=== PATIENT | male | born 1945 | race Hispanic/Latino ===

== ENCOUNTER 2018-02-12 08:01 | Day surgery (SDC) | payer OTHER ==
[2018-02-09 12:36] LABS: Absolute Monocytes 0.7 K/uL (0.1-1.3); Absolute Neutrophil 4.8 K/uL (1.8-8.0); Eosinophils % 3.7 % (0-4.4); Hematocrit 48.6 % (39.6-49.0); MCH 27.8 pg (27.0-35.0); MCV 85.8 fL (80-100); MPV 9.3 fL (7.6-11.3); Monocytes % 9.2 % (3.3-12.3); RBC Red Blood Cell Count 5.67 M/uL (4.33-5.43)
--- NOTE | 2018-02-09 12:45 | RAD REPORT ---
EXAM DESCRIPTION: RAD - Chest Single View - 02/09/2018 12:34 pm CLINICAL HISTORY: Coronary artery disease. Chest pain. COMPARISON: Chest Pa And Lat (2 Views) dated 06/06/2017; CHEST SINGLE VIEW dated 03/15/2014; CHEST PA AND LAT 2 VIEW dated 04/12/2003 FINDINGS: Portable technique limits examination quality. The lungs are grossly clear. The heart is normal in size. No displaced fractures. IMPRESSION: No acute intrathoracic process suspected.
[2018-02-09 12:49] LABS: Protime INR 1.01
[2018-02-09 12:58] LABS: Potassium 3.7 mmol/L (3.5-5.1)
[~2018-02-12 08:01] MED LIST: HEPA 1000U/500MLS 1,000 UNIT/500 ML BAG IV ONE; LIDOCAINE 1% 20 ML MDV ONE; NA CHLORIDE 0.9% 500 ML ONE
[2018-02-12] MEDS ORDERED: MIDAZOLAM HCL 2 MG/2 ML INJ ONE (08:20)
[2018-02-12] MEDS ORDERED: ATROPINE SULF 1 MG/10 ML SYR IV ONE (08:21)
[2018-02-12] MEDS ORDERED: NA CHLORIDE 0.9% 50 ML ONE (08:21)
[2018-02-12] MEDS ORDERED: FENTANYL CITR 100 MCG/2 ML ONE (08:21)
[2018-02-12] MEDS ORDERED: MORPHINE 4 MG/ML SYR ONE (09:11)
[2018-02-12] MEDS ORDERED: PRASUGREL (EFFIENT) 10 MG TAB ONE (09:12)
[2018-02-12] MEDS ORDERED: ASPIRIN 325 MG TAB ONE (09:15)
[2018-02-12] MEDS ORDERED: NA CHLORIDE 0.9% 1,000 ML IV SCH (10:00)
[2018-02-12] MEDS ORDERED: ZOLPIDEM TARTRATE 10 MG TABLET PO PRN (10:37)
[2018-02-12] MEDS ORDERED: MORPHINE 4 MG/ML SYR IV PRN (10:37)
[2018-02-12] MEDS ORDERED: ACETAMINOPHEN 325 MG TABLET PO PRN (11:00)
[2018-02-12] MEDS ORDERED: NITROGLYCERIN 0.4 MG/TAB SL PRN (11:00)
[2018-02-12 11:23] VITALS: BMI 36.8
[2018-02-12] MEDS ORDERED: PNEUMOCOCCAL VACCINE 0.5 ML IMVAC ONE (13:00)
[2018-02-12 14:21] VITALS: O2SAT 95
--- NOTE | 2018-02-12 15:47 | OP ---
Surgeon: Dillon Rosado MD Shingles Roofer Helper: Edita Schaffer. Procedure: Left heart catheterization, selective coronary arteriogram, and primary stent of the LAD. Indication: Unstable angina and positive stress test and coronary artery disease. Indications And Procedure: Mr. Metcalf is a 72-year-old, has a history of hypertension, dyslipidemi a, diabetes, coronary artery disease that was [id number] in 2002, unstable anginal symptoms, po sitive Cardiolite, set up for a heart catheterization as an outpatient, brought into the fence laborer, gi shelley 2 mg of Versed and 50 mg of fentanyl for sedation. A right common femoral artery access was obta ined with a 6-Thai sheath. There was some tortuosity in the iliac artery. Otherwise, there were n o difficulties getting the catheters through. Diagnostic catheterization showed 100% occlusion of th e RCA, left dominant. He has some diffuse disease in the distal circumflex. He had a 90% mid LAD. The plan was to intervene and use an XBLAD 3.5 with side-hole guide, a [place] wire 0.014, exchange le ngth. A 2.25 x 12 Synergy stent was deployed with 0% residual. There were no complications. Blood loss was 5 cc. Final Diagnoses: Coronary artery disease status post primary stent of the LAD. The patient received Angiomax, aspirin, and Effient 60 mg. Operators: Dillon Rosado M.D. Anesthesia: Conscious sedation was 45 minutes. Plan: The patient will be staying in the hospital overnight. He will go home tomorrow. He will inc rease his Pravachol to 80 mg daily. He will start Effient in addition to his medication and he will see me in 2 weeks. OSVALDO/JAMEEL Voice ID: [id number] Report ID: [id number]
[2018-02-12 18:17] LABS: Urine Appearance CLEAR; Urine Bilirubin NEGATIVE (NEG); Urine Blood 1+ (NEG); Urine Color YELLOW; Urine Glucose TRACE (NEG); Urine Protein NEGATIVE (NEG); Urine Specific Gravity >=1.030 (1.005-1.030); Urine Urobilinogen 0.2 mg/dL (0.2-1.0)
[2018-02-12 18:20] LABS: Urine Microscopic Reflex ORDER UMIC
[2018-02-12 18:32] LABS: Urine Bacteria <20 /HPF (NONE SEEN); Urine Culture Reflex Order NOT NEEDED; Urine RBC <5 /HPF (NONE SEEN)
[2018-02-12] MEDS ORDERED: ATORVASTATIN 80 MG TAB PO SCH (21:00)
[2018-02-12] MEDS ORDERED: D50W 25 GM/50 ML SYRINGE IV PRN (22:52)
[2018-02-12] MEDS ORDERED: GLUCAGON 1 MG/VIAL IM PRN (22:52)
[2018-02-13 05:47] LABS: Absolute Monocytes 0.7 K/uL (0.1-1.3); Basophils % 0.8 % (0-1.3); Eosinophils % 2.1 % (0-4.4); Hematocrit 42.5 % (39.6-49.0); MCH 28.5 pg (27.0-35.0); MCV 84.8 fL (80-100); MPV 9.4 fL (7.6-11.3); Monocytes % 7.4 % (3.3-12.3); RBC Red Blood Cell Count 5.02 M/uL (4.33-5.43)
[2018-02-13 06:01] LABS: Potassium 3.5 mmol/L (3.5-5.1)
[2018-02-13 08:35] VITALS: BP 117/80; TEMP 97.3
[2018-02-13] MEDS ORDERED: PRASUGREL (EFFIENT) 10 MG TAB PO SCH (09:00)
[2018-02-13] MEDS ORDERED: INSULIN DETEMIR 100 UNIT/1 ML INSULIN SQ SCH (09:00)
[2018-02-13] MEDS ORDERED: ASPIRIN 81 MG CHEWABLE TABLET PO SCH (09:00)
--- NOTE | 2018-02-13 09:22 | EKG ---
Test Date: 2018-02-13 Test Time: 08:06:53 [place]: MEGA MEASUREMENT RESULTS: Intervals: Rate: 59 IN: 176 QRSD: 124 QT: 466 QTc: 461 [place]: P: 41 IN: 176 QRS: -67 T: 71 INTERPRETIVE STATEMENTS: Sinus bradycardia Left anterior fascicular block Abnormal ECG Compared to ECG 10/02/2015 09:43:01 T-wave abnormality no longer present Electronically Signed On 02-13-18 09:22:34 CDT by Kyle Santiago
== END 2018-02-13 08:57 | disposition home or self-care (01) ==
LOC: CCL 08:01 → 4TH 09:15 → 2ND 18:45 → CCL 02-13 08:57
PROC: 4A023N7 Measurement of Cardiac Sampling and Pressure, Left Heart, Percutaneous Approach (ICD-10-PCS; principal; 2018-02-12)
PROC: B211YZZ Fluoroscopy of Multiple Coronary Arteries using Other Contrast (ICD-10-PCS; 2018-02-12)
PROC: 027034Z Dilation of Coronary Artery, One Artery with Drug-eluting Intraluminal Device, Percutaneous Approach (ICD-10-PCS; 2018-02-12)
PROC: 4A023N7 Measurement of Cardiac Sampling and Pressure, Left Heart, Percutaneous Approach (ICD-10-PCS; 2018-02-12)
PROC: B211YZZ Fluoroscopy of Multiple Coronary Arteries using Other Contrast (ICD-10-PCS; 2018-02-12)
DX: I25.110 Atherosclerotic heart disease of native coronary artery with unstable angina pectoris (principal); E78.5 Hyperlipidemia, unspecified; Z87.891 Personal history of nicotine dependence; I12.9 Hypertensive chronic kidney disease with stage 1 through stage 4 chronic kidney disease, or unspecified chronic kidney disease; E11.22 Type 2 diabetes mellitus with diabetic chronic kidney disease; N18.1 Chronic kidney disease, stage 1; E78.6 Lipoprotein deficiency; R01.1 Cardiac murmur, unspecified; Z79.4 Long term (current) use of insulin
CPT/HCPCS: 36415 ×2; 71045; 80048 ×2; 82962 ×2; 83690; 85025 ×2; 85347 ×3; 85610; 85730; 93005; 93454; C1725; C1760; C1877; C1893; C9600; J0583; J2250; J3010; 81003; 81015

== ENCOUNTER 2019-04-05 23:03 | Emergency (ER) | payer OTHER ==
[2019-04-06] MEDS ORDERED: TRAMADOL HCL 50 MG TAB ONE (00:50)
[2019-04-06] MEDS ORDERED: IBUPROFEN 400 MG TAB ONE (00:50)
[2019-04-06] MEDS ORDERED: ACETAMINOPHEN 500 MG TAB ONE (00:51)
--- NOTE | 2019-04-06 00:53 | ER ---
Nurse's Notes [facility] Name: Valentino Metcalf Age: 73 yrs Sex: Male : 1945 Arrival Date: 04/05/2019 Time: 23:09 Bed 27 Private MD: Diagnosis: Cough;Other chest pain-left lower ribs from coughing Presentation: 04/05 23:33 Presenting complaint: Patient states: I have persistent cough for days now. after rv supper, I am hurting my side (LUQ). pain is when I cough or move. Transition of care: patient was not received from another setting of care. Onset of symptoms was April 05, 2019 at 18:00. Risk Assessment: Do you want to hurt yourself or someone else? Patient reports no desire to harm self or others. Initial Sepsis Screen: Does the patient meet any 2 criteria? No. Patient's initial sepsis screen is negative. Does the patient have a suspected source of infection? No. Patient's initial sepsis screen is negative. Care prior to arrival: None. 23:33 Method Of Arrival: Ambulatory rv 23:33 Acuity: LYNDSEY 3 rv Historical: - Allergies: 23:41 No Known Allergies; rv - Home Meds: 04/06 00:07 Protonix 40 mg Oral TbEC 1 tab once daily [Active]; glipizide 10 mg Oral tab 1 tab 2 rv times per day [Active]; levothyroxine 100 mcg tab 1 tab once daily [Active]; losartan 100 mg oral tab 1 tab once daily [Active]; metoprolol tartrate 50 mg Oral tab 1 tab 2 times per day [Active]; pravastatin 40 mg oral tab 2 tabs once daily [Active]; aspirin 81 mg Oral chew 1 tab once daily [Active]; clopidogrel 75 mg oral tab 1 tab once daily [Active]; Lantus 100 unit/mL Sub-Q soln 100 unit/mL twice a day [Active]; nitroglycerin 0.4 mg SL subl 1 tab as needed [Active]; - PMHx: 04/05 23:41 Hypertension; Diabetes - NIDDM; Arthritis; rv - PSHx: 23:41 Knee surgery; back surgery; rv - Immunization history:: Adult Immunizations up to date. - Social history:: Smoking status: Patient/guardian denies using tobacco, never smoked. - Ebola Screening: : No symptoms or risks identified at this time. Screenin:43 Abuse screen: Denies threats or abuse. Denies injuries from another. Nutritional rv screening: No deficits noted. Tuberculosis screening: No symptoms or risk factors identified. Fall Risk None identified. Assessment: 23:41 General: Appears in no apparent distress. uncomfortable, Behavior is calm, cooperative. rv Pain: Complains of pain in left upper quadrant. Pain: Pain currently is 10 out of 10 on a pain scale. Quality of pain is described as sharp, Pain began suddenly, Is intermittent, Aggravated by cough and movement. Neuro: Level of Consciousness is awake, alert, obeys commands, Oriented to person, place, time, situation. Cardiovascular: Patient's skin is warm and dry. Respiratory: Airway is patent. GI: Bowel sounds present X 4 quads. Abd is soft and non tender X 4 quads. : No signs and/or symptoms were reported regarding the genitourinary system. EENT: No signs and/or symptoms were reported regarding the EENT system. Derm: Skin is intact. Musculoskeletal: No signs and/or symptoms reported regarding the musculoskeletal system. Vital Signs: 23:35 BP 142 / 83; Pulse 66; Resp 17; Temp 97.9; Pulse Ox 98% on R/A; Weight 110.68 kg; rv Height 5 ft. 8 in. (172.72 cm); Pain 10/10; 04/06 01:22 BP 136 / 84; Pulse 64; Resp 15; Temp 98; Pulse Ox 99% on R/A; rv 04/05 23:35 Body Mass Index 37.10 (110.68 kg, 172.72 cm) rv ED Course: 04/05 23:09 Patient arrived in ED. ag3 23:25 Jass Clemente PA is PHCP. cp 23:25 Jass Muro MD is Attending Physician. cp 23:33 Cj Kim RN is Primary Nurse. rv 23:35 Triage completed. rv 23:43 Patient has correct armband on for positive identification. Bed in low position. Call rv light in reach. Side rails up X 1. Adult w/ patient. Pulse ox on. NIBP on. 23:43 Patient placed in the treatment room, on a stretcher, on pulse oximetry, Patient rv notified of wait time. 04/06 01:18 XRAY Chest Pa And Lat (2 Views) In Process Unspecified. EDMS 01:22 No provider procedures requiring assistance completed. Patient did not have IV access rv during this emergency room visit. Administered Medications: 00:59 Drug: traMADol 50 mg {Note: rass 0.} Route: PO; rv 01:21 Follow up: Response: Medication administered at discharge. rv 00:59 Drug: Tylenol 1000 mg Route: PO; rv 01:21 Follow up: Response: Medication administered at discharge. rv 00:59 Drug: Ibuprofen 800 mg Route: PO; rv 01:21 Follow up: Response: Medication administered at discharge. rv Outcome: 00:42 Discharge ordered by MD. cp 01:24 Discharged to home ambulatory. rv 01:24 Condition: good 01:24 Discharge instructions given to patient, Instructed on discharge instructions, follow up and referral plans. medication usage, Demonstrated understanding of instructions, follow-up care, medications, Prescriptions given X 3. 01:25 Patient left the ED. rv Signatures: Dispatcher [employer] EDMS Jass Clemente PA PA cp Vicente, Ronaldo, RN RN Carmina Laguna3
--- NOTE | 2019-04-06 00:55 | EDPHYS ---
Physician Documentation [facility] Name: Valentino Metcalf Age: 73 yrs Sex: Male : 1945 Arrival Date: 04/05/2019 Time: 23:09 Bed 27 Private MD: ED Physician Jass Muro HPI: 04/05 23:39 This 73 yrs old Male presents to ER via Ambulatory with complaints of left cp lower rib pain. 23:40 The patient or guardian reports chest pain that is located primarily in the left lower cp rib area. 23:41 Onset: tonight after dinner. Modifying factors: the symptoms are aggravated by cough, cp movement. 23:41 Associated signs and symptoms: Pertinent negatives: diaphoresis, lower extremity pain, cp lower extremity swelling, shortness of breath, vomiting, fever. Historical: - Allergies: 23:41 No Known Allergies; rv - Home Meds: 04/06 00:07 Protonix 40 mg Oral TbEC 1 tab once daily [Active]; glipizide 10 mg Oral tab 1 tab 2 rv times per day [Active]; levothyroxine 100 mcg tab 1 tab once daily [Active]; losartan 100 mg oral tab 1 tab once daily [Active]; metoprolol tartrate 50 mg Oral tab 1 tab 2 times per day [Active]; pravastatin 40 mg oral tab 2 tabs once daily [Active]; aspirin 81 mg Oral chew 1 tab once daily [Active]; clopidogrel 75 mg oral tab 1 tab once daily [Active]; Lantus 100 unit/mL Sub-Q soln 100 unit/mL twice a day [Active]; nitroglycerin 0.4 mg SL subl 1 tab as needed [Active]; - PMHx: 04/05 23:41 Hypertension; Diabetes - NIDDM; Arthritis; rv - PSHx: 23:41 Knee surgery; back surgery; rv - Immunization history:: Adult Immunizations up to date. - Social history:: Smoking status: Patient/guardian denies using tobacco, never smoked. - Ebola Screening: : No symptoms or risks identified at this time. ROS: 23:50 Constitutional: Negative for body aches, chills, fever, poor PO intake. cp 23:50 Eyes: Negative for injury, pain, redness, and discharge. cp 23:50 ENT: Positive for sore throat, Negative for drainage from ear(s), ear pain, difficulty swallowing, difficulty handling secretions. 23:50 Cardiovascular: Positive for left lower rib pain, Negative for edema, palpitations. 23:50 Respiratory: Positive for cough, "sounds productive", Negative for hemoptysis, shortness of breath, wheezing. 23:50 Abdomen/GI: Negative for vomiting, diarrhea, constipation, black/tarry stool, rectal bleeding. 23:50 Back: Negative for pain at rest, pain with movement. 23:50 : Negative for urinary symptoms, flank pain. 23:50 Skin: Negative for rash. 23:50 Neuro: Negative for altered mental status, headache, syncope, weakness. 23:50 All other systems are negative. Exam: 23:55 Constitutional: The patient appears in no acute distress, alert, awake, cp non-diaphoretic, non-toxic, well developed, well nourished. 23:55 Head/Face: Normocephalic, atraumatic. cp 23:55 Eyes: Periorbital structures: appear normal, Conjunctiva: normal, no exudate, no injection, Sclera: no appreciated abnormality, Lids and lashes: appear normal, bilaterally. 23:55 ENT: External ear(s): are unremarkable, Ear canal(s): are normal, clear, TM's: bulging, is not appreciated, bilaterally, dullness, bilaterally, erythema, is not appreciated, bilaterally, Nose: is normal, Mouth: Lips: moist, Oral mucosa: pink and intact, moist, Posterior pharynx: Airway: no evidence of obstruction, patent, erythema, that is mild, exudate, is not appreciated. 23:55 Neck: ROM/movement: is normal, is supple, without pain, no range of motions limitations, no nuchal rigidity. 23:55 Chest/axilla: Inspection: normal, Palpation: crepitus, is not appreciated, tenderness, that is mild, of the left lower lateral ribs. 23:55 Cardiovascular: Rate: normal, Rhythm: regular, Edema: is not appreciated, JVD: is not appreciated. 23:55 Respiratory: the patient does not display signs of respiratory distress, Respirations: normal, no use of accessory muscles, no retractions, no splinting, no tachypnea, labored breathing, is not present, Breath sounds: are clear throughout, no decreased breath sounds, no stridor, no wheezing. 23:55 Abdomen/GI: Inspection: abdomen appears normal, Palpation: abdomen is soft and non-tender, in all quadrants. 23:55 Back: pain, is absent, ROM is normal. 23:55 Skin: no rash present. 23:55 Neuro: Orientation: to person, place \\T\\ time. Mentation: is normal, Motor: moves all fours, strength is normal. Vital Signs: 23:35 BP 142 / 83; Pulse 66; Resp 17; Temp 97.9; Pulse Ox 98% on R/A; Weight 110.68 kg; rv Height 5 ft. 8 in. (172.72 cm); Pain 10; 04/06 01:22 BP 136 / 84; Pulse 64; Resp 15; Temp 98; Pulse Ox 99% on R/A; rv 04/05 23:35 Body Mass Index 37.10 (110.68 kg, 172.72 cm) rv MDM: 04/05 23:26 Patient medically screened. cp 23:30 Differential diagnosis: acute myocardial infarction, chest wall pain, costochondritis, cp pleurisy, pneumonia, pulmonary embolus, rib fracture. 04/06 00:41 Data reviewed: vital signs, nurses notes, radiologic studies, plain films. cp 00:41 Test interpretation: by ED physician or midlevel provider: chest xray negative for cp infiltrates. Response to treatment: the patient's symptoms have markedly improved after treatment, and as a result, I will discharge patient. 04/05 23:52 Order name: Strep cp 04/05 23:42 Order name: XRAY Chest Pa And Lat (2 Views) cp Administered Medications: 00:59 Drug: traMADol 50 mg {Note: rass 0.} Route: PO; rv 01:21 Follow up: Response: Medication administered at discharge. rv 00:59 Drug: Tylenol 1000 mg Route: PO; rv 01:21 Follow up: Response: Medication administered at discharge. rv 00:59 Drug: Ibuprofen 800 mg Route: PO; rv 01:21 Follow up: Response: Medication administered at discharge. rv Disposition: 07:13 Co-signature as Attending Physician, Jass Muro MD I agree with the assessment and henry plan of care. Disposition: 04/06/19 00:42 Discharged to Home. Impression: Cough, Other chest pain - left lower ribs from coughing. - Condition is Stable. - Discharge Instructions: Cough, Adult. - Prescriptions for Tessalon Perles 100 mg Oral Capsule - take 2 capsule by ORAL route every 8 hours As needed; 30 capsule. Ibuprofen 800 mg Oral Tablet - take 1 tablet by ORAL route every 8 hours As needed take with food; 30 tablet. - Medication Reconciliation Form, Thank You Letter, Antibiotic Education, Prescription Opioid Use form. - Follow up: Private Physician; When: 1 - 2 days; Reason: Worsening of condition. - Problem is new. - Symptoms have improved. Signatures: Dispatcher [employer] EDJass Miranda MD MD cha Page, Corey, PA PA Cj Ramirez, RN RN rv Corrections: (The following items were deleted from the chart) 04/05 23:41 23:40 Onset: cp shayla 04/06 01:25 00:42 04/06/2019 00:42 Discharged to Home. Impression: Cough; Other chest pain - left rv lower ribs from coughing. Condition is Stable. Forms are Medication Reconciliation Form, Thank You Letter, Antibiotic Education, Prescription Opioid Use. Follow up: Private Physician; When: 1 - 2 days; Reason: Worsening of condition. Problem is new. Symptoms have improved. cp
[2019-04-06 01:33] VITALS: BP 136/84; TEMP 98; O2SAT 99
--- NOTE | 2019-04-06 08:06 | RAD REPORT ---
EXAM DESCRIPTION: RAD - Chest Pa And Lat (2 Views) - 04/06/2019 12:24 am CLINICAL HISTORY: left lower rib pain;Cough Chest pain. COMPARISON: Chest Pa And Lat (2 Views) dated 11/11/2018; Chest Single View dated 02/09/2018; Chest Pa And Lat (2 Views) dated 06/06/2017; CHEST SINGLE VIEW dated 03/15/2014 FINDINGS: The lungs are clear. The heart is normal in size. No displaced fractures. IMPRESSION: No acute or concerning finding suspected.
== END 2019-04-06 01:25 | disposition home or self-care (01) ==
LOC: ER 23:03
DX: R05 Cough (principal); I10 Essential (primary) hypertension; E11.9 Type 2 diabetes mellitus without complications; Z79.4 Long term (current) use of insulin; Z79.82 Long term (current) use of aspirin
CPT/HCPCS: 71046; 87070; 87081; 99284

== ENCOUNTER 2020-05-28 11:31 | Observation (INO) | payer OTHER ==
[2020-05-28 12:21] LABS: Absolute Lymphocytes (CBC) 1.2 K/uL (0.7-4.9); Basophils % 1.2 % (0-1.3); Lymphocytes % 16.5 % (15.3-44.8); MPV 9.3 fL (7.6-11.3); RBC Red Blood Cell Count 5.21 M/uL (4.33-5.43)
[2020-05-28 12:25] LABS: Protime INR 1.02
[2020-05-28 12:40] LABS: ALT/SGPT 34 U/L (12-78); AST/SGOT 17 U/L (15-37); Albumin 3.3 g/dL (3.4-5.0); Alkaline Phosphatase 67 U/L (45-117); BUN Blood Urea Nitrogen 25 mg/dL (7-18); Bicarbonate 31 mmol/L (21-32); Bilirubin Direct 0.3 mg/dL (0-0.2); Bilirubin Total 1.1 mg/dL (0.2-1.0); Glucose Level 258 mg/dL (74-106); Magnesium 2.3 mg/dL (1.8-2.4); NT PRO-BNP 99 pg/mL (<125); Potassium 4.2 mmol/L (3.5-5.1); Protein, Total 7.4 g/dL (6.4-8.2); Sodium Level 140 mmol/L (136-145); Troponin (Emerg Dept Use Only) < 0.02 ng/mL (0.0-0.045)
--- NOTE | 2020-05-28 12:57 | RAD REPORT ---
EXAM DESCRIPTION: RAD - Chest Single View - 05/28/2020 12:10 pm CLINICAL HISTORY: CHEST PAIN, shortness of breath COMPARISON: March 2019 TECHNIQUE: AP portable chest image was obtained 05/28/2020 12:10 pm . FINDINGS: Lung volume is low. Interstitial markings are accentuated by the low lung volumes. No foca l lung parenchymal process seen. Heart and vasculature are normal. No measurable pleural effusion and no pneumothorax. No acute bony abnormality seen. No acute aortic findings suspected. IMPRESSION: No acute cardiopulmonary process. No worrisome change from comparison.
--- NOTE | 2020-05-28 13:15 | EDPHYS ---
Physician Documentation [facility] Name: Valentino Metcalf Age: 74 yrs Sex: Male : 1945 Arrival Date: 05/28/2020 Time: 11:33 Bed 7 Private MD: ED Physician Alistair Guy HPI: 05/28 11:40 This 74 yrs old Male presents to ER via Unassigned with complaints of Chest ps1 Pain. 11:40 Hx of CAD s/p stenting, (Baradhi), HTN, HLD, IDDM2, Presenting with substernal ps1 non-radiating chest pain that started at 0400. States that he took a nitro. Pain rated at a 5 now. Was associated with diaphoresis. Since improved. . Historical: - Allergies: 11:45 No Known Allergies; ll1 - PMHx: 11:45 Arthritis; Diabetes - NIDDM; Hypertension; Hypothyroidism; High Cholesterol; ll1 - PSHx: 11:45 Knee surgery; back surgery; heart stent; cataract repair; ll1 - Immunization history:: Flu vaccine is not up to date. - Social history:: Smoking status: Patient denies any tobacco usage or history of. ROS: 11:40 Constitutional: Negative for fever, chills, and weight loss, Eyes: Negative for injury, ps1 pain, redness, and discharge, Respiratory: Negative for shortness of breath, cough, wheezing, and pleuritic chest pain, Abdomen/GI: Negative for abdominal pain, nausea, vomiting, diarrhea, and constipation, MS/Extremity: Negative for injury and deformity, Skin: Negative for injury, rash, and discoloration. 11:40 Cardiovascular: Positive for chest pain, of the chest. Exam: 11:43 Constitutional: This is a well developed, well nourished patient who is awake, alert, ps1 and in no acute distress. Head/Face: Normocephalic, atraumatic. Eyes: Pupils equal round and reactive to light, extra-ocular motions intact. Lids and lashes normal. Conjunctiva and sclera are non-icteric and not injected. Cardiovascular: Regular rate and rhythm. No gallops, murmurs, or rubs. Normal PMI, no JVD. No pulse deficits. Respiratory: Lungs have equal breath sounds bilaterally, clear to auscultation and percussion. No rales, rhonchi or wheezes noted. No increased work of breathing, no retractions or nasal flaring. Abdomen/GI: Soft, non-tender, with normal bowel sounds. No distension or tympany. No guarding or rebound. No evidence of tenderness throughout. Skin: Warm, dry with normal turgor. Normal color with no rashes, no lesions, and no evidence of cellulitis. MS/ Extremity: Pulses equal, no cyanosis. Neurovascular intact. Full, normal range of motion. Neuro: Awake and alert, GCS 15, oriented to person, place, time, and situation. Cranial nerves II-XII grossly intact. Sensory grossly intact. 11:43 Skin: post surgical scar on left knee.. Vital Signs: 11:43 BP 155 / 71; Pulse 61; Resp 18; Temp 97.9; Pulse Ox 100% ; Pain 5/10; ll1 12:55 BP 154 / 83; Pulse 58; Resp 17; Pulse Ox 96% on R/A; hb 14:00 BP 119 / 65; Pulse 56; Resp 16; Pulse Ox 96% ; sv MDM: 11:45 Patient medically screened. ps1 05/28 11:52 Order name: Basic Metabolic Panel; Complete Time: 12:41 ps1 05/28 11:52 Order name: CBC with Diff; Complete Time: 12:34 ps1 05/28 11:52 Order name: LFT's; Complete Time: 12:41 ps1 05/28 11:52 Order name: Magnesium; Complete Time: 12:41 ps1 05/28 11:52 Order name: NT PRO-BNP; Complete Time: 12:41 ps1 05/28 11:52 Order name: PT-INR; Complete Time: 12:34 ps1 05/28 11:52 Order name: Troponin (emerg Dept Use Only); Complete Time: 12:41 ps1 05/28 13:27 Order name: Basic Metabolic Panel EDMS 05/28 13:27 Order name: Basic Metabolic Panel EDMS 05/28 13:27 Order name: CBC with Automated Diff EDMS 05/28 13:27 Order name: CBC with Automated Diff EDMS 05/28 13:27 Order name: Lipid Profile EDMS 05/28 13:27 Order name: Lipid Profile EDMS 05/28 13:27 Order name: PTT, Activated Partial Thromb EDMS 05/28 11:52 Order name: XRAY Chest (1 view); [facility]: [facility] 11:52 Order name: EKG; Complete Time: 11:53 [facility] 05/28 11:52 Order name: Cardiac monitoring; Complete Time: 12:10 [facility] 05/28 11:52 Order name: EKG - Nurse/Tech; Complete Time: 11:59 ps1 05/28 11:52 Order name: IV Saline Lock; Complete Time: 12:10 [facility] 05/28 11:52 Order name: Labs collected and sent; Complete Time: 12:10 [facility] 05/28 11:52 Order name: O2 Per Protocol; Complete Time: 11:59 [facility] 05/[facility] 13:27 Order name: CONS Physician Consult EDMN 05/28 13:27 Order name: Heart Healthy EDMN 05/28 13:27 Order name: Echo with Doppler EDMN 05/28 13:27 Order name: EKG Electrocardiogram EDMN 05/28 13:27 Order name: EKG Electrocardiogram [facility] 05/28 13:27 Order name: PTT, Activated Partial Thromb EDMN 05/28 13:27 Order name: Troponin I EDMN 05/28 13:27 Order name: Troponin I EDMN 05/28 13:27 Order name: Troponin I EDMN 05/28 11:52 Order name: O2 Sat Monitoring; Complete Time: 11:59 ps1 Administered Medications: No medications were administered Disposition: 05/28/20 13:15 Hospitalization ordered by Vinayak Villarreal for Observation. Preliminary diagnosis is Unstable angina. - Bed requested for Telemetry/MedSurg (observation). - Status is Observation. sv - Condition is Stable. - Problem is new. - Symptoms have improved. Signatures: Dispatcher [employer] EDMS Sammie Taylor, RN RN sv Aislinn Bowman RN RN tl1 Anne Valenzuela 3 Alistair Guy MD MD ps1 Nicanor Ardon RN RN ll1 Corrections: (The following items were deleted from the chart) 14:03 13:15 Hospitalization Ordered by Vinayak Villarreal MD for Observation. Preliminary [facility] diagnosis is Unstable angina. Bed requested for Telemetry/MedSurg (observation). Status is Observation. Condition is Stable. Problem is new. Symptoms have improved. ps1 14:04 14:03 05/28/2020 13:15 Hospitalization Ordered by Vinayak Villarreal MD for Observation. tl1 Preliminary diagnosis is Unstable angina. Bed requested for Telemetry/MedSurg (observation). Status is Observation. Condition is Stable. Problem is new. Symptoms have improved. dh3 14:39 14:04 05/28/2020 13:15 Hospitalization Ordered by Vinayak Villarreal MD for Observation. sv Preliminary diagnosis is Unstable angina. Bed requested for Telemetry/MedSurg (observation). Status is Observation. Condition is Stable. Problem is new. Symptoms have improved. tl1
--- NOTE | 2020-05-28 13:15 | ER ---
Nurse's Notes [facility] Name: Valnetino Metcalf Age: 74 yrs Sex: Male : 1945 Arrival Date: 05/28/2020 Time: 11:33 Bed 7 Private MD: Diagnosis: Unstable angina Presentation: 05/28 11:43 Chief complaint: Patient states: Reports feeling anxiety since 4 am. 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 Coronavirus screen: Client denies travel out of the [place] in the last 14 days. At this time, the client does not indicate any symptoms associated with coronavirus-19. Ebola Screen: Patient denies travel to an Ebola-affected area in the 21 days before illness onset. Initial Sepsis Screen: Does the patient meet any 2 criteria? No. Patient's initial sepsis screen is negative. Does the patient have a suspected source of infection? Yes: Other: chest pain. Risk Assessment: Do you want to hurt yourself or someone else? Patient reports no desire to harm self or others. Onset of symptoms was May 28, 2020. 11:43 Method Of Arrival: Ambulatory ll1 11:43 Acuity: LYNDSEY 3 ll1 Historical: - Allergies: 11:45 No Known Allergies; ll1 - PMHx: 11:45 Arthritis; Diabetes - NIDDM; Hypertension; Hypothyroidism; High Cholesterol; ll1 - PSHx: 11:45 Knee surgery; back surgery; heart stent; cataract repair; ll1 - Immunization history:: Flu vaccine is not up to date. - Social history:: Smoking status: Patient denies any tobacco usage or history of. Screenin:59 Abuse screen: Denies threats or abuse. Denies injuries from another. Nutritional hb screening: No deficits noted. Tuberculosis screening: No symptoms or risk factors identified. Fall Risk None identified. Assessment: 12:00 General: Appears in no apparent distress. Behavior is calm, cooperative. Pain: hb Complains of pain in chest Pain does not radiate. Pain currently is 5 out of 10 on a pain scale. Pain began 2-3 days ago. Neuro: Level of Consciousness is awake, alert, obeys commands, Oriented to person, place, time, situation. Cardiovascular: Capillary refill < 3 seconds Patient's skin is warm and dry. Respiratory: Respiratory effort is even, unlabored, Respiratory pattern is regular, symmetrical. GI: No signs and/or symptoms were reported involving the gastrointestinal system. : No signs and/or symptoms were reported regarding the genitourinary system. EENT: No signs and/or symptoms were reported regarding the EENT system. Derm: Skin is pink, warm \T\ dry. Musculoskeletal: No signs and/or symptoms reported regarding the musculoskeletal system. 12:55 Reassessment: Patient appears in no apparent distress at this time. Patient and/or hb family updated on plan of care and expected duration. Pain level reassessed. Patient is alert, oriented x 3, equal unlabored respirations, skin warm/dry/pink. 14:13 Reassessment: Attempted to call report, Araseli RN to call back. sv Vital Signs: 11:43 BP 155 / 71; Pulse 61; Resp 18; Temp 97.9; Pulse Ox 100% ; Pain 5/10; ll1 12:55 BP 154 / 83; Pulse 58; Resp 17; Pulse Ox 96% on R/A; hb 14:00 BP 119 / 65; Pulse 56; Resp 16; Pulse Ox 96% ; sv ED Course: 11:33 Patient arrived in ED. mr 11:34 Rin Vázquez, RN is Primary Nurse. ph 11:34 Alistair Guy MD is Attending Physician. ps1 11:44 Triage completed. ll1 11:45 Arm band placed on Patient placed in an exam room, on a stretcher. ll1 11:59 Patient has correct armband on for positive identification. Placed in gown. Bed in low hb position. Call light in reach. Side rails up X 1. rn case manager on. Pulse ox on. NIBP on. 11:59 Patient maintains SpO2 saturation greater than 95% on room air. hb 12:05 Initial lab(s) drawn, by me, sent to lab. EKG done, by ED staff, reviewed by Alistair Guy MD. Inserted saline lock: 20 gauge in right antecubital area, using aseptic technique. Blood collected. 12:08 No provider procedures requiring assistance completed. ph 12:11 XRAY Chest (1 view) In Process Unspecified. EDMS 13:14 Vinayak Villarreal MD is Hospitalizing Provider. ps1 14:13 Patient admitted, IV remains in place. intact. sv Administered Medications: No medications were administered Outcome: 13:15 Decision to Hospitalize by Provider. ps1 14:34 Admitted to Tele accompanied by tech, family with patient, via wheelchair, room 220, hb Report called to SHAKIRA Marx 14:34 Condition: stable 14:34 Instructed on the need for admit, Demonstrated understanding of instructions. 14:39 Patient left the ED. sv Signatures: Dispatcher [employer] EDSammie Leyva RN RN Wen, Elis mr Rin Vázquez RN RN Rena John RN RN Alistair Guy MD MD [facility] Nicanor Ardon RN RN ll1
[2020-05-28] MEDS ORDERED: MORPHINE 4 MG/ML SYR IV PRN (13:23)
[2020-05-28] MEDS ORDERED: ALPRAZOLAM 0.25 MG TABLET PO PRN (13:23)
[2020-05-28 16:08] VITALS: BMI 39.2
--- NOTE | 2020-05-28 16:10 | P.HP ---
Certification for Inpatient Patient admitted to: Observation With expected LOS: <2 Midnights Patient will require the following post-hospital care: None Practitioner: I am a practitioner with admitting privileges, knowledge of patient current condition, hospital course, and medical plan of care. Services: Services provided to patient in accordance with Admission requirements found in Title 42 Section 412.3 of the Code of Federal Regulations Patient History Date of Service: 05/28/20 Reason for admission: Chest pain rule out acute coronary syndrome History of Present Illness: Patient is a 74-year-old gentleman who came to the hospital with chest discomfort. He has had the chest pain on and off for the last year. He said he had it worked up earlier this year with a stress test and an echo and it was unremarkable. However the chest pain continues. It became severe so he was brought into the emergency room for further evaluation. In the ER his troponins and EKG were negative. He still having some chest discomfort and it was alleviated when they gave him nitroglycerin. At this time, he will be admitted to the hospital. There is concern that he may have unstable angina. Will Consult Cardiology in the morning as well. Admit patient to the hospital for further evaluation under observation status. Patient does have a history of Coronary artery Disease any he has had a prior stent placed. He does remember taking anti-platelet therapy prior to this. Will review his home medication list and check the lipid profile in the morning as well. Allergies No Known Allergies Allergy (Verified 10/02/15 09:32) Home Medications: Glipizide [Glipizide ER] 10 mg PO BID 03/15/14 Levothyroxine [Synthroid*] 0.1 mg PO DAILY 03/15/14 Losartan Potassium [Cozaar] 100 mg PO DAILY 03/15/14 Metoprolol Tartrate [Lopressor*] 25 mg PO BID 03/15/14 Pravastatin [Pravachol*] 40 mg PO BEDTIME 03/15/14 Aspirin [Aspirin EC] 81 mg PO DAILY 10/02/15 Cyclosporine [Restasis] 1 each OP BID 02/12/18 Dexamethasone/Pf [Dexycu 9% Vial] 1 drop EACH EYE BID 02/12/18 Insulin Glargine,Hum.rec.anlog [Lantus] 100 units SQ BID 02/12/18 - Past Medical/Surgical History Diabetic: Yes -: High Blood Pressure -: Diabetes-IDDM -: Hypothyroid -: CAD -: Back sx -: left leg sx -: CAtaract both eyes - Family History Father Family History: Reviewed- Non-Contributory - Social History Alcohol use: Yes CD- Drugs: No Caffeine use: Yes Review of Systems 10-point ROS is otherwise unremarkable Physical Examination - Vital Signs Temperature: 97.9 F Blood Pressure: 119/65 Pulse: 56 Respirations: 16 Pulse Ox (%): 98 - Physical Exam General: Alert, In no apparent distress, Oriented x3 HEENT: Atraumatic, PERRLA, Mucous membr. moist/pink, EOMI, Sclerae nonicteric Neck: Supple, 2+ carotid pulse no bruit, No LAD, Without JVD or thyroid abnormality Respiratory: Clear to auscultation bilaterally, Normal air movement Cardiovascular: Regular rate/rhythm, Normal S1 S2, Systolic murmur Gastrointestinal: Normal bowel sounds, Soft and benign, Non-distended, No tenderness Musculoskeletal: No clubbing, No swelling, No tenderness Integumentary: No rashes Neurological: Normal gait, Normal speech, Normal strength at 5/5 x4 extr, Normal tone, Sensation intact, Cranial nerves 3-12 intact, Normal affect Lymphatics: No axilla or inguinal lymphadenopathy - Studies Laboratory Data (last 24 hrs) 05/28/20 12:05: PT 12.0, INR 1.02 05/28/20 12:05: WBC 7.0, Hgb 14.8, Hct 45.0, Plt Count 205 05/28/20 12:05: Sodium 140, Potassium 4.2, BUN 25 H, Creatinine 1.91 H, Glucose 258 H, Magnesium 2.3, Total Bilirubin 1.1 H, AST 17, ALT 34, Alkaline Phosphatase 67 Assessment & Plan - Problems (Diagnosis) (1) Chest pain, rule out acute myocardial infarction Current Visit: Yes Status: Acute (2) CAD (coronary artery disease) Onset Date: 02/13/18 Current Visit: No Status: Acute (3) Diabetes mellitus, type II Current Visit: No Status: Acute (4) Hyperlipidemia Current Visit: No Status: Acute (5) Hypertension Current Visit: No Status: Acute - Plan 1. Serial troponins and EKG 2. Cardiology consultation 3. Echocardiogram in AM 4. Anti-platelet therapy, anti coagulation, beta-pippa, statin, and O2 as needed 5. IV morphine for pain 6. Nitro paste 7. Strict blood sugar control 8. Monitor hemodynamics closely 9. GI and DVT prophylax - Advance Directives Does patient have a Living Will: No Does patient have a Durable POA for Healthcare: No
[2020-05-28] MEDS ORDERED: D50W 25 GM/50 ML SYRINGE/VIAL IV PRN ×2 (16:26→19:41)
[2020-05-28] MEDS ORDERED: GLUCAGON 1 MG/VIAL IM PRN ×2 (16:26→19:41)
[2020-05-28] MEDS ORDERED: NITROGLYCERIN 0.4 MG/TAB SL PRN (16:26)
[2020-05-28] MEDS: GLIPIZIDE S.A. 5 MG TAB PO SCH ×2 (16:47→20:39)
[2020-05-28] MEDS ORDERED: MORPHINE 2 MG/ML SYR ONE (16:47)
[2020-05-28] MEDS: NITROGLYCERIN 1 GM PKT TD SCH ×2 (16:48→20:40)
[2020-05-28] MEDS ORDERED: NITROGLYCERIN 1 GM PKT TD ONE (16:56)
[2020-05-28] MEDS ORDERED: glipiZIDE 5 MG TAB ONE (16:58)
[2020-05-28] MEDS: METOPROLOL TAR 50 MG TAB PO SCH (20:40)
[2020-05-28] MEDS: INSULIN GLARGINE 100 UNITS/ML SQ SCH (20:41)
[2020-05-28] MEDS ORDERED: METOPROLOL TAR 25 MG TAB PO SCH (21:00)
[2020-05-28] MEDS ORDERED: ENOXAPARIN 100 MG/ML SYR SQ SCH (21:00)
[2020-05-28] MEDS ORDERED: INSULIN GLARGINE 100 UNITS/ML SQ SCH (21:00)
[2020-05-28] MEDS ORDERED: ATORVASTATIN 40 MG TAB PO SCH (21:00)
[2020-05-29 04:27] LABS: Absolute Lymphocytes (CBC) 1.7 K/uL (0.7-4.9); Basophils % 0.9 % (0-1.3); Hematocrit 41.3 % (39.6-49.0); MPV 9.3 fL (7.6-11.3); RBC Red Blood Cell Count 4.82 M/uL (4.33-5.43)
[2020-05-29 04:42] LABS: BUN Blood Urea Nitrogen 28 mg/dL (7-18); Bicarbonate 31 mmol/L (21-32); Glucose Level 214 mg/dL (74-106); HDL Cholesterol 31 mg/dL (40-60); LDL Cholesterol, Calculated 30 (<130); Potassium 3.7 mmol/L (3.5-5.1); Sodium Level 139 mmol/L (136-145); Troponin I < 0.02 ng/mL (0.0-0.045)
[2020-05-29 04:58] VITALS: O2SAT 96
--- NOTE | 2020-05-29 07:43 | EKG ---
Test Date: 2020-05-28 Test Time: 11:57:01 Reading Instructor: VALDEZ MEASUREMENT RESULTS: Intervals: Rate: 60 TX: 184 QRSD: 128 QT: 448 QTc: 448 [place]: P: 35 TX: 184 QRS: -70 T: 64 INTERPRETIVE STATEMENTS: Normal sinus rhythm Left axis deviation Nonspecific intraventricular block Nonspecific T wave abnormality Abnormal ECG Compared to ECG 02/13/2018 08:06:53 Left-axis deviation now present T-wave abnormality now present Sinus bradycardia no longer present Left anterior fascicular block no longer present Electronically Signed On 05-29-20 07:42:49 CDT by Dillon Rosado
[2020-05-29] MEDS ORDERED: INFLUENZA VACCINE (for 3y+) 0.5 ML DOSE IMVAC ONE (08:00)
--- NOTE | 2020-05-29 08:33 | P.DS ---
Admission Date: 05/28/20 Discharge Date: 05/29/20 Primary Care Provider: Dr. Quiros Disposition: ROUTINE DISCHARGE Discharge Condition: GOOD Reason for Admission: Chest pain rule out acute coronary syndrome Consultations: Cardiology-Dr. Israel Procedures: Impression: Chest pain suspect unstable angina with history of CAD and prior stent to the LAD Hypertension Diabetes mellitus type 2 insulin-dependent with hyperglycemia Chronic renal disease stage III Hyperlipidemia Hypothyroidism Obesity, BMI 39.2 Brief History of Present Illness: 74-year-old male with history of CAD with prior stent to the LAD, diabetes mellitus type 2, hypertension, hyperlipidemia, and hypothyroidism. Patient presented with chest pain. Patient reports having stress tests and echocardiogram within the past year which was unremarkable. Concern for unstable angina. Patient admitted for further evaluation and treatment. Hospital Course: 74-year-old male with history of CAD and prior stent to LAD. Patient with other multiple medical problems including diabetes, hypertension, hyperlipidemia and hypothyroidism. Patient admitted for further evaluation and treatment. Unstable angina was suspected. Cardiology consulted to further evaluate. Cardiac enzymes unremarkable. No need for further inpatient evaluation . He will follow up with Cardiology within one week for outpatient stress test. He will continue with his current meds-ASA and Plavix. Patient with diabetes mellitus type 2 insulin dependent. A1c obtained. Patient with hyperglycemia. Patient needs better control. At discharge patient will continue with his current medications-Lantus and glipizide. Recommend to maintain blood sugar less than 140 fasting and less than 200 after meals. Further adjustment can be done by his PCP. Patient with hypertension. At discharge patient may continue with metoprolol 50 mg 1 pill twice daily and losartan 100 mg daily. Recommend to maintain blood pressure less 150/80. Further adjustment can be done by his PCP. Patient with hyperlipidemia. LDL 30. At discharge patient will continue with pravastatin 80 mg daily. Patient with hypothyroidism. At discharge patient will continue with levothyroxine 100 mcg daily. Patient with chronic renal disease stage III. Renal function appear stable. Recommend no further use of nonsteroidal anti-inflammatories. Future medications will need to be renally dose. Recommend to establish care with nephrology as an outpatient to further address and monitor. Recommend to recheck lab-BMP in 2-4 weeks to monitors progress. Vital Signs/Physical Exam: Temp Pulse Resp BP Pulse Ox 97.9 F 56 16 119/65 98 05/29/20 08:05 05/29/20 08:05 05/29/20 08:05 05/29/20 08:05 05/29/20 08:05 General: Alert, In no apparent distress, Oriented x3, Cooperative HEENT: Atraumatic Neck: Supple Respiratory: Clear to auscultation bilaterally, Normal air movement Cardiovascular: Normal pulses, Regular rate/rhythm Gastrointestinal: Normal bowel sounds, Soft and benign, Non-distended, No tenderness, No masses, No rebound, No guarding Musculoskeletal: No erythema, No tenderness, No warmth Integumentary: No tenderness/swelling, No erythema, No warmth, No cyanosis Neurological: Normal speech, Normal strength at 5/5 x4 extr, Normal tone, Normal affect Laboratory Data at Discharge: WBC 7.8 K/uL (4.3-10.9) 05/29/20 03:50 Hgb 13.6 g/dL (13.6-17.9) 05/29/20 03:50 Hct 41.3 % (39.6-49.0) 05/29/20 03:50 Plt Count 179 K/uL (152-406) 05/29/20 03:50 PT 12.0 SECONDS (9.5-12.5) 05/28/20 12:05 INR 1.02 05/28/20 12:05 APTT 33.6 SECONDS (24.3-36.9) 05/29/20 03:50 Sodium 139 mmol/L (136-145) 05/29/20 03:50 Potassium 3.7 mmol/L (3.5-5.1) 05/29/20 03:50 BUN 28 mg/dL (7-18) H 05/29/20 03:50 Creatinine 1.65 mg/dL (0.55-1.3) H 05/29/20 03:50 Glucose 214 mg/dL (74-106) H 05/29/20 03:50 Magnesium 2.3 mg/dL (1.8-2.4) 05/28/20 12:05 Total Bilirubin 1.1 mg/dL (0.2-1.0) H 05/28/20 12:05 AST 17 U/L (15-37) 05/28/20 12:05 ALT 34 U/L (12-78) 05/28/20 12:05 Alkaline Phosphatase 67 U/L (45-117) 05/28/20 12:05 Troponin I < 0.02 ng/mL (0.0-0.045) 05/29/20 03:50 Triglycerides 154 mg/dL (<150) H 05/29/20 03:50 Cholesterol 92 mg/dL (<200) 05/29/20 03:50 HDL Cholesterol 31 mg/dL (40-60) L 05/29/20 03:50 Cholesterol/HDL Ratio 2.97 05/29/20 03:50 Home Medications: Glipizide [Glipizide ER] 10 mg PO BID 03/15/14 Levothyroxine [Synthroid*] 0.1 mg PO DAILY 03/15/14 Losartan Potassium [Cozaar] 100 mg PO DAILY 03/15/14 Metoprolol Tartrate [Lopressor*] 50 mg PO BID 03/15/14 Pravastatin [Pravachol*] 80 mg PO BEDTIME 03/15/14 Aspirin [Aspirin EC 81 MG] 81 mg PO DAILY 10/02/15 Insulin Glargine,Hum.rec.anlog [Lantus] 50 units SQ BID 02/12/18 Clopidogrel Bisulfate [Plavix*] 1 tab PO DAILY 05/28/20 Nitroglycerin 1 tab SL PRN PRN 05/28/20 Patient Discharge Instructions: 74-year-old male with history of CAD and prior stent to LAD. Patient with other multiple medical problems including diabetes, hypertension, hyperlipidemia and hypothyroidism. Patient admitted for further evaluation and treatment. Unstable angina was suspected. Cardiology consulted to further evaluate. Cardiac enzymes unremarkable. No need for further inpatient evaluation. He will follow up with Cardiology within one week for outpatient stress test. He will continue with his current meds-ASA and Plavix. Patient with diabetes mellitus type 2 insulin dependent. A1c obtained. Patient with hyperglycemia. Patient needs better control. At discharge patient will continue with his current medications-Lantus and glipizide. Recommend to maintain blood sugar less than 140 fasting and less than 200 after meals. Further adjustment can be done by his PCP. Patient with hypertension. At discharge patient may continue with metoprolol 50 mg 1 pill twice daily and losartan 100 mg daily. Recommend to maintain blood pressure less 150/80. Further adjustment can be done by his PCP. Patient with hyperlipidemia. LDL 30. At discharge patient will continue with pravastatin 80 mg daily. Patient with hypothyroidism. At discharge patient will continue with levothyroxine 100 mcg daily. Patient with chronic renal disease stage III. Renal function appear stable. Recommend no further use of nonsteroidal anti-inflammatories. Future medications will need to be renally dose. Recommend to establish care with nephrology as an outpatient to further address and monitor. Recommend to recheck lab-BMP in 2-4 weeks to monitors progress. Diet: ADA Activity: Ad clare Time spent managing pt's care (in minutes): 55
[2020-05-29] MEDS ORDERED: CLOPIDOGREL 75 MG TABLET PO SCH (09:00)
[2020-05-29] MEDS ORDERED: LOSARTAN POTASSIUM 50 MG TABLET PO SCH (09:00)
[2020-05-29] MEDS ORDERED: LEVOTHYROXINE SOD 0.1 MG TAB PO SCH (09:00)
[2020-05-29] MEDS ORDERED: ASPIRIN EC 81 MG TAB PO SCH ×2 (09:00)
[2020-05-29] MEDS: METOPROLOL TAR 50 MG TAB PO SCH (09:00)
[2020-05-29] MEDS: ENOXAPARIN 40 MG/0.4 ML SQ SCH ×2 (09:00→09:42)
[2020-05-29] MEDS: GLIPIZIDE S.A. 5 MG TAB PO SCH (09:28)
[2020-05-29] MEDS: INSULIN GLARGINE 100 UNITS/ML SQ SCH (09:28)
[2020-05-29] MEDS: NITROGLYCERIN 1 GM PKT TD SCH (09:32)
[2020-05-29 11:49] VITALS: BP 123/70; TEMP 97.3
--- NOTE | 2020-05-29 15:00 | CON ---
Date of Consultation: 05/29/2020 Reason For Consultation: Chest pain. History Of Present Illness: This is a 74-year-old male, presented to the emergency room with chest p ain. He has known to have history of coronary artery disease, being followed by Dr. Rosado in the [facility]. Has diabetes, hypertension, hypothyroidism. He claimed his chest pain is left-sided, happeni ng while at rest, improved with nitroglycerin. No exertional chest pain. Last time, he has episode was yesterday. At the time of my interview, was pain free and has no further complaints. Past Medical History: As outlined above in the HPI. Medications: Refer to reconciliation sheet for detailed list. Allergies: NO KNOWN DRUG ALLERGIES. Social History: Does not smoke or drink. Does not use any drugs. Family History: No premature coronary artery disease or cancer. Review of Systems: All systems reviewed and they were negative except what mentioned in the HPI. Physical Examination: Vital Signs: Temperature is 97.9, pulse is 56, breathing at 16, blood pressure 119/65, saturating 98 % on room air. General: Pleasant, elderly male, in no apparent distress. Head and Neck: Pupils are equal, react to light. Intact eye movements. No JVD. No cervical lympha denopathy. Neck is supple. Thyroid is not enlarged. Lungs: Clear to auscultation bilaterally. No rhonchi, rales, or crackles. No accessory muscle use. Heart: Regular rate and rhythm. No extra sounds. Abdomen: Soft, nontender. Bowel sounds positive. No organomegaly. No masses or hernia. No rigidi ty or rebound. Extremities: No edema, clubbing, or cyanosis. Intact pulses. Skin: No rash noted. Neurologic: Alert, awake, oriented x3. No acute focal deficits appreciated. Investigations: Creatinine was 1.9 on admission, now is 1.65. Troponin is negative x3. LDL is 30. Hemoglobin is 13.6. Assessment And Recommendations: 1.Chest pain with known history of coronary artery disease. Cardiac enzymes are negative. Pain is atypical. The patient had history of LAD stent placement. At this point, he has been stable and chemo st pain free and given the elevation of his creatinine on admission, we will recommend to do a stress test, but it is okay to be done as an outpatient as long as the patient is chest pain free. Discuss ed the case with the primary hospitalist and plan for close followup as an outpatient. The patient w as instructed to return to the emergency room immediately if any further chest pain. 2.Recommend aggressive medical management of coronary artery disease. /JAMEEL Voice ID: [id number] Report ID: [id number]
--- NOTE | 2020-05-30 08:54 | ECHO ---
HEIGHT: 5 ft 8 in WEIGHT: 258 lb 0 oz DATE OF STUDY: 05/29/[address]: Vinayak Villarreal MD 2-DIMENSIONAL: YES M.MODE: YES DOPPLER: YES COLOR FLOW: YES TDS: PORTABLE: DEFINITY: BUBBLE STUDY: DIAGNOSIS: CHEST PAIN, RULE OUT ACUTE CORNARY SYNDROME CARDIAC HISTORY: CATHERIZATION: NO SURGERY: NO PROSTHETIC VALVE: NO PACEMAKER: NO MEASUREMENTS (cm) DIASTOLIC (NORMALS) SYSTOLIC (NORMALS) IVSd 1.2 (0.6-1.2) LA Diam 3.3 (1.9-4.0) LVEF 63% LVIDd 5.1 (3.5-5.7) LVIDs (2.0-3.5) %FS 35% LVPWd 1.2 (0.6-1.2) Ao Diam 3.3 (2.0-3.7) 2 DIMENSIONAL ASSESSMENT: RIGHT ATRIUM: NORMAL LEFT ATRIUM: NORMAL RIGHT VENTRICLE: NORMAL LEFT VENTRICLE: NORMAL TRICUSPID VALVE: NORMAL MITRAL VALVE: NORMAL PULMONIC VALVE: NORMAL AORTIC VALVE: NORMAL PERICARDIAL EFFUSION: NONE AORTIC ROOT: NORMAL LEFT VENTRICULAR WALL MOTION: NORMAL DOPPLER/COLOR FLOW: NORMAL COMMENTS: NORMAL LEFT VENTRICULAR EJECTION FRACTION 55-60%. NORMAL WALL MOTION. TECHNOLOGIST: YANIRA CHESTER
== END 2020-05-29 11:41 | disposition home or self-care (01) ==
LOC: ER 11:31 → ERHOLD 13:23 → 2ND 14:35
PROVIDERS: ADMIT Hospitalist; ATTEND Family Medicine
DX: R07.9 Chest pain, unspecified (principal); I25.10 Atherosclerotic heart disease of native coronary artery without angina pectoris; E03.9 Hypothyroidism, unspecified; Z95.5 Presence of coronary angioplasty implant and graft; E11.65 Type 2 diabetes mellitus with hyperglycemia; Z20.828 Contact with and (suspected) exposure to other viral communicable diseases; E11.22 Type 2 diabetes mellitus with diabetic chronic kidney disease; I12.9 Hypertensive chronic kidney disease with stage 1 through stage 4 chronic kidney disease, or unspecified chronic kidney disease; N18.30 Chronic kidney disease, stage 3 unspecified; E78.5 Hyperlipidemia, unspecified; E66.9 Obesity, unspecified; Z68.39 Body mass index [BMI] 39.0-39.9, adult; Z79.4 Long term (current) use of insulin; M19.90 Unspecified osteoarthritis, unspecified site; E78.00 Pure hypercholesterolemia, unspecified; R94.31 Abnormal electrocardiogram [ECG] [EKG]
CPT/HCPCS: 93005 ×2; 93306; 85025 ×2; 80048 ×2; 36415 ×2; 83735; 85610; 80061; 82947 ×3; 80076; 85730; 84484 ×3; 83880; 71045; 90471; 99285; U0002; Q2035; J1650; G0378 ×3; J1815; J2270

== ENCOUNTER 2022-06-22 16:23 | Observation (INO) | payer OTHER ==
--- OUTSIDE RECORDS SUMMARY | 2022-06-22 16:26 | XMS REPORT | Continuity of Care Document ---
:1945 Author Organization [facility] t Address [address] [place] [address] Dr. Rivero [address] [place] [id number] Care Team Providers Name Role Phone Julian Carlos Attending Clinician Unavailable TRUDY MARIANO Attending Clinician Unavailable Payers Payer Name Policy Type Policy Number Effective Date Expiration Date [facility] [id number] 2020 [facility] 00:00:00 PPO Problems This patient has no known problems. Allergies, Adverse Reactions, Alerts Allergy Allergy Status Severity Reaction(s) Onset Inactive Treating Comm ents Source Name Type Date Date Clinician NO KNOWN Drug [facility]ations This patient has no known medications. Procedures This patient has no known procedures. Encounters Start End Encounter Admission Attending Care Care Encounter Source Date/Time Date/Time Type Type Clinicians Facility Department ID 2022-03-12 Outpatient [facility] [id number] Common 16:20:01 Julian [facility] 2022-02-08 Out[facility] [id number] - Common 08:39:01 aJulian [id number] [facility] 2021-09-12 Outpatient [facility] [facility] [id number] Common 13:00:14 aJulian [id number] [facility] 2021-09-12 [facility] [id number] Common 12:54:24 [id number] [facility] 2020-11-22 2020-11-22 Outpatient Edin MARIANO [facility] [id number] [facility] 13:30:00 13:30:00 TRUDY donnelly [facility] 2020-10-25 2020-10-25 Outpatient Edin MARIANO [facility] [id number] [facility] 13:40:00 13:40:00 TRUDY donnelly [facility] Results This patient has no known results.
[2022-06-22 17:33] LABS: Absolute Lymphocytes (CBC) 1.5 K/uL (0.7-4.9); Hematocrit 44.5 % (39.6-49.0); Lymphocytes % 17.5 % (15.3-44.8); MCV 85.8 fL (80-100); MPV 8.1 fL (7.6-11.3); RBC Red Blood Cell Count 5.18 M/uL (4.33-5.43)
[2022-06-22 17:38] LABS: Protime INR 1.05
[2022-06-22 17:46] LABS: SARS-CoV-2 Antigen Rapid Res Positive (Negative)
[2022-06-22 18:03] LABS: Bilirubin Direct 0.2 mg/dL (0-0.2); Bilirubin Total 0.5 mg/dL (0.2-1.0); Magnesium 2.3 mg/dL (1.8-2.4); Protein, Total 6.6 g/dL (6.4-8.2)
--- NOTE | 2022-06-22 18:46 | RAD REPORT ---
EXAM DESCRIPTION: RAD - Chest Single View - 06/22/2022 6:26 pm CLINICAL HISTORY: DYSPNEA COMPARISON: Chest Single View dated 05/28/2020; Chest Pa And Lat (2 Views) dated 04/06/2019; Chest Pa And Lat (2 Views) dated 11/11/2018; Chest Single View dated 02/09/2018 FINDINGS: Lines: None. Lungs: Mild opacities at the right lung base, increased from prior. Left lung is clear. Pleural: No significant pleural effusions or pneumothorax. Cardiac: The heart size is within normal limits. Mediastinum: Within normal limits. Bones: No acute fractures. Other: None IMPRESSION: Probable mild atelectasis at the right lung base. No convincing evidence of an acute pro cess otherwise.
[2022-06-22] MEDS ORDERED: FUROSEMIDE 40 MG TABLET ONE (19:23)
--- NOTE | 2022-06-22 20:28 | P.HP ---
Certification for Inpatient Patient admitted to: Observation With expected LOS: <2 Midnights Patient will require the following post-hospital care: None Practitioner: I am a practitioner with admitting privileges, knowledge of patient current condition, hospital course, and medical plan of care. Services: Services provided to patient in accordance with Admission requirements found in Title 42 Section 412.3 of the Code of Federal Regulations Patient History Date of Service: 06/23/22 Primary Care Provider: Ishaan Reason for admission: Dyspnea, COVID, Dehydration History of Present Illness: Patient is a 76 year old male with hypertension, insulin-dependent type 2 diabetes, hypothyroidism, obesity and CAD who presented to the ED with complaints of shortness of breath. Patient reports that he has been feeling short of breath for about 1 week now that has not been relieved with home nebulizer. He has been saturating appropriately on room air. His labs are significant for BUN 29, Cr 1.94, glucose 215, COVID positive. Chest xray showed " Probable mild atelectasis at the right lung base. No convincing evidence of an acute process otherwise." 2+ pitting edema noted on bilateral lower extremities. He was given 40 mg PO lasix in ED. Patient has been borderline bradycardic, but he does report that his metoprolol dosage was recently increased. He reports mild improvement in symptoms. ED provider wishes to admit patient for observation. Allergies No Known Allergies Allergy (Verified 10/02/15 09:32) Home medications list reviewed: Yes Home Medications: Glipizide [Glipizide ER] 10 mg PO BID 03/15/14 Levothyroxine [Synthroid*] 0.1 mg PO DAILY 03/15/14 Losartan Potassium [Cozaar] 100 mg PO DAILY 03/15/14 Metoprolol Tartrate [Lopressor*] 50 mg PO BID 03/15/14 Pravastatin [Pravachol*] 80 mg PO BEDTIME 03/15/14 Aspirin [Aspirin EC 81 MG] 81 mg PO DAILY 10/02/15 Insulin Glargine,Hum.rec.anlog [Lantus] 50 units SQ BID 02/12/18 Clopidogrel Bisulfate [Plavix*] 1 tab PO DAILY 05/28/20 Nitroglycerin 1 tab SL PRN PRN 05/28/20 - Past Medical/Surgical History Diabetic: Yes -: High Blood Pressure -: Diabetes-IDDM -: Hypothyroid -: CAD -: Back sx -: left leg sx -: Bilateral cataract -: Cardiac Stent Psychosocial/ Personal History: Patient is . - Family History Family History: Reviewed- Non-Contributory - Social History Smoking Status: Never smoker Alcohol use: Yes CD- Drugs: No Caffeine use: Yes Place of Residence: Home Review of Systems Respiratory: Shortness of Breath Physical Examination - Physical Exam General: Alert, In no apparent distress, Obese HEENT: Atraumatic, PERRLA, EOMI, Sclerae nonicteric Neck: Supple, 2+ carotid pulse no bruit, No LAD, Without JVD or thyroid abnormality Respiratory: Clear to auscultation bilaterally, Normal air movement Cardiovascular: Regular rate/rhythm, Normal S1 S2, Edema (2+ pitting edema BLE) Gastrointestinal: Normal bowel sounds, No tenderness Musculoskeletal: No tenderness Integumentary: No rashes Neurological: Normal speech, Normal strength at 5/5 x4 extr, Normal tone, Normal affect - Studies Laboratory Data (last 24 hrs) 06/22/22 17:24: PT 11.6, INR 1.05, APTT 35.9 06/22/22 17:24: WBC 8.60, Hgb 14.6, Hct 44.5, Plt Count 196 06/22/22 17:24: Sodium 138, Potassium 4.0, BUN 29 H, Creatinine 1.94 H, Glucose 215 H, Magnesium 2.3, Total Bilirubin 0.5, AST 18, ALT 29, Alkaline Phosphatase 58 Assessment and Plan - Problems (Diagnosis) (1) COVID-19 Current Visit: Yes Status: Acute (2) Dehydration Current Visit: Yes Status: Acute (3) Dyspnea Current Visit: Yes Status: Acute Qualifiers: Dyspnea type: shortness of breath Qualified Code(s): R06.02 - Shortness of breath; R06.00 - Dyspnea, unspecified; R06.01 - Orthopnea (4) LUKASZ (acute kidney injury) Current Visit: Yes Status: Acute (5) CAD (coronary artery disease) Current Visit: Yes Status: Chronic Qualifiers: Coronary Disease-Associated Artery/Lesion type: solomon artery [place] vs. transplanted heart: solomon heart Associated angina: without angina Qualified Code(s): I25.10 - Atherosclerotic heart disease of solomon coronary artery without angina pectoris (6) Diabetes mellitus, type II Current Visit: Yes Status: Chronic Qualifiers: Diabetes mellitus longwall machine operator helper insulin use: with half-way use Diabetes mellitus complication status: with hyperglycemia Qualified Code(s): E11.65 - Type 2 diabetes mellitus with hyperglycemia; Z79.4 - alf (current) use of insulin (7) Hyperlipidemia Current Visit: Yes Status: Chronic Qualifiers: Hyperlipidemia type: unspecified Qualified Code(s): E78.5 - Hyperlipidemia, unspecified (8) Hypertension Current Visit: Yes Status: Chronic Qualifiers: Hypertension type: primary hypertension Qualified Code(s): I10 - Essential (primary) hypertension - Plan Patient is admitted for observation. COVID+ droplet precautions in place. Daily vitamin C and zinc. Breathing treatments PRN. Monitor pulse ox. Incentive spirometry. Echo ordered given patient's shortness of breath and pitting edema ACHS accu checks with mild sliding scale and diabetic diet Lipid panel, TSH, and A1C ordered Bradycardia likely secondary to recent increase in metoprolol dosage. Hold for now. Monitor on telemetry. Monitor and replete electrolytes per protocol Reconcile and continue home medications Lovenox for VTE prophylaxis Full code Discharge Plan: Home Plan to discharge in: 24 Hours - Advance Directives Does patient have a Living Will: No Does patient have a Durable POA for Healthcare: No - Code Status/Comfort Care Code Status Assessed: Yes (Full) Critical Care: No Time Spent Managing Pts Care (In Minutes): 50
--- NOTE | 2022-06-22 20:45 | EDPHYS ---
Physician Documentation [facility] Name: Valentino Metcalf Age: 76 yrs Sex: Male : 1945 Arrival Date: 06/22/2022 Time: 16:26 Bed 2 Private MD: ED Physician Aundrea Garner HPI: 06/22 17:37 This 76 yrs old Male presents to ER via Wheelchair with complaints of snw Breathing Difficulty. 17:37 The patient has shortness of breath at rest, with light activity. Onset: The snw symptoms/episode began/occurred acutely. Duration: The symptoms are continuous. The patient's shortness of breath is aggravated by light activity, supine position. Associated signs and symptoms: The patient has no apparent associated signs or symptoms. Severity of symptoms: At their worst the symptoms were moderate. The patient has not experienced similar symptoms in the past. The patient has not recently seen a physician, Dr. Quiros. Historical: - Allergies: 16:55 No Known Allergies; kb3 - PMHx: 16:55 Arthritis; High Cholesterol; Hypertension; Hypothyroidism; Coronary atherosclerosis; kb3 IDDM; Hypercholesterolemia; 16:58 Kidney Issues; kb3 - PSHx: 16:55 Cardiac stent; kb3 - Immunization history:: Adult Immunizations up to date, Client reports receiving the 2nd dose of the Covid vaccine, Last tetanus immunization: up to date. - Social history:: Smoking status: Patient denies any tobacco usage or history of. ROS: 17:36 Constitutional: Negative for fever, chills, and weight loss, Eyes: Negative for injury, snw pain, redness, and discharge, ENT: Negative for injury, pain, and discharge, Neck: Negative for injury, pain, and swelling, Cardiovascular: Negative for chest pain, palpitations, and edema, Abdomen/GI: Negative for abdominal pain, nausea, vomiting, diarrhea, and constipation, Back: Negative for injury and pain, : Negative for injury, bleeding, discharge, and swelling, MS/Extremity: Negative for injury and deformity, Skin: Negative for injury, rash, and discoloration, Neuro: Negative for headache, weakness, numbness, tingling, and seizure. 17:36 Respiratory: Positive for dyspnea on exertion, orthopnea, shortness of breath, on exertion. Exam: 17:36 Constitutional: This is a well developed, well nourished patient who is awake, alert, snw and in no acute distress. Head/Face: Normocephalic, atraumatic. Eyes: Pupils equal round and reactive to light, extra-ocular motions intact. Lids and lashes normal. Conjunctiva and sclera are non-icteric and not injected. Cornea within normal limits. Periorbital areas with no swelling, redness, or edema. ENT: Nares patent. No nasal discharge, no septal abnormalities noted. Tympanic membranes are normal and external auditory canals are clear. Oropharynx with no redness, swelling, or masses, exudates, or evidence of obstruction, uvula midline. Mucous membranes moist. Neck: Trachea midline, no thyromegaly or masses palpated, and no cervical lymphadenopathy. Supple, full range of motion without nuchal rigidity, or vertebral point tenderness. No Meningismus. Chest/axilla: Normal chest wall appearance and motion. Nontender with no deformity. No lesions are appreciated. 17:36 Abdomen/GI: Soft, non-tender, with normal bowel sounds. No distension or tympany. No guarding or rebound. No evidence of tenderness throughout. Back: No spinal tenderness. No costovertebral tenderness. Full range of motion. Skin: Warm, dry with normal turgor. Normal color with no rashes, no lesions, and no evidence of cellulitis. MS/ Extremity: Pulses equal, no cyanosis. Neurovascular intact. Full, normal range of motion. Neuro: Awake and alert, GCS 15, oriented to person, place, time, and situation. Cranial nerves II-XII grossly intact. Motor strength 5/5 in all extremities. Sensory grossly intact. Cerebellar exam normal. Normal gait. 17:36 Cardiovascular: Rate: normal, Rhythm: regular, Pulses: no pulse deficits are appreciated, Edema: 2+ edema to level of left midcalf, left ankle, left foot, right midcalf, right ankle and right foot. 17:36 Respiratory: the patient does not display signs of respiratory distress, Respirations: normal, Breath sounds: are clear throughout. Vital Signs: 16:52 BP 192 / 80; Pulse 53; Resp 20; Temp 98.1; Pulse Ox 98% ; Weight 115.67 kg; Height 5 kb3 ft. 8 in. (172.72 cm); Pain 4/10; 18:10 BP 163 / 83; Pulse 49; Resp 22; Pulse Ox 98% on R/A; ph 19:15 BP 176 / 85; Pulse 47; Resp 16 S; Pulse Ox 100% on R/A; Pain 2/10; aa9 22:29 BP 184 / 89; Pulse 51; Resp 21 S; Pulse Ox 99% on R/A; as6 16:52 Body Mass Index 38.77 (115.67 kg, 172.72 cm) kb3 MDM: 17:15 Patient medically screened. snw 20:41 Data reviewed: vital signs, nurses notes. Data interpreted: Pulse oximetry: on room air snw is 100 %. Interpretation: normal. Counseling: I had a detailed discussion with the patient and/or guardian regarding: the historical points, exam findings, and any diagnostic results supporting the discharge/admit diagnosis, the presence of at least one elevated blood pressure reading (>120/80) during this emergency department visit, lab results, radiology results, the need for further work-up and treatment in the hospital. Physician consultation: Lynnette Nava PA-C was called at 19:00, was contacted at 19:00, regarding admission, to the telemetry unit. would like admission per Dr. Topher Tyler. 06/22 17:11 Order name: Basic Metabolic Panel; Complete Time: 18:04 snw 06/22 17:11 Order name: CBC with Diff; Complete Time: 17:35 snw 06/22 17:11 Order name: LFT's; Complete Time: 18:04 snw 06/22 17:11 Order name: Magnesium; Complete Time: 18:04 snw 06/22 17:11 Order name: NT PRO-BNP; Complete Time: 18:04 snw 06/22 17:11 Order name: PT-INR; Complete Time: 17:40 snw 06/22 17:11 Order name: Troponin HS; Complete Time: 18:04 snw 06/22 17:11 Order name: XRAY Chest (1 view); Complete Time: 19:29 snw 06/22 17:11 Order name: EKG; Complete Time: 17:12 snw 06/22 17:11 Order name: Cardiac monitoring; Complete Time: 17:30 snw 06/22 17:11 Order name: EKG - Nurse/Tech; Complete Time: 20:00 snw 06/22 17:11 Order name: Ptt, Activated; Complete Time: 17:40 snw 06/22 17:11 Order name: SARS RAPID; Complete Time: 17:47 snw 06/22 17:11 Order name: IV Saline Lock; Complete Time: 17:30 snw 06/22 17:11 Order name: Labs collected and sent; Complete Time: 17:30 snw 06/22 17:11 Order name: O2 Per Protocol; Complete Time: 18:54 snw 06/22 17:11 Order name: O2 Sat Monitoring; Complete Time: 18:54 snw EC:00 Rate is 47 beats/min. Rhythm is regular, Sinus bradycardia with Right bundle branch snw block. DC interval is prolonged. Clinical impression: Sinus bradycardia. Administered Medications: 19:34 Drug: LaSIX (furosemide) 40 mg Route: PO; ph 19:34 Follow up: Response: No adverse reaction ph Disposition Summary: 06/22/22 20:44 Hospitalization Ordered Hospitalization Status: Observation snw Provider: Vinayak Villarreal snw Location: Telemetry/MedSurg (observation) snw Condition: Stable snw Problem: new snw Symptoms: are unchanged snw Bed/Room Type: Standard snw Room Assignment: 223(06/22/22 22:43) mw Diagnosis - SARS-associated coronavirus as the cause of diseases classified elsewhere snw - Bradycardia, unspecified snw - Edema, unspecified snw - Volume depletion, unspecified snw Forms: - Medication Reconciliation Form snw - SBAR form snw Signatures: Dispatcher [employer] EDAlbina Snell RN RN Zahira Marie, ELLIE-C BULL GANG WORKER-Kevinw Rin Vázquez RN RN Maryanne Knox RN RN kb3 Corrections: (The following items were deleted from the chart) 16:57 16:55 PMHx: Diabetes - NIDDM; kb3 kb3 22:43 20:44 snw mw
--- NOTE | 2022-06-22 20:45 | ER ---
Nurse's Notes [facility] Name: Valentino Metcalf Age: 76 yrs Sex: Male : 1945 Arrival Date: 06/22/2022 Time: 16:26 Bed 2 Private MD: Diagnosis: SARS-associated coronavirus as the cause of diseases classified elsewhere;Bradycardia, unspecified;Edema, unspecified;Volume depletion, unspecified Presentation: 06/22 16:52 Chief complaint: Patient states: Pt reports feeling exertional SOB x1 week that did not kb3 improve with the use of an albuterol neb. Coronavirus screen: Vaccine status: Patient reports receiving the 2nd dose of the covid vaccine. Client denies travel out of the [place] in the last 14 days. Ebola Screen: Patient negative for fever greater than or equal to 101.5 degrees Fahrenheit, and additional compatible Ebola Virus Disease symptoms Patient denies exposure to infectious person. Patient denies travel to an Ebola-affected area in the 21 days before illness onset. Initial Sepsis Screen: Does the patient meet any 2 criteria? No. Patient's initial sepsis screen is negative. Does the patient have a suspected source of infection? No. Patient's initial sepsis screen is negative. Risk Assessment: Do you want to hurt yourself or someone else? Patient reports no desire to harm self or others. Onset of symptoms was June 17, 2022. 16:52 Method Of Arrival: Wheelchair kb3 16:52 Acuity: LYNDSEY 3 kb3 Triage Assessment: 16:55 General: Appears in no apparent distress. Behavior is calm, cooperative. Pain: kb3 Complains of pain in chest Pain does not radiate. Pain currently is 3 out of 10 on a pain scale. Quality of pain is described as pressure. Respiratory: Reports shortness of breath Onset: The symptoms/episode began/occurred gradually, the patient has mild shortness of breath. Historical: - Allergies: 16:55 No Known Allergies; kb3 - PMHx: 16:55 Arthritis; High Cholesterol; Hypertension; Hypothyroidism; Coronary atherosclerosis; kb3 IDDM; Hypercholesterolemia; 16:58 Kidney Issues; kb3 - PSHx: 16:55 Cardiac stent; kb3 - Immunization history:: Adult Immunizations up to date, Client reports receiving the 2nd dose of the Covid vaccine, Last tetanus immunization: up to date. - Social history:: Smoking status: Patient denies any tobacco usage or history of. Screenin:10 Abuse screen: Denies threats or abuse. Denies injuries from another. Nutritional ph screening: No deficits noted. Tuberculosis screening: No symptoms or risk factors identified. Fall Risk None identified. Assessment: 19:21 General: Appears in no apparent distress. comfortable, obese, Behavior is calm, aa9 cooperative, appropriate for age. Pain: Complains of pain in right breast and pelvis Pain currently is 2 out of 10 on a pain scale. Neuro: Level of Consciousness is awake, alert, obeys commands, Oriented to person, place, time, situation. Cardiovascular: Rhythm is sinus bradycardia. Respiratory: Airway is patent Respiratory effort is even, unlabored. GI: No signs and/or symptoms were reported involving the gastrointestinal system. : No signs and/or symptoms were reported regarding the genitourinary system. EENT: No signs and/or symptoms were reported regarding the EENT system. Derm: No signs and/or symptoms reported regarding the dermatologic system. Musculoskeletal: No signs and/or symptoms reported regarding the musculoskeletal system. 20:43 Reassessment: Patient appears in no apparent distress at this time. Reassessment: pt in aa9 bed on left side, eyes closed, breathing regularly. General: Appears comfortable, obese, Behavior is calm, appropriate for age, quiet. Respiratory: Airway is patent Respiratory effort is even, unlabored. 22:59 Reassessment: attempted to call report. aa9 Vital Signs: 16:52 BP 192 / 80; Pulse 53; Resp 20; Temp 98.1; Pulse Ox 98% ; Weight 115.67 kg; Height 5 kb3 ft. 8 in. (172.72 cm); Pain 4/10; 18:10 BP 163 / 83; Pulse 49; Resp 22; Pulse Ox 98% on R/A; ph 19:15 BP 176 / 85; Pulse 47; Resp 16 S; Pulse Ox 100% on R/A; Pain 2/10; aa9 22:29 BP 184 / 89; Pulse 51; Resp 21 S; Pulse Ox 99% on R/A; as6 16:52 Body Mass Index 38.77 (115.67 kg, 172.72 cm) kb3 ED Course: 16:26 Patient arrived in ED. as 16:55 Triage completed. kb3 16:55 Arm band placed on right wrist. kb3 17:10 [facility]-C [facility] snw 17:10 Aundrea Garner MD is Attending Physician. snw 17:29 Inserted saline lock: 20 gauge in right antecubital area, using aseptic technique. zm Blood collected. 17:30 SARS RAPID Sent. zm 17:30 Ptt, Activated Sent. zm 17:30 Basic Metabolic Panel Sent. zm 17:30 CBC with Diff Sent. zm 17:30 LFT's Sent. zm 17:30 Magnesium Sent. zm 17:30 NT PRO-BNP Sent. zm 17:30 PT-INR Sent. zm 17:30 Troponin HS Sent. zm 18:10 Rin Vázquez, RN is Primary Nurse. ph 18:10 Patient has correct armband on for positive identification. Bed in low position. Call ph light in reach. Client placed on continuous cardiac and pulse oximetry monitoring. NIBP monitoring applied. 18:28 XRAY Chest (1 view) In Process Unspecified. EDMS 20:42 Vinayak Villarreal MD is Hospitalizing Provider. snw 23:00 No provider procedures requiring assistance completed. Patient admitted, IV remains in aa9 place. Administered Medications: 19:34 Drug: LaSIX (furosemide) 40 mg Route: PO; ph 19:34 Follow up: Response: No adverse reaction ph Medication: 18:10 VIS not applicable for this client. ph Output: 21:40 Urine: 600ml (Voided); Total: 600ml. aa9 Outcome: 20:44 Decision to Hospitalize by Provider. snw 23:00 Condition: stable aa9 23:00 Instructed on the need for admit. 23:21 Admitted to Med/surg room 223, with chart, Report called to receiving nurse aa9 23:35 Patient left the ED. aa9 Signatures: Dispatcher [employer] EDCO Zahira Jones FNP-C CURRICULUM COORDINATOR-Csnw Olivia Metcalf as Rin Vázquez, SHAKIRA RN Naveen Montana RN RN as6 Lalitha Metcalf Aylin, RN RN aa9 Maryanne Knox, RN RN kb3 Corrections: (The following items were deleted from the chart) 16:57 16:55 PMHx: Diabetes - NIDDM; kb3 kb3 23:22 23:21 Admitted to Med/surg family with patient, room 223, with chart, Report called to chapo9 receiving nurse aram
[2022-06-22] MEDS ORDERED: ACETAMINOPHEN 500 MG TAB PO PRN (23:19)
[2022-06-22] MEDS ORDERED: ALBUTEROL 2.5 MG/3 ML NEB SOL NEB PRN (23:19)
[2022-06-22] MEDS: INSULIN -REGULAR HUMAN 50 UNIT/0.5 ML ML SQ SCH (23:19)
[2022-06-22] MEDS ORDERED: ONDANSETRON 4 MG/2 ML VIAL IV PRN (23:19)
[2022-06-22] MEDS ORDERED: NA CHLORIDE 0.9% 1,000 ML IV SCH (23:19)
[2022-06-23 00:38] LABS: Specific Gravity 1.008 (1.005-1.030); Urine Bacteria <20 /HPF (<20); Urine Bilirubin NEGATIVE (Negative); Urine Blood Trace (Negative); Urine Clarity Clear (Clear); Urine Color Colorless (Yellow); Urine Glucose TRACE (Negative); Urine Mucus Slight /HPF (None Seen); Urine Protein 1+ (Negative); Urine RBC <5 /HPF (None Seen); Urine Urobilinogen Normal (Normal); Urine pH 5.5 (5.0-7.0)
[2022-06-23] MEDS ORDERED: HYDRALAZINE HCL 20 MG/ML VIAL IV PRN (01:16)
[2022-06-23 04:04] VITALS: BMI 38.7
[2022-06-23 06:01] LABS: Absolute Lymphocytes (CBC) 1.7 K/uL (0.7-4.9); Hematocrit 41.2 % (39.6-49.0); Lymphocytes % 19.7 % (15.3-44.8); MCV 85.4 fL (80-100); MPV 8.4 fL (7.6-11.3); RBC Red Blood Cell Count 4.82 M/uL (4.33-5.43)
[2022-06-23 06:29] LABS: Magnesium 2.2 mg/dL (1.8-2.4); Phosphorus 2.9 mg/dL (2.5-4.9); Potassium 3.4 mmol/L (3.5-5.1)
[2022-06-23 06:31] LABS: Thyroid Stimulating Hormone 4.77 uIU/mL (0.360-3.740)
[2022-06-23] MEDS: INSULIN -REGULAR HUMAN 50 UNIT/0.5 ML ML SQ SCH ×2 (07:30→11:30)
[2022-06-23] MEDS ORDERED: ASCORBIC ACID 500 MG TABLET PO SCH (09:00)
[2022-06-23] MEDS ORDERED: METOPROLOL TAR 50 MG TAB PO SCH (09:00)
[2022-06-23] MEDS ORDERED: ENOXAPARIN 40 MG/0.4 ML SQ SCH (09:00)
[2022-06-23] MEDS ORDERED: ZINC SULFATE 220 MG CAP PO SCH (09:00)
[2022-06-23] MEDS ORDERED: POTASSIUM 25 MEQ EFFERV TAB PO ONE (09:00)
[2022-06-23 10:35] VITALS: O2SAT 98
--- NOTE | 2022-06-23 13:27 | P.DS ---
Discharge Date: 06/23/22 Primary Care Provider: Ishaan Disposition: ROUTINE DISCHARGE Discharge Condition: GOOD Reason for Admission: Dyspnea, COVID, Dehydration Brief History of Present Illness: Patient is a 76 year old male with hypertension, insulin-dependent type 2 diabetes, hypothyroidism, obesity and CAD who presented to the ED with complaints of shortness of breath. Patient reports that he has been feeling short of breath for about 1 week now that has not been relieved with home nebulizer. He has been saturating appropriately on room air. His labs are significant for BUN 29, Cr 1.94, glucose 215, COVID positive. Chest xray showed " Probable mild atelectasis at the right lung base. No convincing evidence of an acute process otherwise." 2+ pitting edema noted on bilateral lower extremities. He was given 40 mg PO lasix in ED. Patient has been borderline bradycardic, but he does report that his metoprolol dosage was recently increased. He reports mild improvement in symptoms. ED provider wishes to admit patient for ob servation. Hospital Course: patient doing well. Clinical symptoms are improved. At this time, patient is stable for discharge. Patient will follow-up with Cardiology and Pulmonary as an outpatient. Vital Signs/Physical Exam: Temp Pulse Resp BP Pulse Ox 97.5 F 78 18 160/92 H 96 06/23/22 08:00 06/23/22 08:43 06/23/22 08:00 06/23/22 08:43 06/23/22 08:00 General: Alert, In no apparent distress, Oriented x3 Laboratory Data at Discharge: WBC 8.70 K/uL (4.3-10.9) 06/23/22 05:38 Hgb 13.6 g/dL (13.6-17.9) 06/23/22 05:38 Hct 41.2 % (39.6-49.0) 06/23/22 05:38 Plt Count 178 K/uL (152-406) 06/23/22 05:38 PT 11.6 SECONDS (9.5-12.5) 06/22/22 17:24 INR 1.05 06/22/22 17:24 APTT 35.9 SECONDS (24.3-36.9) 06/22/22 17:24 Sodium 139 mmol/L (136-145) 06/23/22 05:38 Potassium 3.4 mmol/L (3.5-5.1) L D 06/23/22 05:38 BUN 28 mg/dL (7-18) H 06/23/22 05:38 Creatinine 1.90 mg/dL (0.55-1.3) H 06/23/22 05:38 Glucose 144 mg/dL (74-106) H 06/23/22 05:38 Phosphorus 2.9 mg/dL (2.5-4.9) 06/23/22 05:38 Magnesium 2.2 mg/dL (1.8-2.4) 06/23/22 05:38 Total Bilirubin 0.5 mg/dL (0.2-1.0) 06/22/22 17:24 AST 18 U/L (15-37) 06/22/22 17:24 ALT 29 U/L (12-78) 06/22/22 17:24 Alkaline Phosphatase 58 U/L (45-117) 06/22/22 17:24 Triglycerides 105 mg/dL (<150) 06/23/22 05:38 Cholesterol 97 mg/dL (<200) 06/23/22 05:38 HDL Cholesterol 44 mg/dL (40-60) 06/23/22 05:38 Cholesterol/HDL Ratio 2.20 06/23/22 05:38 Home Medications: Glipizide [Glipizide ER] 10 mg PO BID 03/15/14 Levothyroxine [Synthroid*] 0.1 mg PO [id number] 03/15/14 Metoprolol Tartrate [Lopressor*] 100 mg PO DAILY 03/15/14 Pravastatin [Pravachol*] 80 mg PO BEDTIME 03/15/14 Aspirin [Aspirin EC 81 MG] 81 mg PO DAILY 10/02/15 Insulin Glargine,Hum.rec.anlog [Lantus] 60 units SQ BID 02/12/18 Clopidogrel Bisulfate [Plavix*] 1 tab PO DAILY 05/28/20 Albuterol Inhaler [Ventolin Inhaler*] 2 puff IH Q6H PRN #1 inh 06/23/22 Cefdinir [Cefdinir*] 300 mg PO BID #14 cap 06/23/22 Valsartan/Hydrochlorothiazide [Valsartan-Hctz 320-12.5 mg Tab] 1 tab PO DAILY 06/23/22 predniSONE [Deltasone] 20 mg PO DAILY #5 tab 06/23/22 New Medications: Cefdinir [Cefdinir*] 300 mg PO BID #14 cap predniSONE [Deltasone] 20 mg PO DAILY #5 tab Albuterol Inhaler [Ventolin Inhaler*] 2 puff IH Q6H PRN #1 inh PRN Reason: Shortness Of Breath Physician Discharge Instructions: OK TO DC IV AND DC HOME FOLLOW-UP WITH PRIMARY CARE PROVIDER IN 1-2 WEEKS FOLLOW-UP WITH Pulmonary & CARDIOLOGY IN 1-2 WEEKS RETURN TO THE ER IF symptoms worsen CALL DR. STEVENSON AT [phone] IF ANY QUESTIONS REGARDING HOSPITAL STAY. PLEASE CALL THE FLOOR AT [phone] IF ANY MEDICATION OR NURSING QUESTIONS. Diet: Renal Activity: Fall precautions Followup: NONE,NONE [Primary Care Provider] - Time spent managing pt's care (in minutes): 35
[2022-06-23 14:03] VITALS: BP 156/74; TEMP 97.4
--- NOTE | 2022-06-24 08:32 | EKG ---
Test Date: 2022-06-22 Test Time: 19:58:41 Senior Back End Java Developer: GABBY MEASUREMENT RESULTS: Intervals: Rate: 47 IN: 178 QRSD: 122 QT: 474 QTc: 419 [place]: P: 54 IN: 178 QRS: -68 T: 117 INTERPRETIVE STATEMENTS: Marked sinus bradycardia Right bundle branch block Left anterior fascicular block Bifascicular block Abnormal ECG Compared to ECG 05/29/2020 08:04:29 Right bundle-branch block now present Bifascicular block now present T-wave abnormality no longer present Electronically Signed On 06-24-22 08:29:23 BAKER BENCH by Dillon Rosado
== END 2022-06-23 14:05 | disposition home or self-care (01) ==
LOC: ER 16:23 → ERHOLD 20:23 → 2ND 22:58
PROVIDERS: ADMIT Hospitalist; ATTEND Hospitalist
DX: U07.1 COVID-19 (principal); R06.02 Shortness of breath; E86.0 Dehydration; N17.9 Acute kidney failure, unspecified; R00.1 Bradycardia, unspecified; I10 Essential (primary) hypertension; E11.9 Type 2 diabetes mellitus without complications; E66.9 Obesity, unspecified; I25.10 Atherosclerotic heart disease of native coronary artery without angina pectoris; E78.5 Hyperlipidemia, unspecified; R60.9 Edema, unspecified; E86.9 Volume depletion, unspecified; E03.9 Hypothyroidism, unspecified; E78.00 Pure hypercholesterolemia, unspecified
CPT/HCPCS: 93005; 85025 ×2; 81001; 80048 ×2; 36415; 83735 ×2; 84100; 85610; 80061; 82947 ×3; 80076; 85730; 84443; 83036; 84484; 84439; 83880; 71045; 94760 ×2; 99285; 87811; J1650; J7030; G0378 ×2

== ENCOUNTER 2023-05-03 08:31 | Inpatient (IN) | payer OTHER ==
--- OUTSIDE RECORDS SUMMARY | 2023-05-03 08:39 | XMS REPORT | Continuity of Care Document ---
:1945 Author Organization [facility] t Address [address] [place] [address] Care Team Providers Name Role Phone Julian Carlos Attending Clinician Unavailable TRUDY MARIANO Attending Clinician Unavailable Payers Payer Name Policy Type Policy Number Effective Date Expiration Date [facility] [id number] 2020 [employer] [place] 00:00:00 PPO Problems This patient has no known problems. Allergies, Adverse Reactions, Alerts Allergy Allergy Status Severity Reaction(s) Onset Inactive Treating Comm ents Source Name Type Date Date Clinician NO KNOWN Drug Active [facility] ALLERGIE Class ity of [facility] Medications This patient has no known medications. Procedures This patient has no known procedures. Encounters Start End Encounter Admission Attending Care Care Encounter Source Date/Time Date/Time Type Type Clinicians Facility Department ID 2022-09-10 Outpatient [place]ul [facility] [id number] Common 10:39:01 aJulian [id number] [facility] 2022-03-12 Outpatient Kattegummul [facility] [id number] - Common 16:20:01 aJulian [facility] 2022-02-08 Outpatient Kattegummul [facility]C [facility] [id number] Common 08:39:01 aJulian [id number] [facility] 2021-09-12 Outpatient Kat[place]ummul [facility] [id number] - Common 13:00:14 aJulian [id number] [facility] 2021-09-12 Outpatient STLMLC [facility] [id number] Common 12:54:24 [id number] [facility] 2020-11-22 2020-11-22 Outpatient Edin MARIANO [facility] [id number] [facility] 13:30:00 13:30:00 [facility] 2020-10-25 2020-10-25 [facility] [id number] [facility] 13:40:00 13:40:00 [facility] Results This patient has no known results.
[2023-05-03 09:20] LABS: Absolute Lymphocytes (CBC) 0.7 K/uL (0.7-4.9); Hematocrit 42.9 % (39.6-49.0); Lymphocytes % 5.8 % (15.3-44.8); MCV 85.7 fL (80-100); MPV 8.6 fL (7.6-11.3); Platelets 199 thou/uL (152-406)
[2023-05-03 09:22] LABS: Specific Gravity 1.024 (1.005-1.030); Urine Bacteria None Seen /HPF (<20); Urine Bilirubin NEGATIVE (Negative); Urine Blood 2+ (Negative); Urine Clarity Extremely Turbid (Clear); Urine Color Yellow (Yellow); Urine Glucose 2+ (Negative); Urine Granular Casts 0-5 /LPF (None Seen); Urine Mucus Slight /HPF (None Seen); Urine Protein 3+ (Negative); Urine RBC <5 /HPF (None Seen); Urine Urobilinogen Normal (Normal); Urine pH 5.5 (5.0-7.0)
[2023-05-03 09:37] LABS: Albumin 2.9 g/dL (3.4-5.0); Bilirubin Total 0.7 mg/dL (0.2-1.0); Protein, Total 6.7 g/dL (6.4-8.2)
--- NOTE | 2023-05-03 09:53 | RAD REPORT ---
EXAM DESCRIPTION: US - Lower Extremity Artery Uni Ltd - 05/03/2023 9:36 am CLINICAL HISTORY: Leg pain COMPARISON: None FINDINGS: The left common femoral and left superficial femoral demonstrate triphasic waveforms demonstrate trip hasic waveforms The popliteal and left posterior tibial arteries demonstrate biphasic waveforms The left dorsalis pedis arterial waveform is monophasic and diminished amplitude No occlusion seen Grayscale, color and spectral analysis performed on all vessels IMPRESSION: Moderate distal lower extremity arterial disease
--- NOTE | 2023-05-03 10:14 | RAD REPORT ---
EXAM DESCRIPTION: CT - Pelvis Wo Cont - 05/03/2023 9:58 am CLINICAL HISTORY: Pelvic pain COMPARISON: None. TECHNIQUE: Computed axial tomography of the pelvis was obtained. Coronal and sagittal reconstruction performed All CT scans are performed using dose optimization technique as appropriate and may include automated exposure control or mA/KV adjustment according to patient size. FINDINGS: No fracture or dislocation is seen. Mild osteoarthritis involves the hips Muscles are normal size and density. A subcutaneous contusion is not noted No significant hip joint effusion . Calcification is present within the hip joints. IMPRESSION: No fracture seen
--- NOTE | 2023-05-03 10:59 | ER ---
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 Patient ld1 denies fall. Reports "I started taking this new medication called Mounjaro, ever since I have been having night terrors/hallucinations.". Coronavirus screen: At this time, the client does not indicate any symptoms associated with coronavirus-19. Ebola Screen: No symptoms or risks identified at this time. Initial Sepsis Screen: Does the patient meet any 2 criteria? No. Patient's initial sepsis screen is negative. Does the patient have a suspected source of infection? No. Patient's initial sepsis screen is negative. Risk Assessment: Do you want to hurt yourself or someone else? Patient reports no desire to harm self or others. Onset of symptoms was May 03, 2023 at 08:43. 08:41 Method Of Arrival: EMS: [facility] ld1 08:41 Acuity: LYNDSEY 3 ld1 Triage Assessment: 08:43 General: Appears in no apparent distress. comfortable, Behavior is calm, cooperative, ld1 appropriate for age. Pain: Complains of pain in left hip and left leg Pain does not radiate. Pain currently is 10 out of 10 on a pain scale. Quality of pain is described as throbbing, Pain began 1 day ago. Is continuous. EENT: No signs and/or symptoms were reported regarding the EENT system. Neuro: Level of Consciousness is awake, alert, obeys commands, Oriented to person, place, time, situation. Cardiovascular: Capillary refill < 3 seconds Patient's skin is warm and dry. Respiratory: Airway is patent Respiratory effort is even, unlabored. GI: Abdomen is round non-distended. : No signs and/or symptoms were reported regarding the genitourinary system. Derm: No signs and/or symptoms reported regarding the dermatologic system. Musculoskeletal: No signs and/or symptoms reported regarding the musculoskeletal system. Historical: - Allergies: 08:43 No Known Allergies; ld1 - PMHx: 08:43 Arthritis; coronary atherosclerosis; High Cholesterol; Hypercholesterolemia; ld1 Hypertension; Hypothyroidism; IDDM; kidney issues; - Immunization history:: Adult Immunizations up to date. - Social history:: Smoking status: Patient denies any tobacco usage or history of. Screenin:44 [facility] ED Fall Risk Assessment (Adult) History of falling in the last 3 months, ld1 including since admission No falls in past 3 months (0 pts). Abuse screen: Denies threats or abuse. Denies injuries from another. Nutritional screening: No deficits noted. Tuberculosis screening: No symptoms or risk factors identified. Assessment: 08:44 Reassessment: See triage assessment. ER provider at bedside assessing patient. ld1 14:09 Reassessment: Nurse to nurse report received by SHAKIRA Rucker on 2nd floor. eh3 Vital Signs: 08:41 BP 159 / 80; Pulse 72; Resp 18; Temp 98.4(O); Pulse Ox 97% on R/A; Weight 54.88 kg; ld1 Height 5 ft. 10 in. ; Pain 10/10; 10:10 BP 127 / 87; Pulse 64; Resp 18; Pulse Ox 93% on R/A; ld1 11:02 BP 119 / 52; Pulse 64; Resp 18; Pulse Ox 95% on R/A; ld1 08:41 Body Mass Index 17.36 (54.88 kg, 177.8 cm) ld1 08:41 Pain Scale: Adult ld1 ED Course: 08:41 Patient arrived in ED. ld1 08:42 Jass Muro MD is Attending Physician. henry 08:42 [facility]ah[facility] Jones [facility]-C [facility]. snw 08:43 Triage completed. ld1 08:43 Arm band placed on right wrist. ld1 08:44 Patient has correct armband on for positive identification. Placed in gown. Bed in low ld1 position. Call light in reach. Side rails up X2. shelter monitor on. Pulse ox on. NIBP on. Door closed. Noise minimized. Warm blanket given. 08:44 No provider procedures requiring assistance completed. ld1 08:56 Jessica Campos RN is Primary Nurse. ld1 09:06 CBC with Diff Sent. ld1 09:06 CMP Sent. ld1 09:06 Urine W/Microscopic (UAM) Sent. ld1 09:38 US LE Artery Uni Ltd In Process Unspecified. EDMS 09:59 CT Pelvis wo Cont In Process Unspecified. EDMS 10:58 Joshua Angulo MD is Hospitalizing Provider. snw 14:13 Patient admitted, IV remains in place. eh3 Administered Medications: No medications were administered Medication: 08:44 VIS not applicable for this client. ld1 Outcome: 10:59 Decision to Hospitalize by Provider. snw 14:13 Admitted to Med/surg accompanied by nurse, family with patient, via stretcher, room eh3 218, Report called to [place] 14:13 Condition: stable 14:13 Instructed on the need for admit. 14:14 Patient left the ED. eh3 Signatures: Dispatcher [employer] Jass Garsia MD MD cha Waters, Shelly, MOTOR OVERHAULER-C MOTOR OVERHAULER-Csnw Jessica Campos, RN RN ld1 Ashanti Vázquez RN RN eh3 Corrections: (The following items were deleted from the chart) 08:43 08:43 PSHx: cardiac stent; ld1 ld1
--- NOTE | 2023-05-03 10:59 | EDPHYS ---
Physician Documentation [facility] Name: Valentino Metcalf Age: 77 yrs Sex: Male : 1945 Arrival Date: 05/03/2023 Time: 08:31 Bed 17 Private MD: ED Physician Jass Muro HPI: 05/03 08:54 This 77 yrs old Male presents to ER via EMS with complaints of Leg Pain, Hip snw Pain. 08:54 The patient presents with pain, that is acute. The complaints affect the left hip and snw lateral aspect of left thigh. Context: The problem was sustained at home, resulted from muscle spasms, falls, thrashing since starting Mounjaro and experiencing low blood sugars. Severity of symptoms: At their worst the symptoms were moderate. Historical: - Allergies: 08:43 No Known Allergies; ld1 - PMHx: 08:43 Arthritis; coronary atherosclerosis; High Cholesterol; Hypercholesterolemia; ld1 Hypertension; Hypothyroidism; IDDM; kidney issues; - Immunization history:: Adult Immunizations up to date. - Social history:: Smoking status: Patient denies any tobacco usage or history of. ROS: 08:53 Eyes: Negative for injury, pain, redness, and discharge, ENT: Negative for injury, snw pain, and discharge, Neck: Negative for injury, pain, and swelling, Cardiovascular: Negative for chest pain, palpitations, and edema, Respiratory: Negative for shortness of breath, cough, wheezing, and pleuritic chest pain, Abdomen/GI: Negative for abdominal pain, nausea, vomiting, diarrhea, and constipation, Back: Negative for injury and pain, : Negative for injury, bleeding, discharge, and swelling, Skin: Negative for injury, rash, and discoloration. 08:53 Constitutional: Positive for poor PO intake, low blood sugar. 08:53 MS/extremity: Positive for injury or acute deformity, decreased range of motion, pain, tenderness, of the left leg. 08:53 Neuro: Positive for low blood sugar hallucinations since starting Mounjaro. Exam: 08:51 Head/Face: Normocephalic, atraumatic. Eyes: Pupils equal round and reactive to light, snw extra-ocular motions intact. Lids and lashes normal. Conjunctiva and sclera are non-icteric and not injected. Cornea within normal limits. Periorbital areas with no swelling, redness, or edema. ENT: Nares patent. No nasal discharge, no septal abnormalities noted. Tympanic membranes are normal and external auditory canals are clear. Oropharynx with no redness, swelling, or masses, exudates, or evidence of obstruction, uvula midline. Mucous membranes moist. Neck: Trachea midline, no thyromegaly or masses palpated, and no cervical lymphadenopathy. Supple, full range of motion without nuchal rigidity, or vertebral point tenderness. No Meningismus. Chest/axilla: Normal chest wall appearance and motion. Nontender with no deformity. No lesions are appreciated. Cardiovascular: Regular rate and rhythm with a normal S1 and S2. No gallops, murmurs, or rubs. Normal PMI, no JVD. No pulse deficits. Respiratory: Lungs have equal breath sounds bilaterally, clear to auscultation and percussion. No rales, rhonchi or wheezes noted. No increased work of breathing, no retractions or nasal flaring. Abdomen/GI: Soft, non-tender, with normal bowel sounds. No distension or tympany. No guarding or rebound. No evidence of tenderness throughout. Back: No spinal tenderness. No costovertebral tenderness. Full range of motion. Skin: Warm, dry with normal turgor. Normal color with no rashes, no lesions, and no evidence of cellulitis. 08:51 Constitutional: The patient appears alert, awake, obese, uncomfortable. 08:51 Musculoskeletal/extremity: Extremities: grossly normal except: noted in the left leg: contusion, pain, tenderness. 08:51 Musculoskeletal/extremity: left lower ext with previous trauma, left foot cool to touch (norm per pt and family). 08:51 Neuro: Orientation: is normal, Mentation: is normal, Memory: is normal, Motor: pain to left hip/leg, Sensation: is normal, Gait: not tested. seizure activity, is not displayed by the patient, Abnormal movements: resting tremor, is located in the left arm. Vital Signs: 08:41 BP 159 / 80; Pulse 72; Resp 18; Temp 98.4(O); Pulse Ox 97% on R/A; Weight 54.88 kg; ld1 Height 5 ft. 10 in. ; Pain 10/10; 10:10 BP 127 / 87; Pulse 64; Resp 18; Pulse Ox 93% on R/A; ld1 11:02 BP 119 / 52; Pulse 64; Resp 18; Pulse Ox 95% on R/A; ld1 08:41 Body Mass Index 17.36 (54.88 kg, 177.8 cm) ld1 08:41 Pain Scale: Adult ld1 MDM: 08:42 Patient medically screened. henry 10:59 Differential diagnosis: dislocation, open fracture, closed fracture, contusion. Data snw reviewed: vital signs, nurses notes, lab test result(s), radiologic studies. Management of patient was discussed with the following: Hospitalist: discussed admission with Hosp team.. Historians other than the Patient: Spouse/Significant Other: . Counseling: I had a detailed discussion with the patient and/or guardian regarding the historical points, exam findings, and any diagnostic results supporting the discharge/admit diagnosis, lab results, radiology results, the need for further work-up and treatment in the hospital. Response to treatment: the patient's symptoms have mildly improved after treatment. 05/03 08:49 Order name: CBC with Diff; Complete Time: 09:25 snw 05/03 08:49 Order name: CMP; Complete Time: 09:39 snw 05/03 08:49 Order name: Urine W/Microscopic (UAM); Complete Time: 09:25 snw 05/03 11:28 Order name: Basic Metabolic Panel EDMS 05/03 11:28 Order name: Basic Metabolic Panel EDMS 05/03 11:28 Order name: CBC with Automated Diff EDMS 05/03 11:28 Order name: CBC with Automated Diff EDMS 05/03 11:28 Order name: Magnesium EDMS 05/03 11:28 Order name: Magnesium EDMS 05/03 11:28 Order name: Phosphorus EDMS 05/03 11:28 Order name: Phosphorus EDMS 05/03 08:49 Order name: CT Pelvis wo Cont; Complete Time: 10:14 snw 05/03 08:49 Order name: US LE Artery Uni Ltd; Complete Time: 10:03 snw 05/03 12:05 Order name: CT Head Brain wo Cont snw 05/03 11:28 Order name: CONS Physician Consult EDMS 05/03 08:49 Order name: IV Saline Lock; Complete Time: 09:06 snw 05/03 08:49 Order name: Labs collected and sent; Complete Time: 09:06 snw Administered Medications: No medications were administered Disposition Summary: 05/03/23 10:59 Hospitalization Ordered Hospitalization Status: Inpatient Admission snw Provider: Joshua Angulo Location: Telemetry/MedSurg (Inpatient) snw Condition: Stable snw Problem: an acute exacerbation snw Symptoms: have worsened snw Bed/Room Type: Standard snw Room Assignment: 218(05/03/23 13:07) ds4 Diagnosis - LUKASZ snw - 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
--- NOTE | 2023-05-03 11:28 | P.HP ---
Certification for Inpatient With expected LOS: >2 Midnights Patient will require the following post-hospital care: None Practitioner: I am a practitioner with admitting privileges, knowledge of patient current condition, hospital course, and medical plan of care. Services: Services provided to patient in accordance with Admission requirements found in Title 42 Section 412.3 of the Code of Federal Regulations <Cori Vital - Last Filed: 05/03/23 15:55> Patient History Date of Service: 05/03/23 Reason for admission: Symptomatic hypoglycemia History of Present Illness: 77-year-old male with past medical history hypertension, hypothyroidism, coronary artery disease with stents, diabetes type 2 recently started Mounjaro, anxiety, chronic pain to back and leg, renal disease. Patient presented to the ED due to leg pain caused from muscle spasms and thrashing around. Patient's family reports he is thrashing around when his blood sugar drops. Patient's states his blood sugar this morning was 40 before bringing him to the ED. Last dose of 60 units of scheduled regular insulin was last night. Later his glucsoe was 54 at which time he ate pizza and skipped his next scheduled dose of insulin. Patient started taking Mounjaro three weeks ago and has experinced low blood sugar the last three days. While in the ED blood pressure 159/80, heart rate 72, afebrile, oxygen saturation 97% on room air, serum glucose 91, BUN/creatinine 47/2.63, GFR 27. Patient will be admitted for symptomatic hypoglycemia episodes. - Past Medical/Surgical History Diabetic: Yes -: High Blood Pressure -: Diabetes-IDDM -: Hypothyroid -: CAD -: Cardiac stent -: Back sx -: left leg sx -: Bilateral cataract -: Cardiac Stent Psychosocial/ Personal History: Patient is . - Social History Alcohol use: Yes CD- Drugs: No Caffeine use: Yes <Cori Vital - Last Filed: 05/03/23 15:55> Date of Service: 05/04/23 <Leif York - Last Filed: 05/04/23 07:58> Allergies No Known Allergies Allergy (Verified 10/02/15 09:32) Home Medications: Glipizide [Glipizide ER] 10 mg PO BID 03/15/14 Levothyroxine [Synthroid*] 0.1 mg PO [id number] 03/15/14 Metoprolol Tartrate [Lopressor*] 100 mg PO DAILY 03/15/14 Pravastatin [Pravachol*] 80 mg PO BEDTIME 03/15/14 Aspirin [Aspirin EC 81 MG] 81 mg PO DAILY 10/02/15 Insulin Glargine,Hum.rec.anlog [Lantus] 60 units SQ BID 02/12/18 Clopidogrel Bisulfate [Plavix*] 1 tab PO DAILY 05/28/20 Albuterol Inhaler [Ventolin Inhaler*] 2 puff IH Q6H PRN #1 inh 06/23/22 Cefdinir [Cefdinir*] 300 mg PO BID #14 cap 06/23/22 Valsartan/Hydrochlorothiazide [Valsartan-Hctz 320-12.5 mg Tab] 1 tab PO DAILY 06/23/22 predniSONE [Deltasone] 20 mg PO DAILY #5 tab 06/23/22 Review of Systems General: Other (chronic back and left hip pain) Eyes: Unremarkable Respiratory: Unremarkable Cardiovascular: Unremarkable Gastrointestinal: Unremarkable Genitourinary: Unremarkable Musculoskeletal: Unremarkable Neurological: Confusion (with low blood sugar) <Cori Vital - Last Filed: 05/03/23 15:55> Physical Examination - Physical Exam General: Alert, Oriented x3, Mild distress HEENT: Atraumatic, Normocephalic, PERRLA Neck: Supple, 2+ carotid pulse no bruit, JVD not distended Respiratory: Clear to auscultation bilaterally, Normal air movement Cardiovascular: No edema, Normal pulses, Regular rate/rhythm, Normal S1 S2 Capillary refill: <2 Seconds Gastrointestinal: Normal bowel sounds, Distended (obese) Musculoskeletal: No clubbing, No swelling Integumentary: Skin breakdown (BLE) Neurological: Normal speech, Normal strength at 5/5 x4 extr - Studies Laboratory Data (last 24 hrs) 05/03/23 05/03/23 09:02 09:02 WBC 12.10 H Hgb 13.9 Hct 42.9 Plt Count 199 Sodium 139 Potassium 4.0 BUN 47 H Creatinine 2.63 H Glucose 91 Total Bilirubin 0.7 AST 34 ALT 30 Alkaline Phosphatase 57 <Cori Vital - Last Filed: 05/03/23 15:55> - Studies Laboratory Data (last 24 hrs) 05/03/23 05/03/23 09:02 09:02 WBC 12.10 H Hgb 13.9 Hct 42.9 Plt Count 199 Sodium 139 Potassium 4.0 BUN 47 H Creatinine 2.63 H Glucose 91 Total Bilirubin 0.7 AST 34 ALT 30 Alkaline Phosphatase 57 <Leif York - Last Filed: 05/04/23 07:58> Assessment and Plan - Plan Assessment and Plan Acute Symptomatic Hypoglycemia in a patient with IDDM -ACCU with SSI -hold home antidiabetic medications -MRI head to evaluate neurological symptoms- patient considering -D5NS -Hypoglycemic protocol ordered Chronic kidney disease stage 4 -GFR 25, BUN/Creatinine 47/2.63 -IVF -consult nephrology -Strict I/O h/o hypothyroidism -restart home synthroid h/o HTN -restart home medications Full code no concentrated carb diet LOS 1-2 days Discharge Plan: Home Plan to discharge in: 48 Hours - Advance Directives Does patient have a Living Will: No Does patient have a Durable POA for Healthcare: No Time Spent Managing Pts Care (In Minutes): 55 <Cori Vital - Last Filed: 05/03/23 15:55>
[2023-05-03] MEDS: INSULIN -REGULAR HUMAN 50 UNIT/0.5 ML ML SQ SCH ×2 (11:30→15:45)
[2023-05-03] MEDS ORDERED: HYDROCODONE/APAP 7.5/325 MG TAB PO PRN (12:37)
[2023-05-03] MEDS ORDERED: NA CHLORIDE 0.9% 1,000 ML IV SCH (13:00)
[2023-05-03] MEDS ORDERED: HYDROCODONE/APAP 7.5/325 MG TAB ONE (13:14)
--- NOTE | 2023-05-03 13:20 | P.CNS ---
Date of Consult: 05/03/23 Reason for Consult: renal failure Requesting Physician: Joshua Angulo Chief Complaint: Hypoglycemic episodes History of Present Illness: 77M w/ PMHx of Htn, CAD status post PCI, hypothyroidism, DM type II on mounjaro, anxiety disorder, chronic back and leg pain, and CKD IIIB baseline GFR 36-43 ml/min, who presents with leg pain and muscle spasm and hypoglycemia. He reports having poor by mouth intake for the past several days. Serum Cr 2.6 on admission. He received IV fluids. Allergies No Known Allergies Allergy (Verified 10/02/15 09:32) Home Medications: Glipizide [Glipizide ER] 10 mg PO BID 03/15/14 Levothyroxine [Synthroid*] 0.1 mg PO [id number] 03/15/14 Metoprolol Tartrate [Lopressor*] 100 mg PO DAILY 03/15/14 Pravastatin [Pravachol*] 80 mg PO BEDTIME 03/15/14 Aspirin [Aspirin EC 81 MG] 81 mg PO DAILY 10/02/15 Insulin Glargine,Hum.rec.anlog [Lantus] 60 units SQ BID 02/12/18 Clopidogrel Bisulfate [Plavix*] 1 tab PO DAILY 05/28/20 Albuterol Inhaler [Ventolin Inhaler*] 2 puff IH Q6H PRN #1 inh 06/23/22 Cefdinir [Cefdinir*] 300 mg PO BID #14 cap 06/23/22 Valsartan/Hydrochlorothiazide [Valsartan-Hctz 320-12.5 mg Tab] 1 tab PO DAILY 06/23/22 predniSONE [Deltasone] 20 mg PO DAILY #5 tab 06/23/22 - Past Medical/Surgical History Diabetic: Yes -: High Blood Pressure -: Diabetes-IDDM -: Hypothyroid -: CAD -: Cardiac stent -: Back sx -: left leg sx -: Bilateral cataract -: Cardiac Stent Psychosocial/ Personal History: Patient is . - Social History Smoking Status: Never smoker Alcohol use: Yes CD- Drugs: No Caffeine use: Yes Physical Examination Laboratory Data (last 24 hrs) 05/03/23 05/03/23 09:02 09:02 WBC 12.10 H Hgb 13.9 Hct 42.9 Plt Count 199 Sodium 139 Potassium 4.0 BUN 47 H Creatinine 2.63 H Glucose 91 Total Bilirubin 0.7 AST 34 ALT 30 Alkaline Phosphatase 57 Conclusions/Impression: # LUKASZ likely 2/2 prerenal state/ATN + relative hypotension SCr 2.6 on adm Urinalysis showed high specific gravity, 3+ proteinuria but no hematuria no pyuria Urine chem non-prerenal He has mild proteinuria 1.4 g on random UPCR CPK not significantly elevated, no rhabdo BNP somewhat elevated Continue IV fluids Encourage by mouth fluid intake Monitor renal panel # CKD3b presumed to be 2/2 Htn/DM Baseline SCr 1.6-1.9 (GFR 36-43 mL/min) as of June 2022 Monitor renal panel # DM2 c/b hypoglycemia Mngt per primary team # Htn Cont current med regimen # CAD s/p PCI continue cardiac prudent medications # Hypothyroidism Synthroid
[2023-05-03 14:36] LABS: Magnesium 2.4 mg/dL (1.6-2.4); Phosphorus 3.5 mg/dL (2.5-4.9)
[2023-05-03] MEDS ORDERED: D10W 250 ML BAG IV PRN (15:22)
[2023-05-03] MEDS ORDERED: D10W 250 ML BAG IV ONE ×2 (15:23→16:00)
[2023-05-03] MEDS: MORPHINE 2 MG/ML SYR IV PRN ×2 (15:34→20:27)
[2023-05-03] MEDS ORDERED: D50W 25 GM/50 ML SYRINGE IV PRN (16:00)
[2023-05-03] MEDS ORDERED: PNEUMOCOCCAL VACCINE 0.5 ML IMVAC ONE (16:00)
[2023-05-03] MEDS ORDERED: GLUCAGON 1 MG/VIAL IM PRN (16:00)
[2023-05-03 19:01] LABS: UR PROTEIN 209.5 mg/dL (<11.9); Urine Protein/Creatinine Ratio 1.4 ratio (<0.15)
[2023-05-04] MEDS: D5 0.9 NS 1,000 ML IV SCH ×2 (01:38→04:51)
[2023-05-04] MEDS: MORPHINE 2 MG/ML SYR IV PRN ×3 (01:39→21:34)
[2023-05-04 04:11] LABS: Absolute Lymphocytes (CBC) 1.3 K/uL (0.7-4.9); Hematocrit 39.4 % (39.6-49.0); Lymphocytes % 13.3 % (15.3-44.8); MCV 86.1 fL (80-100); MPV 8.6 fL (7.6-11.3); Platelets 196 thou/uL (152-406); RBC Red Blood Cell Count 4.58 M/uL (4.33-5.43)
[2023-05-04 04:39] LABS: Magnesium 2.7 mg/dL (1.6-2.4); Phosphorus 3.5 mg/dL (2.5-4.9); Potassium 4.1 mEq/L (3.5-5.1)
[2023-05-04] MEDS ORDERED: PNEUMOCOCCAL VACCINE 0.5 ML IMVAC ONE (10:00)
--- NOTE | 2023-05-04 13:20 | P.PN ---
Subjective Date of Service: 05/04/23 Chief Complaint: Hypoglycemic episodes Subjective: No new changes Physical Examination - Vital Signs Temperature: 98.1 F Blood Pressure: 129/60 Pulse: 79 Respirations: 17 Pulse Ox (%): 95 - Physical Exam General: Other (appears as his stated age) HEENT: Atraumatic, Normocephalic Neck: Supple Respiratory: Other (symmetric chest expansion) Cardiovascular: No rubs, No murmurs Gastrointestinal: Soft and benign, No rebound Musculoskeletal: No clubbing Integumentary: No warmth Neurological: Normal tone Urinary: Other (no bladder distention) External genitalia: Deferred Rectal: Deferred Assessment And Plan - Plan # LUKASZ likely 2/2 prerenal state/ATN + relative hypotension SCr 2.6 on adm, increased to 2.9 Urinalysis showed high specific gravity, 3+ proteinuria but no hematuria no pyuria Urine chem non-prerenal He has mild proteinuria 1.4 g on random UPCR CPK not significantly elevated, no rhabdo BNP somewhat elevated Continue NS gtt 75 cc/hr Encourage by mouth fluid intake Monitor renal panel # CKD3b presumed to be 2/2 Htn/DM Baseline SCr 1.6-1.9 (GFR 36-43 mL/min) as of June 2022 Monitor renal panel # Hypermagnesemia Monitor # DM2 c/b hypoglycemia Mngt per primary team # Htn Cont current med regimen # CAD s/p PCI continue cardiac prudent medications # Hypothyroidism Synthroid # R hip pain Imaging showed no acute pathology Refer to Physical Therapy
[2023-05-04] MEDS: NA CHLORIDE 0.9% 1,000 ML IV SCH (14:28)
--- NOTE | 2023-05-04 17:42 | P.PN ---
Subjective Date of Service: 05/04/23 Chief Complaint: Hypoglycemic episodes His blood glucose has stabilized and his mental status has improved significantly. He appears at his mental baseline per his . He denies fevers, chills, or chest pain. He reports chronic back pain. Review of Systems 10-point ROS is otherwise unremarkable Musculoskeletal: Back Pain Physical Examination - Vital Signs Temperature: 98.7 F Blood Pressure: 143/69 Pulse: 76 Respirations: 17 Pulse Ox (%): 92 - Physical Exam General: Alert, In no apparent distress, Oriented x3 HEENT: Atraumatic, Mucous membr. moist/pink, Sclerae nonicteric Neck: JVD not distended Respiratory: Clear to auscultation bilaterally, Normal air movement Cardiovascular: No edema, Regular rate/rhythm, Normal S1 S2, No gallops, No rubs, No murmurs Gastrointestinal: Normal bowel sounds, Soft and benign, Non-distended, No tenderness, No rebound, No guarding Musculoskeletal: No clubbing Integumentary: No rashes Neurological: Normal speech, Normal affect Assessment And Plan - Plan # Confusion/Hallucinations suspect due to Neuroglycopenia secondary to Medication-Induced Hypoglycemia - improved # Type II Diabetes Mellitus - Initially presented with hallucinations/confusion with a blood glucose as low as 43 - Mental status is much improved today - Hold home dapagliflozin, glipizide, insulin glargine, and tirzepatide - Monitor glucose levels and needed D50W + juice as needed # KDIGO Stage I Acute Kidney Injury on Chronic Kidney Disease Stage III - Nephrology consulted - recommendations appreciated - Creatinine = 2.63 -> 2.85 (creatinine was 1.90 on 06/23/2022) - Urinalysis = 2+ glucose, 3+ protein - IV fluids per Nephrology - Monitor creatinine and urine output - If worsening, obtain renal ultrasound - Renally dose medications - Avoid nephrotoxic agents # Coronary Artery Disease s/p PCI # Moderate Peripheral Artery Disease # Hypertension - Left lower extremity ultrasound = "moderate distal lower extremity arterial disease." - Continue home aspirin, clopidgorel, metoprolol - Hold home valsartan-hydrochlorothiazide given LUAKSZ # Hypothyroidism - Continue home levothyroxine # Chronic Back Pain - CT pelvis = "no fracture seen" - As needed pain medication Joshua Angulo M.D.
--- NOTE | 2023-05-04 19:22 | P.PN ---
Date of Service: 05/05/23 Subjective: Physical Exam: Vitals: Reviewed Gen: Alert, Oriented, NAD CV: regular rate & rhythm, no edema Pulm: Respirations are clear bilaterally Abd: soft, nontender, nondistended MSK: no joint tenderness Integumentary: No rashes Neuro: normal speech, normal affect Problem List: 1. Confusion/Hallucinations suspect due to Neuroglycopenia secondary to Medication-Induced Hypoglycemia, improved 2. Type II Diabetes Mellitus 3. LUKASZ on CKD3 4. CAD s/p PCI 5. Moderate Peripheral Artery Disease 6. Hypertension 7. Hypothyroidism 8. Chronic Back Pain PLAN: Initially presented with hallucinations/confusion with a blood glucose as low as 43 Mental status improved, ~baseline Hold home dapagliflozin, glipizide, insulin glargine, and tirzepatide Monitor glucose levels and needed D50W + juice as needed Nephrology consulted Continue IV fluids Monitor renal function Renally dose medications Avoid nephrotoxic agents Continue home aspirin, clopidgorel, metoprolol Hold home valsartan-hydrochlorothiazide given LUKASZ Continue home levothyroxine Pain control
[2023-05-04] MEDS: METOPROLOL TAR 50 MG TAB PO SCH (21:34)
[2023-05-04] MEDS: ATORVASTATIN 10 MG TAB PO SCH (21:34)
[2023-05-05] MEDS: NA CHLORIDE 0.9% 1,000 ML IV SCH ×2 (02:11→12:03)
[2023-05-05] MEDS: LEVOTHYROXINE SOD 0.112 MG TAB PO SCH (06:03)
[2023-05-05] MEDS: MORPHINE 2 MG/ML SYR IV PRN ×2 (06:08→20:12)
[2023-05-05] MEDS: ASPIRIN EC 81 MG TAB PO SCH (09:07)
[2023-05-05] MEDS: METOPROLOL TAR 50 MG TAB PO SCH ×2 (09:07→20:11)
[2023-05-05] MEDS: CLOPIDOGREL 75 MG TABLET PO SCH (09:07)
[2023-05-05] MEDS ORDERED: INSULIN GLARGINE 100 UNIT/ML SQ SCH ×2 (17:30)
[2023-05-05] MEDS: ATORVASTATIN 10 MG TAB PO SCH (20:11)
[2023-05-05 20:19] VITALS: BMI 37.3
[2023-05-05 23:29] VITALS: O2SAT 93
[2023-05-06] MEDS: NA CHLORIDE 0.9% 1,000 ML IV SCH ×3 (00:34→08:39)
--- NOTE | 2023-05-06 02:34 | PN ---
Date of Progress Note: 05/05/2023 Chief Complaint: Acute kidney injury. The patient is admitted to the hospital for hypoglycemia. Review of Systems: Patient today denies complaints. Denies chest pain, palpitation. Denies dysuria, hematuria. Physical Examination: Lungs: Clear to auscultation bilaterally. Heart: S1, S2. Abdomen: Soft. Extremities: Slight edema in both ankles. Impression And Plan: 1.Acute kidney injury secondary to acute tubular necrosis due to hypotensive episodes. Serum creati nine on admission was 2.6 and increased to 2.9. Urinalysis showed 3+ proteinuria, but no hematuria a nd no pyuria. Urine culture is pending. Patient has mild proteinuria and CK level is not significan tly elevated and does not correspond with rhabdomyolysis. Continue normal saline for hydration to tr eat acute kidney injury. Monitor urine output. Patient denies lower urinary tract symptoms. Contin ue to monitor bladder ultrasound. 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 Baseline creatinine level was ranging from 1.6 to 1.9. Continue to monitor renal function and electrolytes. 3.Hypermagnesemia. Monitor. Avoid magnesium tablets. 4.Diabetes mellitus. Hypoglycemia per primary team. Avoid metformin due to chronic kidney disease and acute kidney injury. 5.Hypertension. Continue current medication. ALISSA/MODL Voice ID: [id number] Report ID: [id number]
[2023-05-06] MEDS: LEVOTHYROXINE SOD 0.112 MG TAB PO SCH (06:22)
[2023-05-06 06:28] LABS: Absolute Lymphocytes (CBC) 1.3 K/uL (0.7-4.9); Hematocrit 39.6 % (39.6-49.0); Lymphocytes % 14.5 % (15.3-44.8); MCV 86.2 fL (80-100); MPV 8.3 fL (7.6-11.3); Platelets 214 thou/uL (152-406); RBC Red Blood Cell Count 4.59 M/uL (4.33-5.43)
[2023-05-06 06:42] LABS: Albumin 2.7 g/dL (3.4-5.0); Bilirubin Total 0.8 mg/dL (0.2-1.0); Potassium 4.2 mEq/L (3.5-5.1); Protein, Total 6.2 g/dL (6.4-8.2)
[2023-05-06] MEDS: METOPROLOL TAR 50 MG TAB PO SCH (08:39)
[2023-05-06] MEDS: ASPIRIN EC 81 MG TAB PO SCH (08:39)
[2023-05-06] MEDS: CLOPIDOGREL 75 MG TABLET PO SCH (08:39)
[2023-05-06 17:19] VITALS: BP 155/79; TEMP 97.9
== END 2023-05-06 17:15 | disposition home health service (06) | DRG 638 ==
LOC: ER 08:31 → ERHOLD 11:24 → 2ND 13:07
PROVIDERS: ADMIT Internal Medicine; ATTEND Hospitalist
DX: E11.649 Type 2 diabetes mellitus with hypoglycemia without coma (principal); M62.82 Rhabdomyolysis; R44.3 Hallucinations, unspecified; N17.0 Acute kidney failure with tubular necrosis; E03.9 Hypothyroidism, unspecified; M19.90 Unspecified osteoarthritis, unspecified site; E78.00 Pure hypercholesterolemia, unspecified; I12.9 Hypertensive chronic kidney disease with stage 1 through stage 4 chronic kidney disease, or unspecified chronic kidney disease; N18.32 Chronic kidney disease, stage 3b; E11.22 Type 2 diabetes mellitus with diabetic chronic kidney disease; E11.51 Type 2 diabetes mellitus with diabetic peripheral angiopathy without gangrene; G89.29 Other chronic pain; M54.9 Dorsalgia, unspecified; M25.552 Pain in left hip; E83.41 Hypermagnesemia; I25.10 Atherosclerotic heart disease of native coronary artery without angina pectoris; T50.905A Adverse effect of unspecified drugs, medicaments and biological substances, initial encounter; R41.0 Disorientation, unspecified; Z95.5 Presence of coronary angioplasty implant and graft; Z79.4 Long term (current) use of insulin; Z79.84 Long term (current) use of oral hypoglycemic drugs; Z79.82 Long term (current) use of aspirin; Z79.52 Long term (current) use of systemic steroids; Z79.890 Hormone replacement therapy; Z79.899 Other long term (current) drug therapy
CPT/HCPCS: 36415; 72192; 80048; 80053; 81001; 82306; 82550; 82570; 82947; 83036; 83735; 83880; 83935; 83970; 84100; 84132; 84156; 84300; 85025; 93926; 97110; 97161; 97530; 99285; J2270; J7030; J7042

== ENCOUNTER 2023-10-21 09:50 | Observation (INO) | payer OTHER ==
--- OUTSIDE RECORDS SUMMARY | 2023-10-21 09:53 | XMS REPORT | Continuity of Care Document ---
Author Name Unknown Address [address] [place] [address] [facility] thconnect Address [address] [place] [address] Care Team Providers Care Leather Belt Loop Cutter Name Role Phone PCP, PATIENT DOES NOT HAVE A Primary Care Physic artemio Unavailable Julian Carlos Attending Clinician UnavailCHRISTOPHER Ziegler Attending Clinician Unavailable TRUDY MARIANO Attending Clinician Unavailable Payers Payer Name Policy Type Policy Number Effective Date Expirati on Date Source [facility] PPO [id number] 2020 00:00:00 Allergies, Adverse Reactions, Alerts Allergy Name Allergy Type Status Severity Reaction(s) Onset Date Inactive Date Treating Clinician Comments Source NO KNOWN ALLERGIE S Drug Class Active [facility] Encounters Start Date/Time End Date/Time Encounter Type Admission Type Attending Clinicians Care Facility Care Department Encounter ID Source 2022-09-10 10:39:01 Outpatient [facility] [id number] [facility] 2022-03-12 16:20:01 Outpatient KattegummJulian sylvester [facility] [id number] [facility] 2022-02-08 08:39:01 Outpatient Julian Reynolds [facility] [id number] [facility] 2021-09-12 13:00:14 Outpatient KatterichmmJulian sylvester [facility] [id number] [facility] 2021-09-12 12:54:24 Outpatient [facility] [id number] [facility] 2023-07-18 11:00:00 2023-07-18 11:00:00 Outpatient CHRISTOPHER SCOTT [facility] [id number] [facility] 2020-11-22 13:30:00 2020-11-22 13:30:00 Outpatient TRUDY REYES [facility] [id number] [facility] 2020-10-25 13:40:00 2020-10-25 13:40:00 Outpatient TRUDY REYES [facility] [id number] [facility]
--- NOTE | 2023-10-21 10:30 | RAD REPORT ---
EXAM DESCRIPTION: CT - Ct Stroke Brain Wo Cont - 10/21/2023 10:15 am CLINICAL HISTORY: STROKE ALERT COMPARISON: No comparisons TECHNIQUE: All CT scans are performed using dose optimization technique as appropriate and may inclu de automated exposure control or mA/KV adjustment according to patient size. FINDINGS: No intracranial hemorrhage, hydrocephalus or extra-axial fluid collection.Small calcified meningioma along the right parietal calvarium measuring 6 millimeters of no significance. Asymmetric prominence of the extra-axial spaces at the right cerebral hemisphere may be developmental. There are some areas of sulcal prominence which is probably due to underlying focal cerebral atrophy. No acute large vascular territory infarct. Small areas of hypoattenuation in the lateral temporal and inferio r right parietal lobe could be age-indeterminate infarcts . The paranasal sinuses and mastoids are clear. The calvarium is intact. IMPRESSION: No acute intracranial hemorrhage. Small areas of white matter hypoattenuation in the rig ht lateral temporal lobe and inferior right parietal lobe could represent small cortical infarcts. MR I could better assess. There are some other abnormalities including focal atrophy at the right cerebr al hemisphere which are favored developmental. Discussed with Dr. Wild by Dr. Belcher at 1025 on 10/21/23
[2023-10-21 10:35] LABS: Absolute Basophils 0.1 K/uL (0-0.5); Absolute Lymphocytes (CBC) 1.2 K/uL (0.7-4.9); Basophils % 1.1 % (0-1.3); Hematocrit 41.3 % (39.6-49.0); Lymphocytes % 11.5 % (15.3-44.8); MCV 85.3 fL (80-100); Platelets 230 thou/uL (152-406); RBC Red Blood Cell Count 4.85 M/uL (4.33-5.43)
[2023-10-21 10:39] LABS: Protime INR 1.05
[2023-10-21 10:52] LABS: Anion Gap 6.8 mEq/L (5.0-15.0); Potassium 4.8 mEq/L (3.5-5.1); Troponin High Sensitivity 9.5 pg/mL (<58.9)
--- NOTE | 2023-10-21 11:05 | P.HP ---
Certification for Inpatient Patient admitted to: Observation With expected LOS: >2 Midnights Patient will require the following post-hospital care: None Practitioner: I am a practitioner with admitting privileges, knowledge of patient current condition, hospital course, and medical plan of care. Services: Services provided to patient in accordance with Admission requirements found in Title 42 Section 412.3 of the Code of Federal Regulations Patient History Date of Service: 10/22/23 Reason for admission: CVA r/o History of Present Illness: Valentino Metcalf is a 78-year-old male with past medical history hypertension, hypothyroidism, CAD with stents, diabetes type 2- IDDM using Mounjaro, anxiety, chronic back pain and leg, renal disease, who presents to the ED with complaints of slurred speech, left upper extremity weakness, left decreased sensation. Probable CVA, not a TNK candidate due to last known normal was last night and woke up in this condition this morning. CT head shows abnormalities including focal atrophy at the right cerebral hemisphere and questionable cortical infarcts. Creatinine 3.5 up from 2.6, He is a patient of Dr. York. Of note, family reports, two months ago, he experienced a similar episode that resolved quickly. While in the ED NIHSS 4, on evaluation NIHSS 0 Initial vitals BP 154 / 72; Pulse 73; Resp 16; Temp 98; Pulse Ox 99% Laboratory evaluation sodium 135, BUN/creatinine 56/3.45, GFR 17, serum glucose 345. Valentino will be admitted for further evaluation and treatment of probable CVA. Allergies No Known Allergies Allergy (Verified 10/02/15 09:32) Home Medications: Levothyroxine [Synthroid*] 0.112 mg PO [id number] 03/15/14 Pravastatin [Pravachol*] 80 mg PO BEDTIME 03/15/14 Aspirin [Aspirin EC 81 MG] 81 mg PO DAILY 10/02/15 Clopidogrel Bisulfate [Plavix*] 1 tab PO DAILY 05/28/20 Albuterol Inhaler [Ventolin Inhaler*] 2 puff IH Q6H PRN #1 inh 06/23/22 Valsartan/Hydrochlorothiazide [Valsartan-Hctz 320-12.5 mg Tab] 1 tab PO DAILY 06/23/22 Docusate [Colace Cap*] 100 mg PO DAILY 05/04/23 Metoprolol Tartrate [Lopressor*] 25 mg PO BID #60 tab 05/05/23 Empagliflozin [Jardiance] 1 tab PO DAILY 10/21/23 Finerenone [Kerendia] 1 tab PO DAILY 10/21/23 Insulin Glargine,Hum.rec.anlog [Lantus Solostar] 60 unit SQ BID 10/21/23 - Past Medical/Surgical History Diabetic: Yes -: High Blood Pressure -: Diabetes-IDDM -: Hypothyroid -: CAD -: Cardiac stent -: Back sx -: left leg sx -: Bilateral cataract -: Cardiac Stent Psychosocial/ Personal History: Patient is . - Family History Family History: Reviewed- Non-Contributory - Social History Alcohol use: Yes CD- Drugs: No Caffeine use: Yes Review of Systems Respiratory: Cough Neurological: Other (headache) Physical Examination - Physical Exam General: Alert, In no apparent distress, Oriented x3 HEENT: Atraumatic, Normocephalic, PERRLA Neck: Supple, 2+ carotid pulse no bruit, JVD not distended Respiratory: Clear to auscultation bilaterally, Normal air movement Cardiovascular: Normal pulses, Regular rate/rhythm, Normal S1 S2 Capillary refill: <2 Seconds Gastrointestinal: Normal bowel sounds, Soft and benign, No tenderness Musculoskeletal: No clubbing, No swelling, No contractures Integumentary: No breakdown, No significant lesion Neurological: Normal speech, Normal strength at 5/5 x4 extr - Studies Laboratory Data (last 24 hrs) 10/21/23 10/21/23 10/21/23 10:23 10:23 10:23 WBC 10.70 Hgb 13.5 L Hct 41.3 Plt Count 230 PT 11.5 INR 1.05 APTT 30.8 Sodium 135 L Potassium 4.8 BUN 56 H Creatinine 3.45 H Glucose 345 H Assessment and Plan - Plan Assessment and plan Acute CVA vs TIA -Allow permissive HTN OVN -Aspirin, statin, Folic acid daily -Lipid panel pending -A1C, TSH/free T4 -PT/[employer] consulted -CT brain- "No acute intracranial hemorrhage. Small areas of white matter hypoattenuation in the right lateral temporal lobe and inferior right parietal lobe could represent small cortical infarcts. MRI could better assess. There are some other abnormalities including focal atrophy at the right cerebral hemisphere which are favored developmental." -MRI brain -"No acute intracranial abnormality. Specifically, no evidence of acute infarct. Age advanced cerebral atrophy, right greater than left, probably related to a remote insult." Diabetes Mellitus-IDDM with hyperglycemia -Accu-Chek with sliding scale insulin -Serum glucose 345 Chronic kidney disease 3B -BUN/creatinine 56/3.45, GFR 17 -gentle IVF -Avoid metformin at discharge -Consulted Dr. Avila HX HTN HX hypothyroidism Hx CAD with stent (2017) -Restart home medication -TSH/free T4 pending -Permissive hypertension allowed overnight DVT ppx heparin and SCD Full code LOS 2 days Discharge Plan: Home Plan to discharge in: 48 Hours - Advance Directives Does patient have a Living Will: No Does patient have a Durable POA for Healthcare: No Time Spent Managing Pts Care (In Minutes): 50
[2023-10-21] MEDS ORDERED: DIAZEPAM 2 MG TABLET ONE (11:10)
[2023-10-21] MEDS ORDERED: ASPIRIN 81 MG CHEWABLE TABLET ONE (11:10)
[2023-10-21] MEDS ORDERED: KETOROLAC 30 MG/ML INJ ONE (11:10)
[2023-10-21] MEDS ORDERED: FOLIC ACID 5 MG/ML VIAL ONE (11:11)
[2023-10-21] MEDS ORDERED: NA CHLORIDE 0.9% 100 ML ONE (11:11)
--- NOTE | 2023-10-21 11:12 | RAD REPORT ---
EXAM DESCRIPTION: RAD - Chest Single View - 10/21/2023 10:38 am CLINICAL HISTORY: weakness COMPARISON: Chest Single View dated 06/22/2022; Chest Single View dated 05/28/2020; Chest Pa And Lat (2 Views) dated 04/06/2019; Chest Pa And Lat (2 Views) dated 11/11/2018 FINDINGS: Lines: None. Lungs: No evidence of edema or pneumonia. Pleural: No significant pleural effusions or pneumothorax. Cardiac: The heart size is within normal limits. Mediastinum: Within normal limits. Bones: No acute fractures. Other: None IMPRESSION: No acute cardiopulmonary disease.
--- NOTE | 2023-10-21 11:25 | EDPHYS ---
Physician Documentation [facility] Name: Valentino Metcalf Age: 78 yrs Sex: Male : 1945 Arrival Date: 10/21/2023 Time: 09:50 Bed 4 Private MD: ED Physician Joaquin Wild HPI: 10/20 10:12 This 78 yrs old Male presents to ER via EMS with complaints of Slurred Speech. rn 10:06 Patient woke up this morning feeling weakness, slurred speech and did not feel right. rn Patient states when he woke up he was aware of symptoms and required his to assist him out of bed. Had difficulty walking to his chair in his bedroom at that time. states with time symptoms got worse and that some point became minimally responsive. No seizure or syncopal episode reported. No trauma noted. states now symptoms are improving but not back to baseline. Patient and both state that the last time was completely normal was last night prior to bed.. 10:12 The patient presents to the emergency department with a speech or higher order brain rn function problem, paresthesias of the left lower extremity. Onset: The symptoms/episode began/occurred at an unknown time. Became aware upon awakening. Associated signs and symptoms: Pertinent positives: weakness, Slurred speech, Pertinent negatives: fever, seizure, syncope, blurred vision, visual field changes, loss of vision. Severity of symptoms: At their worst the symptoms were moderate in the emergency department the symptoms have improved. Current symptoms: Currently, the patient is not experiencing any symptoms. The patient has not experienced similar symptoms in the past. The patient has not recently seen a physician. Historical: - Allergies: 09:56 No Known Allergies; bp - Home Meds: :56 pravastatin oral [Active]; Metoprolol Tartrate Oral [Active]; Jardiance oral [Active]; bp Kerendia oral [Active]; levothyroxine oral [Active]; valsartan oral [Active]; clopidogrel oral [Active]; Lantus Sub-Q [Active]; - PMHx: 09:56 Arthritis; coronary atherosclerosis; High Cholesterol; Hypercholesterolemia; bp Hypertension; Hypothyroidism; IDDM; kidney issues; - Immunization history:: Adult Immunizations up to date. - Social history:: Smoking status: unknown. - Family history:: not pertinent. - Hospitalizations: : No recent hospitalization is reported. ROS: 10:12 Constitutional: Negative for fever, chills, and weight loss, Eyes: Negative for injury, rn pain, redness, and discharge, Cardiovascular: Negative for chest pain, palpitations, and edema, Respiratory: Negative for shortness of breath, cough, wheezing, and pleuritic chest pain, Abdomen/GI: Negative for abdominal pain, nausea, vomiting, diarrhea, and constipation, MS/Extremity: Negative for injury and deformity, Skin: Negative for injury, rash, and discoloration, Neuro: Positive for left upper extremity weakness, positive for slurred speech, positive for decreased sensation to the left lower extremity Exam: 10:12 Constitutional: This is a well developed, well nourished patient who is awake, alert, rn and in no acute distress. Head/Face: Normocephalic, atraumatic. Cardiovascular: Regular rate and rhythm. No pulse deficits. Respiratory: Speaking full sentences, unlabored. No increased work of breathing, no retractions or nasal flaring. Neuro: Awake and alert, GCS 15, oriented to person, place, time, and situation. Right mild lower facial droop present. Positive for slurred speech and mild dysarthria. Left upper extremity with positive drift and has effort against gravity. Left lower extremity decree sensation to soft touch and painful stimuli. Vital Signs: 09:54 BP 154 / 72; Pulse 73; Resp 16; Temp 98; Pulse Ox 99% ; bp 09:59 BP 119 / 76; Pulse 70; Resp 16; Pulse Ox 97% ; ko1 10:30 BP 118 / 105; Pulse 73; Resp 16; Temp 98; Pulse Ox 98% ; bp 11:24 BP 154 / 86; Pulse 71; Resp 16; Pulse Ox 98% ; bp NIH Stroke Scale Scores: 10:01 NIHSS Score: 4 bp 10:06 NIHSS Score: 4 rn 10:43 NIHSS Score: 4 es3 11:25 NIHSS Score: 2 bp MDM: 09:58 Patient medically screened. rn 10:06 ED course: Patient with NIH stroke scale of 4. Last known normal was last night. rn Patient not TNKase candidate due to presentation outside of window. Spoke at length with the patient trying to obtain last known normal as well as 's input and consensus was last known normal was last night prior to bed.. 10:36 ED course: Dr. Aquino, radiologist, states no acute findings on CT head but a lot of rn volume loss on the right side and chronic changes.. 10:37 ED course: Ct also shows questionable cortical infarcts, strengthening belief that rn onset was sometime overnight. . 10:56 ED course: Patient states claustrophobic, requests medication to help with MRI. Valium rn 2 mg p.o., small dose, ordered to obtain MRI.. 11:23 Data reviewed: vital signs, nurses notes, lab test result(s), EKG, radiologic studies, rn CT scan, and as a result, I will admit patient. Consideration of Admission/Observation Patient was admitted/placed on observation. Escalation of care including admission/observation considered. Care significantly affected by the following chronic conditions: Diabetes, Hypertension. Counseling: I had a detailed discussion with the patient and/or guardian regarding the historical points, exam findings, and any diagnostic results supporting the discharge/admit diagnosis, lab results, radiology results, the need for further work-up and treatment in the hospital. Response to treatment: the patient's symptoms have mildly improved after treatment, and as a result, I will admit patient. 10/20 10:06 Order name: Basic Metabolic Panel; Complete Time: 10:52 10/20 10:06 Order name: CBC with Diff; Complete Time: 10:52 10/20 10:06 Order name: High Sensitivity Troponin; Complete Time: 10:52 rn 10/20 10:06 Order name: Protime (+inr); Complete Time: 10:52 10/20 10:06 Order name: Ptt, Activated; Complete Time: 10:52 10/20 10:30 Order name: CREATININE WHOLE BLOOD; Complete Time: 10:36 [facility] 10/20 10:51 Order name: Glucose, Ancillary Testing; Complete Time: 10:52 [facility] 10/20 11:47 Order name: Vitamin B12 Level [facility] 10/20 11:47 Order name: Basic Metabolic Panel [facility] 10/20 11:47 Order name: Basic Metabolic Panel [facility] 10/20 11:47 Order name: Basic Metabolic Panel [facility] 10/20 11:47 Order name: Basic Metabolic Panel [facility] 10/20 11:47 Order name: Basic Metabolic Panel [facility] 10/20 11:47 Order name: Basic Metabolic Panel [facility] 03/05 11:47 Order name: Basic Metabolic Panel [facility] 03/05 11:47 Order name: Basic Metabolic Panel [facility] 03/05 11:47 Order name: Lipid Profile [facility] 03/05 11:47 Order name: Lipid Profile [facility] 03/05 11:47 Order name: Liver (Hepatic) Function [facility] 03/ 11:47 Order name: Vitamin D, 25 (OH), TOTAL [facility] 03/ 11:47 Order name: CBC with Automated Diff [facility] 03/05 11:47 Order name: CBC with Automated Diff [facility] 03/05 11:47 Order name: CBC with Automated Diff [facility] 03/05 11:47 Order name: CBC with Automated Diff [facility] 03/05 11:47 Order name: CBC with Automated Diff [facility] 03/05 11:47 Order name: CBC with Automated Diff [facility] 03/05 11:47 Order name: RPR EDMS 03/05 11:47 Order name: CBC with Automated Diff [facility] 03/05 11:47 Order name: CBC with Automated Diff [facility] 03/05 11:48 Order name: Anti-Thrombin III Activity [facility] 03/05 11:48 Order name: C-ANCA Anti-Proteinase 3 [facility] 03/05 11:48 Order name: Cardiolipin Antibodies G,M [facility] 03/05 11:48 Order name: Factor V Leiden Mutation [facility] 03/05 11:48 Order name: Liver (Hepatic) Function [facility] 03/05 11:48 Order name: Magnesium [facility] 03/05 11:48 Order name: Magnesium EDMS 03/05 11:48 Order name: Magnesium EDMS 03/05 11:48 Order name: Magnesium EDMS 03/05 11:48 Order name: Magnesium EDMS 03/05 11:48 Order name: Magnesium EDMS 03/05 11:48 Order name: Magnesium EDMS 03/05 11:48 Order name: Magnesium EDMS 03/05 11:48 Order name: Phosphorus EDMS 03/05 11:48 Order name: Phosphorus EDMS 03/05 11:48 Order name: Phosphorus EDMS 03/05 11:48 Order name: Phosphorus EDMS 03/05 11:48 Order name: Phosphorus EDMS 03/05 11:48 Order name: Phosphorus EDMS 03/05 11:48 Order name: Phosphorus EDMS 03/05 11:48 Order name: Phosphorus EDMS 03/05 11:48 Order name: T4,Total EDMS 10/20 11:48 Order name: T4,Total EDMS 10/20 11:48 Order name: Thyroid Stimulating Hormone EDMS 10/20 11:48 Order name: Thyroid Stimulating Hormone EDMS 10/20 11:48 Order name: Troponin High Sensitivity [facility] 10/20 11:48 Order name: Troponin High Sensitivity [facility] 10/20 11:48 Order name: Troponin High Sensitivity [facility] 10/20 11:50 Order name: Homocysteine EDMS 10/20 11:50 Order name: Miscellaneous Test Lab [facility] 10/20 11:50 Order name: P-ANCA Anti-Myeloperoxidase Ab ED[facility] 10/20 11:50 Order name: Protein C Antigen ED[facility] 10/20 11:50 Order name: Protein Electo w/M Go Serum [facility] 10/20 11:50 Order name: Protein S (Total [facility] 10/20 11:50 Order name: PROTHROMBIN GENE ANALYSIS (F2) [facility] 10/20 10:06 Order name: CT Stroke Brain w/o Contrast; Complete Time: 10:36 rn 10/20 10:06 Order name: Stroke CXR 1 View rn 10/20 10:39 Order name: MRI - Brain Wo Cont rn 10/20 11:47 Order name: Echo with Doppler [facility] 10/20 12:28 Order name: MRI [facility] 10/20 10:06 Order name: EKG; Complete Time: 10:07 rn 10/20 11:47 Order name: IRF Screen [facility] 10/20 11:47 Order name: Physical Therapy Consult [facility] 10/20 11:50 Order name: Speech Therapy Consult [facility] 10/20 10:06 Order name: Accucheck; Complete Time: 10:29 rn 10/20 10:06 Order name: Cardiac monitoring; Complete Time: 10:21 rn 10/20 10:06 Order name: EKG - Nurse/Tech; Complete Time: 10:29 rn 10/20 10:06 Order name: IV Saline Lock; Complete Time: 10:21 rn 10/20 10:06 Order name: Labs collected and sent; Complete Time: 10:21 rn 10/20 10:06 Order name: NPO; Complete Time: 10:21 rn 10/20 10:06 Order name: O2 Per Protocol; Complete Time: 10:21 rn 10/20 10:06 Order name: O2 Sat Monitoring; Complete Time: 10:21 rn 10/20 10:06 Order name: Stroke Swallow Screen; Complete Time: 10:37 rn Administered Medications: 11:18 Drug: Aspirin PO Chewable Tablet 324 mg PO once; 81 mg tablets x 4 Route: PO; bp 11:18 Drug: foLIC Acid IVPB 1 mg IVPB once Route: IVPB; Site: right antecubital; bp 11:18 Drug: Diazepam PO 2 mg PO once Route: PO; bp Point of Care Testing: Blood Glucose: 09:56 Blood Glucose: 250 mg/dL; bp Ranges: Critical Glucose Levels:Adult <50 mg/dl or >400 mg/dl <40 mg/dl or >180 mg/dl Disposition Summary: 10/21/23 11:24 Hospitalization Ordered Notes: Hospitalization Status: Inpatient Admission rn Provider: Topher [facility] rn Location: Telemetry/MedSurg (Inpatient) rn Condition: Stable rn Problem: new rn Symptoms: have improved rn Bed/Room Type: Standard rn Room Assignment: 211(10/21/23 12:42) bd Diagnosis - Cerebral infarction, unspecified rn - Weakness rn - Slurred speech rn Forms: - Medication Reconciliation Form rn - SBAR form rn - Leadership Thank You Letter rn NIH Stroke Scale - NIH Stroke Score Date: 10/21/2023 Time: 10:01 Total Score = 4 10. Dysarthria (speech clarity - read or repeat words) - 1(Mild to Moderate) 11. Extinction and Inattention (visual/tactile/auditory/spatial/personal) - 0(No abnormality) 1a. Level of Consciousness (LOC) - 0(Alert) 1b. Level of Consciousness (LOC) (Month \T\ Age) - 0(Both) 1c. LOC Commands (Open \T\ Closes Eyes/Pre Sales Architect) - 0(Both) 2. Best Gaze (Lateral Gaze Paresis) - 0(Normal) 3. Visual Field Loss - 0(No visual loss) 4. Facial Palsy - 1(Minor Paralysis) 5a. Left Arm: Motor (10-second hold) - 1(Drift) 5b. Right Arm: Motor (10-second hold) - 0(No drift) 6a. Left Leg: Motor (5-second hold - always test supine) - 0(No drift) 6b. Right Leg: Motor (5-second hold - always test supine) - 0(No drift) 7. Limb Ataxia (finger/nose \T\ heel/[place] - test with eyes open) - 0(Absent) 8. Sensory Loss (pinprick arms/legs/face) - 1(Mild to moderate loss) 9. Best Language: Aphasia (description/naming/reading) - 0(No aphasia) Initials: bp NIH Stroke Scale - NIH Stroke Score Date: 10/21/2023 Time: 10:06 Total Score = 4 10. Dysarthria (speech clarity - read or repeat words) - 1(Mild to Moderate) 11. Extinction and Inattention (visual/tactile/auditory/spatial/personal) - 0(No abnormality) 1a. Level of Consciousness (LOC) - 0(Alert) 1b. Level of Consciousness (LOC) (Month \T\ Age) - 0(Both) 1c. LOC Commands (Open \T\ Closes Eyes/Pre Sales Architect) - 0(Both) 2. Best Gaze (Lateral Gaze Paresis) - 0(Normal) 3. Visual Field Loss - 0(No visual loss) 4. Facial Palsy - 1(Minor Paralysis) 5a. Left Arm: Motor (10-second hold) - 1(Drift) 5b. Right Arm: Motor (10-second hold) - 0(No drift) 6a. Left Leg: Motor (5-second hold - always test supine) - 0(No drift) 6b. Right Leg: Motor (5-second hold - always test supine) - 0(No drift) 7. Limb Ataxia (finger/nose \T\ heel/[place] - test with eyes open) - 0(Absent) 8. Sensory Loss (pinprick arms/legs/face) - 1(Mild to moderate loss) 9. Best Language: Aphasia (description/naming/reading) - 0(No aphasia) Initials: rn NIH Stroke Scale - NIH Stroke Score Date: 10/21/2023 Time: 10:43 Total Score = 4 10. Dysarthria (speech clarity - read or repeat words) - 1(Mild to Moderate) 11. Extinction and Inattention (visual/tactile/auditory/spatial/personal) - 0(No abnormality) 1a. Level of Consciousness (LOC) - 0(Alert) 1b. Level of Consciousness (LOC) (Month \T\ Age) - 0(Both) 1c. LOC Commands (Open \T\ Closes Eyes/Pre Sales Architect) - 0(Both) 2. Best Gaze (Lateral Gaze Paresis) - 0(Normal) 3. Visual Field Loss - 0(No visual loss) 4. Facial Palsy - 1(Minor Paralysis) 5a. Left Arm: Motor (10-second hold) - 1(Drift) 5b. Right Arm: Motor (10-second hold) - 0(No drift) 6a. Left Leg: Motor (5-second hold - always test supine) - 0(No drift) 6b. Right Leg: Motor (5-second hold - always test supine) - 0(No drift) 7. Limb Ataxia (finger/nose \T\ heel/[place] - test with eyes open) - 0(Absent) 8. Sensory Loss (pinprick arms/legs/face) - 1(Mild to moderate loss) 9. Best Language: Aphasia (description/naming/reading) - 0(No aphasia) Initials: es3 NIH Stroke Scale - NIH Stroke Score Date: 10/21/2023 Time: 11:25 Total Score = 2 10. Dysarthria (speech clarity - read or repeat words) - 0(Normal) 11. Extinction and Inattention (visual/tactile/auditory/spatial/personal) - 0(No abnormality) 1a. Level of Consciousness (LOC) - 0(Alert) 1b. Level of Consciousness (LOC) (Month \T\ Age) - 0(Both) 1c. LOC Commands (Open \T\ Closes Eyes/Pre Sales Architect) - 0(Both) 2. Best Gaze (Lateral Gaze Paresis) - 0(Normal) 3. Visual Field Loss - 0(No visual loss) 4. Facial Palsy - 1(Minor Paralysis) 5a. Left Arm: Motor (10-second hold) - 1(Drift) 5b. Right Arm: Motor (10-second hold) - 0(No drift) 6a. Left Leg: Motor (5-second hold - always test supine) - 0(No drift) 6b. Right Leg: Motor (5-second hold - always test supine) - 0(No drift) 7. Limb Ataxia (finger/nose \T\ heel/[place] - test with eyes open) - 0(Absent) 8. Sensory Loss (pinprick arms/legs/face) - 0(Normal) 9. Best Language: Aphasia (description/naming/reading) - 0(No aphasia) Initials: bp Signatures: Dispatcher [employer] EDMS Dirrim, Zuri bd Wild, Joaquin, MD MD rn Vishal, Herberth, RN RN bp Corrections: (The following items were deleted from the chart) 10: 10:07 Head Angio+CT.RAD.BRZ ordered. EDMS EDMS 10:20 10:07 Neck Angio+CT.RAD.BRZ ordered. EDMS EDMS 12:42 11:24 rn adolfo
--- NOTE | 2023-10-21 11:25 | ER ---
Nurse's Notes [facility] Name: Valentino Metcalf Age: 78 yrs Sex: Male : 1945 Arrival Date: 10/21/2023 Time: 09:50 Bed 4 Private MD: Diagnosis: Cerebral infarction, unspecified;Weakness;Slurred speech Presentation: 10/20 09:54 Chief complaint: EMS states: FOUND THIS AM ON TOILET BY , MINIMALLY RESPONSIVE. bp UNKNOWN LAST KNOWN NORMAL. ON SCENE R FACIAL DROOP, SLURRED SPEECH, LUE WEAKNESS. S/S IMPROVING IN TRANSIT. Coronavirus screen: At this time, the client does not indicate any symptoms associated with coronavirus-19. Ebola Screen: No symptoms or risks identified at this time. An acute neurological deficit is present. The charge nurse has been notified. The patient has been moved to a treatment area. The patients blood glucose was checked prior to arriving to the hospital and was found to be hyperglycemic. The patient has been moved to a treatment room. Initial Sepsis Screen: Does the patient meet any 2 criteria? No. Patient's initial sepsis screen is negative. Does the patient have a suspected source of infection? No. Patient's initial sepsis screen is negative. Risk Assessment: Do you want to hurt yourself or someone else? Patient reports no desire to harm self or others. Note LAST KNOWN NORMAL >12 HR. Onset of symptoms is unknown. 09:54 Method Of Arrival: EMS: [facility] bp 09:54 Acuity: LYNDSEY 2 bp Triage Assessment: 09:56 The onset of the patients symptoms was October 20, 2023 at 21:00. General: Appears in no bp apparent distress. Behavior is calm, cooperative, appropriate for age. Pain: Denies pain. EENT: No deficits noted. Neuro: Level of Consciousness is lethargic, Oriented to Appropriate for age Body Component Engineer are weak on left Facial droop on right, Reports SLURRED SPEECH. Stroke Activation: Symptom onset > 6 hours Physician: Stroke Attending; Name: ; Notified At: ; Arrived At: Physician: Chief Stroke Resident; Name: ; Notified At: ; Arrived At: Physician: Stroke Resident; Name: ; Notified At: ; Arrived At: Physician: ED Attending; Name: ; Notified At: ; Arrived At: Physician: ED Resident; Name: ; Notified At: ; Arrived At: Historical: - Allergies: 09:56 No Known Allergies; bp - Home Meds: 09:56 pravastatin oral [Active]; Metoprolol Tartrate Oral [Active]; Jardiance oral [Active]; bp Kerendia oral [Active]; levothyroxine oral [Active]; valsartan oral [Active]; clopidogrel oral [Active]; Lantus Sub-Q [Active]; - PMHx: 09:56 Arthritis; coronary atherosclerosis; High Cholesterol; Hypercholesterolemia; bp Hypertension; Hypothyroidism; IDDM; kidney issues; - Immunization history:: Adult Immunizations up to date. - Social history:: Smoking status: unknown. - Family history:: not pertinent. - Hospitalizations: : No recent hospitalization is reported. Screenin:01 [facility] ED Fall Risk Assessment (Adult) History of falling in the last 3 months, bp including since admission No falls in past 3 months (0 pts). Abuse screen: Denies threats or abuse. Denies injuries from another. Nutritional screening: No deficits noted. Tuberculosis screening: No symptoms or risk factors identified. 10:41 VAN Screening: Visual Disturbance: No visual disturbance noted. Aphasia: No aphasia es3 noted. Neglect: No neglect noted. [place] Swallow Protocol Exclusion Criteria: Brief Cognitive Screen What is your name? Normal, Where are you right now? Normal, What year is it? Normal. Oral Mechanism Examination Facial Symmetry: Abnormal: unable to smile. Motion: Normal, Lip Closure: Normal, Oral Mechanism Result: Normal. 3 oz Water Swallow Challenge: Pt able to drink all water without stopping, coughing, choking or throat clearing: Yes Result: PASS MD Notified: Joaquin Wild MD. Assessment: 10:01 VAN Scoring: Arm Drift: Minor drift Visual Disturbance: No visual disturbance noted. bp Aphasia: No aphasia noted. Neglect: No neglect noted. [place] Swallow Protocol Exclusion Criteria: Unable to remain alert for testing: No NPO for medical/surgical reason by provider order No Tracheostomy tube present No No thin liquids due to preexisting dysphagia/baseline modified diet thickened liquids No Exclusion Criteria Result: Proceed Brief Cognitive Screen What is your name? Normal, Where are you right now? Normal, What year is it? Normal. Oral Mechanism Examination Facial Symmetry: Normal, Motion: Normal, Lip Closure: Normal, Oral Mechanism Result: Normal. 3 oz Water Swallow Challenge: Pt able to drink all water without stopping, coughing, choking or throat clearing: Yes Result: PASS MD Notified: Joaquin Wild MD. TNKase (Tenecteplase) Screening: Contraindications: Rapidly improving condition or minor deficit: Yes. 10:07 Reassessment: CODE STROKE PER MD. PT TO CT. bp 10:24 Reassessment: PT RETURNED TO ER4. bp 11:18 Reassessment: PT TO MRI. NOTED IMPROVE TO NIHSS. bp Vital Signs: 09:54 BP 154 / 72; Pulse 73; Resp 16; Temp 98; Pulse Ox 99% ; bp 09:59 BP 119 / 76; Pulse 70; Resp 16; Pulse Ox 97% ; ko1 10:30 BP 118 / 105; Pulse 73; Resp 16; Temp 98; Pulse Ox 98% ; bp 11:24 BP 154 / 86; Pulse 71; Resp 16; Pulse Ox 98% ; bp NIH Stroke Scale Scores: 10:01 NIHSS Score: 4 bp 10:06 NIHSS Score: 4 rn 10:43 NIHSS Score: 4 es3 11:25 NIHSS Score: 2 bp ED Course: 09:53 Patient arrived in ED. bp 09:56 Triage completed. bp 09:56 Arm band placed on. bp 09:58 Joaquin Wild MD is Attending Physician. rn 09:59 Nayeli Feliz, SHAKIRA is Primary Nurse. ko1 10:04 Maintain EMS IV. Dressing intact. Good blood return noted. Site clean \T\ dry. Gauge \T\ bp site: 20 GA R AC. 10:17 CT Stroke Brain w/o Contrast In Process Unspecified. EDMS 10:21 Basic Metabolic Panel Sent. ko1 10:21 CBC with Diff Sent. ko1 10:21 High Sensitivity Troponin Sent. ko1 10:21 Protime (+inr) Sent. ko1 10:21 Ptt, Activated Sent. ko1 10:24 Patient has correct armband on for positive identification. Placed in gown. Bed in low bp position. Call light in reach. Side rails up X2. Adult w/ patient. Provided Education on:. Client placed on continuous cardiac and pulse oximetry monitoring. NIBP monitoring applied. 10:29 Herberth Rodgers, RN is Primary Nurse. bp 10:40 Stroke CXR 1 View In Process Unspecified. EDMS 11:24 Topher Tyler is Hospitalizing Provider. rn Administered Medications: 11:18 Drug: Aspirin PO Chewable Tablet 324 mg PO once; 81 mg tablets x 4 Route: PO; bp 11:18 Drug: foLIC Acid IVPB 1 mg IVPB once Route: IVPB; Site: right antecubital; bp 11:18 Drug: Diazepam PO 2 mg PO once Route: PO; bp Medication: 10:01 VIS not applicable for this client. bp Point of Care Testing: Blood Glucose: 09:56 Blood Glucose: 250 mg/dL; bp Ranges: Outcome: 11:24 Decision to Hospitalize by Provider. rn 14:50 Patient left the ED. bp NIH Stroke Scale - NIH Stroke Score Date: 10/21/2023 Time: 10:01 Total Score = 4 10. Dysarthria (speech clarity - read or repeat words) - 1(Mild to Moderate) 11. Extinction and Inattention (visual/tactile/auditory/spatial/personal) - 0(No abnormality) 1a. Level of Consciousness (LOC) - 0(Alert) 1b. Level of Consciousness (LOC) (Month \T\ Age) - 0(Both) 1c. LOC Commands (Open \T\ Closes Eyes/Mail Processing Clerk) - 0(Both) 2. Best Gaze (Lateral Gaze Paresis) - 0(Normal) 3. Visual Field Loss - 0(No visual loss) 4. Facial Palsy - 1(Minor Paralysis) 5a. Left Arm: Motor (10-second hold) - 1(Drift) 5b. Right Arm: Motor (10-second hold) - 0(No drift) 6a. Left Leg: Motor (5-second hold - always test supine) - 0(No drift) 6b. Right Leg: Motor (5-second hold - always test supine) - 0(No drift) 7. Limb Ataxia (finger/nose \T\ heel/[place] - test with eyes open) - 0(Absent) 8. Sensory Loss (pinprick arms/legs/face) - 1(Mild to moderate loss) 9. Best Language: Aphasia (description/naming/reading) - 0(No aphasia) Initials: bp NIH Stroke Scale - NIH Stroke Score Date: 10/21/2023 Time: 10:06 Total Score = 4 10. Dysarthria (speech clarity - read or repeat words) - 1(Mild to Moderate) 11. Extinction and Inattention (visual/tactile/auditory/spatial/personal) - 0(No abnormality) 1a. Level of Consciousness (LOC) - 0(Alert) 1b. Level of Consciousness (LOC) (Month \T\ Age) - 0(Both) 1c. LOC Commands (Open \T\ Closes Eyes/Mail Processing Clerk) - 0(Both) 2. Best Gaze (Lateral Gaze Paresis) - 0(Normal) 3. Visual Field Loss - 0(No visual loss) 4. Facial Palsy - 1(Minor Paralysis) 5a. Left Arm: Motor (10-second hold) - 1(Drift) 5b. Right Arm: Motor (10-second hold) - 0(No drift) 6a. Left Leg: Motor (5-second hold - always test supine) - 0(No drift) 6b. Right Leg: Motor (5-second hold - always test supine) - 0(No drift) 7. Limb Ataxia (finger/nose \T\ heel/[place] - test with eyes open) - 0(Absent) 8. Sensory Loss (pinprick arms/legs/face) - 1(Mild to moderate loss) 9. Best Language: Aphasia (description/naming/reading) - 0(No aphasia) Initials: shakira NIH Stroke Scale - NIH Stroke Score Date: 10/21/2023 Time: 10:43 Total Score = 4 10. Dysarthria (speech clarity - read or repeat words) - 1(Mild to Moderate) 11. Extinction and Inattention (visual/tactile/auditory/spatial/personal) - 0(No abnormality) 1a. Level of Consciousness (LOC) - 0(Alert) 1b. Level of Consciousness (LOC) (Month \T\ Age) - 0(Both) 1c. LOC Commands (Open \T\ Closes Eyes/Mail Processing Clerk) - 0(Both) 2. Best Gaze (Lateral Gaze Paresis) - 0(Normal) 3. Visual Field Loss - 0(No visual loss) 4. Facial Palsy - 1(Minor Paralysis) 5a. Left Arm: Motor (10-second hold) - 1(Drift) 5b. Right Arm: Motor (10-second hold) - 0(No drift) 6a. Left Leg: Motor (5-second hold - always test supine) - 0(No drift) 6b. Right Leg: Motor (5-second hold - always test supine) - 0(No drift) 7. Limb Ataxia (finger/nose \T\ heel/[place] - test with eyes open) - 0(Absent) 8. Sensory Loss (pinprick arms/legs/face) - 1(Mild to moderate loss) 9. Best Language: Aphasia (description/naming/reading) - 0(No aphasia) Initials: es3 NIH Stroke Scale - NIH Stroke Score Date: 10/21/2023 Time: 11:25 Total Score = 2 10. Dysarthria (speech clarity - read or repeat words) - 0(Normal) 11. Extinction and Inattention (visual/tactile/auditory/spatial/personal) - 0(No abnormality) 1a. Level of Consciousness (LOC) - 0(Alert) 1b. Level of Consciousness (LOC) (Month \T\ Age) - 0(Both) 1c. LOC Commands (Open \T\ Closes Eyes/Mail Processing Clerk) - 0(Both) 2. Best Gaze (Lateral Gaze Paresis) - 0(Normal) 3. Visual Field Loss - 0(No visual loss) 4. Facial Palsy - 1(Minor Paralysis) 5a. Left Arm: Motor (10-second hold) - 1(Drift) 5b. Right Arm: Motor (10-second hold) - 0(No drift) 6a. Left Leg: Motor (5-second hold - always test supine) - 0(No drift) 6b. Right Leg: Motor (5-second hold - always test supine) - 0(No drift) 7. Limb Ataxia (finger/nose \T\ heel/[place] - test with eyes open) - 0(Absent) 8. Sensory Loss (pinprick arms/legs/face) - 0(Normal) 9. Best Language: Aphasia (description/naming/reading) - 0(No aphasia) Initials: bp Signatures: Dispatcher [employer] EDJoaquin Benson MD MD rn Peltier, Brian, RN RN bp Nayeli Feliz RN RN ko1 May Squires RN RN es3 Corrections: (The following items were deleted from the chart) :25 11:18 Reassessment: PT TO MRI bp bp
--- NOTE | 2023-10-21 12:27 | RAD REPORT ---
EXAM DESCRIPTION: MRI - Brain Wo Cont - 10/21/2023 12:12 pm CLINICAL HISTORY: weakness, slurred speech COMPARISON: No comparisons TECHNIQUE: Sagittal T1-weighted images were obtained along with PD/heavily T2-weighted and T2-FLAIR images. Axial DWI and ADC mapping sequences were also obtained along with coronal heavily T2-weighted images were obtained. FINDINGS: No intracranial hemorrhage, mass or acute infarction. There is no edema or shift of midlin e structures. No extra-axial fluid collections. Signal voids are seen as a normal finding in the morris r intracranial vessels. Age advanced right greater than left cerebral atrophy with more focal gyral a trophy likely sequela from a remote insult. Mild chronic small vessel ischemic changes. Mild ethmoid air cell thickening. Mastoid air cells and paranasal sinuses are clear. IMPRESSION: No acute intracranial abnormality. Specifically, no evidence of acute infarct. Age advan larisa cerebral atrophy, right greater than left, probably related to a remote insult.
[2023-10-21] MEDS: NA CHLORIDE 0.9% 1,000 ML IV SCH (14:49)
[2023-10-21 15:34] VITALS: BMI 36.6
[2023-10-21] MEDS: INSULIN REGULAR (HUMAN) 100 UNIT/ML SQ SCH (17:07)
[2023-10-21] MEDS: ATORVASTATIN 80 MG TAB PO SCH (20:15)
[2023-10-22 02:47] LABS: Absolute Basophils 0.1 K/uL (0-0.5); Basophils % 0.7 % (0-1.3); Hematocrit 37.2 % (39.6-49.0); Lymphocytes % 20.9 % (15.3-44.8); MCV 85.2 fL (80-100); Platelets 203 thou/uL (152-406); RBC Red Blood Cell Count 4.37 M/uL (4.33-5.43)
[2023-10-22 03:03] LABS: Albumin 2.7 g/dL (3.4-5.0); Albumin/Globulin Ratio 0.8 (1.1-1.8); Anion Gap 7.2 mEq/L (5.0-15.0); Bilirubin Direct 0.1 mg/dL (0-0.2); Bilirubin Indirect, Calculated 0.3 mg/dL (0.2-0.8); Bilirubin Total 0.4 mg/dL (0.2-1.0); Magnesium 2.5 mg/dL (1.6-2.4); Phosphorus 3.9 mg/dL (2.5-4.9); Potassium 4.2 mEq/L (3.5-5.1); T4,Total 7.6 ug/dL (4.5-12.1); Thyroid Stimulating Hormone 1.25 uIU/mL (0.358-3.740)
[2023-10-22 06:24] LABS: RPR (Rapid Plasma Reagin) NON-REACT (NON-REACT)
[2023-10-22 06:47] LABS: Specific Gravity 1.021 (1.005-1.030); Urine Bacteria None Seen /HPF (<20); Urine Bilirubin NEGATIVE (Negative); Urine Blood 1+ (Negative); Urine Clarity Clear (Clear); Urine Color Light-Yellow (Yellow); Urine Glucose 4+ (Over) (Negative); Urine Mucus Slight /HPF (None Seen); Urine Protein 2+ (Negative); Urine RBC <5 /HPF (None Seen); Urine Urobilinogen Normal (Normal); Urine pH 5.5 (5.0-7.0)
[2023-10-22] MEDS: ASPIRIN 81 MG CHEWABLE TABLET PO SCH (09:16)
[2023-10-22] MEDS: HEPARIN 5000 UNIT/ML 1 ML VIAL SQ SCH (09:16)
[2023-10-22] MEDS: FOLIC ACID 1 MG TABLET PO SCH (09:16)
--- NOTE | 2023-10-22 12:22 | ECHO ---
HEIGHT: 5 ft 8 in WEIGHT: 241 lb 0 oz DATE OF STUDY: 10/22/[address]: Cori Vital NP 2-DIMENSIONAL: YES M.MODE: YES DOPPLER: YES COLOR FLOW: YES TDS: YES PORTABLE: YES DEFINITY: BUBBLE STUDY: DIAGNOSIS: STROKE CARDIAC HISTORY: CATHERIZATION: SURGERY: PROSTHETIC VALVE: PACEMAKER: MEASUREMENTS (cm) DIASTOLIC (NORMALS) SYSTOLIC (NORMALS) IVSd 1.3 (0.6-1.2) LA Diam 3.6 (1.9-4.0) LVEF 34% LVIDd 4.1 (3.5-5.7) LVIDs 3.4 (2.0-3.5) %FS 16% LVPWd 1.3 (0.6-1.2) Ao Diam 3.4 (2.0-3.7) 2 DIMENSIONAL ASSESSMENT: RIGHT ATRIUM: NORMAL LEFT ATRIUM: NORMAL RIGHT VENTRICLE: NORMAL LEFT VENTRICLE: NORMAL TRICUSPID VALVE: NORMAL MITRAL VALVE: NORMAL PULMONIC VALVE: NORMAL AORTIC VALVE: NORMAL PERICARDIAL EFFUSION: NONE AORTIC ROOT: NORMAL LEFT VENTRICULAR WALL MOTION: NORMAL DOPPLER/COLOR FLOW: GRADE I DIASTOLIC DYSFUNCTION COMMENTS: 1. NORMAL LEFT VENTRICULAR SYSTOLIC FUNCTION, EJECTION FRACTION 55-60%, NORMAL WALL MOTION 2. GRADE I DIASTOLIC DYSFUNCTION TECHNOLOGIST: MICHELE MEHTA
[2023-10-22] MEDS: INSULIN REGULAR (HUMAN) 100 UNIT/ML SQ SCH (13:24)
[2023-10-22 14:31] LABS: UR PROTEIN 129.9 mg/dL (<11.9); Urine Protein/Creatinine Ratio 1.43 ratio (<0.15)
--- NOTE | 2023-10-22 15:16 | P.PN ---
Date of Service: 10/22/23 Subjective Feeling well this morning Worked with therapy Ambulates independently ROS 10 point ROS as noted above, otherwise negative Physical Exam General: AAO x3, NAD, Calm HEENT: Atraumatic, Normocephalic, PERRLA Neck: Supple, 2+ carotid pulse no bruit, JVD not distended Respiratory: Clear to auscultation bilaterally, Normal air movement, on RA Cardiovascular: RRR, Normal S1 S2, no murmur noted Capillary refill: <2 Seconds Gastrointestinal: Normal bowel sounds, Soft and benign on palpation, nontender Musculoskeletal: No clubbing, No swelling, No contractures Integumentary: No breakdown, No significant lesion Neurological: Normal speech, Normal strength at 5/5 x4 extr Vitals Reviewed Problem list Acute CVA vs TIA Diabetes Mellitus-IDDM with hyperglycemia Chronic kidney disease 3B HX HTN HX hypothyroidism Hx CAD with stent (2018) Assessment and plan Acute CVA vs TIA -restart BP meds -Aspirin, statin, plavix, Folic acid daily -Lipid panel pending -A1C 8.0, TSH/free T4 1.250/7.6 -PT recommends HH PT -MEDICAID ELIGIBILITY SPECIALIST recommends regular food with thin liquids -Troponin trended flat -CT brain- "No acute intracranial hemorrhage. Small areas of white matter hypoattenuation in the right lateral temporal lobe and inferior right parietal lobe could represent small cortical infarcts. MRI could better assess. There are some other abnormalities including focal atrophy at the right cerebral hemisphere which are favored developmental." -MRI brain -"No acute intracranial abnormality. Specifically, no evidence of acute infarct. Age advanced cerebral atrophy, right greater than left, probably related to a remote insult." Diabetes Mellitus-IDDM with hyperglycemia -Accu-Chek with sliding scale insulin -Serum glucose 187 Chronic kidney disease 3B -BUN/creatinine 56/3.19, GFR 19 -gentle IVF -Avoid metformin at discharge -Consulted Dr. Avila- hold hydrochlorothiazide and valsartan -Renal ultrasound reports "The right kidney measures 10 cm with a normal echotexture. 1.3 centimeter cyst. 2 centimeter cyst. The left kidney measures 10 cm with a normal echotexture. 1.7 centimeters cyst. Hydronephrosis is not seen. Bladder decompressed and poorly evaluated. IMPRESSION: Bilateral renal cysts HX HTN HX hypothyroidism Hx CAD with stent (2018) - home medication -TSH/free T4 1.250/7.6 -restart home dose metoprolol, holding hydrochlorothiazide and valsartan DVT ppx heparin and SCD Full code LOS 2 days Discharge Plan: Home Plan to discharge in: 48 Hours
--- NOTE | 2023-10-22 15:26 | RAD REPORT ---
EXAM DESCRIPTION: US - Renal Ultrasound-Complete - 10/22/2023 2:31 pm CLINICAL HISTORY: Acute renal insufficiency COMPARISON: 2021 FINDINGS: The right kidney measures 10 cm with a normal echotexture. 1.3 centimeter cyst. 2 [address] er cyst The left kidney measures 10 cm with a normal echotexture. 1.7 centimeters cyst Hydronephrosis is not seen. Bladder decompressed and poorly evaluated IMPRESSION: Bilateral renal cysts
--- NOTE | 2023-10-22 15:41 | RAD REPORT ---
EXAM DESCRIPTION: Karlee Single View10/22/2023 3:21 pm CLINICAL HISTORY: Chest pain COMPARISON: October 21, 2023 FINDINGS: The lungs appear clear of acute infiltrate. The heart is normal size IMPRESSION: No acute abnormalities displayed
--- NOTE | 2023-10-22 17:33 | CON ---
Date of Consultation: 10/22/2023 Reason For Consultation: Elevated BUN and creatinine. History Of Present Illness: This is a pleasant -[id number] gentleman with significant past m edical history of CAD, status post PCI back in 2019; type 2 diabetes since 1990 complicated with neur opathy, retinopathy, and nephropathy; hypertension since 1989; chronic kidney disease, stage 3B, norm al-sized kidney 11.7/10.9, proteinuric non-nephrotic secondary to diabetes, nephropathy, renovascular disease, hypertension, nephrosclerosis. The patient's baseline creatinine 2 with GFR 29. The patie nt was in his regular state of health. The patient came to the hospital with slurred speech and conf usion. The patient found to have TIA. The patient found also to have elevation in creatinine to 3.5 and low GFR. For that reason, we have been consulted. The patient denied any recent change in his medication except adding Kerendia and Jardiance. The patient's upon arrival to the hospital creatini ne 3.4, GFR 17. The patient was started on hydration. Kidney function has been improved, did not go back to baseline, but improving. The patient's neurological symptoms have been resolved. Allergies: NO KNOWN DRUG ALLERGY. Home Medications: Include levothyroxine, pravastatin, aspirin, Plavix, albuterol, valsartan, hydroch lorothiazide, docusate, metoprolol, Kerendia, insulin, and Jardiance. Past Medical History: Includes: 1.Diabetes complicated with neuropathy, nephropathy, and retinopathy. 2.Hypertension. 3.Hyperlipidemia. 4.CAD status post PCI back in 1989. 5.Chronic kidney disease, stage 3B/4, secondary to diabetes, nephropathy, hypertension, nephrosclero sis. Baseline creatinine 2.1, GFR 30-31. Past Surgical History: Includes PCI, back surgery, left leg surgery, cataract. Family History: Positive for diabetes and hypertension. Social History: Active alcohol. Denies drug abuse. Denies smoking. Review of Systems: Head and Neck: Has slurred speech. GI: No nausea. No vomiting. : No polyuria. No dysuria. No hematuria. POLICE COMMISSIONER: Not applicable. Respiratory: No shortness of breath. Cardiovascular: No chest pain. Endocrine: No polydipsia. Skin: No rash. Neuro: Has weakness. Has slurred speech. Has confusion. Musculoskeletal: Has weakness. Physical Examination: Vital Signs: When I saw the patient, the patient is lying in bed, blood pressure 158/78, pulse of 61 , afebrile. Chest: Clear to auscultation. Heart: S1, S2. Regular. Abdomen: Soft, nontender. Extremities: No edema. Neurologic: Alert. No focality. Laboratory Data: Yesterday, hemoglobin 13.5. Creatinine 3.4, GFR of 17 today. Latest lab data; sod ium 139, potassium 4.2, bicarb 30, BUN 56, creatinine 3.1, GFR 19, calcium 8, phosphorus 3.9, magnesi um 2.5, albumin 2.7, corrected calcium is 9.2, hemoglobin 12.2. Urinalysis negative for infection. Current Medications: In the hospital include: 1.Aspirin. 2.Atorvastatin. 3.Folic acid. 4.Insulin. 5.IV fluid. Assessment And Plan: 1.Acute kidney injury secondary to prerenal, dehydration/hypertension superimposed with ARB and hydr ochlorothiazide. I am going to increase IV fluid to 100. I am going to go ahead and send for basic workup. Given the improvement of the kidney function, I agree with holding the valsartan, hydrochlor othiazide and we will monitor the patient closely. We will send for renal ultrasound to rule out any obstructive uropathy. 2.Hypertension with the presence of acute kidney injury. Please hold hydrochlorothiazide and ARB. We will monitor. 3.Contraction alkalosis secondary to hydrochlorothiazide. Hold hydrochlorothiazide. 4.Cerebrovascular accident as by Primary. 5.Coronary artery disease as by Primary. 6.Diabetes. Continue current treatment. Follow up with the Primary. Thank you, Dr. Tyler, for allowing us to participate in the care of your patient. HILDA Voice ID: [id number] Report ID: [id number]
[2023-10-22] MEDS: METOPROLOL TAR 25 MG TAB PO SCH (20:30)
[2023-10-22] MEDS: NA CHLORIDE 0.9% 1,000 ML IV SCH (20:30)
[2023-10-23] MEDS: LEVOTHYROXINE SOD 0.112 MG TAB PO SCH (06:04)
[2023-10-23 06:10] LABS: Absolute Basophils 0.1 K/uL (0-0.5); Absolute Lymphocytes (CBC) 1.9 K/uL (0.7-4.9); Basophils % 1.1 % (0-1.3); Hematocrit 37.2 % (39.6-49.0); Lymphocytes % 23.7 % (15.3-44.8); MCV 85.1 fL (80-100); MPV 8.6 fL (7.6-11.3); Platelets 205 thou/uL (152-406); RBC Red Blood Cell Count 4.38 M/uL (4.33-5.43)
[2023-10-23 06:34] LABS: Albumin 2.7 g/dL (3.4-5.0); Anion Gap 7.4 mEq/L (5.0-15.0); Magnesium 2.4 mg/dL (1.6-2.4); Phosphorus 3.3 mg/dL (2.5-4.9); Potassium 4.4 mEq/L (3.5-5.1); Thyroid Stimulating Hormone 2.73 uIU/mL (0.358-3.740); Uric Acid 7.6 mg/dL (3.5-7.2)
[2023-10-23] MEDS: DOCUSATE NA 100 MG CAP PO SCH (08:35)
[2023-10-23] MEDS: CLOPIDOGREL 75 MG TABLET PO SCH (08:35)
[2023-10-23 08:46] VITALS: BP 156/83
[2023-10-23 09:11] VITALS: TEMP 98
[2023-10-23 09:38] VITALS: O2SAT 95
--- NOTE | 2023-10-23 10:53 | P.DS ---
Admission Date: 10/21/23 Discharge Date: 10/25/23 Disposition: ROUTINE DISCHARGE Discharge Condition: FAIR Reason for Admission: CVA r/o Brief History of Present Illness: Diagnosis Acute CVA vs TIA Diabetes Mellitus-IDDM with hyperglycemia Chronic kidney disease 3B HX HTN HX hypothyroidism Hx CAD with stent (2018) HPI 10/21/23 Valentino Metcalf is a 78-year-old male with past medical history hypertension, hypothyroidism, CAD with stents, diabetes type 2- IDDM using Mounjaro, anxiety, chronic back pain and leg, renal disease, who presents to the ED with complaints of slurred speech, left upper extremity weakness, left decreased sensation. Probable CVA, not a TNK candidate due to last known normal was last night and woke up in this condition this morning. CT head shows abnormalities including focal atrophy at the right cerebral hemisphere and questionable cortical infarcts. Creatinine 3.5 up from 2.6, He is a patient of Dr. York. Of note, family reports, two months ago, he experienced a similar episode that resolved quickly. While in the ED NIHSS 4, on evaluation NIHSS 0 Initial vitals BP 154 / 72; Pulse 73; Resp 16; Temp 98; Pulse Ox 99% Laboratory evaluation sodium 135, BUN/creatinine 56/3.45, GFR 17, serum glucose 345. Valentino will be admitted for further evaluation and treatment of probable CVA. Hospital Course: Valentino Metcalf is a pleasant 78 year old male with a past medical history significant for hypertension, hypothyroidism, CAD with stents, diabetes type 2- IDDM using Mounjaro, anxiety, chronic back pain and leg pain, renal disease who was admitted to the [facility] on 10/21/23 for CVA r/o. Valentino presented to the ED with chief complaint of slurred speech, left upper extremity weakness, left decreased sensation. He was not a candidate for TNK d/t to his last known normal was prior to going to bed. He woke up with these symptoms. CT head showed abnormalities including focal atrophy at the right cerebral hemisphere and questionable cortical infarcts. MRI brain -"No acute intracranial abnormality. Specifically, no evidence of acute infarct. Age advanced cerebral atrophy, right greater than left, probably related to a remote insult." He was found to be in acute on chronic kidney disease stage 3B. Dr. Avila's nephrology group was consulted for kidney management. Nephrology decided to stop your Valsartan/HCTZ to help kidneys recover. ECHO revealed EF of 55-60% and grade 1 diastolic disfunction. He has tolerated PO diet, ambulating independently and with physical therapy, on RA, and hemodynamically stable. On 10/23/23, Valentino was seen on morning rounds and deemed medically stable for discharge. Valentino was discharged with instructions to schedule follow-up appointments with PCP, Dr. Avila, and Dr. Todd. No prescriptions this admission. The patient and family members were given the opportunity to ask questions and reported no further questions. Furthermore, all questions were an swered to the best of my ability. A copy of this discharge summary will be sent to the above providers to facilitate continuity of care. Today, I personally spent 50 minutes with Valentino and his , of which greater than 50% of the time was spent in patient education, counseling, and coordination of care as described above. Physical Exam General: AAO x3, NAD, relaxed HEENT: Atraumatic, Normocephalic, PERRLA Neck: Supple, 2+ carotid pulse no bruit, JVD not distended Respiratory: Clear to auscultation bilaterally, Normal air movement, on RA Cardiovascular: Regular rate and rhythm, S1 S2 present, no murmur noted Capillary refill: <2 Seconds Gastrointestinal: Normaoactive bowel sounds, Soft and benign on palpation, distended (obese) Musculoskeletal: No clubbing, No swelling, No contractures Integumentary: No breakdown, No significant lesion Neurological: Normal speech, Normal strength at 5/5 x4 extr Vital Signs/Physical Exam: Temp Pulse Resp BP Pulse Ox 98.0 F 57 16 156/83 H 95 10/23/23 08:00 10/23/23 08:35 10/23/23 08:00 10/23/23 08:35 10/23/23 08:00 Laboratory Data at Discharge: WBC 7.80 thou/uL (4.3-10.9) 10/23/23 05:40 Hgb 12.3 g/dL (13.6-17.9) L 10/23/23 05:40 Hct 37.2 % (39.6-49.0) L 10/23/23 05:40 Plt Count 205 thou/uL (152-406) 10/23/23 05:40 PT 11.5 SECONDS (9.5-12.5) 10/21/23 10:23 INR 1.05 10/21/23 10:23 APTT 30.8 SECONDS (24.3-36.9) 10/21/23 10:23 Sodium 141 mEq/L (136-145) 10/23/23 05:40 Potassium 4.4 mEq/L (3.5-5.1) 10/23/23 05:40 BUN 48 mg/dL (7-18) H 10/23/23 05:40 Creatinine 2.65 mg/dL (0.70-1.30) H 10/23/23 05:40 Glucose 131 mg/dL (74-106) H 10/23/23 05:40 Uric Acid 7.6 mg/dL (3.5-7.2) H 10/23/23 05:40 Phosphorus 3.3 mg/dL (2.5-4.9) 10/23/23 05:40 Magnesium 2.4 mg/dL (1.6-2.4) 10/23/23 05:40 Total Bilirubin 0.4 mg/dL (0.2-1.0) 10/22/23 01:48 AST 15 U/L (15-37) 10/22/23 01:48 ALT 18 U/L (16-61) 10/22/23 01:48 Alkaline Phosphatase 50 U/L (45-117) 10/22/23 01:48 Triglycerides 162 mg/dL (<150) H 10/22/23 01:48 Cholesterol 95 mg/dL (<200) 10/22/23 01:48 HDL Cholesterol 39 mg/dL (40-60) L 10/22/23 01:48 Cholesterol/HDL Ratio 2.44 10/22/23 01:48 Home Medications: Levothyroxine [Synthroid*] 0.112 mg PO [id number] 03/15/14 Pravastatin [Pravachol*] 80 mg PO BEDTIME 03/15/14 Aspirin [Aspirin EC 81 MG] 81 mg PO DAILY 10/02/15 Clopidogrel Bisulfate [Plavix*] 1 tab PO DAILY 05/28/20 Albuterol Inhaler [Ventolin Inhaler*] 2 puff IH Q6H PRN #1 inh 06/23/22 Docusate [Colace Cap*] 100 mg PO DAILY 05/04/23 Metoprolol Tartrate [Lopressor*] 25 mg PO BID #60 tab 05/05/23 Empagliflozin [Jardiance] 1 tab PO DAILY 10/21/23 Finerenone [Kerendia] 1 tab PO DAILY 10/21/23 Insulin Glargine,Hum.rec.anlog [Lantus Solostar] 60 unit SQ BID 10/21/23 Physician Discharge Instructions: Valentino Metcalf presented to the ED with chief complaint of slurred speech, left upper extremity weakness, left decreased sensation. CT head showed abnormalities including focal atrophy at the right cerebral hemisphere and questionable cortical infarcts. MRI brain reports "No acute intracranial abnormality. Specifically, no evidence of acute infarct. Age advanced cerebral atrophy, right greater than left, probably related to a remote insult."During this admission, acute kidney injury was found and Dr. Avila was consulted. He decided to stop your Valsartan/HCTZ to help kidneys recover. Please follow up with Dr. Avila for further kidney management. 1. Please call and schedule a follow-up appointment with your PCP in 3-5 days - Please follow-up with your PCP for medication refills/adjustments - holding the valsartan/HCTZ due to kidney function, please ask PCP for a different antihypertensive 2. Please call and schedule a follow-up appointment with Dr. Avila in 3-5 days for kidney function 3. Follow up with Dr. Todd for post TIA care. 3. Continue Renal/diabetic diet 4. No activity restrictions, fall precaution 5. Return to the ED if symptoms worsen 6. continue taking home medications (except valsartan/HCTZ) 7. No new medications this admission Followup: Bismark Avila MD [ACTIVE - CAN ADMIT] - (Follow up in 3-5 days. call for appointment) Nathan Todd MD [ASSOCIATE-ACTIVE - CAN ADMIT] - Donna Lee DO [Primary Care Provider] - Time spent managing pt's care (in minutes): 50
--- NOTE | 2023-10-23 14:21 | EKG ---
Test Date: 2023-10-21 Test Time: 10:17:39 Director Of Primary: ETHAN MEASUREMENT RESULTS: Intervals: Rate: 68 WI: 188 QRSD: 124 QT: 438 QTc: 465 [place]: P: 23 WI: 188 QRS: -75 T: 69 INTERPRETIVE STATEMENTS: Normal sinus rhythm Left anterior fascicular block Abnormal ECG Compared to ECG 06/22/2022 19:58:41 Sinus bradycardia no longer present Right bundle-branch block no longer present Bifascicular block no longer present Electronically Signed On 10-23-23 14:14:38 AUTO ROLLER by Michael Israel
[2023-10-24 19:05] LABS: Phosphatidylser & Prothrom IgG <9 U (<=30); Phosphatidylser & Prothrom IgM 20 U (<=30)
[2023-10-26 00:02] LABS: Anti-Thrombin III Activity 105 % normal (80-135)
[2023-10-26 06:44] LABS: Anti-Cardiolipin IgA Antibody 2.6 APL-U/mL (<20.0); Anti-Cardiolipin IgG Antibody <2.0 GPL-U/mL (<20.0); Anti-Cardiolipin IgM Antibody <2.0 MPL-U/mL (<20.0); Beta-2-Glycoprotein I IgA 2.8 U/mL (<20.0); Beta-2-Glycoprotein I IgG <2.0 U/mL (<20.0); Beta-2-Glycoprotein I IgM <2.0 U/mL (<20.0)
[2023-10-26 09:40] LABS: C-ANCA Anti-Proteinase 3 <1.0 AI (<1.0)
[2023-10-26 11:35] LABS: Albumin, (SPE) 3.2 g/dL (3.8-4.8); Alpha-1-Globulins 0.3 g/dL (0.2-0.3); Alpha-2-Globulins 0.8 g/dL (0.5-0.9); Gamma Globulins 1.1 g/dL (0.8-1.7); INTERPRETATION REPORT
== END 2023-10-23 11:30 | disposition home or self-care (01) ==
LOC: ER 09:50 → ERHOLD 11:35 → 2ND 12:43 → 4TH 10-22 20:14
PROVIDERS: ADMIT Internal Medicine; ATTEND Internal Medicine
DX: R47.81 Slurred speech (principal); E11.65 Type 2 diabetes mellitus with hyperglycemia; I12.9 Hypertensive chronic kidney disease with stage 1 through stage 4 chronic kidney disease, or unspecified chronic kidney disease; N18.32 Chronic kidney disease, stage 3b; E03.9 Hypothyroidism, unspecified; I25.10 Atherosclerotic heart disease of native coronary artery without angina pectoris; F41.9 Anxiety disorder, unspecified; M54.9 Dorsalgia, unspecified; G89.29 Other chronic pain; E11.22 Type 2 diabetes mellitus with diabetic chronic kidney disease; E78.5 Hyperlipidemia, unspecified; E11.40 Type 2 diabetes mellitus with diabetic neuropathy, unspecified; E11.319 Type 2 diabetes mellitus with unspecified diabetic retinopathy without macular edema; E11.21 Type 2 diabetes mellitus with diabetic nephropathy; N17.9 Acute kidney failure, unspecified; Z95.5 Presence of coronary angioplasty implant and graft; Z79.4 Long term (current) use of insulin; Z79.85 Long-term (current) use of injectable non-insulin antidiabetic drugs
CPT/HCPCS: 93005; 93306; 85025 ×3; 81001; 80048 ×2; 36415 ×2; 83735 ×2; 82550; 84100; 85610; 80061; 82565; 82947 ×9; 80076; 84550; 86592; 85730; 80069; 84436; 84443 ×2; 83036; 82570; 84484 ×3; 82607; 83970; 81241; 81240; 86147; 82306; 86146 ×3; 84156; 83090; 85300; 85302; 85305; 85306; 86021 ×2; 84165; 70450; 71045 ×2; 70551; 76770; 92610; 97112; 97116; 97161; 97530; 96374; 99285; 83516 ×2; J1815 ×6; J1644 ×3; J7030 ×4; G0378 ×5

== ENCOUNTER 2024-02-10 14:28 | Inpatient (IN) | payer OTHER ==
--- OUTSIDE RECORDS SUMMARY | 2024-02-10 14:30 | XMS REPORT | Continuity of Care Document ---
Author Name Unknown Address [address] [place] [address] [facility] thconnect Address [address] [place] [address] Care Team Providers Care Doughnut Icer Machine Name Role Phone PCP, PATIENT DOES NOT HAVE A Primary Care Physic artemio Unavailable Julian Carlos Attending Clinician UnavailCHRISTOPHER Ziegler Attending Clinician Unavailable TRUDY MARIANO Attending Clinician Unavailable Payers Payer Name Policy Type Policy Number Effective Date Expirati on Date Source [facility] PPO [id number] 2020 00:00:00 Allergies, Adverse Reactions, Alerts Allergy Name Allergy Type Status Severity Reaction(s) Onset Date Inactive Date Treating Clinician Comments Source NO KNOWN ALLERGIE S Drug Class Active [facility] Encounters Start Date/Time End Date/Time Encounter Type Admission Type Attending Clinicians Care Facility Care Department Encounter ID Source 2022-09-10 10:39:01 [facility] [id number] [facility] 2022-03-12 16:20:01 Outpatient KattegummJulian sylvester [facility] [id number] [facility] 2022-02-08 08:39:01 Outpatient Julian Reynolds [facility] [id number] [facility] 2021-09-12 13:00:14 Outpatient KattegummJulian sylvester [facility] [id number] [facility] 2021-09-12 12:54:24 Outpatient [facility] [id number] [facility] 2023-07-18 11:00:00 2023-07-18 11:00:00 Outpatient CHRISTOPHER SCOTT [facility] [id number] [facility] 2020-11-22 13:30:00 2020-11-22 13:30:00 Outpatient TRUDY REYES [facility] [id number] [facility] 2020-10-25 13:40:00 2020-10-25 13:40:00 Outpatient TRUDY REYES [facility] [id number] [facility]
[2024-02-10 15:24] LABS: Absolute Eosinophils 0.2 K/uL (0-0.5); Absolute Lymphocytes (CBC) 1.4 K/uL (0.7-4.9); Absolute Monocytes 0.7 K/uL (0.1-1.3); Basophils % 0.5 % (0-1.3); Eosinophils % 2.6 % (0-4.4); Hemoglobin 12.3 g/dL (13.6-17.9); Lymphocytes % 19.6 % (15.3-44.8); MCH 28.1 pg (27.0-35.0); MCHC 31.4 g/dL (32.0-36.0); MCV 89.5 fL (80-100); MPV 10.1 fL (7.6-11.3); Monocytes % 9.7 % (3.3-12.3); Neutrophils % 67.6 % (41.7-73.7); Nucleated Red Blood Cells % 0.1 % (0-0); Platelets 158 thou/uL (152-406); RBC Red Blood Cell Count 4.36 M/uL (4.33-5.43); Red Cell Distribution Width 16.7 % (12.1-15.2)
[2024-02-10 15:30] LABS: PT Prothrombin Time 11.4 SECONDS (9.4-12.5); Protime INR 1.04
[2024-02-10 15:57] LABS: Albumin 3.3 g/dL (3.4-5.0); Albumin/Globulin Ratio 0.9 (1.1-1.8); Anion Gap 8.3 mEq/L (5.0-15.0); Bilirubin Total 0.4 mg/dL (0.2-1.0); Globulin 3.6 g/dL (2.3-3.5); Protein, Total 6.9 g/dL (6.4-8.2); Troponin High Sensitivity 8.9 pg/mL (<58.9)
[2024-02-10 16:00] LABS: Potassium 7.3 mEq/L (3.5-5.1)
[2024-02-10 16:40] LABS: Anion Gap 8.5 mEq/L (5.0-15.0)
[2024-02-10 16:41] LABS: Potassium 7.5 mEq/L (3.5-5.1)
[2024-02-10] MEDS ORDERED: SOD POLYSTYREN SUL 15 GM/60 ML UCUP ONE (16:56)
[2024-02-10] MEDS ORDERED: ALBUTEROL 2.5 MG/3 ML NEB SOL ONE (16:56)
[2024-02-10] MEDS ORDERED: CALCIUM GLUCONATE 1 GM IVPB 1 GM/50 ML BAG IV ONE (16:57)
[2024-02-10] MEDS ORDERED: INSULIN REGULAR (HUMAN) 100 UNIT/ML ONE (16:57)
[2024-02-10] MEDS ORDERED: FUROSEMIDE 40 MG/4 ML VIAL ONE (16:57)
[2024-02-10] MEDS ORDERED: D10W 250 ML IV ONE (16:58)
--- NOTE | 2024-02-10 17:14 | RAD REPORT ---
EXAM DESCRIPTION: CT - Chest Abd Pelvis Wo Con - 02/10/2024 4:32 pm CLINICAL HISTORY: Cough and abdominal pain COMPARISON: Renal ultrasound October 2023 TECHNIQUE: Computed axial tomography of the chest, abdomen and pelvis was obtained. Oral contrast wa s given. IV contrast was not requested. All CT scans are performed using dose optimization technique as appropriate and may include automated exposure control or mA/KV adjustment according to patient size. FINDINGS: The evaluation of mediastinum, andreas, vessels and solid organs is limited secondary to the lack of IV contrast administration The lungs are clear No mediastinal or hilar lymphadenopathy is seen. A pleural effusion is not present. A pericardial effusion is not seen. Coronary arterial calcifications The liver, spleen, pancreas, and right adrenal gland appear grossly normal Cystic bilateral renal masses. Largest 2 centimeters right kidney. Hounsfield unit 35. Ultrasound dem onstrates it to cystic with low level echoes. 24 millimeter left adrenal mass. Hounsfield unit 37 There is no evidence of diverticulitis. Normal appendix. Increased density the gallbladder IMPRESSION: Increased density within the gallbladder may represent stones. Ultrasound recommended 24 millimeter left adrenal mass probably an adenoma. Nonemergent chemical shift MRI recommended Bilateral cystic renal masses. Largest right kidney 2 centimeters probably a benign complex cyst. How ever, this also should be evaluated at the same time the patient has a nonemergent MRI
--- NOTE | 2024-02-10 17:54 | RAD REPORT ---
EXAM DESCRIPTION: US - Abdomen Exam Limited - 02/10/2024 5:41 pm CLINICAL HISTORY: Abdominal pain. COMPARISON: February 10, 2024 CT FINDINGS: The gallbladder wall is not thickened. A gallstone is not seen. 2.3 centimeter echogenic structure within the gallbladder does not exhibit posterior shadowing. It is not adherent to the wall. This probably represents sludge ball The biliary tree is normal caliber. IMPRESSION: 2.3 centimeter sludge ball within the gallbladder
--- NOTE | 2024-02-10 18:07 | EDPHYS ---
Physician Documentation [facility] Name: Valentino Metcalf Age: 78 yrs Sex: Male : 1945 Arrival Date: 02/10/2024 Time: 14:28 Bed 3 Private MD: ED Physician Renan Campos HPI: 02/09 14:57 This 78 yrs old Male presents to ER via EMS with complaints of General sb4 Weakness. 14:57 Patient reports generalized weakness for 3 days as well as diarrhea and cough. He also sb4 endorses fever and chills. reports decreased oral intake. Patient denies any changes in his medications, reports compliance with them but is not sure what they are. Historical: - Allergies: 14:39 No Known Allergies; ph - PMHx: 14:39 Arthritis; coronary atherosclerosis; High Cholesterol; Hypercholesterolemia; ph Hypertension; Hypothyroidism; IDDM; kidney issues; - Immunization history:: Adult Immunizations unknown. - Infectious Disease History:: Denies. - Social history:: Smoking status: Patient denies any tobacco usage or history of. ROS: 14:57 Cardiovascular: Negative for chest pain, palpitations, and edema, Respiratory: Negative sb4 for shortness of breath, cough, wheezing, and pleuritic chest pain, 14:57 Constitutional: Positive for chills, fatigue, fever, malaise, poor PO intake, 14:57 Abdomen/GI: Positive for abdominal pain, nausea, diarrhea, 14:57 All other systems are negative, Exam: 15:00 Head/Face: Normocephalic, atraumatic. Eyes: Extra-ocular motions intact. Periorbital sb4 areas with no swelling, redness, or edema. Respiratory: Lungs have equal breath sounds bilaterally, clear to auscultation and percussion. No rales, rhonchi or wheezes noted. No increased work of breathing, no retractions or nasal flaring. Abdomen/GI: Soft, non-tender, no distension. 15:00 Constitutional: The patient appears alert, awake, lethargic, obese, obviously ill, 15:00 ENT: Mouth: Oral mucosa: dry, 15:00 Cardiovascular: Rate: bradycardic, Rhythm: irregular, 15:00 Skin: Appearance: Temperature: cool, Moisture: damp, Vital Signs: 14:31 Pulse 48; Resp 18; Temp 94.2; Pulse Ox 97% ; Weight 109.77 kg; Height 5 ft. 8 in. ; ph 14:40 BP 152 / 95; ph 15:48 BP 159 / 79; Pulse 44; Resp 16; Pulse Ox 98% ; ko1 16:22 BP 132 / 74; Pulse 48; Resp 18; Temp 97; Pulse Ox 98% on R/A; ph 18:00 BP 103 / 58; Pulse 61; Resp 16; Pulse Ox 98% ; ko1 20:12 BP 98 / 47; Pulse 53; Pulse Ox 97% on R/A; MAP 61 mmHg; tm6 20:12 Temp 97.7(O); tm6 20:41 BP 101 / 60; Pulse 54; Pulse Ox 95% on R/A; tm6 14:31 Body Mass Index 36.80 (109.77 kg, 172.72 cm) ph MDM: 14:39 Patient medically screened. 4 18:06 Data reviewed: vital signs, nurses notes, EMS record, lab test result(s), EKG, sb4 radiologic studies, and as a result, I will admit patient. Consideration of Admission/Observation Patient was admitted/placed on observation. Care significantly affected by the following chronic conditions: Diabetes, Hypertension, Chronic Kidney Disease. Counseling: I had a detailed discussion with the patient and/or guardian regarding the historical points, exam findings, and any diagnostic results supporting the discharge/admit diagnosis, lab results, radiology results, the need for further work-up and treatment in the hospital. 02/09 14:45 Order name: Blood Culture Adult (2) [facility] 02/09 14:45 Order name: CBC with Diff; Complete Time: 15:25 [facility] 02/09 14:45 Order name: CMP; Complete Time: 16:05 [facility] 02/09 14:45 Order name: Lactate w/ 2H reflex if indic.; Complete Time: 15:52 [facility] 02/09 14:45 Order name: Protime (+inr); Complete Time: 15:33 [facility] 02/09 14:45 Order name: Ptt, Activated; Complete Time: 15:33 02/09 14:45 Order name: Urinalysis w/ reflexes [facility] 02/09 14:45 Order name: Troponin HS; Complete Time: 16:05 [facility] 02/09 14:45 Order name: BNP; Complete Time: 16:05 sb4 02/09 16:00 Order name: BMP; Complete Time: 16:50 sb4 02/09 18:42 Order name: Urinalysis w/ reflexes EDMS 02/09 18:42 Order name: CBC with Automated Diff EDMS 02/09 18:42 Order name: CBC with Automated Diff EDMS 02/09 18:42 Order name: Comprehensive Metabolic Panel EDMS 02/09 18:42 Order name: Comprehensive Metabolic Panel EDMS 02/09 23:22 Order name: Basic Metabolic Panel; Complete Time: 23:31 EDMS 02/09 23:22 Order name: Phosphorus; Complete Time: 23:31 EDMS 02/09 23:22 Order name: Magnesium; Complete Time: 23:31 EDMS 02/09 16:05 Order name: CT Chest Abdomen Pelvis W/O Contrast; Complete Time: 17:15 sb4 02/09 17:16 Order name: Abdomen Limited US; Complete Time: 18:01 sb4 02/09 14:45 Order name: EKG; Complete Time: 14:45 sb4 02/09 14:45 Order name: Accucheck; Complete Time: 16:19 sb4 02/09 14:45 Order name: Cardiac monitoring; Complete Time: 15:09 sb4 02/09 14:45 Order name: EKG - Nurse/Tech; Complete Time: 16:19 sb4 02/09 14:45 Order name: IV Saline Lock - Large Bore; Complete Time: 15:10 sb4 02/09 14:45 Order name: Labs collected and sent; Complete Time: 15:10 sb4 02/09 14:45 Order name: O2 Per Protocol; Complete Time: 15:10 sb4 02/09 14:45 Order name: O2 Sat Monitoring; Complete Time: 15:10 sb4 02/09 14:45 Order name: Vital Signs; Complete Time: 15:10 sb4 EC:09 Rate is 48 beats/min. Rhythm is irregular, Junctional rhythm. QRS interval is normal at sb4 122 msec. QT interval is normal at 476 msec. Clinical impression: Abnormal EKG without significant change. Interpreted by me. Reviewed by me. Administered Medications: 17:37 Drug: Albuterol Inhalation 2.5 mg Inhalation once Route: Inhalation; ph 17:37 Drug: Furosemide IVP 40 mg IVP once; give over 2 minutes Route: IVP; Site: right ph antecubital; 17:37 Drug: D10 in Water IVP 250 ml IVP once Route: IVP; Site: right antecubital; ph 17:37 Drug: Calcium Gluconate IVPB 1 grams IVPB once over 60 mins; (mix in NS 100 mL) Route: ph IVPB; Infused Over: 60 mins; Site: right antecubital; 17:38 Drug: Insulin Regular Human Sub-Q 10 units Sub-Q once {Co-Signature: koBrayan (Nayeli Feliz ph RN).} Route: Sub-Q; Site: right upper arm; 18:33 Drug: NS 0.9% IV 1000 ml IV at 125 ml/hr continuous Route: IV; Rate: 125 ml/hr; Site: ko1 right antecubital; 18:40 Drug: Kayexalate PO 30 grams PO once Route: PO; ph Disposition: 15:14 I was immediately available on-site in the Emergency Department for consultation in the ms3 care of the patient. Disposition Summary: 02/10/24 18:07 Hospitalization Ordered Notes: Hospitalization Status: Inpatient Admission sb4 Provider: Alfred Mendosa sb4 Condition: Guarded sb4 Problem: new sb4 Symptoms: are unchanged sb4 Bed/Room Type: Standard sb4 Location: Telemetry/MedSur (Inpatient)(02/10/24 23:09) rv1 Room Assignment: 230(02/10/24 23:09) rv1 Diagnosis - Hyperkalemia sb4 - Acute kidney failure, unspecified sb4 Forms: - Medication Reconciliation Form sb4 - SBAR form sb4 - Leadership Thank You Letter sb4 Critical care time excluding procedures: 22:43 Critical care time: Bedside Care: 15 minutes, Consultation: 10 minutes, Family sb4 Intervention: 10 minutes. Total time: 35 minutes Signatures: Dispatcher [employer] Rin Ta RN RN ph Bryson, James RN RN vee4 Renan Campos DO DO ok3 Nayeli Feliz, RN RN ko1 Lynnette Nava PA-C PACaden sb4 Nathalie Klein rv1 Nayeli Feliz RN ko1 Corrections: (The following items were deleted from the chart) 14:45 14:45 BLOOD CULTURE*+BA.LAB.BRZ ordered. EDMS EDMS 14:45 14:45 CBC+H.LAB.BRZ ordered. EDMS EDMS 14:45 14:45 COMPREHENSIVE METABOLIC PANEL+C.LAB.BRZ ordered. EDMS EDMS 14:45 14:45 LACTATE+C.LAB.BRZ ordered. EDMS EDMS 14:45 14:45 PROTIME (+INR)+COAG.LAB.BRZ ordered. EDMS EDMS 14:45 14:45 PTT, ACTIVATED+COAG.LAB.BRZ ordered. EDMS EDMS 14:45 14:45 Urinalysis+U.LAB.BRZ ordered. EDMS EDMS 14:45 14:45 Troponin High Sensitivity+C.LAB.BRZ ordered. EDMS EDMS 14:45 14:45 PROBNP+C.LAB.BRZ ordered. EDMS EDMS 16:17 14:45 Chest Abdomen Pelvis W Con+CT.RAD.BRZ ordered. EDMS EDMS 20:14 18:07 Telemetry/MedSurg (Inpatient) sb4 jb4 20:14 18:07 sb4 jb4 23:09 20:14 [facility] ER HOLD jb4 rv1 23:09 20:14 ERHOLD- jb4 rv1
--- NOTE | 2024-02-10 18:07 | ER ---
Nurse's Notes [facility] Name: Valentino Metcalf Age: 78 yrs Sex: Male : 1945 Arrival Date: 02/10/2024 Time: 14:28 Bed 3 Private MD: Diagnosis: Hyperkalemia;Acute kidney failure, unspecified Presentation: 02/09 14:31 Chief complaint: EMS states: Pt from home, called EMS stating that pt was pale and ph weak, symptoms have been occurring x 3 days, HR in 40s, oral and axillary temperature low, BP and BGL WNL. Coronavirus screen: Vaccine status: Patient reports receiving the 1st dose of the Covid vaccine. Ebola Screen: No symptoms or risks identified at this time. 14:31 Method Of Arrival: EMS: [facility] 14:41 Initial Sepsis Screen: Does the patient meet any 2 criteria? Yes Does the patient have ph a suspected source of infection? No. Patient's initial sepsis screen is negative. Risk Assessment: Do you want to hurt yourself or someone else? Patient reports no desire to harm self or others. Onset of symptoms was February 10, 2024. 14:41 Acuity: LYNDSEY 2 ph Historical: - Allergies: 14:39 No Known Allergies; ph - PMHx: 14:39 Arthritis; coronary atherosclerosis; High Cholesterol; Hypercholesterolemia; ph Hypertension; Hypothyroidism; IDDM; kidney issues; - Immunization history:: Adult Immunizations unknown. - Infectious Disease History:: Denies. - Social history:: Smoking status: Patient denies any tobacco usage or history of. Screenin:41 [facility] ED Fall Risk Assessment (Adult) History of falling in the last 3 months, ph including since admission No falls in past 3 months (0 pts) Confusion or Disorientation No (0 pts) Intoxicated or Sedated No (0 pts) Impaired Gait No (0 pts) Mobility Assist Device Used No (0 pt) Altered Elimination No (0 pt) Score/Fall Risk Level 0 - 2 = Low Risk Oriented to surroundings, Maintained a safe environment, Hourly rounding (assess needs \T\ fall precautionary measures) done. Abuse screen: Denies threats or abuse. Denies injuries from another. Nutritional screening: No deficits noted. Tuberculosis screening: No symptoms or risk factors identified. Assessment: 14:45 General: Appears in no apparent distress. comfortable, Behavior is calm, cooperative, ph Reports chills for 2-3 days, Denies fever. Neuro: Level of Consciousness is awake, obeys commands, lethargic, Oriented to person, place, time, situation. Cardiovascular: Capillary refill < 3 seconds in bilateral fingers Patient's skin is warm and dry. Respiratory: Airway is patent Respiratory effort is even, unlabored, Respiratory pattern is regular, symmetrical. GI: Reports diarrhea, nausea, Patient currently denies abdominal pain, bloody stool, vomiting. Derm: Skin is normal, Skin temperature is cool. 14:45 Pain: Denies pain. ph 23:33 Reassessment: report faxed to [facility] and confirmed by tm6 Vital Signs: 14:31 Pulse 48; Resp 18; Temp 94.2; Pulse Ox 97% ; Weight 109.77 kg; Height 5 ft. 8 in. ; ph 14:40 BP 152 / 95; ph 15:48 BP 159 / 79; Pulse 44; Resp 16; Pulse Ox 98% ; ko1 16:22 BP 132 / 74; Pulse 48; Resp 18; Temp 97; Pulse Ox 98% on R/A; ph 18:00 BP 103 / 58; Pulse 61; Resp 16; Pulse Ox 98% ; ko1 20:12 BP 98 / 47; Pulse 53; Pulse Ox 97% on R/A; MAP 61 mmHg; tm6 20:12 Temp 97.7(O); tm6 20:41 BP 101 / 60; Pulse 54; Pulse Ox 95% on R/A; tm6 14:31 Body Mass Index 36.80 (109.77 kg, 172.72 cm) ph ED Course: 14:30 Patient arrived in ED. ph 14:39 Lynnette Nava PA-C is PHCP. sb4 14:39 Renan Campos DO is Attending Physician. sb4 14:40 Arm band placed on Patient placed in an exam room, on a stretcher, on peoplesoft business analyst, ph on pulse oximetry. 14:41 Triage completed. ph 14:41 Patient has correct armband on for positive identification. Bed in low position. Call ph light in reach. Side rails up X 1. Client placed on continuous cardiac and pulse oximetry monitoring. NIBP monitoring applied. sales support manager on. Door closed. Noise minimized. Warm blanket given. 14:45 Maintain EMS IV. Dressing intact. Good blood return noted. Site clean \T\ dry. Gauge \T\ ph site: 20 RAC. 15:28 Nayeli Feliz, RN is Primary Nurse. ko1 16:13 BMP Sent. ko1 16:34 CT Chest Abdomen Pelvis W/O Contrast In Process Unspecified. EDMS 16:38 No provider procedures requiring assistance completed. ph 17:43 Abdomen Limited US In Process Unspecified. EDMS 18:07 Alfred Mendosa MD is Hospitalizing Provider. sb4 23:33 Provided Education on: need for admit. tm6 23:33 Patient admitted, IV remains in place. tm6 02/10 00:16 Patient admitted, IV remains in place. ha1 Administered Medications: 02/09 17:37 Drug: Albuterol Inhalation 2.5 mg Inhalation once Route: Inhalation; ph 17:37 Drug: Furosemide IVP 40 mg IVP once; give over 2 minutes Route: IVP; Site: right ph antecubital; 17:37 Drug: D10 in Water IVP 250 ml IVP once Route: IVP; Site: right antecubital; ph 17:37 Drug: Calcium Gluconate IVPB 1 grams IVPB once over 60 mins; (mix in NS 100 mL) Route: ph IVPB; Infused Over: 60 mins; Site: right antecubital; 17:38 Drug: Insulin Regular Human Sub-Q 10 units Sub-Q once {Co-Signature: koBrayan (Nayeli Feliz ph RN).} Route: Sub-Q; Site: right upper arm; 18:33 Drug: NS 0.9% IV 1000 ml IV at 125 ml/hr continuous Route: IV; Rate: 125 ml/hr; Site: ko1 right antecubital; 18:40 Drug: Kayexalate PO 30 grams PO once Route: PO; ph Medication: 14:42 VIS not applicable for this client. ph Outcome: 18:07 Decision to Hospitalize by Provider. sb4 23:33 Admitted to Med/surg tm6 :33 Condition: stable 23:33 Instructed on the need for admit, 02/10 00:16 Admitted to Med/surg accompanied by nurse, accompanied by tech, via stretcher, room ha1 230, with chart, Condition: stable Instructed on the need for admit, 00:17 Patient left the ED. ha1 Signatures: Dispatcher [employer] EDMS Rin Vázquez RN RN ph Hein, Nathalia, RN RN ha1 Nayeli Feliz, RN RN ko1 Lynnette Nava PA-C PA-C sb4 Masterson, Tawney RN RN tm6 Nayeli Feliz RN ko1 Corrections: (The following items were deleted from the chart) 02/09 16:38 14:00 General: Appears in no apparent distress. comfortable, Behavior is calm, ph cooperative, Reports chills for 2-3 days, Denies fever, ph 16:38 14:00 Pain: Denies pain. ph ph 16:38 14:00 Neuro: Level of Consciousness is awake, obeys commands, lethargic, Oriented to ph person, place, time, situation, ph 16:38 14:00 Cardiovascular: Capillary refill < 3 seconds in bilateral fingers Patient's skin ph is warm and dry. ph 16:38 14:00 Respiratory: Airway is patent Respiratory effort is even, unlabored, Respiratory ph pattern is regular, symmetrical, ph 16:38 14:00 GI: Reports diarrhea, nausea, Patient currently denies abdominal pain, bloody ph stool, vomiting, ph 16:38 14:00 Derm: Skin is normal, Skin temperature is cool ph ph
[2024-02-10] MEDS ORDERED: NA CHLORIDE 0.9% 1,000 ML ONE ×2 (18:28→21:20)
[2024-02-10] MEDS ORDERED: ALBUTEROL 2.5 MG/3 ML NEB SOL NEB PRN (18:37)
[2024-02-10] MEDS ORDERED: ONDANSETRON 4 MG/2 ML VIAL IV PRN (18:37)
--- NOTE | 2024-02-10 18:41 | P.HP ---
Certification for Inpatient Patient admitted to: Inpatient With expected LOS: >2 Midnights Practitioner: I am a practitioner with admitting privileges, knowledge of patient current condition, hospital course, and medical plan of care. Services: Services provided to patient in accordance with Admission requirements found in Title 42 Section 412.3 of the Code of Federal Regulations Patient History Date of Service: 02/10/24 Reason for admission: LUKASZ History of Present Illness: 78 yrs old Male with past medical history of Arthritis; CAD ,Coronary atherosclerosis; Hypercholesterolemia;Hypertension; Hypothyroidism; IDDM; CKD Stage 2 followed by Nephrology came with generalized weakness and diarrhea. Started 3-4 days ago , had multiple episodes of diarrhea . Denies any sick contacts .He also complaints of fever and chills. reports decreased oral intake. Patient denies any changes in his medications, reports compliance with them . Patient was also seen in the ER and was found to have hyperkalemia and was started on on the hyperkalemic cocktail. Patient is being admitted for further management and close monitoring Allergies No Known Allergies Allergy (Verified 10/02/15 09:32) Home medications list reviewed: Yes Home Medications: Levothyroxine [Synthroid*] 0.112 mg PO [id number] 03/15/14 Pravastatin [Pravachol*] 80 mg PO BEDTIME 03/15/14 Aspirin [Aspirin EC 81 MG] 81 mg PO DAILY 10/02/15 Clopidogrel Bisulfate [Plavix*] 1 tab PO DAILY 05/28/20 Albuterol Inhaler [Ventolin Inhaler*] 2 puff IH Q6H PRN #1 inh 06/23/22 Docusate [Colace Cap*] 100 mg PO DAILY 05/04/23 Metoprolol Tartrate [Lopressor*] 25 mg PO BID #60 tab 05/05/23 Empagliflozin [Jardiance] 1 tab PO DAILY 10/21/23 Finerenone [Kerendia] 1 tab PO DAILY 10/21/23 Insulin Glargine,Hum.rec.anlog [Lantus Solostar] 60 unit SQ BID 10/21/23 - Past Medical/Surgical History Diabetic: Yes Past Medical History: Reviewed- Non-Contributory -: High Blood Pressure -: Diabetes-IDDM -: Hypothyroid -: CAD -: Cardiac stent Past Surgical History: Reviewed- Non-Contributory -: Back sx -: left leg sx -: Bilateral cataract -: Cardiac Stent Psychosocial/ Personal History: Patient is . - Family History Family History: Reviewed- Non-Contributory - Social History Smoking Status: Never smoker Alcohol use: Yes CD- Drugs: No Caffeine use: Yes Review of Systems 10-point ROS is otherwise unremarkable Physical Examination - Vital Signs Temperature: 98.2 F Blood Pressure: 138/78 Pulse: 78 Respirations: 18 Pulse Ox (%): 92 - Physical Exam General: Alert, In no apparent distress, Oriented x3, Obese HEENT: Atraumatic, Normocephalic Neck: Supple, 2+ carotid pulse no bruit Respiratory: Clear to auscultation bilaterally, Normal air movement Cardiovascular: Regular rate/rhythm, Normal S1 S2 Capillary refill: <2 Seconds Gastrointestinal: Normal bowel sounds, Soft and benign, W/out hepatosplenomegaly Musculoskeletal: No clubbing, No swelling Integumentary: No rashes Neurological: Normal speech, Normal strength at 5/5 x4 extr Lymphatics: No axilla or inguinal lymphadenopathy - Studies Laboratory Data (last 24 hrs) 02/10/24 02/10/24 02/10/24 16:10 15:10 15:10 WBC Hgb Hct Plt Count PT 11.4 INR 1.04 APTT 45.0 H Sodium 139 139 Potassium 7.5 H* 7.3 H* BUN 90 H 85 H Creatinine 3.76 H 3.75 H Glucose 118 H 124 H Total Bilirubin 0.4 AST 77 H ALT 130 H Alkaline Phosphatase 87 02/10/24 15:10 WBC 7.40 Hgb 12.3 L Hct 39.0 L Plt Count 158 PT INR APTT Sodium Potassium BUN Creatinine Glucose Total Bilirubin AST ALT Alkaline Phosphatase Assessment and Plan - Problems (Diagnosis) (1) Hyperkalemia Current Visit: Yes Status: Acute Plan: Hyperkalemia Antihyperkalemic measures Monitor under telemetry Will repeat potassium level Acute Kidney Injury on CKD stage 2 Monitor renal parameters Electrolytes monitored and replace accordingly Nephrology Diarrhea Dehydration IV hydration Monitor volume status Hypertension Antihypertensives titrated Continue home medications and titrate as needed Hyperlipidemia Continue statin Diabetes Insulin sliding scale Accu-Chek before every meal and at bedtime Anemia of chronic disease Monitor H&H closely No overt bleeding at this time GI/DVT prophylaxis Advanced directive full code Discharge Plan: Home Plan to discharge in: 48 Hours - Advance Directives Does patient have a Living Will: No Does patient have a Durable POA for Healthcare: No - Code Status/Comfort Care Code Status: Full Code Time Spent Managing Pts Care (In Minutes): 48
[2024-02-10] MEDS: NA CHLORIDE 0.9% 1,000 ML IV SCH (19:00)
[2024-02-10] MEDS: ENOXAPARIN 30 MG/0.3 ML SQ SCH (20:00)
[2024-02-10] MEDS ORDERED: ENOXAPARIN 30 MG/0.3 ML SQ ONE (21:20)
[2024-02-10 23:22] LABS: Magnesium 2.4 mg/dL (1.6-2.4); Phosphorus 5.8 mg/dL (2.5-4.9)
[2024-02-10 23:47] VITALS: BMI 36.8
[2024-02-11] MEDS: SODIUM ZIRCONIUM CYCLOSILICATE 10 GM/PKT PO ONE ×2 (00:35→05:02)
[2024-02-11 03:36] LABS: Absolute Basophils 0.1 K/uL (0-0.5); Absolute Eosinophils 0.1 K/uL (0-0.5); Absolute Monocytes 0.7 K/uL (0.1-1.3); Absolute Neutrophil 6.2 K/uL (1.8-8.0); Basophils % 0.6 % (0-1.3); Eosinophils % 1.5 % (0-4.4); Hematocrit 32.2 % (39.6-49.0); Hemoglobin 10.5 g/dL (13.6-17.9); Lymphocytes % 12.4 % (15.3-44.8); MCH 28.9 pg (27.0-35.0); MCHC 32.7 g/dL (32.0-36.0); MCV 88.6 fL (80-100); MPV 10.4 fL (7.6-11.3); Monocytes % 8.1 % (3.3-12.3); Neutrophils % 77.4 % (41.7-73.7); Nucleated Red Blood Cells % 0.1 % (0-0); Platelets 133 thou/uL (152-406); RBC Red Blood Cell Count 3.64 M/uL (4.33-5.43); Red Cell Distribution Width 16.4 % (12.1-15.2)
[2024-02-11 04:00] LABS: Albumin 2.8 g/dL (3.4-5.0); Albumin/Globulin Ratio 0.9 (1.1-1.8); Anion Gap 10.8 mEq/L (5.0-15.0); Bilirubin Total 0.4 mg/dL (0.2-1.0); Protein, Total 5.8 g/dL (6.4-8.2)
[2024-02-11 04:23] LABS: Potassium 6.8 mEq/L (3.5-5.1)
[2024-02-11 04:38] LABS: Specific Gravity 1.014 (1.005-1.030); Sqamous Epithelial <5 /HPF (None Seen); Urine Bacteria <20 /HPF (<20); Urine Bilirubin NEGATIVE (Negative); Urine Blood Negative (Negative); Urine Clarity Turbid (Clear); Urine Color Light-Yellow (Yellow); Urine Culture Reflex Order NOT NEEDED; Urine Glucose 2+ (Negative); Urine Ketones NEGATIVE (Negative); Urine Microscopic Reflex YN ORDER UMIC; Urine Nitrite NEGATIVE (Negative); Urine Protein 1+ (Negative); Urine RBC None Seen /HPF (None Seen); Urine Urobilinogen Normal (Normal); Urine WBC <5 /HPF (<5)
[2024-02-11] MEDS: NA CHLORIDE 0.9% 1,000 ML IV ONE (10:10)
[2024-02-11] MEDS: FUROSEMIDE 40 MG/4 ML VIAL IV ONE (10:10)
--- NOTE | 2024-02-11 10:21 | P.CNS ---
Date of Consult: 02/11/24 Reason for Consult: Acute kidney injury hyperkalemia Chief Complaint: LUKASZ Allergies No Known Allergies Allergy (Verified 02/11/24 02:06) Home medications list reviewed: Yes (Patient not taking Kerendia ) Home Medications: Levothyroxine [Synthroid*] 125 mcg PO [id number] 03/15/14 Aspirin [Aspirin EC 81 MG] 81 mg PO DAILY 10/02/15 Clopidogrel Bisulfate [Plavix*] 1 tab PO DAILY 05/28/20 Docusate [Colace Cap*] 100 mg PO DAILY PRN 05/04/23 Metoprolol Tartrate [Lopressor*] 25 mg PO BID #60 tab 05/05/23 Empagliflozin [Jardiance] 1 tab PO DAILY 10/21/23 Insulin Glargine,Hum.rec.anlog [Lantus Solostar] 60 unit SQ BID 10/21/23 Atorvastatin Calcium [Lipitor] 80 mg PO DAILY 02/11/24 Benzonatate 200 mg PO TID PRN 02/11/24 Donepezil [Aricept] 5 mg PO BEDTIME 02/11/24 Ergocalciferol (Vitamin D2) [Vitamin D2] 50,000 unit PO SEECOM 02/11/24 Gabapentin 300 mg PO BEDTIME 02/11/24 Saxagliptin HCl 5 mg PO DAILY 02/11/24 Spironolactone [Aldactone] 50 mg PO DAILY 02/11/24 Valsartan/Hydrochlorothiazide [Valsartan-Hctz 320-12.5 mg Tab] 1 each PO DAILY 02/11/24 - Past Medical/Surgical History Diabetic: Yes -: High Blood Pressure -: 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 - Social History Smoking Status: Unknown if ever smoked Alcohol use: Yes CD- Drugs: No Caffeine use: Yes Review of Systems 10-point ROS is otherwise unremarkable General: Weakness Eyes: Unremarkable ENT: Unremarkable Respiratory: Unremarkable Cardiovascular: Unremarkable Gastrointestinal: Nausea, Diarrhea, Distention, Other Genitourinary: Unremarkable Musculoskeletal: Unremarkable Neurological: Weakness Physical Examination Temp Pulse Resp BP Pulse Ox 97.6 F 57 19 139/63 95 02/11/24 08:00 02/11/24 10:10 02/11/24 08:00 02/11/24 10:10 02/11/24 08:00 General: Alert, Oriented x3 HEENT: Atraumatic, PERRLA Neck: Supple, 2+ carotid pulse no bruit Respiratory: Clear to auscultation bilaterally Cardiovascular: No edema, Normal S1 S2, Systolic murmur Capillary refill: <2 Seconds Gastrointestinal: Normal bowel sounds, Soft and benign, Hyperactive Musculoskeletal: No clubbing Integumentary: No rashes Neurological: Normal gait, Normal strength at 5/5 x4 extr, Normal tone, Cranial nerves 3-12 intact Laboratory Data (last 24 hrs) 02/10/24 02/10/24 02/10/24 16:10 15:10 15:10 WBC Hgb Hct Plt Count PT 11.4 INR 1.04 APTT 45.0 H Sodium 139 139 Potassium 7.5 H* 7.3 H* BUN 90 H 85 H Creatinine 3.76 H 3.75 H Glucose 118 H 124 H Total Bilirubin 0.4 AST 77 H ALT 130 H Alkaline Phosphatase 87 02/10/24 15:10 WBC 7.40 Hgb 12.3 L Hct 39.0 L Plt Count 158 PT INR APTT Sodium Potassium BUN Creatinine Glucose Total Bilirubin AST ALT Alkaline Phosphatase Conclusions/Impression: Assessment And Plan: 1. Acute kidney injury secondary to prerenal, dehydration secondary to GI loss secondary to the diarrhea /superimposed with hydrochlorothiazide ARB and spironolactone complicated with hyperkalemia no acidosis no uremic symptoms: Agree with aggressive hydration Will give bolus then diuresis to establish more potassium diuresis I started the patient on bicarb drip. For more potassium diuresis Will repeat lab in the afternoon Agree with holding ARB spironolactone and hydrochlorothiazide Will send for workup Discussed with the patient and by bedside if hyperkalemia did not resolve patient may need couple of session of dialysis just to clear out the hyperkalemia patient and on agreement 2. Hypertension with the presence of acute kidney injury and hyperkalemia: Agree with holding ARB spironolactone and hydrochlorothiazide . We will monitor. 3. Non-anion gap metabolic acidosis with contraction alkalosis secondary to hydrochlorothiazide. Dehydration secondary to GI loss: Present of hyperkalemia hold hydrochlorothiazide. Hydrochlorothiazide Will give bolus then diuresis to establish more potassium diuresis I started the patient on bicarb drip. For more potassium diuresis 4. Hyperkalemia multifactorial secondary to spironolactone ARB acute kidney injury : Agree with aggressive hydration Will give bolus then diuresis to establish more potassium diuresis I started the patient on bicarb drip. For more potassium diuresis Will repeat lab in the afternoon Agree with holding ARB spironolactone and hydrochlorothiazide Will send for workup Discussed with the patient and by bedside if hyperkalemia did not resolve patient may need couple of session of dialysis just to clear out the hyperkalemia patient and on agreement 5. cerebrovascular accident as by Primary. 6. Diabetes. Continue current treatment. Follow up with the Primary. 7-Coronary artery disease as by Primary. Thank you, Dr. Tyler, for allowing us to participate in the care of your patient. Time spent examining the patient [id number] reviewing data lab and the radiology placing orders or discussing the case with the patient family discussing the case with the business team leader and the hospitalist nursing staff more than 75-minute
[2024-02-11 13:14] LABS: UR PROTEIN 13.8 mg/dL (<11.9); Urine Protein/Creatinine Ratio 0.53 ratio (<0.15)
--- NOTE | 2024-02-11 13:51 | EKG ---
Test Date: 2024-02-10 Test Time: 14:49:00 Mathematical Scientist: AMBROSIO MEASUREMENT RESULTS: Intervals: Rate: 48 [place]: QRSD: 122 QT: 476 QTc: 425 [place]: P: [place]: QRS: -74 T: 73 INTERPRETIVE STATEMENTS: Sinus bradycardia Left anterior fascicular block Junctional ST depression, probably normal Abnormal ECG Compared to ECG 10/21/2023 10:17:39 ST (T wave) deviation now present Electronically Signed On 02-11-24 13:48:41 CDT by Michael Israel
--- NOTE | 2024-02-11 14:10 | P.PN ---
Subjective Date of Service: 02/11/24 Chief Complaint: LUKASZ Patient denies any complaint. He states his diarrhea has stopped. He denies any nausea or vomiting. He has been afebrile. He denies any pain. He was persistently hyperkalemic overnight, current potassium level is 6.8. Patient mention he has been voiding without difficulty and denies any history of BPH. Physical Examination - Vital Signs Temperature: 97.4 F Blood Pressure: 113/60 Pulse: 53 Respirations: 18 Pulse Ox (%): 94 - Studies Laboratory Data (last 24 hrs) 02/10/24 02/10/24 02/10/24 16:10 15:10 15:10 WBC Hgb Hct Plt Count PT 11.4 INR 1.04 APTT 45.0 H Sodium 139 139 Potassium 7.5 H* 7.3 H* BUN 90 H 85 H Creatinine 3.76 H 3.75 H Glucose 118 H 124 H Total Bilirubin 0.4 AST 77 H ALT 130 H Alkaline Phosphatase 87 02/10/24 15:10 WBC 7.40 Hgb 12.3 L Hct 39.0 L Plt Count 158 PT INR APTT Sodium Potassium BUN Creatinine Glucose Total Bilirubin AST ALT Alkaline Phosphatase Assessment And Plan - Plan Physical examination General: Alert and oriented x3, NAD, morbidly obese HEENT: Conjunctiva not pale, anicteric sclera Neck: Supple, no elevated JVD Heart: Heart sounds 1 and 2 normal, regular rhythm, normal rate, no pedal edema Lungs: Clear to auscultation bilaterally, adequate breath sounds bilaterally, no rhonchi or crackles. Abdomen: Soft, nondistended, nontender, normal bowel sounds. Extremities: No tenderness, no deformity Skin: Normal skin turgor, no rash, no nodules or ulcers. Neuro: No focal motor deficit. Normal speech. Psychiatry: Normal mood, no agitation. Assessment and plan Hyperkalemia/acute on chronic kidney disease stage III Metabolic acidosis LUKASZ likely secondary to fluid loss from diarrhea. Hyperkalemia related to LUKASZ and metabolic acidosis Status post Antihyperkalemic measures-status post IV Lasix, IV NS, multiple doses of Lokelma. Nephrology consulted, Dr. Avila input appreciated. IV normal saline and IV Lasix to treat the hyperkalemia recommended Monitor under telemetry Continue to monitor potassium levels. Hold home Aldactone. Acute diarrhea/acute gastroenteritis Symptoms improved Continue IV hydration Monitor volume status Hypertension Continue home medications and titrate as needed Hyperlipidemia Continue statin Diabetes Insulin sliding scale Accu-Chek before every meal and at bedtime Anemia of chronic disease Monitor H&H closely No overt bleeding at this time GI/DVT prophylaxis Advanced directive full code
[2024-02-11 14:59] LABS: Anion Gap 10.3 mEq/L (5.0-15.0); Potassium 5.3 mEq/L (3.5-5.1)
[2024-02-11] MEDS: NACHLORIDE 0.45% 1,000 ML with NA BICARB 8.4% 100 MEQ IV SCH (15:33)
[2024-02-11] MEDS ORDERED: DOCUSATE NA 100 MG CAP PO PRN (19:37)
[2024-02-11] MEDS: GABAPENTIN 300 MG CAP PO SCH (20:08)
[2024-02-11] MEDS: METOPROLOL TAR 25 MG TAB PO SCH (20:08)
[2024-02-11] MEDS: DONEPEZIL HCL 5 MG TAB PO SCH (20:09)
[2024-02-11] MEDS: ACETAMINOPHEN 325 MG TABLET PO PRN (20:09)
[2024-02-11] MEDS ORDERED: SODIUM BICARB 50 MEQ/50ML VIAL ONE (23:02)
[2024-02-12] MEDS: NACHLORIDE 0.45% 1,000 ML IV ONE (00:35)
[2024-02-12 04:03] LABS: Albumin 2.6 g/dL (3.4-5.0); Anion Gap 8.5 mEq/L (5.0-15.0); Phosphorus 5.2 mg/dL (2.5-4.9); Potassium 5.5 mEq/L (3.5-5.1); Thyroid Stimulating Hormone 0.86 uIU/mL (0.358-3.740); Uric Acid 6.8 mg/dL (3.5-7.2)
[2024-02-12] MEDS: LEVOTHYROXINE SOD 0.125 MG TAB PO SCH (05:15)
[2024-02-12] MEDS: HOME MED 1 EA UNK (Empagliflozin [Jardiance] 25 MG Tablet) PO SCH (09:00)
[2024-02-12] MEDS: CLOPIDOGREL 75 MG TABLET PO SCH (09:31)
[2024-02-12] MEDS: ASPIRIN EC 81 MG TAB PO SCH (09:32)
[2024-02-12] MEDS: ATORVASTATIN 80 MG TAB PO SCH (09:33)
[2024-02-12] MEDS: NACHLORIDE 0.45% 1,000 ML with NA BICARB 8.4% 100 MEQ IV SCH (12:00)
--- NOTE | 2024-02-12 12:51 | P.PN ---
Subjective Date of Service: 02/12/24 Chief Complaint: LUKASZ Subjective: Improving (78 yrs old Male with past medical history of Arthritis; CAD ,Coronary atherosclerosis; Hypercholesterolemia;Hypertension; Hypothyroidism; IDDM; CKD Stage 2 followed by Nephrology came with generalized weakness and diarrhea. Started 3-4 days ago , had multiple episodes of diarrhea . Denies a) Review of Systems 10-point ROS is otherwise unremarkable General: Unremarkable Eyes: Unremarkable Respiratory: Unremarkable Cardiovascular: Unremarkable Gastrointestinal: Unremarkable Genitourinary: Unremarkable Musculoskeletal: Unremarkable Integumentary: Unremarkable Neurological: Unremarkable Physical Examination - Vital Signs Temperature: 97.4 F Blood Pressure: 136/74 Pulse: 57 Respirations: 22 Pulse Ox (%): 95 - Physical Exam General: Alert, Oriented x3 HEENT: Atraumatic Neck: Supple, 2+ carotid pulse no bruit, JVD not distended Respiratory: Clear to auscultation bilaterally Cardiovascular: No edema Capillary refill: <2 Seconds Gastrointestinal: Normal bowel sounds, Soft and benign, Non-distended Musculoskeletal: No clubbing, No swelling Neurological: Normal strength at 5/5 x4 extr, Cranial nerves 3-12 intact - Studies Active Medications Acetaminophen (Acetaminophen 325 Mg Tablet) 650 mg PO Q4HP PRN PRN Reason: TEMP > 100' F Last Admin: 02/11/24 20:09 Dose: 650 mg Albuterol Sulfate (Albuterol 2.5 Mg/3 Ml Neb Vicki) 2.5 mg NEB [id number] PRN PRN Reason: SHORTNESS OF BREATH Aspirin (Aspirin Ec 81 Mg Tab) 81 mg PO DAILY [facility] Last Admin: 02/12/24 09:32 Dose: 81 mg Atorvastatin Calcium (Atorvastatin 80 Mg Tab) 80 mg PO DAILY [facility] Last Admin: 02/12/24 09:33 Dose: 80 mg Clopidogrel Bisulfate (Clopidogrel 75 Mg Tablet) 75 mg PO DAILY [facility] Last Admin: 02/12/24 09:31 Dose: 75 mg Docusate Sodium (Docusate Na 100 Mg Cap) 100 mg PO DAILY PRN PRN Reason: CONSTIPATION Donepezil HCl (Donepezil Hcl 5 Mg Tab) 5 mg PO BEDTIME [facility] Last Admin: 02/11/24 20:09 Dose: 5 mg Enoxaparin Sodium (Enoxaparin 30 Mg/0.3 Ml) 30 mg SQ DAILY [facility] Last Admin: 02/12/24 09:31 Dose: 30 mg Ergocalciferol (Drisdol (Vitamin D=Ergocalciferol) 47480 Unit Cap) 50,000 unit PO Q720H [facility] Gabapentin (Gabapentin 300 Mg Cap) 300 mg PO BEDTIME [facility] Last Admin: 02/11/24 20:08 Dose: 300 mg Home Med (Empagliflozin [Jardiance]) 1 tab PO DAILY [facility] Last Admin: 02/12/24 09:00 Dose: Not Given Home Med (Saxagliptin Hcl [Saxagliptin Hcl]) 5 mg PO DAILY [facility] Last Admin: 02/12/24 09:00 Dose: Not Given Sodium Bicarbonate 100 meq/ (Sodium Chloride) 1,100 mls @ 125 mls/hr IV .[id number] [facility] Levothyroxine Sodium (Levothyroxine Sod 0.125 Mg Tab) 0.125 mg PO [id number] [facility] Last Admin: 02/12/24 05:15 Dose: 0.125 mg Metoprolol Tartrate (Metoprolol Tar 25 Mg Tab) 25 mg PO BID [facility] Last Admin: 02/12/24 09:31 Dose: 25 mg Ondansetron HCl (Ondansetron 4 Mg/2 Ml Vial) 4 mg IV Q6HP PRN PRN Reason: NAUSEA / VOMITING Assessment And Plan - Plan Assessment And Plan: 1. Acute kidney injury secondary to prerenal, dehydration secondary to GI loss secondary to the diarrhea /superimposed with hydrochlorothiazide ARB and spironolactone complicated with hyperkalemia no acidosis no uremic symptoms hyperkalemia improving: Continue hydration Keep holding ARB spironolactone and hydrochlorothiazide Monitor the patient closely Discussed with the patient and by bedside if hyperkalemia did not resolve patient may need couple of session of dialysis just to clear out the hyperkalemia patient and on agreement 2. Hypertension with the presence of acute kidney injury and hyperkalemia: Keep holding ARB spironolactone and hydrochlorothiazide Continue IV fluid . We will monitor. 3. Non-anion gap metabolic acidosis with contraction alkalosis secondary to hydrochlorothiazide. Dehydration secondary to GI loss: Present of hyperkalemia Keep hold hydrochlorothiazide. Hydrochlorothiazide DC bicarb drip Continue IV hydration Give oral bicarb 4. Hyperkalemia multifactorial secondary to spironolactone ARB acute kidney injury hypothyroidism has been ruled out: Improving Agree with aggressive hydration The holding ARB spironolactone and hydrochlorothiazide See the need to initiate any renal replacement therapy for now Note to monitor the patient 5. cerebrovascular accident as by Primary. 6. Diabetes. Continue current treatment. Follow up with the Primary. 7-Coronary artery disease as by Primary. Thank you, Dr. Tyler, for allowing us to participate in the care of your patient. Time spent examining the patient [id number] reviewing data lab and the radiology placing orders or discussing the case with the patient family discussing the case with the [employer] team leader and the hospitalist nursing staff more than 55-minute - Chief Complaint Reason for admission: LUKASZ - History of Present Illness 78 yrs old Male with past medical history of Arthritis; CAD ,Coronary atherosclerosis; Hypercholesterolemia;Hypertension; Hypothyroidism; IDDM; CKD Stage 2 followed by Nephrology came with generalized weakness and diarrhea. Started 3-4 days ago , had multiple episodes of diarrhea . Denies any sick contacts .He also complaints of fever and chills. reports decreased oral intake. Patient denies any changes in his medications, reports compliance with them . Patient was also seen in the ER and was found to have hyperkalemia and was started on on the hyperkalemic cocktail. Patient is being admitted for further management and close monitoring Overnight patient was a started on IV hydration with bicarb hyperkalemia trending down kidney function improving patient feeling better - Allergies Allergies/Reactions: Allergy/AdvReac Type Severity Reaction Status Date / Time No Known Allergies Allergy Verified 02/11/24 02:06 - Home Medications Medication Instructions Recorded Levothyroxine [Synthroid*] 125 mcg PO [id number] 03/15/14 Aspirin [Aspirin EC 81 MG] 81 mg PO DAILY 10/02/15 Clopidogrel Bisulfate [Plavix*] 1 tab PO DAILY 05/28/20 Docusate [Colace Cap*] 100 mg PO DAILY PRN 05/04/23 Metoprolol Tartrate [Lopressor*] 25 mg PO BID #60 tab 05/05/23 Empagliflozin [Jardiance] 1 tab PO DAILY 10/21/23 Insulin Glargine,Hum.rec.anlog 60 unit SQ BID 10/21/23 [Lantus Solostar] Atorvastatin Calcium [Lipitor] 80 mg PO DAILY 02/11/24 Benzonatate 200 mg PO TID PRN 02/11/24 Donepezil [Aricept] 5 mg PO BEDTIME 02/11/24 Ergocalciferol (Vitamin D2) 50,000 unit PO SEECOM 02/11/24 [Vitamin D2] Gabapentin 300 mg PO BEDTIME 02/11/24 Saxagliptin HCl 5 mg PO DAILY 02/11/24 Spironolactone [Aldactone] 50 mg PO DAILY 02/11/24 Valsartan/Hydrochlorothiazide 1 each PO DAILY 02/11/24 [Valsartan-Hctz 320-12.5 mg Tab] - Past Medical History -: High Blood Pressure -: Diabetes-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 - Social History Alcohol use: Yes CD- Drugs: No Caffeine use: Yes - Physical Examination Height: 5 ft 8 in Vital Signs: Temp Pulse Resp BP Pulse Ox 97.4 F 57 22 H 136/74 95 02/12/24 12:50 02/12/24 12:50 02/12/24 12:50 02/12/24 12:50 02/12/24 12:50 - Assessment and Plan Assessment And Plan: 1. Acute kidney injury secondary to prerenal, dehydration secondary to GI loss secondary to the diarrhea /superimposed with hydrochlorothiazide ARB and spironolactone complicated with hyperkalemia no acidosis no uremic symptoms hyperkalemia improving: Continue hydration Keep holding ARB spironolactone and hydrochlorothiazide Monitor the patient closely Discussed with the patient and by bedside if hyperkalemia did not resolve patient may need couple of session of dialysis just to clear out the hyperkalemia patient and on agreement 2. Hypertension with the presence of acute kidney injury and hyperkalemia: Keep holding ARB spironolactone and hydrochlorothiazide Continue IV fluid . We will monitor. 3. Non-anion gap metabolic acidosis with contraction alkalosis secondary to hydrochlorothiazide. Dehydration secondary to GI loss: Present of hyperkalemia Keep hold hydrochlorothiazide. Hydrochlorothiazide DC bicarb drip Continue IV hydration Give oral bicarb 4. Hyperkalemia multifactorial secondary to spironolactone ARB acute kidney injury hypothyroidism has been ruled out: Improving Agree with aggressive hydration The holding ARB spironolactone and hydrochlorothiazide See the need to initiate any renal replacement therapy for now Note to monitor the patient 5. cerebrovascular accident as by Primary. 6. Diabetes. Continue current treatment. Follow up with the Primary. 7-Coronary artery disease as by Primary. Thank you, Dr. Tyler, for allowing us to participate in the care of your patient. Time spent examining the patient [id number] reviewing data lab and the radiology placing orders or discussing the case with the patient family discussing the case with the [employer] team leader and the hospitalist nursing staff more than 55-minute - Discharge Plan Discharge Plan: Home Plan to discharge in: 48 Hours
[2024-02-12] MEDS: NA CHLORIDE 0.9% 1,000 ML IV SCH (13:10)
--- NOTE | 2024-02-12 15:35 | P.PN ---
Subjective Date of Service: 02/12/24 Chief Complaint: LUKASZ Patient denies any complaint. He is no longer experiencing diarrhea. He has been afebrile. He denies any pain. Potassium level has decreased but still hyperkalemic. Physical Examination - Vital Signs Temperature: 97.4 F Blood Pressure: 136/74 Pulse: 57 Respirations: 22 Pulse Ox (%): 95 Assessment And Plan - Plan Physical examination General: Alert and oriented x3, NAD, morbidly obese HEENT: Conjunctiva not pale, anicteric sclera Neck: Supple, no elevated JVD Heart: Heart sounds 1 and 2 normal, regular rhythm, normal rate, no pedal edema Lungs: Clear to auscultation bilaterally, adequate breath sounds bilaterally, no rhonchi or crackles. Abdomen: Soft, nondistended, nontender, normal bowel sounds. Extremities: No tenderness, no deformity Skin: Normal skin turgor, no rash, no nodules or ulcers. Neuro: No focal motor deficit. Normal speech. Psychiatry: Normal mood, no agitation. Assessment and plan Hyperkalemia/acute on chronic kidney disease stage III Metabolic acidosis LUKASZ likely secondary to fluid loss from diarrhea. Hyperkalemia related to LUKASZ and metabolic acidosis Status post Antihyperkalemic measures-status post IV Lasix, IV NS, multiple doses of Lokelma. Nephrology Dr. Avila is following Status post IV normal saline and IV Lasix. Continue to monitor potassium levels. Hold Aldactone. Acute diarrhea/acute gastroenteritis Symptoms resolved. Continue IV hydration Monitor volume status Hypertension Continue metoprolol Hyperlipidemia Continue statin Diabetes Insulin sliding scale Accu-Chek before every meal and at bedtime Anemia of chronic disease Monitor H&H closely No overt bleeding at this time DVT prophylaxis: Heparin SQ Advanced directive full code
[2024-02-12 15:56] LABS: Anion Gap 6.8 mEq/L (5.0-15.0); Potassium 4.8 mEq/L (3.5-5.1)
[2024-02-12] MEDS: HEPARIN 5000 UNIT/ML 1 ML VIAL SQ SCH (17:38)
[2024-02-13 04:35] LABS: Albumin 2.5 g/dL (3.4-5.0); Anion Gap 7.9 mEq/L (5.0-15.0); Magnesium 1.9 mg/dL (1.6-2.4); Phosphorus 4.1 mg/dL (2.5-4.9); Potassium 4.9 mEq/L (3.5-5.1)
--- NOTE | 2024-02-13 08:21 | P.DS ---
Admission Date: 02/10/24 Discharge Date: 02/13/24 Disposition: DC HOME/HOME HEALTH CARE Discharge Condition: FAIR Reason for Admission: LUKASZ Brief History of Present Illness: 78 yrs old Male with past medical history of Arthritis; CAD ,Coronary atherosclerosis; Hypercholesterolemia;Hypertension; Hypothyroidism; IDDM; CKD Stage 3 presented to the ED with generalized weakness and diarrhea of 4 days duration. reports patient had decreased oral intake. Patient was also seen in the ER and was found to have hyperkalemia and LUKASZ. He was given anti-hyperkalemia treatment, started on IV fluids and admitted for further management. Hospital Course: Patient was admitted to the medical floor and the following medical problems addressed: Hyperkalemia/acute on chronic kidney disease stage III Metabolic acidosis LUKASZ likely secondary to fluid loss from diarrhea. Hyperkalemia related to LUKASZ and metabolic acidosis Status post Antihyperkalemic measures-status post IV Lasix, IV NS, multiple doses of Lokelma. Nephrology Dr. Avila evaluated and assisted with management Status post IV normal saline and IV Lasix. Potassium level improved, hyperkalemia resolved Held his home meds- Aldactone, valsartan and hydrochlorothiazide and replaced with amlodipine on discharge. Patient advised to follow-up with nephrology within 1 week for repeat blood work Acute diarrhea/acute gastroenteritis Symptoms resolved. Patient treated with supportive measures including IV fluid. Hypertension Continued metoprolol Hyperlipidemia Continued statin Diabetes Managed with insulin sliding scale Jardiance resumed on discharge. Anemia of chronic disease Stable. Vital Signs/Physical Exam: Temp Pulse Resp BP Pulse Ox 97.8 F 52 16 151/74 H 94 02/13/24 04:00 02/13/24 04:00 02/13/24 04:00 02/13/24 04:00 02/13/24 04:00 General: Alert, In no apparent distress, Oriented x3, Obese HEENT: Mucous membr. moist/pink Neck: Supple, JVD not distended Respiratory: Clear to auscultation bilaterally, Normal air movement Cardiovascular: No edema, Regular rate/rhythm, Normal S1 S2 Gastrointestinal: Normal bowel sounds, Soft and benign, Non-distended, No tenderness Musculoskeletal: No swelling Integumentary: No cyanosis Neurological: Normal strength at 5/5 x4 extr Laboratory Data at Discharge: WBC 8.10 thou/uL (4.3-10.9) 02/11/24 03:16 Hgb 10.5 g/dL (13.6-17.9) L D 02/11/24 03:16 Hct 32.2 % (39.6-49.0) L 02/11/24 03:16 Plt Count 133 thou/uL (152-406) L 02/11/24 03:16 PT 11.4 SECONDS (9.4-12.5) 02/10/24 15:10 INR 1.04 02/10/24 15:10 APTT 45.0 SECONDS (24.3-36.9) H 02/10/24 15:10 Sodium 143 mEq/L (136-145) 02/13/24 03:24 Potassium 4.9 mEq/L (3.5-5.1) 02/13/24 03:24 BUN 68 mg/dL (7-18) H 02/13/24 03:24 Creatinine 2.88 mg/dL (0.70-1.30) H 02/13/24 03:24 Glucose 98 mg/dL (74-106) 02/13/24 03:24 Uric Acid 6.8 mg/dL (3.5-7.2) 02/12/24 03:06 Phosphorus 4.1 mg/dL (2.5-4.9) 02/13/24 03:24 Magnesium 1.9 mg/dL (1.6-2.4) 02/13/24 03:24 Total Bilirubin 0.4 mg/dL (0.2-1.0) 02/11/24 03:16 AST 46 U/L (15-37) H 02/11/24 03:16 ALT 95 U/L (16-61) H 02/11/24 03:16 Alkaline Phosphatase 71 U/L (45-117) 02/11/24 03:16 Home Medications: Levothyroxine [Synthroid*] 125 mcg PO [id number] 03/15/14 Aspirin [Aspirin EC 81 MG] 81 mg PO DAILY 10/02/15 Clopidogrel Bisulfate [Plavix*] 1 tab PO DAILY 05/28/20 Docusate [Colace Cap*] 100 mg PO DAILY PRN 05/04/23 Metoprolol Tartrate [Lopressor*] 25 mg PO BID #60 tab 05/05/23 Empagliflozin [Jardiance] 1 tab PO DAILY 10/21/23 Insulin Glargine,Hum.rec.anlog [Lantus Solostar] 60 unit SQ BID 10/21/23 Atorvastatin Calcium [Lipitor] 80 mg PO DAILY 02/11/24 Benzonatate 200 mg PO TID PRN 02/11/24 Donepezil [Aricept*] 5 mg PO BEDTIME 02/11/24 Ergocalciferol (Vitamin D2) [Vitamin D2] 50,000 unit PO SEECOM 02/11/24 Gabapentin 300 mg PO BEDTIME 02/11/24 Saxagliptin HCl 5 mg PO DAILY 02/11/24 Amlodipine [Norvasc*] 5 mg PO BEDTIME #30 tab 02/13/24 New Medications: Amlodipine [Norvasc*] 5 mg PO BEDTIME #30 tab Physician Discharge Instructions: Home health services to resume with: [facility] P:[phone] Diet: ADA Activity: Fall precautions Followup: Donna Lee DO [Primary Care Provider] - Bismark Avila MD [ACTIVE - CAN ADMIT] - 1 Week Time spent managing pt's care (in minutes): 34
[2024-02-13 09:05] VITALS: O2SAT 92
[2024-02-13 09:06] VITALS: BP 155/78; TEMP 97.2
[2024-03-07] MEDS ORDERED: DRISDOL (VITAMIN D=ERGOCALCIFEROL) 50000 UNIT CAP PO SCH (09:00)
== END 2024-02-13 10:10 | disposition home health service (06) | DRG 683 ==
LOC: ER 14:28 → ERHOLD 18:37 → 2ND 23:49
PROVIDERS: ADMIT Family Medicine; ATTEND Internal Medicine
DX: N17.9 Acute kidney failure, unspecified (principal); E87.20 Acidosis, unspecified; E87.3 Alkalosis; K92.2 Gastrointestinal hemorrhage, unspecified; E87.5 Hyperkalemia; E86.0 Dehydration; E78.00 Pure hypercholesterolemia, unspecified; I12.9 Hypertensive chronic kidney disease with stage 1 through stage 4 chronic kidney disease, or unspecified chronic kidney disease; N18.30 Chronic kidney disease, stage 3 unspecified; E11.22 Type 2 diabetes mellitus with diabetic chronic kidney disease; D63.1 Anemia in chronic kidney disease; M19.90 Unspecified osteoarthritis, unspecified site; E03.9 Hypothyroidism, unspecified; E66.01 Morbid (severe) obesity due to excess calories; K52.9 Noninfective gastroenteritis and colitis, unspecified; I25.10 Atherosclerotic heart disease of native coronary artery without angina pectoris; T50.2X5A Adverse effect of carbonic-anhydrase inhibitors, benzothiadiazides and other diuretics, initial encounter; Z79.4 Long term (current) use of insulin; Z95.1 Presence of aortocoronary bypass graft; Z95.5 Presence of coronary angioplasty implant and graft; Z79.82 Long term (current) use of aspirin; Z68.36 Body mass index [BMI] 36.0-36.9, adult; Z79.02 Long term (current) use of antithrombotics/antiplatelets; Z79.890 Hormone replacement therapy; Z79.899 Other long term (current) drug therapy
CPT/HCPCS: 36415; 71250; 74176; 76705; 80048; 80053; 80069; 81001; 82550; 82570; 83605; 83735; 83880; 83970; 84100; 84156; 84443; 84484; 84550; 85025; 85610; 85730; 87040; 93005; 94760; 96372; 96374; 96375; 99285; J0612; J1644; J1650; J1940; J7030; J7613

== ENCOUNTER 2024-03-10 16:45 | Inpatient (IN) | payer OTHER ==
--- OUTSIDE RECORDS SUMMARY | 2024-03-10 16:49 | XMS REPORT | Continuity of Care Document ---
Author Name Unknown Address [address] [facility] [address] [id number] [facility] thconnect Address [address] [facility] [address] [place] [address] Care Team Providers Care Radiology Nurse Name Role Phone PCP, PATIENT DOES NOT HAVE A Primary Care Physic artemio Unavailable Julian Carlos Attending Clinician UnavailCHRISTOPHER Ziegler Attending Clinician Unavailable TRUDY MARIANO Attending Clinician Unavailable Payers Payer Name Policy Type Policy Number Effective Date Expirati on Date Source [facility] PPO [id number] 2020 00:00:00 Allergies, Adverse Reactions, Alerts Allergy Name Allergy Type Status Severity Reaction(s) Onset Date Inactive Date Treating Clinician Comments Source NO KNOWN ALLERGIE S Drug Class Active [facility] Encounters Start Date/Time End Date/Time Encounter Type Admission Type Attending Clinicians Care Facility Care Department Encounter ID Source 2022-09-10 10:39:01 Outpatient Julian Reynolds [facility] [id number] [facility] 2022-03-12 16:20:01 Outpatient [facility] [id number] [facility] 2022-02-08 08:39:01 Outpatient Julian Reynolds [facility] [id number] [facility] 2021-09-12 13:00:14 Outpatient [facility] [id number] [facility] 2021-09-12 12:54:24 [facility]patient [facility] [id number] [facility] 2023-07-18 11:00:00 2023-07-18 11:00:00 Outpatient CHRISTOPHER SCOTT [facility] [id number] [facility] 2020-11-22 13:30:00 2020-11-22 13:30:00 Outpatient TRUDY REYES [facility] [id number] [facility] 2020-10-25 13:40:00 2020-10-25 13:40:00 Outpatient TRUDY REYES [facility] [id number] [facility]
[2024-03-10 17:27] LABS: Absolute Eosinophils 0.2 K/uL (0-0.5); Absolute Lymphocytes (CBC) 1.3 K/uL (0.7-4.9); Absolute Monocytes 0.6 K/uL (0.1-1.3); Absolute Neutrophil 4.8 K/uL (1.8-8.0); Basophils % 0.4 % (0-1.3); Eosinophils % 2.9 % (0-4.4); Hematocrit 36.1 % (39.6-49.0); Hemoglobin 11.3 g/dL (13.6-17.9); Lymphocytes % 19.3 % (15.3-44.8); MCHC 31.3 g/dL (32.0-36.0); MCV 89.5 fL (80-100); MPV 8.7 fL (7.6-11.3); Monocytes % 8.5 % (3.3-12.3); Neutrophils % 68.9 % (41.7-73.7); Nucleated Red Blood Cells % 0.2 % (0-0); Platelets 129 thou/uL (152-406); RBC Red Blood Cell Count 4.03 M/uL (4.33-5.43); Red Cell Distribution Width 16.7 % (12.1-15.2)
[2024-03-10 17:33] LABS: PT Prothrombin Time 12.1 SECONDS (9.4-12.5); Protime INR 1.08
--- NOTE | 2024-03-10 17:33 | RAD REPORT ---
EXAM DESCRIPTION: RAD - Chest Single View - 03/10/2024 5:25 pm CLINICAL HISTORY: DYSPNEA COMPARISON: <Comparisons> FINDINGS: Lines: None. Lungs: Patchy basilar airspace disease. Pleural: Blunted left costophrenic angle. Cardiac: Mild cardiomegaly. Mediastinum: Within normal limits. Bones: No acute fractures. Other: None IMPRESSION: Basilar airspace disease and small left pleural effusion could be due to edema, less lik silviano pneumonia.
[2024-03-10 17:34] LABS: PTT, Activated Partial Thromb 49.9 SECONDS (24.3-36.9)
[2024-03-10 17:41] LABS: Anion Gap 7.7 mEq/L (5.0-15.0); Potassium 5.7 mEq/L (3.5-5.1); Troponin High Sensitivity 8.3 pg/mL (<58.9)
[2024-03-10] MEDS ORDERED: ALBUTEROL 2.5 MG/3 ML NEB SOL ONE (18:00)
[2024-03-10] MEDS ORDERED: SOD POLYSTYREN SUL 15 GM/60 ML UCUP ONE (18:01)
[2024-03-10] MEDS ORDERED: FUROSEMIDE 40 MG/4 ML VIAL ONE (18:01)
--- NOTE | 2024-03-10 18:39 | ER ---
Nurse's Notes [facility] Name: Valentino Metcalf Age: 78 yrs Sex: Male : 1945 Arrival Date: 03/10/2024 Time: 16:45 Bed 7 Private MD: Diagnosis: Dyspnea, unspecified;Hyperkalemia;Bradycardia, unspecified Presentation: 03/10 16:51 Chief complaint: EMS states: toned out to patient home for hypertension, bradycardia ld1 and low SpO2 level. Pt denies pain. Coronavirus screen: At this time, the client does not indicate any symptoms associated with coronavirus-19. Ebola Screen: No symptoms or risks identified at this time. Initial Sepsis Screen: Does the patient meet any 2 criteria? No. Patient's initial sepsis screen is negative. Does the patient have a suspected source of infection? No. Patient's initial sepsis screen is negative. Risk Assessment: Do you want to hurt yourself or someone else? Patient reports no desire to harm self or others. Onset of symptoms was March 10, 2024. 16:51 Method Of Arrival: EMS: [facility] ld1 16:51 Acuity: LYNDSEY 2 ld1 Triage Assessment: 16:51 General: Appears in no apparent distress. comfortable, Behavior is calm, cooperative, ld1 appropriate for age. Pain: Denies pain. EENT: No signs and/or symptoms were reported regarding the EENT system. Neuro: Level of Consciousness is awake, alert, obeys commands, Oriented to person, place, time, situation, Appropriate for age. Cardiovascular: Capillary refill < 3 seconds Patient's skin is warm and dry. Rhythm is sinus bradycardia. Respiratory: Airway is patent Respiratory effort is even, labored. GI: Abdomen is round non-distended. : No signs and/or symptoms were reported regarding the genitourinary system. Derm: Skin is diaphoretic, Skin temperature is cool. Musculoskeletal: No signs and/or symptoms reported regarding the musculoskeletal system. Historical: - Allergies: 16:49 No Known Allergies; ld1 - PMHx: 16:49 Arthritis; coronary atherosclerosis; High Cholesterol; Hypercholesterolemia; ld1 Hypertension; Hypothyroidism; IDDM; kidney issues; - Immunization history:: Adult Immunizations up to date. - Infectious Disease History:: Denies. - Social history:: Smoking status: Patient denies any tobacco usage or history of. - Family history:: not pertinent. - Hospitalizations: : No recent hospitalization is reported. Screenin:53 [facility] ED Fall Risk Assessment (Adult) History of falling in the last 3 months, ld1 including since admission No falls in past 3 months (0 pts) Confusion or Disorientation No (0 pts) Intoxicated or Sedated No (0 pts) Impaired Gait No (0 pts) Mobility Assist Device Used No (0 pt) Altered Elimination No (0 pt) Score/Fall Risk Level 0 - 2 = Low Risk Oriented to surroundings, Maintained a safe environment, Educated pt \\T\\ family on fall prevention, incl call for assistance when getting out of bed, Assessed \\T\\ reinforced patient's understanding of fall precautions, Provided non-skid footwear, Hourly rounding (assess needs \\T\\ fall precautionary measures) done. Abuse screen: Denies threats or abuse. Denies injuries from another. Nutritional screening: No deficits noted. Tuberculosis screening: No symptoms or risk factors identified. Assessment: 16:50 General: Appears distressed, uncomfortable, Behavior is cooperative, anxious. Pain: rs5 Denies pain. Neuro: Level of Consciousness is awake, alert, obeys commands, Oriented to person, place, time, situation. Cardiovascular: Patient's skin is warm and dry. Respiratory: Airway is patent Respiratory effort is labored, Respiratory pattern is symmetrical. GI: Abdomen is round non-distended, Abd is soft and non tender X 4 quads. : No signs and/or symptoms were reported regarding the genitourinary system. EENT: No signs and/or symptoms were reported regarding the EENT system. Derm: Skin is intact, Skin is clammy, Skin is pink, warm \\T\\ dry. Musculoskeletal: Range of motion: limited in left arm and left leg pt states "I had a stroke a while ago and it's hard to move my left arm and my left leg ever since". 18:01 Reassessment: Patient and/or family updated on plan of care and expected duration. Pain rs5 level reassessed. Patient is alert, oriented x 3, equal unlabored respirations, skin warm/dry/pink. Patient states feeling better. Respiratory: Respiratory pattern is symmetrical. 18:10 Reassessment: calcium gluconate order faxed to [facility] . rs5 18:46 Reassessment: Patient and/or family updated on plan of care and expected duration. Pain rs5 level reassessed. Patient is alert, oriented x 3, equal unlabored respirations, skin warm/dry/pink. Patient states feeling better. Patient states symptoms have improved. 19:55 General: Appears in no apparent distress. Behavior is calm, cooperative. Neuro: Level kd3 of Consciousness is awake, alert, obeys commands, Oriented to person, place, time, situation. Cardiovascular:. Respiratory: Airway is patent Respiratory effort is shallow, Respiratory pattern is symmetrical, Breath sounds with wheezes bilaterally. 19:56 General: Pt states "I do not have a brief on right now and I do not need one. I do not kd3 need to be changed right now. I just need a urinal when I need to go". . Vital Signs: 16:48 Temp 97.2; ld1 16:48 BP 139 / 66; Pulse 47; Resp 22; Pulse Ox 97% on R/A; Weight 117.03 kg; Height 5 ft. 11 rs5 in. ; Pain 0/10; 16:51 BP 142 / 75; ld1 18:45 BP 135 / 56; Pulse 48; Resp 20; Pulse Ox 95% on R/A; rs5 19:42 BP 128 / 58; Pulse 49; Resp 17; Pulse Ox 93% on R/A; kd3 16:48 Body Mass Index 35.98 (117.03 kg, 180.34 cm) rs5 16:48 Pain Scale: Adult rs5 ED Course: 16:48 Patient arrived in ED. ld1 16:50 Joaquin Wild MD is Attending Physician. rn 16:51 Arm band placed on right wrist. ld1 16:52 Triage completed. ld1 16:53 Patient has correct armband on for positive identification. Placed in gown. Bed in low ld1 position. Call light in reach. Side rails up X2. senior linux administrator on. Pulse ox on. NIBP on. Door closed. Noise minimized. Warm blanket given. 16:53 No provider procedures requiring assistance completed. Maintain EMS IV. Dressing ld1 intact. Good blood return noted. Site clean \\T\\ dry. Gauge \\T\\ site: 20G RAC. 17:08 Filiberto Bailon, RN is Primary Nurse. rs5 17:26 XRAY Chest (1 view) In Process Unspecified. EDMS 18:38 Alfred Mendosa MD is Hospitalizing Provider. rn 19:57 Provided Education on: need for admit . kd3 19:57 Patient admitted, IV remains in place. kd3 Administered Medications: 17:55 Drug: Furosemide IVP 40 mg IVP once; give over 2 minutes Route: IVP; Site: left rs5 antecubital; 19:58 Follow up: Response: No adverse reaction kd3 18:00 Drug: Albuterol Inhalation 2.5 mg Inhalation once Route: Inhalation; rs5 18:00 Drug: Kayexalate PO 30 grams PO once Route: PO; rs5 19:58 Follow up: Response: No adverse reaction kd3 18:25 Drug: Calcium Gluconate IVPB 1 grams IVPB once over 60 mins; (mix in NS 100 mL) Route: rs5 IVPB; Infused Over: 60 mins; Site: right antecubital; 19:58 Follow up: IV Status: Completed infusion kd3 19:36 Drug: Rocephin IV 1 grams IV at calculated rate once; Given slow IV push per pharmacy kd3 instructions Route: IV; Rate: calculated rate; Site: left antecubital; 19:57 Follow up: IV Status: Completed infusion kd3 19:36 Drug: Zithromax IVPB 500 mg IVPB once over 1 hrs; mix in 250 mL NS Route: IVPB; Infused kd3 Over: 1 hrs; Site: right antecubital; Medication: 16:53 VIS not applicable for this client. ld1 Outcome: 18:39 Decision to Hospitalize by Provider. rn 19:57 Admitted to Med/surg accompanied by angélica kd3 19:57 Condition: stable 19:57 Discharge instructions given to patient, Instructed on the need for admit, Demonstrated understanding of instructions, 20:38 Patient left the ED. tm6 Signatures: Dispatcher [employer] EDMS Joaquin Wild MD MD rn Sims, Lauren RN RN ld1 Erika Gomez RN RN kd3 Filiberto Bailon RN RN rs5 Thad Farmer RN RN tm6 Corrections: (The following items were deleted from the chart) 18:45 16:53 Reassessment: See triage assessment ld1 rs5 18:58 16:48 Pulse 47bpm; Pulse Ox 97% RA; 117.03 kg; Height 5 ft. 11 in.; BMI: 35.9; Pain rs5 0/10, Adult; ld1
--- NOTE | 2024-03-10 18:39 | EDPHYS ---
Physician Documentation [facility] Name: Valentino Metcalf Age: 78 yrs Sex: Male : 1945 Arrival Date: 03/10/2024 Time: 16:45 Bed 7 Private MD: ED Physician Joaquin Wild HPI: 03/10 16:54 This 78 yrs old Male presents to ER via EMS with complaints of sob. rn 16:54 The patient has shortness of breath at rest, with light activity. Onset: The rn symptoms/episode began/occurred 1 week(s) ago. Duration: The symptoms are intermittent. The patient's shortness of breath is aggravated by exertion, light activity, talking, walking. Severity of symptoms: At their worst the symptoms were moderate in the emergency department the symptoms are unchanged. The patient has experienced similar episodes in the past. The patient has not recently seen a physician. Patient reports shortness of breath for 1 week. Reports swelling to bilateral lower extremities. No fever or chills. Does feel generalized weakness and malaise. No trauma.. Historical: - Allergies: 16:49 No Known Allergies; ld1 - PMHx: 16:49 Arthritis; coronary atherosclerosis; High Cholesterol; Hypercholesterolemia; ld1 Hypertension; Hypothyroidism; IDDM; kidney issues; - Immunization history:: Adult Immunizations up to date. - Infectious Disease History:: Denies. - Social history:: Smoking status: Patient denies any tobacco usage or history of. - Family history:: not pertinent. - Hospitalizations: : No recent hospitalization is reported. ROS: 16:54 Constitutional: Negative for fever, chills, and weight loss, Cardiovascular: Positive rn for lower extremity edema Respiratory: Positive for shortness of breath Abdomen/GI: Negative for abdominal pain, nausea, vomiting, diarrhea, and constipation, MS/Extremity: Positive for swelling Skin: Negative for injury, rash, and discoloration, Neuro: Positive for generalized weakness Exam: 16:54 Constitutional: This is a well developed, well nourished patient who is awake, alert, rn moderate tachypnea noted Head/Face: Normocephalic, atraumatic. ENT: Dry mucous membranes Cardiovascular: Bradycardic, regular Respiratory: Diminished breath sounds at bases, faint wheezing throughout Abdomen/GI: Soft, nontender MS/ Extremity: 1+ edema bilateral lower extremities Neuro: Awake and alert, GCS 15 16:59 ECG was reviewed by the Attending Physician. rn Vital Signs: 16:48 Temp 97.2; ld1 16:48 BP 139 / 66; Pulse 47; Resp 22; Pulse Ox 97% on R/A; Weight 117.03 kg; Height 5 ft. 11 rs5 in. ; Pain 0/10; 16:51 BP 142 / 75; ld1 18:45 BP 135 / 56; Pulse 48; Resp 20; Pulse Ox 95% on R/A; rs5 19:42 BP 128 / 58; Pulse 49; Resp 17; Pulse Ox 93% on R/A; kd3 16:48 Body Mass Index 35.98 (117.03 kg, 180.34 cm) rs5 16:48 Pain Scale: Adult rs5 MDM: 16:50 Patient medically screened. rn 17:00 ED course: Given bradycardia, wide QRS rhythm, dyspnea with lower extremity swelling I rn suspect acute kidney failure with possible hyperkalemia. Blood sent to further investigate at this time.. 18:37 Differential diagnosis: hyperkalemia, infection, pleural effusion, pulmonary edema. rn Data reviewed: vital signs, nurses notes, lab test result(s), EKG, radiologic studies, plain films, and as a result, I will admit patient. Consideration of Admission/Observation Patient was admitted/placed on observation. Escalation of care including admission/observation considered. Counseling: I had a detailed discussion with the patient and/or guardian regarding the historical points, exam findings, and any diagnostic results supporting the discharge/admit diagnosis, lab results, radiology results, the need for further work-up and treatment in the hospital. Response to treatment: the patient's symptoms have mildly improved after treatment. 18:37 ED course: I personally spent 35 minutes engaged in work directly related to the rn individual patient's care. This does not include any time spent performing procedures. The patient has been deemed critically ill because of hypoxemia, symptomatic bradycardia secondary to hyperkalemia requiring IV stabilization, home IV calcium, Kayexalate, and further admission to the hospital. 03/10 16:51 Order name: Basic Metabolic Panel; Complete Time: 17:48 rn 03/10 16:51 Order name: CBC with Diff; Complete Time: 17:34 rn 03/10 16:51 Order name: NT PRO-BNP; Complete Time: 17:48 03/10 16:51 Order name: Troponin HS; Complete Time: 17:48 rn 03/10 17:10 Order name: Blood Culture Adult (2) 03/10 17:10 Order name: Lactate w/ 2H reflex if indic.; Complete Time: 17:48 03/10 17:10 Order name: Protime (+inr); Complete Time: 17:48 03/10 17:10 Order name: Ptt, Activated; Complete Time: 17:48 03/10 19:00 Order name: Urinalysis w/ reflexes EDOH 03/10 19:00 Order name: CBC with Automated Diff EDOH 03/10 19:00 Order name: CBC with Automated Diff [facility] 03/10 19:00 Order name: Comprehensive Metabolic Panel [facility] 03/10 19:00 Order name: Comprehensive Metabolic Panel [facility] 03/10 19:00 Order name: Troponin High Sensitivity [facility] 03/10 19:00 Order name: Troponin High Sensitivity [facility] 03/10 19:00 Order name: Troponin High Sensitivity [facility] 03/10 16:51 Order name: XRAY Chest (1 view); Complete Time: 17:34 rn 03/10 16:51 Order name: Cardiac monitoring; Complete Time: 16:55 rn 03/10 16:51 Order name: EKG - Nurse/Tech; Complete Time: 16:55 rn 03/10 16:51 Order name: IV Saline Lock; Complete Time: 16:55 03/10 16:51 Order name: Labs collected and sent; Complete Time: 18:56 03/10 16:51 Order name: O2 Per Protocol; Complete Time: 16:55 rn 03/10 16:51 Order name: O2 Sat Monitoring; Complete Time: 16:55 rn 03/10 17:10 Order name: Accucheck; Complete Time: 17:58 rn 03/10 17:10 Order name: IV Saline Lock - Large Bore; Complete Time: 17:58 rn EC:59 Rate is 46 beats/min. Rhythm is regular. Left axis deviation noted. QRS is positive in rn lead I and negative in lead aVF. QRS interval is prolonged. QT interval is normal. No Q waves. T waves are Normal. No ST changes noted. Clinical impression: wide QRS rhythm. Interpreted by me. Reviewed by me. Administered Medications: 17:55 Drug: Furosemide IVP 40 mg IVP once; give over 2 minutes Route: IVP; Site: left rs5 antecubital; 19:58 Follow up: Response: No adverse reaction kd3 18:00 Drug: Albuterol Inhalation 2.5 mg Inhalation once Route: Inhalation; rs5 18:00 Drug: Kayexalate PO 30 grams PO once Route: PO; rs5 19:58 Follow up: Response: No adverse reaction kd3 18:25 Drug: Calcium Gluconate IVPB 1 grams IVPB once over 60 mins; (mix in NS 100 mL) Route: rs5 IVPB; Infused Over: 60 mins; Site: right antecubital; 19:58 Follow up: IV Status: Completed infusion kd3 19:36 Drug: Rocephin IV 1 grams IV at calculated rate once; Given slow IV push per pharmacy kd3 instructions Route: IV; Rate: calculated rate; Site: left antecubital; 19:57 Follow up: IV Status: Completed infusion kd3 19:36 Drug: Zithromax IVPB 500 mg IVPB once over 1 hrs; mix in 250 mL NS Route: IVPB; Infused kd3 Over: 1 hrs; Site: right antecubital; Disposition: 18:37 Critical Care:. rn Disposition Summary: 03/10/24 18:39 Hospitalization Ordered Notes: Hospitalization Status: Inpatient Admission rn Provider: lAfred Mendosa rn Location: Telemetry/[facility] (Inpatient) rn Condition: Stable rn Problem: new rn Symptoms: have improved rn Bed/Room Type: Standard rn Room Assignment: 404(03/10/24 19:15) ty Diagnosis - Dyspnea, unspecified rn - Hyperkalemia rn - Bradycardia, unspecified rn Forms: - Medication Reconciliation Form rn - SBAR form rn - Leadership Thank You Letter rn care transition time excluding procedures: 18:37 Critical care time: Bedside Care: 35 minutes. Total time: 35 minutes rn Signatures: Dispatcher [employer] Joaquin Bailey MD MD rn Sims, Lauren, RN RN [email or web address] Erika Gomez, RN RN kd3 Filiberto Bailon, RN RN rs5 Mehdi Tijerina Corrections: (The following items were deleted from the chart) 16:51 16:51 BASIC METABOLIC PANEL+C.LAB.BRZ ordered. EDOH EDMS 16:51 16:51 CBC+H.LAB.BRZ ordered. EDMS EDMS 16:51 16:51 PROBNP+C.LAB.BRZ ordered. EDMS EDMS 16:51 16:51 Troponin High Sensitivity+C.LAB.BRZ ordered. EDMS EDMS 16:51 16:51 Chest Single View+RAD.RAD.BRZ ordered. EDMS EDMS 17:11 17:11 BLOOD CULTURE*+BA.LAB.BRZ ordered. EDMS EDMS 17:11 17:11 LACTATE+C.LAB.BRZ ordered. EDMS EDMS 17:11 17:11 PROTIME (+INR)+COAG.LAB.BRZ ordered. EDMS EDMS 17:11 17:11 PTT, ACTIVATED+COAG.LAB.BRZ ordered. EDMS EDMS 19:15 18:39 rn ty
[2024-03-10] MEDS ORDERED: CALCIUM GLUCONATE 1 GM IVPB 1 GM/50 ML BAG IV ONE (18:50)
[2024-03-10] MEDS ORDERED: ACETAMINOPHEN 325 MG TABLET PO PRN (18:55)
[2024-03-10] MEDS: FUROSEMIDE 40 MG/4 ML VIAL IV SCH (19:00)
--- NOTE | 2024-03-10 19:00 | P.HP ---
Certification for Inpatient Patient admitted to: Inpatient With expected LOS: >2 Midnights Practitioner: I am a practitioner with admitting privileges, knowledge of patient current condition, hospital course, and medical plan of care. Services: Services provided to patient in accordance with Admission requirements found in Title 42 Section 412.3 of the Code of Federal Regulations Patient History Date of Service: 03/11/24 Reason for admission: SOB History of Present Illness: 78 yrs old Male with past medical history of hypertension, hyperlipidemia, hypothyroidism, diabetes, CAD, arthritis, hypercholesterolemia, kidney issues was brought to ER with shortness of breath even with minimal activities. Started 1 week ago and has been progressively worsening. Denies any chest pain. Has associated with cough with mucoid expectoration. Denies any sick contacts. No nausea vomiting or diarrhea. Denies any fever or chills. Complains of generalized weakness. Patient was assessed in the ER and was found to have hyperkalemia and acute kidney injury and was admitted for further management. X-ray was consistent with bibasilar airspace disease and a small left pleural effusion possibly due to edema versus pneumonia Allergies No Known Allergies Allergy (Verified 02/11/24 02:06) Home medications list reviewed: Yes Home Medications: Levothyroxine [Synthroid*] 125 mcg PO [id number] 03/15/14 Aspirin [Aspirin EC 81 MG] 81 mg PO DAILY 10/02/15 Clopidogrel Bisulfate [Plavix*] 1 tab PO DAILY 05/28/20 Docusate [Colace Cap*] 100 mg PO DAILY PRN 05/04/23 Metoprolol Tartrate [Lopressor*] 25 mg PO BID #60 tab 05/05/23 Empagliflozin [Jardiance] 1 tab PO DAILY 10/21/23 Insulin Glargine,Hum.rec.anlog [Lantus Solostar] 60 unit SQ BID 10/21/23 Atorvastatin Calcium [Lipitor] 80 mg PO DAILY 02/11/24 Benzonatate 200 mg PO TID PRN 02/11/24 Donepezil [Aricept*] 5 mg PO BEDTIME 02/11/24 Ergocalciferol (Vitamin D2) [Vitamin D2] 50,000 unit PO SEECOM 02/11/24 Gabapentin 300 mg PO BEDTIME 02/11/24 Saxagliptin HCl 5 mg PO DAILY 02/11/24 Amlodipine [Norvasc*] 5 mg PO BEDTIME #30 tab 02/13/24 - Past Medical/Surgical History Diabetic: Yes Past Medical History: Reviewed- Non-Contributory -: High Blood Pressure -: Diabetes-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 - Social History Smoking Status: Former smoker Alcohol use: Yes CD- Drugs: No Caffeine use: Yes Review of Systems 10-point ROS is otherwise unremarkable Physical Examination - Vital Signs Temperature: 97.2 F Blood Pressure: 136/78 Pulse: 48 Respirations: 18 Pulse Ox (%): 94 - Physical Exam General: Alert, Mild distress HEENT: Atraumatic, Normocephalic Neck: Supple Respiratory: Diminished, Crackles/rales, Expiratory wheezes Cardiovascular: Normal pulses, Regular rate/rhythm Capillary refill: <2 Seconds Gastrointestinal: Soft and benign, W/out hepatosplenomegaly, No ascites, No tenderness, No rebound Musculoskeletal: No clubbing Integumentary: No rashes Neurological: Normal speech, Normal strength at 5/5 x4 extr, Normal tone Lymphatics: No axilla or inguinal lymphadenopathy - Studies Laboratory Data (last 24 hrs) 03/10/24 03/10/24 03/10/24 17:13 17:13 17:13 WBC 6.90 Hgb 11.3 L Hct 36.1 L Plt Count 129 L PT 12.1 INR 1.08 APTT 49.9 H Sodium 142 Potassium 5.7 H BUN 55 H Creatinine 2.71 H Glucose 119 H Assessment and Plan - Problems (Diagnosis) (1) LUKASZ (acute kidney injury) Current Visit: No Status: Acute (2) Hyperkalemia Current Visit: No Status: Acute Plan: Hyperkalemia Started on Lokelma Monitor closely under telemetry Will monitor potassium level and titrate as needed Acute kidney injury On CKD stage II Monitor renal parameters Nephrology consult if renal parameters are still high Electrolytes monitor and replace accordingly Volume overload Elevated BNP found Aggressive diuresis Monitor closely in telemetry Hypertension Antihypertensives titrated Continue home medications and titrate as needed Hyperlipidemia Continue statin Diabetes Insulin sliding scale Accu-Chek before every meal and at bedtime GI/DVT prophylaxis Advanced directive full code Discharge Plan: Home Plan to discharge in: 48 Hours - Advance Directives Does patient have a Living Will: No Does patient have a Durable POA for Healthcare: No - Code Status/Comfort Care Code Status: Full Code Time Spent Managing Pts Care (In Minutes): 48
[2024-03-10] MEDS ORDERED: AZITHROMYCIN 500 MG INJ IVPB ONE (19:30)
[2024-03-10] MEDS ORDERED: CEFTRIAXONE 1000 MG/VIAL ONE (19:30)
[2024-03-10] MEDS ORDERED: NA CHLORIDE 0.9% 250 ML ONE (19:30)
[2024-03-10] MEDS ORDERED: D50W 25 GM/50 ML SYRINGE IV PRN (21:52)
[2024-03-10] MEDS ORDERED: GLUCAGON 1 MG/VIAL IM PRN (21:52)
[2024-03-10] MEDS: SODIUM ZIRCONIUM CYCLOSILICATE 10 GM/PKT ONE (22:08)
[2024-03-10] MEDS: HEPARIN 5000 UNIT/ML 1 ML VIAL SQ SCH (22:13)
[2024-03-10] MEDS: SODIUM ZIRCONIUM CYCLOSILICATE 10 GM/PKT PO ONE (22:19)
[2024-03-11] MEDS ORDERED: ALBUTEROL 2.5 MG/3 ML NEB SOL NEB PRN
[2024-03-11 05:16] LABS: Sqamous Epithelial None Seen /HPF (None Seen); Urine Bacteria <20 /HPF (<20); Urine Bilirubin NEGATIVE (Negative); Urine Blood Trace (Negative); Urine Clarity Turbid (Clear); Urine Color Light-Yellow (Yellow); Urine Culture Reflex Order NOT NEEDED; Urine Glucose 2+ (Negative); Urine Ketones NEGATIVE (Negative); Urine Microscopic Reflex YN ORDER UMIC; Urine Nitrite NEGATIVE (Negative); Urine Protein 2+ (Negative); Urine RBC <5 /HPF (None Seen); Urine Urobilinogen Normal (Normal); Urine WBC <5 /HPF (<5); Urine pH 5.5 (5.0-7.0)
[2024-03-11 06:17] LABS: Absolute Eosinophils 0.1 K/uL (0-0.5); Absolute Lymphocytes (CBC) 0.9 K/uL (0.7-4.9); Absolute Monocytes 0.6 K/uL (0.1-1.3); Basophils % 0.5 % (0-1.3); Eosinophils % 2.5 % (0-4.4); Hematocrit 31.8 % (39.6-49.0); Hemoglobin 10.3 g/dL (13.6-17.9); Lymphocytes % 15.8 % (15.3-44.8); MCH 28.7 pg (27.0-35.0); MCHC 32.4 g/dL (32.0-36.0); MCV 88.8 fL (80-100); MPV 9.3 fL (7.6-11.3); Neutrophils % 70.2 % (41.7-73.7); Nucleated Red Blood Cells % 0.1 % (0-0); Platelets 112 thou/uL (152-406); RBC Red Blood Cell Count 3.58 M/uL (4.33-5.43); Red Cell Distribution Width 16.6 % (12.1-15.2)
[2024-03-11] MEDS: SOD POLYSTYREN SUL 15 GM/60 ML UCUP PO SCH (06:42)
[2024-03-11 07:03] LABS: Albumin 2.9 g/dL (3.4-5.0); Albumin/Globulin Ratio 0.9 (1.1-1.8); Anion Gap 12.3 mEq/L (5.0-15.0); Bilirubin Total 0.5 mg/dL (0.2-1.0); Globulin 3.2 g/dL (2.3-3.5); Potassium 5.3 mEq/L (3.5-5.1); Protein, Total 6.1 g/dL (6.4-8.2)
[2024-03-11] MEDS: INSULIN REGULAR (HUMAN) 100 UNIT/ML SQ SCH (07:30)
[2024-03-11] MEDS: SODIUM BICARB 325 MG TAB PO SCH (08:52)
[2024-03-11] MEDS: AZITHROMYCIN IV 500 MG in NA CHLORIDE 0.9% 250 ML IVPB SCH (08:54)
[2024-03-11] MEDS: CEFTRIAXONE 1,000 MG in NA CHLORIDE 0.9% 50 ML IVPB SCH (08:54)
[2024-03-11] MEDS: HEPARIN 5000 UNIT/ML 1 ML VIAL SQ SCH (08:54)
--- NOTE | 2024-03-11 09:00 | P.PN ---
Date of Service: 03/11/24 Subjective Admitted for acute renal, nephrology following, Shortness of breath with exertion, O2 93% 2 L Review of Systems 10-point ROS is otherwise unremarkable Physical Examination - Vital Signs Temperature: 97.2 F Blood Pressure: 136/78 Pulse: 48 Respirations: 18 Pulse Ox (%): 94 - Physical Exam General: Alert, Mild distress HEENT: Atraumatic, Normocephalic Neck: Supple Respiratory: Diminished, Crackles/rales, Expiratory wheezes Cardiovascular: Normal pulses, Regular rate/rhythm Capillary refill: <2 Seconds Gastrointestinal: Soft and benign, W/out hepatosplenomegaly, No ascites, No tenderness, No rebound Musculoskeletal: No clubbing Integumentary: No rashes Neurological: Normal speech, Normal strength at 5/5 x4 extr, Normal tone Lymphatics: No axilla or inguinal lymphadenopathy Assessment and Plan - Problems (Diagnosis) Hyperkalemia Started on Lokelma Monitor closely under telemetry Will monitor potassium level and titrate as needed Nephrology consulted Acute kidney injury On CKD stage II Monitor renal parameters Electrolytes monitor and replace accordingly Renal ultrasound ordered IMPRESSION: Unremarkable renal sonogram apart from few benign-appearing cortical cysts Sodium bicarb ordered by nephrology Blood cultures no growth Volume overload Elevated BNP found Aggressive diuresis per nephrology Monitor closely in telemetry Hypertension Antihypertensives titrated Continue home medications and titrate as needed Hyperlipidemia Continue statin Diabetes Insulin sliding scale Accu-Chek before every meal and at bedtime GI/DVT prophylaxis heparin Advanced directive full code Discharge Plan: Home Plan to discharge in: 48 Hours - Advance Directives Does patient have a Living Will: No Does patient have a Durable POA for Healthcare: No - Code Status/Comfort Care Code Status: Full Code Time Spent Managing Pts Care (In Minutes): 30
[2024-03-11 11:55] LABS: Magnesium 2.1 mg/dL (1.6-2.4); Phosphorus 5.2 mg/dL (2.5-4.9); Uric Acid 6.8 mg/dL (3.5-7.2)
--- NOTE | 2024-03-11 12:23 | RAD REPORT ---
EXAM DESCRIPTION: US - Renal Ultrasound-Complete - 03/11/2024 10:44 am CLINICAL HISTORY: sabra COMPARISON: Abdomen Exam Limited dated 02/10/2024 TECHNIQUE: Sonographic grayscale and color flow images of the kidneys and bladder were obtained. FINDINGS: Both kidneys are normal in size, shape, and echotexture. The right kidney measures 9.9 cm in length. No hydronephrosis, focal mass, or echogenic calculi. The left kidney measures 9.4 cm in length. No hydronephrosis, focal mass, or echogenic calculi. Bilateral cortical cysts, largest on the right is at the interpolar zone measuring 1.6 cm, and on the left is at the superior pole measuring 1.8 cm. The urinary bladder is without gross abnormality seen although it is decompressed limiting evaluate. IMPRESSION: Unremarkable renal sonogram apart from few benign-appearing cortical cysts.
--- NOTE | 2024-03-11 13:16 | EKG ---
Test Date: 2024-03-10 Test Time: 16:56:54 Personal Injury Legal Assistant: ETHAN MEASUREMENT RESULTS: Intervals: Rate: 46 MI: QRSD: 124 QT: 526 QTc: 460 [place]: P: MI: QRS: -67 T: 65 INTERPRETIVE STATEMENTS: Wide QRS rhythm Right bundle branch block Left anterior fascicular block Bifascicular block Abnormal ECG Compared to ECG 03/10/2024 16:56:10 No significant changes Electronically Signed On 03-11-24 13:14:24 CDT by Michael Israel
--- NOTE | 2024-03-11 13:16 | EKG ---
Test Date: 2024-03-10 Test Time: 16:56:10 Ore Dryer: ETHAN MEASUREMENT RESULTS: Intervals: Rate: 46 [place]: QRSD: 124 QT: 520 QTc: 455 [place]: P: [place]: QRS: -64 T: 55 INTERPRETIVE STATEMENTS: Wide QRS rhythm Right bundle branch block Left anterior fascicular block Bifascicular block Abnormal ECG Compared to ECG 02/10/2024 14:49:00 Uncertain supraventricular rhythm now present Right bundle-branch block now present Bifascicular block now present Sinus bradycardia no longer present ST (T wave) deviation no longer present Electronically Signed On 03-11-24 13:14:25 CDT by Michael Israel
[2024-03-11] MEDS ORDERED: PNEUMOCOCCAL VACCINE 0.5 ML IMVAC ONE (14:00)
[2024-03-11 19:39] VITALS: BMI 36.9
--- NOTE | 2024-03-11 22:45 | P.PN ---
Date of Service: 03/11/24 Subjective Admitted renal insufficient, nephrology following, Shortness of breath with exertion, O2 93% 2 L Review of Systems 10-point ROS is otherwise unremarkable Physical Examination - Vital Signs reviewed - Physical Exam General: Alert, oriented x 3 HEENT: Atraumatic, Normocephalic Neck: Supple Respiratory: Diminished, bases crackles/rales, unlabored Cardiovascular: Normal pulses, Regular rate/rhythm Capillary refill: <2 Seconds Gastrointestinal: Soft and benign, nontender Musculoskeletal: No clubbing, generalized weakness Integumentary: No rashes Neurological: Normal speech, Normal strength at 5/5 x4 extr, Lymphatics: No axilla or inguinal lymphadenopathy Assessment and Plan - Problems (Diagnosis) Hyperkalemia Started on Lokelma Monitor closely under telemetry Will monitor potassium level and titrate as needed Nephrology consulted Acute kidney injury On CKD stage II Monitor renal parameters Electrolytes monitor and replace accordingly Renal ultrasound ordered IMPRESSION: Unremarkable renal sonogram apart from few benign-appearing cortical cysts Sodium bicarb ordered by nephrology Blood cultures no growth Volume overload Elevated BNP found Aggressive diuresis per nephrology Monitor closely in telemetry Hypertension Antihypertensives titrated Continue home medications and titrate as needed Hyperlipidemia Continue statin Diabetes Insulin sliding scale Accu-Chek before every meal and at bedtime GI/DVT prophylaxis heparin Advanced directive full code Discharge Plan: Home, discharge plan PT OT, longterm with [facility] pending Plan to discharge in: 48 Hours - Advance Directives Does patient have a Living Will: No Does patient have a Durable POA for Healthcare: No - Code Status/Comfort Care Code Status: Full Code Time Spent Managing Pts Care (In Minutes): 30
--- NOTE | 2024-03-12 | CON ---
Date of Consultation: 03/11/2024 Chief Complaint: Chronic kidney disease, cardiorenal syndrome, acute on chronic kidney injury. History Of Present Illness: The patient was admitted because of severe shortness of breath. He is a 78-year-old man with past medical history of hypertension, hypertensive heart and kidney disease, di abetic kidney disease, hyperlipidemia, hypothyroidism, coronary artery disease, osteoarthritis, and o besity. He came to emergency room because of severe shortness of breath which was triggered by minim al activities. It started about 1 week prior to this admission and was progressively worse. Denies chest pain, syncope. He had cough with active sputum. The patient denied sick contacts. Denies dago sea, vomiting, fever, chills. The patient is admitted to the hospital. He was evaluated in the [facility] room. He was found to have hyperkalemia, acute on chronic kidney injury. Nephrology consultat ion was requested for acute on chronic kidney injury. The patient had chest x-ray done, which showed bibasilar airspace disease and small pleural effusion, possibly due to edema versus pneumonia. Review of Systems: The patient is obtunded, cannot provide review of systems. Past Medical History: Chronic kidney disease stage IIIB, cardiorenal syndrome, cardiac stent, foley ry artery disease, chronic kidney disease stage IIIB secondary to hypertension and diabetes mellitus, hypothyroidism, obesity. Past Surgical History: Back surgery, left leg surgery, bilateral cataracts, cardiac stent. Social History: Former smoker. Denies alcohol and denies drugs. Physical Examination: Vital Signs: Blood pressure 132/74, heart rate 52, respiratory rate 18, SpO2 94%. General: The patient is lethargic, sleepy. HEENT: Atraumatic, normocephalic. Neck: Supple. Respiratory: Crackles and rales bilaterally. No wheezing. Cardiovascular: Regular rate and rhythm. No pericardial friction rub. Abdomen: Soft, benign, nontender. No rebound. No guarding. No ascites. MUSCULOSKELETAL: No muscle aches. No skin rashes. Laboratory Data: WBC 6.9, hemoglobin 11.3, platelet count 129,000. Sodium 152, potassium 5.7, BUN 5 5, creatinine 2.7, glucose 118. Impression: 1.Acute kidney injury in setting of cardiorenal syndrome. Continue to evaluate and adjust diuretic as needed. 2.Hyperkalemia, treated with Lokelma. Continue low-potassium diet. Check renal ultrasound to rule out obstructive uropathy. 3.Volume overload. Elevated BNP. Diuretic IV started. Monitor electrolytes and renal panel. 4.Hypertension. The patient presented with shortness of breath and hypertensive urgency. Continue IV blood pressure medication. Advance to p.o. medication. 5.Diabetes mellitus. Continue regular insulin sliding scale. 6.Diabetes mellitus with renal manifestation. Check UA to rule out active urinary sediment to evalu ate for possible nephritis and continue to monitor per Primary. EB/MODL Voice ID: [id number] Report ID: [id number]
[2024-03-12] MEDS: SODIUM ZIRCONIUM CYCLOSILICATE 10 GM/PKT PO SCH (10:22)
[2024-03-12 11:27] LABS: Anion Gap 8.8 mEq/L (5.0-15.0); Potassium 3.8 mEq/L (3.5-5.1)
[2024-03-12] MEDS: ALBUMIN HUMAN 25% 100 ML IV SCH (20:54)
--- NOTE | 2024-03-12 22:27 | PN ---
Date of Progress Note: 03/12/2024 Subjective: No overnight events. Urine output decreased. The patient had low urine output since mo rning. His creatinine also trended up. His Lasix is reduced. We will start the patient on albumin. Objective: Vital Signs: Temperature 97.5, pulse rate 55, blood pressure 142/71. General: Awake, alert, obese. Neck: Supple. No elevated JVD. Heart: Regular rhythm. Normal S1, S2. Chest: Mild basilar rales. Abdomen: Soft, nontender. Extremities: +2 edema. Laboratory Data: White count 5.6, hemoglobin 10.3. Sodium 144, potassium 3.8, BUN 53, creatinine of 3. Assessment And Plan: 1.Acute kidney injury, possibly due to cardiorenal syndrome. Renal ultrasound showed no hydronephro sis. Urine output is slowing down. Follow up serology workup. We will give the patient albumin. A void NSAID and contrast. Renally dose medication. 2.Exertional dyspnea. Continue inhaler Lasix reduced. Repeat chest x-ray tomorrow. 3.History of metabolic acidosis. Currently, bicarb up to 34. We will discontinue sodium bicarbonat e. 4.Hyperkalemia. Continue Lokelma. 5.Diabetes mellitus. Continue insulin. Thanks for allowing me to participate in patient's care. Total time spent 55 minutes including documentation, reviewing labs, and discussing with the patient at the bedside. ZENA Voice ID: [id number] Report ID: [id number]
[2024-03-13 06:05] LABS: Absolute Eosinophils 0.1 K/uL (0-0.5); Absolute Lymphocytes (CBC) 0.8 K/uL (0.7-4.9); Absolute Monocytes 0.5 K/uL (0.1-1.3); Absolute Neutrophil 4.8 K/uL (1.8-8.0); Basophils % 0.6 % (0-1.3); Eosinophils % 1.5 % (0-4.4); Hematocrit 31.7 % (39.6-49.0); Hemoglobin 10.6 g/dL (13.6-17.9); Lymphocytes % 13.3 % (15.3-44.8); MCH 28.8 pg (27.0-35.0); MCHC 33.5 g/dL (32.0-36.0); MCV 86.2 fL (80-100); MPV 8.1 fL (7.6-11.3); Monocytes % 8.7 % (3.3-12.3); Neutrophils % 75.9 % (41.7-73.7); Nucleated Red Blood Cells % 0.2 % (0-0); Platelets 132 thou/uL (152-406); RBC Red Blood Cell Count 3.67 M/uL (4.33-5.43)
[2024-03-13 06:24] LABS: Anion Gap 7.4 mEq/L (5.0-15.0); Magnesium 1.7 mg/dL (1.6-2.4); Potassium 3.4 mEq/L (3.5-5.1)
[2024-03-13] MEDS: ONDANSETRON 4 MG/2 ML VIAL IV PRN (07:37)
[2024-03-13] MEDS: FUROSEMIDE 40 MG TABLET PO SCH (07:37)
[2024-03-13] MEDS: MAGNESIUM SULFATE 1 gm IVPB 1 GM/100 ML BAG IV ONE (07:38)
--- NOTE | 2024-03-13 08:21 | P.PN ---
Date of Service: 03/13/24 Subjective Shortness of breath with exertion, O2 93% 2 L Review of Systems 10-point ROS is otherwise unremarkable Physical Examination - Vital Signs reviewed - Physical Exam General: Alert, oriented x 3, no acute distress noted HEENT: Atraumatic, Normocephalic Neck: Supple Respiratory: Diminished, unlabored Cardiovascular: Normal pulses, Regular rate/rhythm Capillary refill: <2 Seconds Gastrointestinal: Soft and benign, nontender Musculoskeletal: No clubbing, generalized weakness Integumentary: No rashes Neurological: Normal speech, Normal strength at 5/5 x4 extr, Lymphatics: No axilla or inguinal lymphadenopathy Assessment and Plan - Problems (Diagnosis) Hyperkalemia improved Started on Lokelma Monitor closely under telemetry Will monitor potassium level and titrate as needed Nephrology consulted Acute kidney injury On CKD stage II Secondary to cardiorenal syndrome Monitor renal parameters Electrolytes monitor and replace accordingly Renal ultrasound ordered IMPRESSION: Unremarkable renal sonogram apart from few benign-appearing cortical cysts Sodium bicarb as per nephrology Blood cultures no growth Volume overload improved Elevated BNP improved Aggressive diuresis per nephrology Monitor closely in telemetry Hypertension Antihypertensives titrated Continue home medications and titrate as needed Hyperlipidemia Continue statin Diabetes Insulin sliding scale Accu-Chek before every meal and at bedtime GI/DVT prophylaxis heparin Advanced directive full code Discharge Plan: Home, discharge plan PT OT, custodial with [facility] pending Plan to discharge in: 48 Hours - Advance Directives Does patient have a Living Will: No Does patient have a Durable POA for Healthcare: No - Code Status/Comfort Care Code Status: Full Code Time Spent Managing Pts Care (In Minutes): 30
[2024-03-13 09:48] LABS: Sqamous Epithelial <5 /HPF (None Seen); Urine Bacteria None Seen /HPF (<20); Urine Bilirubin NEGATIVE (Negative); Urine Blood 1+ (Negative); Urine Clarity Clear (Clear); Urine Color Light-Yellow (Yellow); Urine Culture Reflex Order NOT NEEDED; Urine Glucose 3+ (Negative); Urine Ketones NEGATIVE (Negative); Urine Micro Reflex YN NO BILL MICROSCOPIC; Urine Mucus Slight /HPF (None Seen); Urine Nitrite NEGATIVE (Negative); Urine Protein 2+ (Negative); Urine RBC <5 /HPF (None Seen); Urine Urobilinogen Normal (Normal); Urine WBC None Seen /HPF (<5)
[2024-03-13 10:12] LABS: UR PROTEIN 138.2 mg/dL (<11.9); Urine Protein/Creatinine Ratio 2.61 ratio (<0.15)
--- NOTE | 2024-03-13 13:35 | P.PN ---
Subjective Date of Service: 03/13/24 Chief Complaint: SOB Subjective: No overnight events. feels better Cr improved edema resolved, cont lasix Objective: Vital Signs: Temperature 97.5, pulse rate 55, blood pressure 142/71. General: Awake, alert, obese. Neck: Supple. No elevated JVD. Heart: Regular rhythm. Normal S1, S2. Chest: Mild basilar rales. Abdomen: Soft, nontender. Extremities: no edema. Assessment And Plan: #Acute kidney injury, possibly due to cardiorenal syndrome. Renal ultrasound showed no hydronephrosis. F/U serology w/u Avoid NSAID and contrast will give total of 4 doses of albumin #DM CKD IIIb proteinuric as above might benefit from MAYDA or ARB as anop with carefull potassium monitoring #Exertional dyspnea. Continue inhaler Lasix reduced. #.History of metabolic acidosis. Bicarb >22 Of sodium bicarbonate. #.Hyperkalemia. resolved Hold Lokelma. #.Diabetes mellitus. Continue insulin. Thanks for allowing me to participate in patient's care. Total time spent 55 minutes including documentation, reviewing labs, and discussing with the patient at the bedside. Physical Examination - Vital Signs Temperature: 97.4 F Blood Pressure: 153/78 Pulse: 71 Respirations: 18 Pulse Ox (%): 99
[2024-03-13] MEDS ORDERED: BISACODYL 10 MG RECTAL SUPP PR PRN (22:15)
[2024-03-13] MEDS: BISACODYL E.C. 5 MG TAB PO PRN (23:20)
[2024-03-14 05:52] LABS: Absolute Eosinophils 0.1 K/uL (0-0.5); Absolute Lymphocytes (CBC) 0.9 K/uL (0.7-4.9); Absolute Monocytes 0.7 K/uL (0.1-1.3); Absolute Neutrophil 4.8 K/uL (1.8-8.0); Basophils % 0.5 % (0-1.3); Eosinophils % 1.7 % (0-4.4); Hematocrit 33.5 % (39.6-49.0); Hemoglobin 11.1 g/dL (13.6-17.9); Lymphocytes % 14.1 % (15.3-44.8); MCHC 33.2 g/dL (32.0-36.0); MCV 87.2 fL (80-100); Monocytes % 10.9 % (3.3-12.3); Neutrophils % 72.8 % (41.7-73.7); Nucleated Red Blood Cells % 0.2 % (0-0); Platelets 143 thou/uL (152-406); RBC Red Blood Cell Count 3.84 M/uL (4.33-5.43); Red Cell Distribution Width 15.9 % (12.1-15.2)
[2024-03-14 05:58] LABS: Anion Gap 6.4 mEq/L (5.0-15.0); Potassium 3.4 mEq/L (3.5-5.1)
[2024-03-14] MEDS: HYDRALAZINE HCL 20 MG/ML VIAL IV PRN (06:07)
[2024-03-14] MEDS ORDERED: POTASSIUM CL SA 10 MEQ TAB PO ONE (08:00)
--- NOTE | 2024-03-14 08:10 | P.PN ---
Date of Service: 03/14/24 Subjective DC home pending home 02 at DC, Review of Systems 10-point ROS is otherwise unremarkable Physical Examination - Vital Signs reviewed - Physical Exam General: Alert, oriented x 3 HEENT: Atraumatic, Normocephalic Neck: Supple Respiratory: Diminished, unlabored Cardiovascular: Normal pulses, Regular rate/rhythm Capillary refill: <2 Seconds Gastrointestinal: Soft and benign, nontender Musculoskeletal: No clubbing, generalized weakness Integumentary: No rashes Neurological: Normal speech, Normal strength at 5/5 x4 extr, Lymphatics: No axilla or inguinal lymphadenopathy Assessment and Plan - Problems (Diagnosis) Hyperkalemia improved Started on Lokelma Monitor closely under telemetry Will monitor potassium level and titrate as needed Nephrology consulted Acute kidney injury On CKD stage II Secondary to cardiorenal syndrome Monitor renal parameters Electrolytes monitor and replace accordingly Renal ultrasound ordered IMPRESSION: Unremarkable renal sonogram apart from few benign-appearing cortical cysts Sodium bicarb as per nephrology Blood cultures no growth Volume overload improved Elevated BNP found improved Aggressive diuresis per nephrology Monitor closely in telemetry Hypertension Antihypertensives titrated Continue home medications and titrate as needed Hyperlipidemia Continue statin Diabetes Insulin sliding scale Accu-Chek before every meal and at bedtime GI/DVT prophylaxis heparin Advanced directive full code Discharge Plan: Home, discharge plan PT OT, residential with [facility] pending Plan to discharge in: 48 Hours - Advance Directives Does patient have a Living Will: No Does patient have a Durable POA for Healthcare: No - Code Status/Comfort Care Code Status: Full Code Time Spent Managing Pts Care (In Minutes): 30
--- NOTE | 2024-03-14 08:15 | P.DS ---
Admission Date: 03/10/24 Discharge Date: 03/14/24 Disposition: DC HOME/HOME HEALTH CARE Discharge Condition: GOOD Reason for Admission: SOB Brief History of Present Illness: 78 yrs old Male with past medical history of hypertension, hyperlipidemia, hypothyroidism, diabetes, CAD, arthritis, hypercholesterolemia, kidney issues was brought to ER with shortness of breath even with minimal activities. Started 1 week ago and has been progressively worsening. Denies any chest pain. Has associated with cough with mucoid expectoration. Denies any sick contacts. No nausea vomiting or diarrhea. Denies any fever or chills. Complains of generalized weakness. Patient was assessed in the ER and was found to have hyperkalemia and acute kidney injury and was admitted for further management. X-ray was consistent with bibasilar airspace disease and a small left pleural effusion possibly due to edema versus pneumonia - Physical Exam General: Alert, no acute distress noted HEENT: Atraumatic, Normocephalic Neck: Supple Respiratory: Diminished, Crackles/rales, Expiratory wheezes Cardiovascular: Normal pulses, Regular rate/rhythm Capillary refill: <2 Seconds Gastrointestinal: Soft and benign, W/out hepatosplenomegaly, No ascites, No tenderness, No rebound Musculoskeletal: No clubbing Integumentary: No rashes Neurological: Normal speech, Normal strength at 5/5 x4 extr, Normal tone Lymphatics: No axilla or inguinal lymphadenopathy Hospital Course: 78 yrs old Male with past medical history of hypertension, hyperlipidemia, hypothyroidism, diabetes, CAD, arthritis, hypercholesterolemia, kidney issues was brought to ER with shortness of breath even with minimal activities. Star jamia 1 week ago and has been progressively worsening. He was noted to have elevated BNP, had noted Fluid overload, he was evaluated by cardiology and nephrology. Symptoms improved with Aggressive diuresis. He had noted Hyperkalemia, was started on Lokelma, monitored on telemetry. Plan to discharge home, follow up with nephrology after discharge. Educated on medication compliance. Discharged home with home 02. Continue home medicines as previously prescribed GOAL: Clear understanding of disease process INSTRUCTIONS: Physician Discharge Instructions: -Follow-up with pulmonary after discharge -Follow-up with PCP in 1 to 2 weeks -Please call Dr. Villarreal at [phone] if any questions regarding hospital stay -Please call nursing station at [phone] if any nursing or medication questions -Return to the emergency room if symptoms worsen Diet: ADA, low sodium Activity: Fall precautions e Vital Signs/Physical Exam: Temp Pulse Resp BP Pulse Ox 97.3 F 66 18 179/81 H 98 03/14/24 04:00 03/14/24 04:00 03/14/24 04:00 03/14/24 04:00 03/14/24 04:00 Laboratory Data at Discharge: WBC 6.60 thou/uL (4.3-10.9) 03/14/24 05:32 Hgb 11.1 g/dL (13.6-17.9) L 03/14/24 05:32 Hct 33.5 % (39.6-49.0) L 03/14/24 05:32 Plt Count 143 thou/uL (152-406) L 03/14/24 05:32 PT 12.1 SECONDS (9.4-12.5) 03/10/24 17:13 INR 1.08 03/10/24 17:13 APTT 49.9 SECONDS (24.3-36.9) H 03/10/24 17:13 Sodium 144 mEq/L (136-145) 03/14/24 05:32 Potassium 3.4 mEq/L (3.5-5.1) L 03/14/24 05:32 BUN 41 mg/dL (7-18) H 03/14/24 05:32 Creatinine 2.63 mg/dL (0.70-1.30) H 03/14/24 05:32 Glucose 109 mg/dL (74-106) H 03/14/24 05:32 Uric Acid 6.8 mg/dL (3.5-7.2) 03/11/24 11:33 Phosphorus 5.2 mg/dL (2.5-4.9) H 03/11/24 11:33 Magnesium 2.0 mg/dL (1.6-2.4) 03/14/24 05:32 Total Bilirubin 0.5 mg/dL (0.2-1.0) 03/11/24 05:10 AST 24 U/L (15-37) 03/11/24 05:10 ALT 47 U/L (16-61) 03/11/24 05:10 Alkaline Phosphatase 132 U/L (45-117) H 03/11/24 05:10 Home Medications: Levothyroxine [Synthroid*] 125 mcg PO [id number] 03/15/14 Aspirin [Aspirin EC 81 MG] 81 mg PO DAILY 10/02/15 Clopidogrel Bisulfate [Plavix*] 1 tab PO DAILY 05/28/20 Docusate [Colace Cap*] 100 mg PO DAILY PRN 05/04/23 Metoprolol Tartrate [Lopressor*] 25 mg PO BID #60 tab 05/05/23 Empagliflozin [Jardiance] 1 tab PO DAILY 10/21/23 Atorvastatin Calcium [Lipitor] 80 mg PO DAILY 02/11/24 Benzonatate 200 mg PO TID PRN 02/11/24 Donepezil [Aricept*] 5 mg PO BEDTIME 02/11/24 Gabapentin 300 mg PO BEDTIME 02/11/24 Saxagliptin HCl 5 mg PO DAILY 02/11/24 Amlodipine [Norvasc*] 10 mg PO BEDTIME 03/11/24 Furosemide [Lasix] 40 mg PO DAILY #30 tab 03/13/24 Insulin Glargine,Hum.rec.anlog [Lantus Solostar] 40 unit SQ BID #2 pe 03/13/24 Lisinopril [Zestril] 10 mg PO BID #60 tab 03/13/24 Sodium Zirconium Cyclosilicate [Lokelma] 10 gm PO M,W,F #14 packet 03/13/24 New Medications: Insulin Glargine,Hum.rec.anlog [Lantus Solostar] 40 unit SQ BID #2 pe Furosemide [Lasix] 40 mg PO DAILY #30 tab Sodium Zirconium Cyclosilicate [Lokelma] 10 gm PO M,W,F #14 packet Lisinopril [Zestril] 10 mg PO BID #60 tab Physician Discharge Instructions: PROBLEM: Acute Kidney Injury, Hyperkalemia GOAL: Clear understanding of disease process INSTRUCTIONS: -DC IV and DC home -Follow-up with PCP in 1 to 2 weeks -Follow-up with Nephrology in 1 to 2 weeks -Please call Dr. Villarreal at [phone] if any questions regarding hospital stay -Please call nursing station at [phone] if any nursing or medication questions -Return to the emergency room if symptoms worsen Hold new prescription Lokelma until Friday per Kidney doctor and make appointment for next week to monitor lab values. Diet: Renal Activity: Fall precautions DME DME: Date Ordered: Name of Company: [employer] Services Needed: Home Health Name of Company: [id number] Date or Referral: 03/11/24 Established Home Health: [id number] P:[phone] F:[phone] Efax:[phone] IMMUNIZATION Influenza Vaccine Indicated: Influenza Vaccine Given: Date Given: Pneumonia Vaccine Indicated: Yes Pneumonia Vaccine Given: Date Given: Diet: Renal Activity: Fall precautions Followup: Selvin Terrazas MD [ACTIVE - CAN ADMIT] - Donna Lee MD [Primary Care Provider] - Time spent managing pt's care (in minutes): 45
[2024-03-14] MEDS ORDERED: ALBUMIN HUMAN 25% 50 ML IV SCH (08:30)
[2024-03-14 08:35] VITALS: BP 168/84; TEMP 97.1
[2024-03-14] MEDS ORDERED: ALBUMIN HUM 5% 500 ML IV SCH (09:00)
[2024-03-14] MEDS: ALBUMIN HUMAN 25% 100 ML IV SCH (09:44)
[2024-03-14 10:13] VITALS: O2SAT 93
--- NOTE | 2024-03-14 13:25 | P.PN ---
Subjective Date of Service: 03/14/24 Chief Complaint: SOB Subjective: No overnight events. feels better Cr improved can be discharged from nephrology point of view Objective: Vital Signs: Temperature 97.5, pulse rate 55, blood pressure 142/71. General: Awake, alert, obese. Neck: Supple. No elevated JVD. Heart: Regular rhythm. Normal S1, S2. Chest: Mild basilar rales. Abdomen: Soft, nontender. Extremities: no edema. Assessment And Plan: #Acute kidney injury, possibly due to cardiorenal syndrome. Renal ultrasound showed no hydronephrosis. F/U serology w/u Avoid NSAID and contrast will give total of 4 doses of albumin #DM CKD IIIb proteinuric as above might benefit from MAYDA or ARB as anop with carefull potassium monitoring #Exertional dyspnea. Continue inhaler Lasix reduced. #.History of metabolic acidosis. Bicarb >22 Of sodium bicarbonate. #.Hyperkalemia. resolved Hold Lokelma. #.Diabetes mellitus. Continue insulin. Thanks for allowing me to participate in patient's care. Total time spent 55 minutes including documentation, reviewing labs, and dis cussing with the patient at the bedside. Physical Examination - Vital Signs Temperature: 97.1 F Blood Pressure: 168/84 Pulse: 79 Respirations: 18 Pulse Ox (%): 92
[2024-03-19 23:56] LABS: Beta Globulin 24 HR Urine 12 %; Creatinine 24 Hour Urine 1.12 g/24 h (0.50-2.15); Gamma Globulin, 24hr Urine 12 %; Interpretation: REPORT; Protein/Crea Ratio in g 2715 mg/g creat (<100); Protein/Crea Ratio in mg 2.715 (<0.100); Urine Albumin 24 Hours 61 %; Urine Alpha-1-Globulin, 24Hr 6 %; Urine Alpha-2-Globulins, 24 Hr 9 %; Urine PEP Abn Protein Band1 REPORT; Urine Total Volume 24 Hours 2100 mL
== END 2024-03-14 14:45 | disposition home health service (06) | DRG 641 ==
LOC: ER 16:45 → ERHOLD 18:55 → 4TH 20:18
PROVIDERS: ADMIT Family Medicine; ATTEND Hospitalist
DX: E87.5 Hyperkalemia (principal); N17.9 Acute kidney failure, unspecified; I16.0 Hypertensive urgency; E78.00 Pure hypercholesterolemia, unspecified; E03.9 Hypothyroidism, unspecified; E87.70 Fluid overload, unspecified; M19.90 Unspecified osteoarthritis, unspecified site; I12.9 Hypertensive chronic kidney disease with stage 1 through stage 4 chronic kidney disease, or unspecified chronic kidney disease; N18.32 Chronic kidney disease, stage 3b; E11.22 Type 2 diabetes mellitus with diabetic chronic kidney disease; I25.10 Atherosclerotic heart disease of native coronary artery without angina pectoris; R00.1 Bradycardia, unspecified; Z79.4 Long term (current) use of insulin; Z95.5 Presence of coronary angioplasty implant and graft; Z79.82 Long term (current) use of aspirin; Z79.02 Long term (current) use of antithrombotics/antiplatelets; Z79.890 Hormone replacement therapy; Z79.899 Other long term (current) drug therapy; Z87.891 Personal history of nicotine dependence
CPT/HCPCS: 36415; 71045; 76770; 80048; 80053; 81001; 82550; 82570; 82947; 83605; 83735; 83880; 84100; 84145; 84156; 84166; 84484; 84550; 85025; 85610; 85730; 86334; 87040; 93005; 94010; 97161; 97530; 99285; J0360; J0612; J0696; J1644; J1940; J2405; J3475; J7050; J7613; P9047

== ENCOUNTER 2024-04-07 09:58 | Emergency (ER) | payer OTHER ==
--- OUTSIDE RECORDS SUMMARY | 2024-04-07 10:00 | XMS REPORT | Continuity of Care Document ---
Author Name Unknown Address [address] [facility] [address] [id number] [facility] thconnect Address [address] [facility] [address] [place] [address] Care Team Providers Care Manager Company Name Role Phone PCP, PATIENT DOES NOT HAVE A Primary Care Physic artemio Unavailable Julian Carlos Attending Clinician UnavailCHRISTOPHER Ziegler Attending Clinician Unavailable TRUDY MARIANO Attending Clinician Unavailable Payers Payer Name Policy Type Policy Number Effective Date Expirati on Date Source [facility] PPO [id number] 2020 00:00:00 Allergies, Adverse Reactions, Alerts Allergy Name Allergy Type Status Severity Reaction(s) Onset Date Inactive Date Treating Clinician Comments Source NO KNOWN ALLERGIE S Drug Class Active [facility] Encounters Start Date/Time End Date/Time Encounter Type Admission Type Attending Clinicians Care Facility Care Department Encounter ID Source 2022-09-10 10:39:01 Outpatient Julian Reynolds [facility] [id number] [facility] 2022-03-12 16:20:01 Outpatient [facility] [id number] [facility] 2022-02-08 08:39:01 Outpatient Julian Reynolds [facility] [id number] [facility] 2021-09-12 13:00:14 Outpatient [facility] [id number] [facility] 2021-09-12 12:54:24 [facility]patient [facility] [id number] [facility] 2023-07-18 11:00:00 2023-07-18 11:00:00 Outpatient CHRISTOPHER SCOTT [facility] [id number] [facility] 2020-11-22 13:30:00 2020-11-22 13:30:00 Outpatient TRUDY REYES [facility] [id number] [facility] 2020-10-25 13:40:00 2020-10-25 13:40:00 Outpatient TRUDY REYES [facility] [id number] [facility]
[2024-04-07 10:46] LABS: Absolute Eosinophils 0.3 K/uL (0-0.5); Absolute Monocytes 0.6 K/uL (0.1-1.3); Absolute Neutrophil 4.5 K/uL (1.8-8.0); Basophils % 0.6 % (0-1.3); Eosinophils % 4.1 % (0-4.4); Hematocrit 34.6 % (39.6-49.0); Hemoglobin 10.7 g/dL (13.6-17.9); MCV 90.4 fL (80-100); MPV 9.7 fL (7.6-11.3); Monocytes % 8.9 % (3.3-12.3); Neutrophils % 70.4 % (41.7-73.7); Nucleated Red Blood Cells % 0.1 % (0-0); Platelets 119 thou/uL (152-406); RBC Red Blood Cell Count 3.83 M/uL (4.33-5.43); Red Cell Distribution Width 16.2 % (12.1-15.2)
--- NOTE | 2024-04-07 11:01 | RAD REPORT ---
EXAM DESCRIPTION: CTAbdomen Pelvis Wo Contrast - 04/07/2024 10:47 am CLINICAL HISTORY: CONSTIPATION COMPARISON: Chest Abd Pelvis Wo Con dated 02/10/2024; Abdomen Exam Limited dated 02/10/2024 TECHNIQUE: CT of the abdomen and pelvis was performed. All CT scans are performed using dose optimization technique as appropriate and may include automated exposure control or mA/KV adjustment according to patient size. FINDINGS: Lower chest: Small bilateral pleural effusions . Mitral annular calcifications. Atelectasi s as result of the effusions. Liver: No acute abnormality or suspicious lesions. Biliary: Cholelithiasis. Mild stranding at the neck of the gallbladder is similar. . Stomach: No significant focal abnormality. Duodenum: No significant focal abnormality. Pancreas: No significant abnormality. Spleen: No significant abnormality. Adrenal: Left adrenal lesion with Hounsfield units less than 10 consistent with an adenoma. This is n ot require follow-up. It measures 2.3 cm. Kidney/ureter: No hydronephrosis. No renal calculi. Too small to characterize and/or benign appearing renal lesions are noted. Retroperitoneum: No retroperitoneal adenopathy. Vascular: Atherosclerosis without aneurysm . Bowel: Normal appendix. No bowel obstruction.. Peritoneum: No ascites or free air. Bladder: Grossly unremarkable. Reproductive: No adnexal masses. Bones: No acute fracture. Moderate disc height loss at L4-5. Mild disc height loss L5-S1. Other: n/a IMPRESSION: Cholelithiasis with mild stranding at the gallbladder neck which was present on the CT f rom 02/10/2024. Nevertheless, cholecystitis, acute or chronic, cannot be excluded. Correlate with LFT s. New small bilateral pleural effusions and likely underlying atelectasis . Etiology of the effusions i s unclear . Benign left adrenal adenoma.
[2024-04-07 11:11] LABS: Albumin 3.4 g/dL (3.4-5.0); Albumin/Globulin Ratio 0.9 (1.1-1.8); Anion Gap 8.1 mEq/L (5.0-15.0); Bilirubin Direct 0.2 mg/dL (0-0.2); Bilirubin Indirect, Calculated 0.6 mg/dL (0.2-0.8); Bilirubin Total 0.8 mg/dL (0.2-1.0); Globulin 3.6 g/dL (2.3-3.5); Magnesium 2.6 mg/dL (1.6-2.4); Potassium 4.1 mEq/L (3.5-5.1); Thyroid Stimulating Hormone 1.71 uIU/mL (0.358-3.740); Troponin High Sensitivity 8.6 pg/mL (<58.9)
--- NOTE | 2024-04-07 12:37 | RAD REPORT ---
EXAM DESCRIPTION: RAD - Chest Single View - 04/07/2024 12:31 pm CLINICAL HISTORY: DYSPNEA COMPARISON: Chest Single View dated 03/10/2024; Chest Single View dated 10/22/2023; Chest Single View d ated 10/21/2023; Chest Single View dated 06/22/2022 FINDINGS: Lines: None. Lungs: No evidence of edema or pneumonia. Pleural: No significant pleural effusions or pneumothorax. Cardiac: The heart size is within normal limits. Mediastinum: Within normal limits. Bones: No acute fractures. Other: None IMPRESSION: No acute cardiopulmonary disease.
--- NOTE | 2024-04-07 13:56 | EDPHYS ---
Physician Documentation [facility] Name: Valentino Metcalf Age: 78 yrs Sex: Male : 1945 Arrival Date: 04/07/2024 Time: 09:58 Bed 2 Private MD: ED Physician Gonzalo Natarajan HPI: 04/07 10:47 This 78 yrs old Male presents to ER via Wheelchair with complaints of rt Palpitations, Low Oxygen, Urinary Problem. 10:47 Patient was sent from the PCP for bilateral lower extremity swelling, already rt constipation for 1 week as well as hypoxia to 86%. The patient states that he was just here for checkup, states that he feels at his baseline. States he does have vomiting on Friday, not on usual for him to go that long without having a bowel movement. Reports having mild swelling to both feet, also pre-existing per the patient's report. Denies any difficulty breathing, other acute complaints, symptoms are moderate in severity, no other aggravating alleviating factors.. Historical: - Allergies: 10:12 No Known Allergies; ap3 - Home Meds: 13:36 Metoprolol Tartrate 10 mg Oral 1 tab [Active]; valsartan oral [Active]; levothyroxine mb9 oral [Active]; pravastatin oral [Active]; Lantus Sub-Q [Active]; clopidogrel oral [Active]; Jardiance oral [Active]; Kerendia oral [Active]; - PMHx: 10:12 Arthritis; coronary atherosclerosis; High Cholesterol; Hypercholesterolemia; ap3 Hypertension; Hypothyroidism; IDDM; kidney issues; - Immunization history:: Client reports having NOT received the Covid vaccine. - Infectious Disease History:: Denies. - Social history:: Smoking status: Patient denies any tobacco usage or history of. - Family history:: not pertinent. ROS: 10:47 Constitutional: Negative for fever, chills, and weight loss, MS/Extremity: Negative for rt injury and deformity, Skin: Negative for injury, rash, and discoloration, Neuro: Negative for headache, weakness, numbness, tingling, and seizure, 10:47 Cardiovascular: Positive for edema, Negative for chest pain, 10:47 Abdomen/GI: Positive for constipation, Negative for nausea and vomiting, Exam: 10:47 Constitutional: This is a well developed, well nourished patient who is awake, alert, rt and in no acute distress. Head/Face: Normocephalic, atraumatic. Chest/axilla: Normal chest wall appearance and motion. Nontender with no deformity. No lesions are appreciated. Cardiovascular: Regular rate and rhythm with a normal S1 and S2. No gallops, murmurs, or rubs. Normal PMI, no JVD. No pulse deficits. Respiratory: Lungs have equal breath sounds bilaterally, clear to auscultation and percussion. No rales, rhonchi or wheezes noted. No increased work of breathing, no retractions or nasal flaring. Abdomen/GI: Soft, non-tender, with normal bowel sounds. No distension or tympany. No guarding or rebound. No evidence of tenderness throughout. Skin: Warm, dry with normal turgor. Normal color with no rashes, no lesions, and no evidence of cellulitis. Neuro: Awake and alert, GCS 15, oriented to person, place, time, and situation. Cranial nerves II-XII grossly intact. Motor strength 5/5 in all extremities. Sensory grossly intact. Cerebellar exam normal. Normal gait. Psych: Awake, alert, with orientation to person, place and time. Behavior, mood, and affect are within normal limits. 10:47 ECG was reviewed by the Attending Physician. 10:47 Musculoskeletal/extremity: Trace pretibial edema, symmetric. Vital Signs: 10:09 BP 115 / 57; Pulse 39; Resp 18; Temp 97.8; Pulse Ox 94% on R/A; Weight 108.41 kg; ap3 Height 5 ft. 8 in. ; 11:54 Pulse 37; Resp 18; Pulse Ox 98% on R/A; mb9 12:03 BP 95 / 77; Pulse 36; Resp 18; Pulse Ox 95% on R/A; ld1 13:05 BP 110 / 62; Pulse 35; Resp 16; Pulse Ox 95% ; mb9 15:04 BP 105 / 66; Pulse 39; Resp 17; Temp 97.6; Pulse Ox 95% on R/A; ap3 10:09 Body Mass Index 36.34 (108.41 kg, 172.72 cm) ap3 MDM: 10:21 Patient medically screened. rt 15:27 Differential diagnosis: Bradycardia, heart block, sinus bradycardia. Data reviewed: rt vital signs, nurses notes. Consideration of Admission/Observation Escalation of care including admission/observation considered. Discussed with tumbler machine operator, he reviewed the EKG, believes it is sinus bradycardia, does not require admission at this time, patient to follow-up as an outpatient. Management of patient was discussed with the following: Primary Care Provider: Discussed findings as well as cardiology recommendations with the patient's primary care who also follow-up with patient in the office. Independent interpretation of the following test(s) in the Emergency Department X-Ray: My interpretation is No edema seen on interpretation of x-ray images. Care significantly affected by the following chronic conditions: CAD. Counseling: I had a detailed discussion with the patient and/or guardian regarding the historical points, exam findings, and any diagnostic results supporting the discharge/admit diagnosis, lab results, radiology results, the need for outpatient follow up. 04/07 10:29 Order name: Basic Metabolic Panel; Complete Time: 11:17 rt 04/07 10:29 Order name: CBC with Diff; Complete Time: 11:17 rt 04/07 10:29 Order name: LFT's; Complete Time: 11:17 rt 04/07 10:29 Order name: Magnesium; Complete Time: 11:17 rt 04/07 10:29 Order name: NT PRO-BNP; Complete Time: 11:17 rt 04/07 10:29 Order name: Troponin HS; Complete Time: 11:17 rt 04/07 10:29 Order name: TSH; Complete Time: 11:17 rt 04/07 10:29 Order name: CT Abd/Pelvis - Without Contrast; Complete Time: 11:17 rt 04/07 11:19 Order name: Chest Single View XRAY; Complete Time: 13:19 rt 04/07 10:29 Order name: Cardiac monitoring; Complete Time: 11:54 rt 04/07 10:29 Order name: EKG - Nurse/Tech; Complete Time: 10:34 rt 04/07 10:29 Order name: IV Saline Lock; Complete Time: 10:34 rt 04/07 10:29 Order name: Labs collected and sent; Complete Time: 10:34 rt 04/07 10:29 Order name: O2 Per Protocol; Complete Time: 11:44 rt 04/07 10:29 Order name: O2 Sat Monitoring; Complete Time: 11:44 rt EC:47 Rate is 39 beats/min. Rhythm is regular, Sinus bradycardia with No ectopy, Nonspecific rt intraventricular block. Left axis deviation noted. QRS interval is normal. QT interval is normal. No Q waves. Administered Medications: No medications were administered Disposition Summary: 04/07/24 13:55 Discharge Ordered Notes: Location: Home rt Problem: an ongoing problem rt Symptoms: are unchanged rt Condition: Stable rt Diagnosis - Sinus bradycardia rt Followup: rt - With: Michael Israel MD - When: 1 - 2 days - Reason: Followup: rt - With: Donna Lee DO - When: 1 - 2 days - Reason: Discharge Instructions: - Discharge Summary Sheet rt - Bradycardia, Adult rt Forms: - Medication Reconciliation Form rt - Antibiotic Education rt - Prescription Opioid Use rt - Patient Portal Instructions rt - Leadership Thank You Letter rt Signatures: Dispatcher [employer] Brianna Ferrell RN RN ap3 Elis Spain RN RN mb9 Gonzalo Natarajan MD MD rt Corrections: (The following items were deleted from the chart) 10:30 10:30 BASIC METABOLIC PANEL+C.LAB.BRZ ordered. EDMS EDMS 10:30 10:30 CBC+H.LAB.BRZ ordered. EDMS EDMS 10:30 10:30 HEPATIC FUNCTION+C.LAB.BRZ ordered. EDMS EDMS 10:30 10:30 MAGNESIUM+C.LAB.BRZ ordered. EDMS EDMS 10:30 10:30 PROBNP+C.LAB.BRZ ordered. EDMS EDMS 10:30 10:30 Troponin High Sensitivity+C.LAB.BRZ ordered. EDMS EDMS 10:30 10:30 THYROID STIMULAT HORMONE+C.LAB.BRZ ordered. EDMS EDMS 10:30 10:30 Abdomen Pelvis Wo Con+CT.RAD.BRZ ordered. EDMS EDMS 15:28 10:47 Rate is 39 beats/min. Rhythm is regular, Idioventricular with No ectopy, rt Nonspecific intraventricular block. Left axis deviation noted. QRS interval is normal. QT interval is normal. No Q waves. rt
--- NOTE | 2024-04-07 13:56 | ER ---
Nurse's Notes [facility] Name: Valentino Metcalf Age: 78 yrs Sex: Male : 1945 Arrival Date: 04/07/2024 Time: 09:58 Bed 2 Private MD: Diagnosis: Sinus bradycardia Presentation: 04/07 10:09 Chief complaint: Patient states: he was sent from his PCP for a low heart rate, however ap3 patient reports he has no complaints at this time and states his appointment was a check up. Coronavirus screen: At this time, the client does not indicate any symptoms associated with coronavirus-19. Ebola Screen: No symptoms or risks identified at this time. Initial Sepsis Screen: Does the patient meet any 2 criteria? No. Patient's initial sepsis screen is negative. Does the patient have a suspected source of infection? No. Patient's initial sepsis screen is negative. Risk Assessment: Do you want to hurt yourself or someone else? Patient reports no desire to harm self or others. Onset of symptoms is unknown. 10:09 Method Of Arrival: Wheelchair ap3 10:09 Acuity: LYNDSEY 2 ap3 Triage Assessment: 10:13 General: Appears in no apparent distress. Behavior is calm, cooperative, appropriate ap3 for age. Pain: Denies pain. Neuro: Level of Consciousness is awake, alert, obeys commands, Oriented to person, place, time, situation. Cardiovascular: Patient's skin is warm and dry. Respiratory: Airway is patent Respiratory effort is even, unlabored, Respiratory pattern is regular, symmetrical. Historical: - Allergies: 10:12 No Known Allergies; ap3 - Home Meds: 13:36 Metoprolol Tartrate 10 mg Oral 1 tab [Active]; valsartan oral [Active]; levothyroxine mb9 oral [Active]; pravastatin oral [Active]; Lantus Sub-Q [Active]; clopidogrel oral [Active]; Jardiance oral [Active]; Kerendia oral [Active]; - PMHx: 10:12 Arthritis; coronary atherosclerosis; High Cholesterol; Hypercholesterolemia; ap3 Hypertension; Hypothyroidism; IDDM; kidney issues; - Immunization history:: Client reports having NOT received the Covid vaccine. - Infectious Disease History:: Denies. - Social history:: Smoking status: Patient denies any tobacco usage or history of. - Family history:: not pertinent. Screenin:13 Abuse screen: Denies threats or abuse. Nutritional screening: No deficits noted. ap3 Tuberculosis screening: No symptoms or risk factors identified. 12:08 [facility] ED Fall Risk Assessment (Adult) History of falling in the last 3 months, mb9 including since admission No falls in past 3 months (0 pts) Confusion or Disorientation No (0 pts) Intoxicated or Sedated No (0 pts) Impaired Gait No (0 pts) Mobility Assist Device Used No (0 pt) Altered Elimination No (0 pt) Score/Fall Risk Level 0 - 2 = Low Risk Oriented to surroundings, Maintained a safe environment, Educated pt \T\ family on fall prevention, incl call for assistance when getting out of bed. Assessment: 11:54 Reassessment: pt brought back to ER room. mb9 11:55 General: Appears in no apparent distress. Behavior is calm, cooperative. Pain: Denies mb9 pain. Neuro: Bar Agitation-Sedation Scale (RASS): 0 - Alert and Calm Level of Consciousness is awake, alert, obeys commands, Oriented to person, place, time, situation, Appropriate for age. Cardiovascular: Heart tones S1 S2 present Patient's skin is warm and dry. Respiratory: Airway is patent Respiratory effort is even, unlabored, Respiratory pattern is regular, symmetrical, Breath sounds are clear bilaterally. GI: Abdomen is round non-distended, Bowel sounds present X 4 quads. Abd is soft and non tender X 4 quads. : No signs and/or symptoms were reported regarding the genitourinary system. EENT: No signs and/or symptoms were reported regarding the EENT system. Derm: Skin is pink, warm \T\ dry. Musculoskeletal: Range of motion: intact in all extremities. 13:00 Reassessment: No changes from previously documented assessment. Patient and/or family mb9 updated on plan of care and expected duration. Pain level reassessed. Patient is alert, oriented x 3, equal unlabored respirations, skin warm/dry/pink. Vital Signs: 10:09 BP 115 / 57; Pulse 39; Resp 18; Temp 97.8; Pulse Ox 94% on R/A; Weight 108.41 kg; ap3 Height 5 ft. 8 in. ; 11:54 Pulse 37; Resp 18; Pulse Ox 98% on R/A; mb9 12:03 BP 95 / 77; Pulse 36; Resp 18; Pulse Ox 95% on R/A; ld1 13:05 BP 110 / 62; Pulse 35; Resp 16; Pulse Ox 95% ; mb9 15:04 BP 105 / 66; Pulse 39; Resp 17; Temp 97.6; Pulse Ox 95% on R/A; ap3 10:09 Body Mass Index 36.34 (108.41 kg, 172.72 cm) ap3 ED Course: 09:59 Patient arrived in ED. mg5 09:59 Gonzalo Natarajan MD is Attending Physician. rt 10:12 Triage completed. ap3 10:13 Arm band placed on left wrist. ap3 10:34 TSH Sent. bc6 10:34 Basic Metabolic Panel Sent. bc6 10:34 CBC with Diff Sent. bc6 10:34 LFT's Sent. bc6 10:34 Magnesium Sent. bc6 10:34 NT PRO-BNP Sent. bc6 10:35 Troponin HS Sent. bc6 10:35 Initial lab(s) drawn, by me, sent to lab. EKG done, by ED staff, reviewed by Gonzalo Natarajan MD. Inserted saline lock: 20 gauge in right antecubital area, using aseptic technique. Blood collected. Flushed with 10 mL NS. 10:41 Herberth Rodgers, RN is Primary Nurse. bp 10:49 CT Abd/Pelvis - Without Contrast In Process Unspecified. EDMS 11:50 Primary Nurse role handed off by Herberth Rodgers, RN mb9 11:50 Elis Spain, SHAKIRA is Primary Nurse. mb9 11:58 Placed in gown. Bed in low position. Call light in reach. Side rails up X 1. Provided mb9 Education on: press call light if needing anything. Client placed on continuous cardiac and pulse oximetry monitoring. NIBP monitoring applied. threat monitoring analyst on. 12:08 No provider procedures requiring assistance completed. mb9 12:33 Chest Single View XRAY In Process Unspecified. EDMS 13:53 Michael Israel MD is Referral Physician. rt 13:54 Donna Lee DO is Referral Physician. rt 15:04 IV discontinued, intact, bleeding controlled, No redness/swelling at site. Pressure ap3 dressing applied. Administered Medications: No medications were administered Medication: 12:08 VIS not applicable for this client. mb9 Outcome: 13:55 Discharge ordered by . rt 15:04 Discharged to home via wheelchair, with family, ap3 15:04 Condition: good 15:04 Discharge instructions given to patient, Instructed on discharge instructions, follow up and referral plans. Demonstrated understanding of instructions, follow-up care, 15:13 Patient left the ED. ap3 Signatures: Dispatcher [employer] EDMS Herberth Rodgers RN RN bp Brianna Castillo RN RN ap3 Jessica Campos RN RN [email or web address] Elis Spain RN RN mb9 Gonzalo Natarajan MD MD rt Ofelia Acosta 6 Maria Alejandra Sethi mg5
[2024-04-07 15:35] VITALS: O2SAT 95
[2024-04-07 15:41] VITALS: BP 105/66; TEMP 97.6
== END 2024-04-07 15:13 | disposition home or self-care (01) ==
LOC: ER 09:58
DX: R00.1 Bradycardia, unspecified (principal); E11.9 Type 2 diabetes mellitus without complications; I10 Essential (primary) hypertension; E78.00 Pure hypercholesterolemia, unspecified; E03.9 Hypothyroidism, unspecified
CPT/HCPCS: 36415; 71045; 74176; 80048; 80076; 83735; 83880; 84443; 84484; 85025

== ENCOUNTER 2024-04-14 23:45 | Emergency (ER) | payer OTHER ==
--- OUTSIDE RECORDS SUMMARY | 2024-04-14 23:47 | XMS REPORT | Continuity of Care Document ---
Author Name Unknown Address [address] [facility] [address] [id number] [facility] thconnect Address [address] [facility] [address] [place] [address] Care Team Providers Care Surgery Teacher Name Role Phone PCP, PATIENT DOES NOT HAVE A Primary Care Physic artemio Unavailable Julian Carlos Attending Clinician UnavailCHRISTOPHER Ziegler Attending Clinician Unavailable TRUDY MARIANO Attending Clinician Unavailable Payers Payer Name Policy Type Policy Number Effective Date Expirati on Date Source [facility] PPO [id number] 2020 00:00:00 Allergies, Adverse Reactions, Alerts Allergy Name Allergy Type Status Severity Reaction(s) Onset Date Inactive Date Treating Clinician Comments Source NO KNOWN ALLERGIE S Drug Class Active [facility] Encounters Start Date/Time End Date/Time Encounter Type Admission Type Attending Clinicians Care Facility Care Department Encounter ID Source 2022-09-10 10:39:01 Outpatient Julian Reynolds [facility] [id number] [facility] 2022-03-12 16:20:01 Outpatient Julian Reynolds [facility] [id number] [facility] 2022-02-08 08:39:01 Outpatient Julian Reynolds [facility] [id number] [facility] 2021-09-12 13:00:14 Outpatient Julian Reynolds [facility] [id number] [facility] 2021-09-12 12:54:24 Outpatient [facility] [id number] [facility] 2023-07-18 11:00:00 2023-07-18 11:00:00 Outpatient CHRISTOPHER SCOTT [facility] [id number] [facility] 2020-11-22 13:30:00 2020-11-22 13:30:00 Outpatient TRUDY [facility] [id number] [facility] 2020-10-25 13:40:00 2020-10-25 13:40:00 Outpatient TRUDY REYES [facility] [id number] [facility]
[2024-04-14] MEDS ORDERED: NA CHLORIDE 0.9% 1,000 ML ONE (23:56)
[2024-04-15] MEDS ORDERED: SODIUM BICARB 50 MEQ/50ML VIAL ONE ×3 (00:27→01:24)
[2024-04-15] MEDS ORDERED: FAMOTIDINE 20 MG/2 ML VIAL IV ONE (00:27)
[2024-04-15] MEDS ORDERED: CALCIUM GLUCONATE 1 GM IVPB 0 GM/0 ML BAG IV ONE (00:28)
[2024-04-15] MEDS ORDERED: NA CHLORIDE 0.9% 1,000 ML ONE ×2 (00:31→01:51)
[2024-04-15] MEDS ORDERED: NA CHLORIDE 0.9% 100 ML ONE (00:33)
[2024-04-15] MEDS ORDERED: Meropenem 1000 MG/VIAL IV ONE (00:33)
[2024-04-15 00:36] LABS: PT Prothrombin Time 12.3 SECONDS (9.4-12.5); Protime INR 1.1
[2024-04-15 00:38] LABS: Absolute Eosinophils 0.1 K/uL (0-0.5); Absolute Monocytes 0.6 K/uL (0.1-1.3); Absolute Neutrophil 4.3 K/uL (1.8-8.0); Basophils % 0.5 % (0-1.3); Eosinophils % 2.4 % (0-4.4); Hematocrit 29.5 % (39.6-49.0); Hemoglobin 9.3 g/dL (13.6-17.9); Lymphocytes % 15.8 % (15.3-44.8); MCHC 31.7 g/dL (32.0-36.0); MCV 91.5 fL (80-100); MPV 10.9 fL (7.6-11.3); Monocytes % 10.2 % (3.3-12.3); Neutrophils % 71.1 % (41.7-73.7); Nucleated RBC Absolute Count 0.1 (0-0); Nucleated Red Blood Cells % 0.8 % (0-0); Platelets 96 thou/uL (152-406); RBC Red Blood Cell Count 3.22 M/uL (4.33-5.43)
[2024-04-15 00:43] LABS: Arterial Blood Carboxyhemoglob 1.1 % (0-1.5); Blood Gas THB 9.8 g/dl (12-18); Blood O2 Saturation 86.4 % (92-98.5)
[2024-04-15 00:53] LABS: Albumin 2.7 g/dL (3.4-5.0); Albumin/Globulin Ratio 0.8 (1.1-1.8); Bilirubin Direct 0.2 mg/dL (0-0.2); Bilirubin Indirect, Calculated 0.3 mg/dL (0.2-0.8); Bilirubin Total 0.5 mg/dL (0.2-1.0); Globulin 3.3 g/dL (2.3-3.5); Magnesium 2.7 mg/dL (1.6-2.4); Troponin High Sensitivity 7.7 pg/mL (<58.9)
[2024-04-15] MEDS ORDERED: CALCIUM GLUCONATE 1 GM IVPB 1 GM/50 ML BAG IV ONE (01:04)
[2024-04-15] MEDS ORDERED: D5W 1,000 ML IV ONE (01:19)
--- NOTE | 2024-04-15 01:28 | EDPHYS ---
Physician Documentation [facility] Name: Valentino Metcalf Age: 78 yrs Sex: Male : 1945 Arrival Date: 04/14/2024 Time: 23:45 Bed 3 Private MD: ED Physician Jass Muro HPI: 04/15 00:07 This 78 yrs old Male presents to ER via Unassigned with complaints of henry hypotension, bradycardia, ams. 00:07 The patient presents with a history of heart skipping beats. Context: The symptoms henry occur at rest. Onset: The symptoms/episode began/occurred today, yesterday. Duration: The patient or guardian reports a single episode, that is still ongoing. Modifying factors: The symptoms are aggravated by nothing. The symptoms are alleviated by nothing. weak, low bp, lethargic. The patient presents with trouble concentrating. Possible causes: hypotension. Associated signs and symptoms: Pertinent positives: dizziness, lightheadedness, nausea, shortness of breath, weakness. Current symptoms: In the emergency department the patient's symptoms are unchanged from the initial presentation. Patient's baseline: Neuro: alert and fully oriented. Historical: - Allergies: 01:24 No Known Allergies; al5 - Home Meds: 02:45 aspirin 81 mg Oral tablet, delayed release (enteric coated) [Active]; atorvastatin 80 al5 mg oral tablet [Active]; levothyroxine 125 mcg oral tablet [Active]; clopidogrel 75 mg oral tablet [Active]; saxagliptin 5 mg oral tablet [Active]; amlodipine 10 mg tablet [Active]; metoprolol tartrate 25 mg Oral tablet 2 times per day [Active]; Jardiance 25 mg oral tablet [Active]; donepezil 5 mg oral tablet every day at bedtime [Active]; gabapentin 300 mg oral capsule every day at bedtime [Active]; docusate sodium 100 mg Oral capsule as needed [Active]; albuterol sulfate 90 mcg/actuation inhalation HFA Aerosol Inhaler [Active]; Lasix 40 mg Oral tablet every 6 hours [Active]; Lantus U-100 Insulin 100 unit/mL Sub-Q solution 60 units 2 times per day [Active]; lisinopril 10 mg Oral tablet [Active]; - PMHx: 01:24 Arthritis; coronary atherosclerosis; High Cholesterol; Hypercholesterolemia; al5 Hypertension; Hypothyroidism; IDDM; kidney issues; - Immunization history:: Adult Immunizations up to date. - Infectious Disease History:: Denies. - Family history:: not pertinent. - Social history:: Smoking status: unknown. ROS: 00:07 Constitutional: Negative for fever, chills, and weight loss, Eyes: Negative for injury, henry pain, redness, and discharge, ENT: Negative for injury, pain, and discharge, Neck: Negative for injury, pain, and swelling, Respiratory: Negative for shortness of breath, cough, wheezing, and pleuritic chest pain, Abdomen/GI: Negative for abdominal pain, nausea, vomiting, diarrhea, and constipation, Back: Negative for injury and pain, : Negative for injury, bleeding, discharge, and swelling, MS/Extremity: Negative for injury and deformity, Skin: Negative for injury, rash, and discoloration, Psych: Negative for depression, anxiety, suicide ideation, homicidal ideation, and hallucinations, Allergy/Immunology: Negative for hives, rash, and allergies, Endocrine: Negative for neck swelling, polydipsia, polyuria, polyphagia, and marked weight changes, Hematologic/Lymphatic: Negative for swollen nodes, abnormal bleeding, and unusual bruising, 00:07 Cardiovascular: Positive for chest pain, palpitations, 00:07 Respiratory: Positive for cough, 00:07 Neuro: Positive for altered mental status, dizziness, weakness, Exam: 00:07 Constitutional: This is a well developed, well nourished patient who is awake, alert, henry and in no acute distress. Head/Face: Normocephalic, atraumatic. Eyes: Pupils equal round and reactive to light, extra-ocular motions intact. Lids and lashes normal. Conjunctiva and sclera are non-icteric and not injected. Cornea within normal limits. Periorbital areas with no swelling, redness, or edema. ENT: Nares patent. No nasal discharge, no septal abnormalities noted. Tympanic membranes are normal and external auditory canals are clear. Oropharynx with no redness, swelling, or masses, exudates, or evidence of obstruction, uvula midline. Mucous membranes moist. Neck: Trachea midline, no thyromegaly or masses palpated, and no cervical lymphadenopathy. Supple, full range of motion without nuchal rigidity, or vertebral point tenderness. No Meningismus. Chest/axilla: Normal chest wall appearance and motion. Nontender with no deformity. No lesions are appreciated. Respiratory: Lungs have equal breath sounds bilaterally, clear to auscultation and percussion. No rales, rhonchi or wheezes noted. No increased work of breathing, no retractions or nasal flaring. Abdomen/GI: Soft, non-tender, with normal bowel sounds. No distension or tympany. No guarding or rebound. No evidence of tenderness throughout. Back: No spinal tenderness. No costovertebral tenderness. Full range of motion. Male : Normal genitalia with no discharge or lesions. MS/ Extremity: Pulses equal, no cyanosis. Neurovascular intact. Full, normal range of motion. Psych: Awake, alert, with orientation to person, place and time. Behavior, mood, and affect are within normal limits. 00:07 Cardiovascular: Rate: bradycardic, actual rate is 30 bpm, Rhythm: irregularly irregular, Pulses: Pulses are 2+ in bilateral radial, brachial, femoral, popliteal, posterior tibial and and dorsalis pedis arteries.. Heart sounds: normal, normal S1and S2, no S3 or S4, no murmur, no rub, no gallop, Edema: 1+ edema to level of left midcalf and right midcalf, JVD: is not appreciated, Bilateral blood pressure: is equal, 00:07 ECG was reviewed by the Attending Physician. Vital Signs: 04/14 23:50 BP 75 / 48; Pulse 39; Weight 109.77 kg; Height 5 ft. 8 in. ; al5 04/15 00:00 Temp 90.5(R); al5 00:00 BP 64 / 43; Pulse 30; Resp 29; Pulse Ox 100% on Nebulizer Mask; al5 00:16 BP 74 / 44; Pulse 61; Resp 29; Pulse Ox 100% ; al5 00:20 BP 94 / 68; Pulse 81; Resp 36; Pulse Ox 99% on Nebulizer Mask; al5 00:23 Weight 109.77 kg; me1 00:30 BP 102 / 77; Pulse 63; Resp 34; Pulse Ox 99% on BiPAP; al5 00:40 BP 72 / 53; Pulse 33; Resp 34; Pulse Ox 100% on BiPAP; al5 00:50 BP 70 / 56; Pulse 34; Resp 40; Pulse Ox 100% on BiPAP; al5 01:00 BP 81 / 66; Pulse 35; Resp 27; Pulse Ox 98% on BiPAP; al5 01:11 BP 93 / 50; Pulse 75; Resp 27; Pulse Ox 98% on BiPAP; al5 01:20 BP 82 / 64; Pulse 66; Resp 25; Pulse Ox 100% on BiPAP; al5 01:31 BP 86 / 66; Pulse 78; Resp 26; Pulse Ox 98% on BiPAP; al5 01:40 BP 99 / 65; Pulse 67; Resp 30; Pulse Ox 99% on BiPAP; al5 04/14 23:50 Body Mass Index 36.80 (109.77 kg, 172.72 cm) al5 Procedures: 01:55 Central Line: the site was prepped with Betadine, in sterile fashion, a triple lumen henry catheter was inserted, in the right femoral vein, in 1 attempts. placement was verified, by blood return, the site was dressed with using sterile technique, the patient tolerated the procedure, well. MDM: 04/14 23:57 Patient medically screened. [facility] 04/15 00:16 ELSY Risk Score: 1 - Patient's age is greater or equal to 65, 1 - 3 or more CAD risk henry factors, [Family HX] [HTN] [Elevated Cholesterol] [DM] 1 - Known CAD, Total Score = 3. Differential diagnosis: arrythmia, dehydration. Differential Diagnosis altered mental status, sepsis, flu. Differential Diagnosis: electrolyte abnormality, hypoglycemia, overdose, TIA, volume depletion. Data reviewed: vital signs, nurses notes, EMS record, lab test result(s), EKG, radiologic studies, plain films. Consideration of Admission/Observation Escalation of care including admission/observation considered. I considered the following discharge prescriptions or medication management in the emergency department Medications were administered in the Emergency Department. See MAR. Test considered but Not performed: Ultrasound 2 d echo. 04/15 00:00 Order name: Basic Metabolic Panel; Complete Time: 00:55 [facility] 04/15 00:00 Order name: CBC with Diff [facility] 04/15 00:00 Order name: LFT's; Complete Time: 00:55 [facility] 04/15 00:00 Order name: Magnesium; Complete Time: 00:55 [facility] 04/15 00:00 Order name: NT PRO-BNP; Complete Time: 00:55 [facility] 04/15 00:00 Order name: PT-INR; Complete Time: 00:42 [facility] 04/15 00:00 Order name: Troponin HS; Complete Time: 00:55 [facility] 04/15 00:18 Order name: ABG; Complete Time: 00:47 [facility] 04/15 00:35 Order name: Blood Culture Adult (2) [facility] 04/15 00:35 Order name: Lactate w/ 2H reflex if indic.; Complete Time: 00:52 [facility] 04/15 00:44 Order name: Manual Differential EDMS 04/15 01:12 Order name: Glucose, Ancillary Testing; Complete Time: 03:02 EDMS 04/15 00:00 Order name: XRAY Chest (1 view) [facility] 04/15 00:19 Order name: BIPAP [facility] 04/15 00:00 Order name: EKG; Complete Time: 00:01 [facility] 04/15 00:00 Order name: Cardiac monitoring; Complete Time: : [facility] 04/15 00:00 Order name: EKG - Nurse/Tech; Complete Time: 01: [facility] 04/15 00:00 Order name: IV Saline Lock; Complete Time: : [facility] 04/15 00:00 Order name: Labs collected and sent; Complete Time: : [facility] 04/15 00:00 Order name: O2 Per Protocol; Complete Time: : [facility] 04/15 00:00 Order name: O2 Sat Monitoring; Complete Time: : [facility] 04/15 00:00 Order name: IV Saline Lock - Large Bore; Complete Time: 01: [facility] 04/15 00:00 Order name: Jude; Complete Time: 01:22 [facility] 04/15 00:47 Order name: Ayan. Order: donald chung; Complete Time: 01:18 [facility] 04/15 00:48 Order name: Central Line Kit; Complete Time: 03:00 [facility] EC:07 Rate is 31 beats/min. Rhythm is irregularly irregular. QRS [place] is Normal. QRS interval henry is normal at 132 msec. QT interval is normal at 458 msec. No Q waves. T waves are Normal. No ST changes noted. Clinical impression: 3rd degree heart block. Interpreted by me. Reviewed by me. Administered Medications: 04/14 23:58 Drug: NS 0.9% IV 500 ml IV at bolus once Route: IV; Rate: bolus; Site: left antecubital;al5 04/15 02:59 Follow up: Response: No adverse reaction; IV Intake: 1000ml al5 03:00 Follow up: Response: No adverse reaction al5 03:00 Follow up: Response: No adverse reaction; IV Status: Completed infusion al5 04/14 23:58 Drug: DOPamine 5 mcg/kg/min IV at per protocol continuous Route: IV; Rate: per al5 protocol; Site: right antecubital; 04/15 00:59 Follow up: Rate change 10 mcg/kg/min al5 02:59 Follow up: Response: No adverse reaction; Medication Administered at Departure; IV al5 Status: Infusion continued upon transfer 00:56 Drug: Famotidine IVP 20 mg IVP once; dilute with 10 mL 0.9% NaCl; give over 2 minutes al5 Route: IVP; Site: left antecubital; 02:58 Follow up: Response: No adverse reaction al5 00:57 CANCELLED (Duplicate Order): ns 0.9% 1000 ml IV at 125 ml/hr continuous henry 01:00 Drug: Calcium Gluconate IVPB 1 grams IVPB once over 60 mins; (mix in NS 100 mL) Route: al5 IVPB; Infused Over: 60 mins; Site: left antecubital; 02:57 Follow up: Response: No adverse reaction; IV Status: Completed infusion; IV Intake: [id number] 02:57 Follow up: Response: No adverse reaction; IV Status: Completed infusion; IV Intake: al5 100ml 01:00 Drug: Sodium Bicarbonate IVP 1 amp IVP once; (50 mL); equals 50 mEq Route: IVP; Site: al5 left antecubital; 01:22 Follow up: Response: No adverse reaction al5 02:57 Follow up: Response: No adverse reaction al5 01:18 Drug: Meropenem IV 1 grams IV at calculated rate once; (mix in NS 100 mL) Route: IV; al5 Rate: calculated rate; Site: left wrist; 02:57 Follow up: Response: No adverse reaction; IV Status: Completed infusion; IV Intake: al5 100ml 01:53 Drug: D5W IV 1000 ml, Sodium Bicarbonate IVP 150 mEq IV at 100 ml/hr continuous Route: al5 IV; Rate: 100 ml/hr; Site: left antecubital; 02:56 Follow up: Response: No adverse reaction; Medication Administered at Departure; IV al5 Status: Infusion continued upon transfer 01:53 Drug: NS 0.9% IV 1000 ml IV at 50 ml/hr continuous Route: IV; Rate: 50 ml/hr; Site: al5 left antecubital; 02:56 Follow up: Response: No adverse reaction; Medication Administered at Departure; IV al5 Status: Infusion continued upon transfer Disposition: 00:16 Critical Care:. henry Disposition Summary: 04/15/24 01:27 Transfer Ordered Notes: Transfer Location: [facility] henry Reason: Higher level of care henry Condition: Serious henry Problem: new henry Symptoms: are unchanged henry Accepting Physician: [facility] , [facility] , c(04/15/24 03:35) al5 Diagnosis - Hypotension, unspecified henry - Other specified heart block - symptomatic, 3rd Degree henry - Anemia, unspecified henry - Weakness henry - Acute kidney failure, unspecified - on Chronic henry - Altered mental status, unspecified henry - Acidosis - mixed henry - Hypothermia, initial encounter henry Forms: - Medication Reconciliation Form henry - SBAR form henry Critical care time excluding procedures: 00:16 Critical care time: Bedside Care: 45 minutes, Consultation: 15 minutes, Family henry Intervention: 10 minutes. Total time: 70 minutes Signatures: Dispatcher [employer] EDMS Jass Muro MD MD cha Brown, Sophia PAPrasadC PACaden sb4 Brianna Hardin RN RN al5 Corrections: (The following items were deleted from the chart) 00:01 00:01 BASIC METABOLIC PANEL+C.LAB.BRZ ordered. EDMS EDMS 00:01 00:01 CBC+H.LAB.BRZ ordered. EDMD EDMS 00:01 00:01 HEPATIC FUNCTION+C.LAB.BRZ ordered. EDMS EDMS 00:01 00:01 MAGNESIUM+C.LAB.BRZ ordered. EDMS EDMS 00:01 00:01 PROBNP+C.LAB.BRZ ordered. EDMD EDMS 00:01 00:01 PROTIME (+INR)+COAG.LAB.BRZ ordered. EDMS EDMS 00:01 00:01 Troponin High Sensitivity+C.LAB.BRZ ordered. EDMS EDMS 00:57 00:00 NS 0.9% IV 1000 ml IV at 125 ml/hr continuous ordered. henry henry 03:02 01:27 [facility] , [facility] , c henry henry 03:35 03:02 [facility] , [facility] , [facility] henry al5
--- NOTE | 2024-04-15 01:28 | ER ---
Nurse's Notes [facility] Name: Valentino Metcalf Age: 78 yrs Sex: Male : 1945 Arrival Date: 04/14/2024 Time: 23:45 Bed 3 Private MD: Diagnosis: Hypotension, unspecified;Other specified heart block-symptomatic, 3rd Degree;Anemia, unspecified;Weakness;Acute kidney failure, unspecified-on Chronic;Altered mental status, unspecified;Acidosis-mixed;Hypothermia, initial encounter Presentation: 04/14 23:50 Chief complaint: EMS states: was called out for unresponsiveness. when ems arrived hr al5 was in the 30s. per patient family, patient had been in and out all day and has been sleeping, also states he has not been able to pee at all. 23:50 Coronavirus screen: At this time, the client does not indicate any symptoms associated al5 with coronavirus-19. Ebola Screen: No symptoms or risks identified at this time. Initial Sepsis Screen: Does the patient meet any 2 criteria? Temp <36.0*C (96.8*F)) or > 38.3*C (100.9*F). Systolic BP < 90 mmHg. Mean Arterial Pressure (MAP) < 65. Yes Does the patient have a suspected source of infection? No. Patient's initial sepsis screen is negative. Risk Assessment: Do you want to hurt yourself or someone else? Patient reports no desire to harm self or others. Onset of symptoms was April 14, 2024. 23:50 Method Of Arrival: EMS: [facility] al5 23:50 Acuity: LYNDSEY 1 al5 23:50 Care prior to arrival: IV initiated. 22 GA, in the left wrist, 18G RAC. al5 Triage Assessment: 23:50 General: Appears ill, Behavior is unresponsive. al5 23:50 Pain: Unable to use pain scale. EENT: No signs and/or symptoms were reported regarding al5 the EENT system. Neuro: Level of Consciousness is unresponsive, Oriented to person, place, time, situation, alert to verbal stimuli; stays up long enough to answer question, but not long enough to keep awake.. Cardiovascular: Rhythm is external pace. Respiratory: Airway is patent Respiratory effort is even, shallow, Respiratory pattern is regular, symmetrical. GI: No signs and/or symptoms were reported involving the gastrointestinal system. : Parent/caregiver report the patient having inability to void. Derm: Skin is intact, Skin is dry, Skin is pale, Skin temperature is cold. Musculoskeletal: No signs and/or symptoms reported regarding the musculoskeletal system. Historical: - Allergies: 04/15 01:24 No Known Allergies; al5 - Home Meds: 02:45 aspirin 81 mg Oral tablet, delayed release (enteric coated) [Active]; atorvastatin 80 al5 mg oral tablet [Active]; levothyroxine 125 mcg oral tablet [Active]; clopidogrel 75 mg oral tablet [Active]; saxagliptin 5 mg oral tablet [Active]; amlodipine 10 mg tablet [Active]; metoprolol tartrate 25 mg Oral tablet 2 times per day [Active]; Jardiance 25 mg oral tablet [Active]; donepezil 5 mg oral tablet every day at bedtime [Active]; gabapentin 300 mg oral capsule every day at bedtime [Active]; docusate sodium 100 mg Oral capsule as needed [Active]; albuterol sulfate 90 mcg/actuation inhalation HFA Aerosol Inhaler [Active]; Lasix 40 mg Oral tablet every 6 hours [Active]; Lantus U-100 Insulin 100 unit/mL Sub-Q solution 60 units 2 times per day [Active]; lisinopril 10 mg Oral tablet [Active]; - PMHx: 01:24 Arthritis; coronary atherosclerosis; High Cholesterol; Hypercholesterolemia; al5 Hypertension; Hypothyroidism; IDDM; kidney issues; - Immunization history:: Adult Immunizations up to date. - Infectious Disease History:: Denies. - Family history:: not pertinent. - Social history:: Smoking status: unknown. Screenin:00 [facility] ED Fall Risk Assessment (Adult) History of falling in the last 3 months, al5 including since admission No falls in past 3 months (0 pts) Confusion or Disorientation No (0 pts) Intoxicated or Sedated No (0 pts) Impaired Gait Yes (1 pt) Mobility Assist Device Used Yes (1 pt) Altered Elimination Yes (1 pt) Score/Fall Risk Level 3 or more points = High Risk Oriented to surroundings, Maintained a safe environment, Hourly rounding (assess needs \T\ fall precautionary measures) done, Implemented a Fall Risk Plan of Care. 00:00 Abuse screen: Denies threats or abuse. Denies injuries from another. Nutritional al5 screening: No deficits noted. Tuberculosis screening: No symptoms or risk factors identified. Assessment: 04/14 23:50 Reassessment: see triage assessment. al5 04/15 00:30 Reassessment: Patient appears in no apparent distress at this time. No changes from al5 previously documented assessment. Patient and/or family updated on plan of care and expected duration. Pain level reassessed. Patient is alert, oriented x 3, equal unlabored respirations, skin warm/dry/pink. 01:00 Reassessment: Patient appears in no apparent distress at this time. No changes from al5 previously documented assessment. Patient and/or family updated on plan of care and expected duration. Pain level reassessed. Patient is alert, oriented x 3, equal unlabored respirations, skin warm/dry/pink. 01:30 Reassessment: Patient appears in no apparent distress at this time. No changes from al5 previously documented assessment. Patient and/or family updated on plan of care and expected duration. Pain level reassessed. Patient is alert, oriented x 3, equal unlabored respirations, skin warm/dry/pink. 02:00 Reassessment: Patient appears in no apparent distress at this time. No changes from al5 previously documented assessment. Patient and/or family updated on plan of care and expected duration. Pain level reassessed. Patient is alert, oriented x 3, equal unlabored respirations, skin warm/dry/pink. Vital Signs: 04/14 23:50 BP 75 / 48; Pulse 39; Weight 109.77 kg; Height 5 ft. 8 in. ; al5 04/15 00:00 Temp 90.5(R); al5 00:00 BP 64 / 43; Pulse 30; Resp 29; Pulse Ox 100% on Nebulizer Mask; al5 00:16 BP 74 / 44; Pulse 61; Resp 29; Pulse Ox 100% ; al5 00:20 BP 94 / 68; Pulse 81; Resp 36; Pulse Ox 99% on Nebulizer Mask; al5 00:23 Weight 109.77 kg; me1 00:30 BP 102 / 77; Pulse 63; Resp 34; Pulse Ox 99% on BiPAP; al5 00:40 BP 72 / 53; Pulse 33; Resp 34; Pulse Ox 100% on BiPAP; al5 00:50 BP 70 / 56; Pulse 34; Resp 40; Pulse Ox 100% on BiPAP; al5 01:00 BP 81 / 66; Pulse 35; Resp 27; Pulse Ox 98% on BiPAP; al5 01:11 BP 93 / 50; Pulse 75; Resp 27; Pulse Ox 98% on BiPAP; al5 01:20 BP 82 / 64; Pulse 66; Resp 25; Pulse Ox 100% on BiPAP; al5 01:31 BP 86 / 66; Pulse 78; Resp 26; Pulse Ox 98% on BiPAP; al5 01:40 BP 99 / 65; Pulse 67; Resp 30; Pulse Ox 99% on BiPAP; al5 04/14 23:50 Body Mass Index 36.80 (109.77 kg, 172.72 cm) al5 ED Course: 04/14 23:49 Patient arrived in ED. vk 23:57 Jass Muro MD is Attending Physician. [facility] 04/15 00:36 [facility] called for patient transport. ty 00:38 initiated transfer with [facility] spoke with doug Rosen vk 00:40 patient was accepted to [facility] RM2 to Dr. FONSECA 0032 per Doug Jesus/ patient was accepted vk to be transported by [facility]. 00:43 XRAY Chest (1 view) In Process Unspecified. EDMS 01:00 Patient has correct armband on for positive identification. Placed in gown. Bed in low al5 position. Call light in reach. Side rails up X2. Adult w/ patient. Provided Education on: need for transfer. 01:18 Brianna Hardin, RN is Primary Nurse. al5 01:18 Manual Differential Sent. al5 01:18 Blood Culture Adult (2) Sent. al5 01:29 Triage completed. al5 01:30 Assisted provider with central line placement. Set up central line tray. Triple lumen al5 line placed in right femoral. Line placed by Jass Muro MD Placement verified by blood return, Dressed with Tegaderm, Patient tolerated well. 01:58 [facility] arrived at facility. ty 02:45 Patient transferred, IV remains in place. al5 03:01 Arm band placed on left wrist. Patient placed in the treatment room, on a stretcher. al5 Administered Medications: 04/14 23:58 Drug: NS 0.9% IV 500 ml IV at bolus once Route: IV; Rate: bolus; Site: left antecubital;al5 04/15 02:59 Follow up: Response: No adverse reaction; IV Intake: 1000ml al5 03:00 Follow up: Response: No adverse reaction al5 03:00 Follow up: Response: No adverse reaction; IV Status: Completed infusion al5 04/14 23:58 Drug: DOPamine 5 mcg/kg/min IV at per protocol continuous Route: IV; Rate: per al5 protocol; Site: right antecubital; 04/15 00:59 Follow up: Rate change 10 mcg/kg/min al5 02:59 Follow up: Response: No adverse reaction; Medication Administered at Departure; IV al5 Status: Infusion continued upon transfer 00:56 Drug: Famotidine IVP 20 mg IVP once; dilute with 10 mL 0.9% NaCl; give over 2 minutes al5 Route: IVP; Site: left antecubital; 02:58 Follow up: Response: No adverse reaction al5 00:57 CANCELLED (Duplicate Order): ns 0.9% 1000 ml IV at 125 ml/hr continuous henry 01:00 Drug: Calcium Gluconate IVPB 1 grams IVPB once over 60 mins; (mix in NS 100 mL) Route: al5 IVPB; Infused Over: 60 mins; Site: left antecubital; 02:57 Follow up: Response: No adverse reaction; IV Status: Completed infusion; IV Intake: [id number] 02:57 Follow up: Response: No adverse reaction; IV Status: Completed infusion; IV Intake: al5 100ml 01:00 Drug: Sodium Bicarbonate IVP 1 amp IVP once; (50 mL); equals 50 mEq Route: IVP; Site: al5 left antecubital; 01:22 Follow up: Response: No adverse reaction al5 02:57 Follow up: Response: No adverse reaction al5 01:18 Drug: Meropenem IV 1 grams IV at calculated rate once; (mix in NS 100 mL) Route: IV; al5 Rate: calculated rate; Site: left wrist; 02:57 Follow up: Response: No adverse reaction; IV Status: Completed infusion; IV Intake: al5 100ml 01:53 Drug: D5W IV 1000 ml, Sodium Bicarbonate IVP 150 mEq IV at 100 ml/hr continuous Route: al5 IV; Rate: 100 ml/hr; Site: left antecubital; 02:56 Follow up: Response: No adverse reaction; Medication Administered at Departure; IV al5 Status: Infusion continued upon transfer 01:53 Drug: NS 0.9% IV 1000 ml IV at 50 ml/hr continuous Route: IV; Rate: 50 ml/hr; Site: al5 left antecubital; 02:56 Follow up: Response: No adverse reaction; Medication Administered at Departure; IV al5 Status: Infusion continued upon transfer Medication: 00:00 VIS not applicable for this client. al5 Intake: 02:57 IV: 100ml; Total: 100ml. al5 02:57 IV: 50ml; Total: 150ml. al5 02:57 IV: 100ml; Total: 250ml. al5 02:59 IV: 1000ml; Total: 1250ml. al5 Outcome: 01:27 ER care complete, transfer ordered by MD. figueroa 02:43 Transferred by helicopter [facility]. to [facility], [place] [facility] 02:[place] critical 02:43 Instructed on the need for transfer, 03:35 Patient left the ED. al5 Addendum: 04/20/2024 08:23 Addendum: Culture Results: Positive blood culture. pt was transferred to higher level i care facility. Signatures: Dispatcher [employer] EDMS Jass Muro MD MD cha Williams, Irene, RN Sherin Raygoza RN RN Shanell Tong Tylor ty Langhorst, Amanda, RN RN al5 Corrections: (The following items were deleted from the chart) 04/15 01:21 00:30 NS 0.9% IV 500 ml IV at bolus in left antecubital al5 al5 01:22 00:19 DOPamine 548.85 mcg/min IV at per protocol in right antecubital al5 al5 01:44 01:29 Respiratory: Airway is patent Respiratory effort is even, shallow, Respiratory al5 pattern is regular, symmetrical, on nonrebreather mask al5 :49 01:26 Chief complaint: EMS states: was toned out for unresponsiveness. when ems al5 arrived, patient hr was in the 30's. per patient family, patient had been sleeping on and off all day but has been lethargic and has not been urinating at all. al5 :49 01:26 Coronavirus screen: At this time, the client does not indicate any symptoms al5 associated with coronavirus-19. al5 : Ebola Screen: No symptoms or risks identified at this time. al5 : Initial Sepsis Screen: Does the patient meet any 2 criteria? RR > 20 per min. al5 Temp <36.0*C (96.8*F)) or > 38.3*C (100.9*F). Systolic BP < 90 mmHg. Mean Arterial Pressure (MAP) < 65. Altered Mental Status. Yes Does the patient have a suspected source of infection? No. Patient's initial sepsis screen is negative. al5 : Risk Assessment: Do you want to hurt yourself or someone else? Unable to obtain al5 al5 01: Onset of symptoms was April 14, 2024 al5 al5 01: Method Of Arrival: EMS: [facility] al5 5 01: Acuity: LYNDSEY 1 al5 al5 01:29 General: Appears ill, Behavior is unresponsive. al5 5 01:29 Pain: Unable to use pain scale. Patient is unresponsive. al5 5 01:29 EENT: No signs and/or symptoms were reported regarding the EENT system. al5 al5 01:29 Neuro: Level of Consciousness is unresponsive, alert to verbal stimuli but cannot al5 stay awake. Oriented to person, place, time, situation, al5 01:29 GI: No signs and/or symptoms were reported involving the gastrointestinal system. al5 5 01:29 : Parent/caregiver report the patient having inability to void al5 al5 01:29 Derm: Skin is intact, Skin is dry, Skin is pale, Skin temperature is cold al5 al5 01:29 Musculoskeletal: No signs and/or symptoms reported regarding the musculoskeletal al5 system. al5 01:29 Cardiovascular: skin cold and dry. Rhythm is with failure to capture al5 al5 01:29 Respiratory: Airway is patent Respiratory effort is even, shallow, Respiratory al5 pattern is regular, symmetrical, on nonrebreather mask al5
[2024-04-15] MEDS ORDERED: NA CHLORIDE 0.9% 500 ML ONE (01:59)
[2024-04-15 03:28] LABS: Band Neutrophils 7 % (0-1); Basophilic Stippling 1+; Blood Morphology Comment NOTED (NOT SEEN); Burr Cells 1+; Differential Total Cells Count 100; Eosinophils 1 % (0-3); Lymphocytes 19 % (15-42); Monocytes 8 % (0-10); Nucleated Red Blood Cells 2 /100WBC; Platelet Estimate DECR; Segmented Neutrophils 65 % (40-80)
[2024-04-15 03:44] VITALS: TEMP 90.5
[2024-04-15 04:01] VITALS: BP 99/65; O2SAT 99
--- NOTE | 2024-04-15 11:05 | RAD REPORT ---
EXAM DESCRIPTION: Chest Single View CLINICAL HISTORY: 78 years Male DYSPNEA TECHNIQUE: One view of the chest. COMPARISON: No prior exams provided for comparison. FINDINGS: Probable retrocardiac infiltrate. Probable small left pleural effusion. No pneumothorax. M ild prominence of the cardiomediastinal silhouette. IMPRESSION: Probable retrocardiac infiltrate and small left pleural effusion. Electronically signed by: Carrie Mendoza MD 04/15/2024 12:49 AM CDT RP Due to temporary technical issues with the PACS/Fluency reporting system, reports are being signed by the in house radiologist without review as a courtesy to ensure prompt reporting. The interpreting r adiologist is fully responsible for the content of the report.
--- NOTE | 2024-04-16 14:43 | EKG ---
Test Date: 2024-04-14 Test Time: 23:50:17 Manager Creative Services: EVANGELISTA MEASUREMENT RESULTS: Intervals: Rate: 31 NE: QRSD: 132 QT: 638 QTc: 458 [place]: P: NE: QRS: -66 T: 27 INTERPRETIVE STATEMENTS: Idioventricular rhythm Left axis deviation Nonspecific intraventricular block Abnormal ECG Compared to ECG 04/07/2024 10:25:55 Idioventricular rhythm now present Sinus bradycardia no longer present Electronically Signed On 04-16-24 14:40:13 CDT by Ash Kelley
== END 2024-04-15 03:35 | disposition short-term general hospital (02) ==
LOC: ER 23:45
PROC: 06HM33Z Insertion of Infusion Device into Right Femoral Vein, Percutaneous Approach (ICD-10-PCS; principal; 2024-04-15)
DX: I95.9 Hypotension, unspecified (principal); I44.2 Atrioventricular block, complete; D64.9 Anemia, unspecified; R53.1 Weakness; T68.XXXA Hypothermia, initial encounter; E11.22 Type 2 diabetes mellitus with diabetic chronic kidney disease; I12.9 Hypertensive chronic kidney disease with stage 1 through stage 4 chronic kidney disease, or unspecified chronic kidney disease; N18.9 Chronic kidney disease, unspecified; N17.9 Acute kidney failure, unspecified; Z79.4 Long term (current) use of insulin; E87.4 Mixed disorder of acid-base balance; Z79.82 Long term (current) use of aspirin
CPT/HCPCS: 93005; 87040 ×2; 85025; 80048; 36415; 83735; 87205 ×4; 85610; 82947; 80076; 83605; 87077 ×2; 87186 ×2; 84484; 83880; 71045; 82805; 99285; 36556 ×2; 36600; 94660; J0612; J2185; J7040; J7030 ×3

== ENCOUNTER 2024-05-22 13:47 | Emergency (ER) | payer OTHER ==
--- NOTE | 2024-05-22 14:53 | RAD REPORT ---
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 Tricompartmental d egenerative changes are present, advanced in the medial and lateral compartment.. Moderate nonspecific knee effusion. Other: n/a IMPRESSION: No evidence of acute osseous abnormality involving the imaged knee. Moderate knee effusio n which is nonspecific and could be related to degenerative changes
[2024-05-22 15:05] LABS: Absolute Basophils 0.1 K/uL (0-0.5); Absolute Eosinophils 0.1 K/uL (0-0.5); Absolute Lymphocytes (CBC) 1.2 K/uL (0.7-4.9); Absolute Monocytes 1.5 K/uL (0.1-1.3); Absolute Neutrophil 8.5 K/uL (1.8-8.0); Basophils % 0.7 % (0-1.3); Eosinophils % 0.9 % (0-4.4); Hematocrit 28.8 % (39.6-49.0); Hemoglobin 9.2 g/dL (13.6-17.9); Lymphocytes % 10.4 % (15.3-44.8); MCH 28.6 pg (27.0-35.0); MCHC 31.8 g/dL (32.0-36.0); MCV 89.8 fL (80-100); MPV 8.7 fL (7.6-11.3); Monocytes % 13.5 % (3.3-12.3); Neutrophils % 74.5 % (41.7-73.7); Platelets 185 thou/uL (152-406); Red Cell Distribution Width 15.1 % (12.1-15.2)
[2024-05-22 15:20] LABS: Albumin 2.8 g/dL (3.4-5.0); Albumin/Globulin Ratio 0.7 (1.1-1.8); Anion Gap 8.2 mEq/L (5.0-15.0); Bilirubin Total 0.9 mg/dL (0.2-1.0); Globulin 3.8 g/dL (2.3-3.5); Potassium 3.2 mEq/L (3.5-5.1); Protein, Total 6.6 g/dL (6.4-8.2)
[2024-05-22 15:29] LABS: PT Prothrombin Time 17.1 SECONDS (9.4-12.5); Protime INR 1.55
--- NOTE | 2024-05-22 15:44 | ER ---
Nurse's Notes [facility] Name: Valentino Metcalf Age: 78 yrs Sex: Male : 1945 Arrival Date: 05/22/2024 Time: 13:47 Bed 13 Private MD: Diagnosis: Effusion, left knee;Pain in left knee Presentation: 05/22 14:10 Chief complaint: EMS states: toned out to [facility]; pt. was at dialysis and ar6 dialysis had EMS fern picker pt. due to right knee pain x2 days; pt. reports falling on knees 2 days ago. Coronavirus screen: Client denies travel out of the [place] in the last 14 days. At this time, the client does not indicate any symptoms associated with coronavirus-19. Ebola Screen: Patient negative for fever greater than or equal to 101.5 degrees Fahrenheit, and additional compatible Ebola Virus Disease symptoms Patient denies exposure to infectious person. Patient denies travel to an Ebola-affected area in the 21 days before illness onset. No symptoms or risks identified at this time. Initial Sepsis Screen: Does the patient meet any 2 criteria? No. Patient's initial sepsis screen is negative. Does the patient have a suspected source of infection? No. Patient's initial sepsis screen is negative. Risk Assessment: Do you want to hurt yourself or someone else? Patient reports no desire to harm self or others. Onset of symptoms was May 20, 2024. 14:10 Method Of Arrival: EMS: [facility] ar6 14:10 Acuity: LYNDSEY 3 ar6 Triage Assessment: 14:19 General: Appears in no apparent distress. uncomfortable, Behavior is calm, cooperative, ar6 appropriate for age. Pain: Complains of pain in left leg Pain currently is 10 out of 10 on a pain scale. Pain began 2-3 days ago. EENT: Oral mucosa is moist. Neuro: Level of Consciousness is awake, alert, obeys commands, Oriented to person, place, time, situation. Cardiovascular: Capillary refill < 3 seconds. Respiratory: Airway is patent. GI: Abdomen is round non-distended. : No signs and/or symptoms were reported regarding the genitourinary system. Derm: Skin is intact, is healthy with good turgor, Skin is dry, Skin is pink, warm \T\ dry. Musculoskeletal: Reports pain in left leg left knee pain. Injury Description: pt. reports fell getting out of vehicle to left knee. Historical: - Allergies: 14:19 No Known Allergies; ar6 - Immunization history:: Adult Immunizations up to date. - Infectious Disease History:: Denies. - Social history:: Smoking status: Patient denies any tobacco usage or history of. Screenin:23 [facility] ED Fall Risk Assessment (Adult) History of falling in the last 3 months, ar6 including since admission Yes- single mechanical fall (1 pt) Confusion or Disorientation No (0 pts) Intoxicated or Sedated No (0 pts) Impaired Gait Yes (1 pt) Mobility Assist Device Used Yes (1 pt) Altered Elimination No (0 pt) Score/Fall Risk Level 3 or more points = High Risk Oriented to surroundings, Maintained a safe environment, Educated pt \T\ family on fall prevention, incl call for assistance when getting out of bed, Hourly rounding (assess needs \T\ fall precautionary measures) done, Implemented a Fall Risk Plan of Care. Abuse screen: Denies threats or abuse. Denies injuries from another. Nutritional screening: No deficits noted. Tuberculosis screening: No symptoms or risk factors identified. Assessment: 14:22 Reassessment: No changes from previously documented assessment. see triage assessment. ar6 Vital Signs: 14:10 BP 144 / 68; Pulse 78; Resp 18; Temp 97.9; Pulse Ox 98% on R/A; Weight 90 kg; Pain ar6 10/10; 14:19 BP 144 / 68; Pulse 78; Resp 18; Temp 97.9; Pulse Ox 98% ; Pain 10/10; ar6 14:22 BP 106 / 94; Pulse 77; Resp 18; Pulse Ox 98% on R/A; ar6 15:29 BP 110 / 64; Pulse 78; Resp 18; Pulse Ox 98% on R/A; ar6 16:08 BP 125 / 69; Pulse 74; Resp 18; Pulse Ox 99% on R/A; ar6 14:10 Pain Scale: Adult ar6 14:19 Pain Scale: Adult ar6 ED Course: 14:09 Patient arrived in ED. eb 14:10 Pastora Delacruz, RN is Primary Nurse. ar6 14:12 Triage completed. ar6 14:16 Gonzalo Natarajan MD is Attending Physician. rt 14:16 Mich Kramer FNP-C is PHCP. dr5 14:23 Patient has correct armband on for positive identification. Bed in low position. Call ar6 light in reach. Side rails up X2. Provided Education on: plan of care. Pulse ox on. NIBP on. Door closed. Noise minimized. Lights dimmed. Warm blanket given. Head of bed elevated. 14:23 No provider procedures requiring assistance completed. ar6 14:25 Mich Kramer FNP-C is PHCP. dr5 14:25 Gonzalo Natarajan MD is Attending Physician. dr5 14:48 Knee Left 2 View XRAY In Process Unspecified. EDMS 14:59 Inserted saline lock: 20 gauge in right antecubital area, using aseptic technique. ar6 Blood collected. Flushed with 10 mL NS. 14:59 CBC with Diff Sent. ar6 14:59 CMP Sent. ar6 14:59 Protime (+inr) Sent. ar6 14:59 Ptt, Activated Sent. ar6 16:09 Patient anushka bandage. ar6 16:09 IV discontinued, intact, bleeding controlled, No redness/swelling at site. Pressure ar6 dressing applied. Administered Medications: No medications were administered Medication: 16:09 VIS not applicable for this client. ar6 Outcome: 15:44 Discharge ordered by . dr5 16:08 Discharged to home via wheelchair, with family, ar6 16:08 Condition: stable 16:08 Discharge instructions given to patient, significant other, Instructed on discharge instructions, follow up and referral plans. Demonstrated understanding of instructions, follow-up care, 16:09 Patient left the ED. ar6 Signatures: Dispatcher [employer] EDME Trisha Saunders Ryan, MD MD rt Pastora Delacruz RN RN ar6 Mich Kramer FNP-C FORGE PRESS OPERATOR-[id number] Corrections: (The following items were deleted from the chart) 16:09 16:09 PMHx: Hypertension; ar6 ar6 16:09 16:09 PMHx: Arthritis; ar6 ar6 16:09 16:09 PMHx: Hypothyroidism; ar6 ar6 16:09 16:09 PMHx: High Cholesterol; ar6 ar6 16:09 16:09 PMHx: coronary atherosclerosis; ar6 ar6 16:09 16:09 PMHx: IDDM; ar6 ar6 16: PMHx: Hypercholesterolemia; ar6 ar6 : PMHx: kidney issues; ar6 ar6
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
[2024-05-22 16:14] VITALS: TEMP 97.9
[2024-05-22 16:21] VITALS: BP 125/69; O2SAT 99
== END 2024-05-22 16:09 | disposition home or self-care (01) ==
LOC: ER 13:47
DX: M25.462 Effusion, left knee (principal)
CPT/HCPCS: 36415; 80053; 85025; 85610; 85730; 99284

== ENCOUNTER 2024-07-23 06:34 | Day surgery (SDC) | payer OTHER ==
[2024-07-22 14:38] LABS: Absolute Basophils 0.1 K/uL (0-0.5); Absolute Eosinophils 0.4 K/uL (0-0.5); Absolute Lymphocytes (CBC) 1.3 K/uL (0.7-4.9); Absolute Monocytes 0.7 K/uL (0.1-1.3); Absolute Neutrophil 4.4 K/uL (1.8-8.0); Basophils % 1.3 % (0-1.3); Eosinophils % 5.5 % (0-4.4); Hematocrit 36.9 % (39.6-49.0); Hemoglobin 12.1 g/dL (13.6-17.9); Lymphocytes % 19.4 % (15.3-44.8); MCHC 32.6 g/dL (32.0-36.0); MCV 88.8 fL (80-100); MPV 8.6 fL (7.6-11.3); Monocytes % 10.2 % (3.3-12.3); Neutrophils % 63.6 % (41.7-73.7); Platelets 214 thou/uL (152-406); RBC Red Blood Cell Count 4.16 M/uL (4.33-5.43); Red Cell Distribution Width 15.2 % (12.1-15.2)
--- NOTE | 2024-07-22 16:54 | RAD REPORT ---
EXAMINATION: TWO VIEW CHEST XR CLINICAL INDICATION: Male, 78 years old. HS MAIN PREOP Hypertension TECHNIQUE: 2 view radiographs of the chest were performed. COMPARISON: 04/15/2024 FINDINGS: The lungs are well inflated and clear. Right IJ dialysis catheter in satisfactory position. No pneumo thorax or sizable effusion. The heart is normal in size. Mediastinal contours are unremarkable. IMPRESSION: No acute or significant abnormalities.
[2024-07-23] MEDS ORDERED: ONDANSETRON 4 MG/2 ML VIAL ONE (07:10)
[2024-07-23] MEDS ORDERED: propofoL 200 MG/20 ML VIAL IV ONE (07:10)
[2024-07-23] MEDS ORDERED: FENTANYL CITR 100 MCG/2 ML ONE (07:10)
[2024-07-23] MEDS ORDERED: LIDOCAINE 2% MPF 5 ML VIAL ONE (07:10)
[2024-07-23] MEDS: CEFAZOLIN SODIUM 1 GM/VIAL ONE (07:11)
[2024-07-23] MEDS: NA CHLORIDE 0.9% 1,000 ML ONE (07:12)
--- NOTE | 2024-07-23 08:15 | P.BOP ---
Preoperative diagnosis: hx of renal failure Postoperative diagnosis: same Primary procedure: Removal of hemodialysis catheter Estimated blood loss: <10cc Specimen: intact cath Findings: as above Anesthesia: General Complications: None Transferred to: Recovery Room Condition: Good
[2024-07-23 10:07] VITALS: BP 161/76; O2SAT 100
[2024-07-23 10:08] VITALS: TEMP 97
--- NOTE | 2024-07-23 19:57 | OP ---
Date of Procedure: 07/23/2024 Surgeon: Moy Metcalf MD Preoperative Diagnosis: History of renal failure. Postop Diagnosis: History of renal failure. Procedure: Removal of hemodialysis HemoSplit cuff catheter. Estimated Blood Loss: Less than 10 cc. Specimen: Intact catheter. Finding: As above. Anesthesia: General plus local. Indication: This is a case of a 78-year-old patient in no more need for hemodialysis, so they want a cuff hemodialysis catheter removal. The cuff of this is deep in the subcutaneous tissue, so we sche duled him to be done under anesthetic with benefits, alternatives, and risks include, but not limited to infection, bleeding, damage to adjacent structures, anesthesia complication, PE, DVT, IN, and cynthia th. He also understands this may not relieve any symptoms. He might need more than one surgical int ervention. He understood, signed a consent. Description Of Procedure: The patient brought to the operating room, placed in supine position, anes thesia was without complication. A time-out was called. Right chest was prepped and draped in a edwina rile fashion. Local anesthesia was applied. After that, I proceeded to make an incision on the skin , identified the cuff, released the cuff from the subcutaneous tissue and carefully without resistant pulled the catheter off making sure the catheter comes out clear. We applied pressure over the area about 15 minutes. The catheter was sent to the pathologist for identification and the way the wound was closed with 3-0 chromic and sterile dressings on top. The patient was sent to recovery in stabl e condition. No complications. Estimated Blood Loss: Less than 3 cc. Disposition: Home. Activity: As tolerated. No heavy lifting. Follow up in my office in 1 week. Call for appointment [phone]. Keep area dry for 48 hours, then may remove the dressings and shower. STU/KYRAL Voice ID: [id number] Report ID: [id number]
== END 2024-07-23 10:00 | disposition home or self-care (01) ==
LOC: OR 06:34
PROVIDERS: ATTEND Surgery
PROC: 05PY03Z Removal of Infusion Device from Upper Vein, Open Approach (ICD-10-PCS; principal; 2024-07-23 07:30)
DX: N18.6 End stage renal disease (principal); Z49.02 Encounter for fitting and adjustment of peritoneal dialysis catheter
CPT/HCPCS: 85025; 36415; 82947 ×2; 88300; 71046; 36589; J2704; J2003; J3010; J2405; J7030; J0690

== ENCOUNTER 2024-11-04 12:34 | Observation (INO) | payer OTHER ==
--- NOTE | 2024-11-04 13:37 | RAD REPORT ---
EXAMINATION: ONE VIEW CHEST XR CLINICAL INDICATION: Male, 79 years old.,PAIN TECHNIQUE: Frontal chest projection is submitted. Examination is limited by patient positioning and t echnique. COMPARISON: 07/22/2024 FINDINGS: The lungs are well inflated and clear. No pneumothorax or sizable effusion. The heart is normal in s ize. Mediastinal contours are unremarkable. IMPRESSION: No acute intrathoracic abnormalities.
[2024-11-04 13:58] LABS: Absolute Basophils 0.1 K/uL (0-0.5); Absolute Eosinophils 0.2 K/uL (0-0.5); Absolute Lymphocytes (CBC) 0.7 K/uL (0.7-4.9); Absolute Monocytes 0.6 K/uL (0.1-1.3); Basophils % 0.6 % (0-1.3); Eosinophils % 1.7 % (0-4.4); Hematocrit 34.4 % (39.6-49.0); Hemoglobin 11.4 g/dL (13.6-17.9); Lymphocytes % 7.6 % (15.3-44.8); MCH 28.9 pg (27.0-35.0); MCHC 33.3 g/dL (32.0-36.0); MCV 86.9 fL (80-100); Monocytes % 6.7 % (3.3-12.3); Neutrophils % 83.4 % (41.7-73.7); Platelets 171 thou/uL (152-406); RBC Red Blood Cell Count 3.96 M/uL (4.33-5.43); Red Cell Distribution Width 14.6 % (12.1-15.2)
[2024-11-04 14:00] LABS: PT Prothrombin Time 11.2 SECONDS (10-13.0); PTT, Activated Partial Thromb 30.3 SECONDS (27.2-37.4); Protime INR 0.98
[2024-11-04 14:22] LABS: Albumin 2.7 g/dL (3.4-5.0); Albumin/Globulin Ratio 0.9 (1.1-1.8); Anion Gap 9.8 mEq/L (5.0-15.0); Bilirubin Direct 0.2 mg/dL (0-0.2); Bilirubin Indirect, Calculated 0.3 mg/dL (0.2-0.8); Bilirubin Total 0.5 mg/dL (0.2-1.0); Potassium 3.8 mEq/L (3.5-5.1); Protein, Total 5.7 g/dL (6.4-8.2); Troponin High Sensitivity 10.4 pg/mL (<58.9)
--- NOTE | 2024-11-04 15:29 | ER ---
Nurse's Notes [facility] [place], [place] Name: Valentino Metcalf Age: 79 yrs Sex: Male : 1945 Arrival Date: 11/04/2024 Time: 12:34 Bed 2 Private MD: Diagnosis: syncope Presentation: 11/04 12:41 Chief complaint: EMS states: toned out to patient home for syncopal episode while ld1 having bowel movement. Pt reports constipation X 2-3 days - took laxatives last night. Coronavirus screen: At this time, the client does not indicate any symptoms associated with coronavirus-19. Ebola Screen: No symptoms or risks identified at this time. Initial Sepsis Screen: Does the patient meet any 2 criteria? No. Patient's initial sepsis screen is negative. Does the patient have a suspected source of infection? No. Patient's initial sepsis screen is negative. Risk Assessment: Do you want to hurt yourself or someone else? Patient reports no desire to harm self or others. Onset of symptoms was November 04, 2024. 12:41 Method Of Arrival: EMS: [facility] ld1 12:41 Acuity: LYNDSEY 3 ld1 Triage Assessment: 12:39 General: Appears in no apparent distress. comfortable, Behavior is calm, cooperative, ld1 appropriate for age. Pain: Denies pain. EENT: No signs and/or symptoms were reported regarding the EENT system. Neuro: Level of Consciousness is awake, alert, obeys commands, Oriented to person, place, time, situation, Reports dizziness. Neuro: Reports a syncopal episode. Cardiovascular: Capillary refill < 3 seconds Patient's skin is warm and dry. Rhythm is sinus bradycardia. Respiratory: Airway is patent Respiratory effort is even, unlabored. GI: Abdomen is round non-distended, Reports constipation, nausea. : No signs and/or symptoms were reported regarding the genitourinary system. Derm: No signs and/or symptoms reported regarding the dermatologic system. Musculoskeletal: No signs and/or symptoms reported regarding the musculoskeletal system. Historical: - Allergies: 12:39 No Known Allergies; ld1 - PMHx: 12:39 chronic kidney disease; diabetes mellitus; Hypercholesterolemia; Hypertensive disorder; ld1 - Immunization history:: Adult Immunizations up to date. - Infectious Disease History:: Denies. - Social history:: Smoking status: Patient denies any tobacco usage or history of. Screenin:38 [facility] ED Fall Risk Assessment (Adult) History of falling in the last 3 months, ld1 including since admission No falls in past 3 months (0 pts) Confusion or Disorientation No (0 pts) Intoxicated or Sedated No (0 pts) Impaired Gait No (0 pts) Mobility Assist Device Used No (0 pt) Altered Elimination No (0 pt) Score/Fall Risk Level 0 - 2 = Low Risk Oriented to surroundings, Hourly rounding (assess needs \T\ fall precautionary measures) done. Abuse screen: Denies threats or abuse. Denies injuries from another. Nutritional screening: No deficits noted. Tuberculosis screening: No symptoms or risk factors identified. Assessment: 15:27 Reassessment: See triage assessment. General: Appears in no apparent distress. ld1 comfortable, Behavior is calm, cooperative, appropriate for age. Pain: Denies pain. Neuro: Level of Consciousness is awake, alert, obeys commands, Oriented to person, place, time, situation. Cardiovascular: Capillary refill < 3 seconds Patient's skin is warm and dry. Rhythm is sinus bradycardia. 15:27 Reassessment: Patient appears in no apparent distress at this time. No changes from ld1 previously documented assessment. Patient and/or family updated on plan of care and expected duration. Pain level reassessed. Patient is alert, oriented x 3, equal unlabored respirations, skin warm/dry/pink. 16:52 Reassessment: Patient appears in no apparent distress at this time. Patient and/or jb4 family updated on plan of care and expected duration. Pain level reassessed. Patient is alert, oriented x 3, equal unlabored respirations, skin warm/dry/pink. Pt reports wanting to leave against medical advise. ER physician notified. 17:30 Reassessment: Patient appears in no apparent distress at this time. No changes from ld1 previously documented assessment. Patient and/or family updated on plan of care and expected duration. Pain level reassessed. 18:38 Reassessment: Patient appears in no apparent distress at this time. No changes from ld1 previously documented assessment. Patient and/or family updated on plan of care and expected duration. Pain level reassessed. Patient is alert, oriented x 3, equal unlabored respirations, skin warm/dry/pink. Vital Signs: 12:39 BP 139 / 119; Pulse 59; Resp 18; Temp 97.6(TE); Pulse Ox 97% on R/A; Weight 91.63 kg; ld1 Height 5 ft. 8 in. ; Pain 0/10; 12:41 BP 143 / 126; Pulse 59; Resp 18; Pulse Ox 97% on R/A; ld1 14:02 BP 108 / 61; Pulse 52; Resp 11; Pulse Ox 95% on R/A; ld1 15:27 BP 104 / 58; Pulse 53; Resp 18; Pulse Ox 100% on R/A; ld1 16:10 BP 132 / 92; Pulse 54; Resp 15; Pulse Ox 97% on R/A; ld1 16:53 BP 136 / 65; Pulse 60; Resp 16; Pulse Ox 97% on R/A; jb4 12:39 Body Mass Index 30.71 (91.63 kg, 172.72 cm) ld1 12:39 Pain Scale: Adult ld1 ED Course: 12:36 Patient arrived in ED. bc6 12:38 Jessica Campos, SHAKIRA is Primary Nurse. ld1 12:39 Arm band placed on right wrist. ld1 12:42 Triage completed. ld1 12:42 Maintain EMS IV. Dressing intact. Good blood return noted. Site clean \T\ dry. Gauge \T\ ld 1 site: 20G RAC. 12:44 Michelle Carroll MD is Attending Physician. sw6 13:21 Chest Single View XRAY In Process Unspecified. EDMS 15:27 Tpoher Tyler is Hospitalizing Provider. sw6 17:07 CT Head Brain wo Cont In Process Unspecified. EDMS 18:38 Patient has correct armband on for positive identification. Placed in gown. Bed in low ld1 position. Call light in reach. Side rails up X2. air sampling and monitoring on. Pulse ox on. NIBP on. Door closed. Noise minimized. Warm blanket given. 18:38 No provider procedures requiring assistance completed. Patient admitted, IV remains in ld1 place. Administered Medications: No medications were administered Medication: 17:30 VIS not applicable for this client. ld1 Outcome: 15:28 Decision to Hospitalize by Provider. sw6 18:38 Admitted to Med/surg accompanied by tech, via stretcher, with chart, ld1 18:38 Condition: stable 18:38 Instructed on the need for admit, 18:39 Patient left the ED. ld1 Signatures: Dispatcher [employer] Christoph Hirsch RN RN jb4 Jessica Campos RN RN ld1 Ofelia Acosta bc6 Michelle Carroll MD MD sw6
--- NOTE | 2024-11-04 15:29 | EDPHYS ---
Physician Documentation [facility] Name: Valentino Metcalf Age: 79 yrs Sex: Male : 1945 Arrival Date: 11/04/2024 Time: 12:34 Bed 2 Private MD: ED Physician Michelle Carroll HPI: 11/04 13:04 This 79 yrs old Male presents to ER via EMS with complaints of Syncope. sw6 13:04 The patient has experienced syncope, became unresponsive. Onset: The symptoms/episode sw6 began/occurred this morning. Duration: This was a single episode, that lasted 30 minute(s). Context: the episode(s) was witnessed, , occurred at home, occurred while the patient was Sitting on the bedside commode. Associated injury: The patient did not suffer any apparent associated injury. Associated signs and symptoms: The patient has no apparent associated signs or symptoms. Current symptoms: Currently, the patient is not experiencing any symptoms, the patient feels back to baseline. The patient presents from home and EMS for evaluation after syncopal episode that occurred this morning. His reports he had gotten up to use the bedside commode when the incident occurred. She reports she looked over at him and his head was hanging down and he seemed to be drooling. She tried to get him to respond numerous times that he did not. She then called her son who came home from work and he was still unresponsive. They then called EMS who noted he was hypotensive. He was given IV fluids and brought to the ER for evaluation. The patient does not recall the event. He did not fall off of the commode. He denies any chest pain or shortness of breath. No nausea, vomiting or diarrhea. He did eat dinner yesterday evening but has not had breakfast yet this morning. He does have a history of hypotension and is prescribed midodrine as needed but has not had a dose in several days. No fevers or chills. No dysuria or hematuria. He does not take any blood thinners. Here for evaluation.. Historical: - Allergies: 12:39 No Known Allergies; ld1 - PMHx: 12:39 chronic kidney disease; diabetes mellitus; Hypercholesterolemia; Hypertensive disorder; ld1 - Immunization history:: Adult Immunizations up to date. - Infectious Disease History:: Denies. - Social history:: Smoking status: Patient denies any tobacco usage or history of. ROS: 13:04 Constitutional: Negative for fever, chills, and weight loss, Cardiovascular: Negative sw6 for chest pain, palpitations, and edema, Respiratory: Negative for shortness of breath, cough, wheezing, and pleuritic chest pain, Abdomen/GI: Negative for abdominal pain, nausea, vomiting, diarrhea, and constipation, MS/Extremity: Negative for injury and deformity, Skin: Negative for injury, rash, and discoloration, 13:04 All other systems are negative, Exam: 13:04 Constitutional: This is a well developed, well nourished patient who is awake, alert, sw6 and in no acute distress. Chest/axilla: Normal chest wall appearance and motion. Nontender with no deformity. No lesions are appreciated. Cardiovascular: Regular rate and rhythm with a normal S1 and S2. No gallops, murmurs, or rubs. Normal PMI, no JVD. No pulse deficits. Respiratory: Lungs have equal breath sounds bilaterally, clear to auscultation and percussion. No rales, rhonchi or wheezes noted. No increased work of breathing, no retractions or nasal flaring. Abdomen/GI: Soft, non-tender, with normal bowel sounds. No distension or tympany. No guarding or rebound. No evidence of tenderness throughout. Skin: Warm, dry with normal turgor. Normal color with no rashes, no lesions, and no evidence of cellulitis. MS/ Extremity: Pulses equal, no cyanosis. Neurovascular intact. Full, normal range of motion. Neuro: Awake and alert, GCS 15, oriented to person, place, time, and situation. Cranial nerves II-XII grossly intact. Motor strength 5/5 in all extremities. Sensory grossly intact. Cerebellar exam normal. Normal gait. 13:04 Neuro: Baseline essential tremor is noted, 14:41 ECG was reviewed by the Attending Physician. sw6 Vital Signs: 12:39 BP 139 / 119; Pulse 59; Resp 18; Temp 97.6(TE); Pulse Ox 97% on R/A; Weight 91.63 kg; ld1 Height 5 ft. 8 in. ; Pain 0/10; 12:41 BP 143 / 126; Pulse 59; Resp 18; Pulse Ox 97% on R/A; ld1 14:02 BP 108 / 61; Pulse 52; Resp 11; Pulse Ox 95% on R/A; ld1 15:27 BP 104 / 58; Pulse 53; Resp 18; Pulse Ox 100% on R/A; ld1 16:10 BP 132 / 92; Pulse 54; Resp 15; Pulse Ox 97% on R/A; ld1 16:53 BP 136 / 65; Pulse 60; Resp 16; Pulse Ox 97% on R/A; jb4 12:39 Body Mass Index 30.71 (91.63 kg, 172.72 cm) ld1 12:39 Pain Scale: Adult ld1 MDM: 12:44 Medical Screening Exam initiated 13:04 Differential Diagnosis: cardiac arrhythmia, vasovagal episode. 15:28 Data reviewed: vital signs, nurses notes, EMS record, lab test result(s), EKG, radiologic studies, plain films. Management of patient was discussed with the following: Hospitalist: . ED course: The patient is doing well here in the ER. He is resting comfortably in the examination room. He has had no further episodes of syncope and has not been hypotensive since arrival. He does have a prescription for midodrine to take at home as needed and family did try to give him a dose today while he was passed out sitting on the commode. They report some of the pill did dissolve in his mouth. His laboratory studies here in the ER are unremarkable. His chest x-ray shows no acute cardiopulmonary issues. He does require admission for continued management. Spoke with Dr. Tyler and the patient was accepted for admission for continued management.. 11/04 13:01 Order name: Basic Metabolic Panel; Complete Time: 14:42 11/04 13:01 Order name: CBC with Diff; Complete Time: 14:07 11/04 14:07 Interpretation: Within normal limits. 11/04 13:01 Order name: Hepatic Function; Complete Time: 14:42 11/04 13:01 Order name: Magnesium; Complete Time: 14:42 11/04 13:01 Order name: Protime (+inr); Complete Time: 14:07 11/04 14:07 Interpretation: Within normal limits. 11/04 13:01 Order name: Ptt, Activated; Complete Time: 14:07 11/04 14:07 Interpretation: Within normal limits. 11/04 13:01 Order name: Troponin High Sensitivity; Complete Time: 14:42 11/04 13:01 Order name: Urinalysis w/ reflexes 11/04 17:13 Order name: Basic Metabolic Panel EDMS 11/04 17:13 Order name: Basic Metabolic Panel EDMS 11/04 17:13 Order name: Basic Metabolic Panel EDMS 11/04 17:13 Order name: Basic Metabolic Panel EDMS 11/04 17:13 Order name: CBC with Automated Diff EDMS 11/04 17:13 Order name: CBC with Automated Diff EDMS 11/04 17:13 Order name: CBC with Automated Diff EDMS 11/04 17:13 Order name: CBC with Automated Diff EDMS 11/04 17:13 Order name: Magnesium EDMS 11/04 17:13 Order name: Magnesium EDMS 11/04 17:13 Order name: Magnesium EDMS 11/04 17:13 Order name: Magnesium EDMS 11/04 17:13 Order name: Phosphorus EDMS 11/04 17:13 Order name: Phosphorus EDMS 11/04 17:13 Order name: Phosphorus EDMS 11/04 17:13 Order name: Phosphorus EDMS 11/04 17:13 Order name: Troponin High Sensitivity EDMS 11/04 17:13 Order name: Troponin High Sensitivity EDMS 11/04 17:13 Order name: Troponin High Sensitivity EDMS 11/04 13:01 Order name: Chest Single View XRAY; Complete Time: 14:07 11/04 14:07 Interpretation: No acute disease. 11/04 16:20 Order name: CT Head Brain wo Cont 11/04 17:13 Order name: Echo with Doppler EDMS 11/04 17:13 Order name: Physical Therapy Consult EDDE 11/04 13:01 Order name: Cardiac monitoring; Complete Time: 13:20 11/04 13:01 Order name: EKG - Nurse/Tech; Complete Time: 13:48 11/04 13:01 Order name: IV Saline Lock; Complete Time: 13:20 11/04 13:01 Order name: Labs collected and sent; Complete Time: 13:48 11/04 13:01 Order name: NPO; Complete Time: 13:20 11/04 13:01 Order name: O2 Per Protocol; Complete Time: 13:20 /20 13:01 Order name: O2 Sat Monitoring; Complete Time: 13:20 sw6 EC:41 Rate is 57 beats/min. Rhythm is regular. QRS interval is prolonged. No Q waves. T waves sw6 are Normal. No ST changes noted. Administered Medications: No medications were administered Disposition Summary: 11/04/24 15:28 Hospitalization Ordered Notes: Hospitalization Status: Observation sw6 Provider: Topher Tyler sw Location: Telemetry/MedSurg (observation) sw6 Condition: Stable sw6 Problem: new sw6 Symptoms: have improved sw6 Bed/Room Type: Standard rust Room Assignment: 224(11/04/24 17:19) bc6 Diagnosis - syncope sw6 Forms: - Medication Reconciliation Form sw6 - SBAR form sw6 - Leadership Thank You Letter Signatures: Dispatcher [employer] EDMS Jessica Campos RN RN ld1 Ofelia Acosta bc6 Michelle Carroll MD MD 6 Corrections: (The following items were deleted from the chart) 13:02 13:02 BASIC METABOLIC PANEL+C.LAB.BRZ ordered. EDMS EDMS 13:02 13:02 CBC+H.LAB.BRZ ordered. EDMS EDMS 13:02 13:02 HEPATIC FUNCTION+C.LAB.BRZ ordered. EDMS EDMS 13:02 13:02 MAGNESIUM+C.LAB.BRZ ordered. EDMS EDMS 13:02 13:02 PROTIME (+INR)+COAG.LAB.BRZ ordered. EDMS EDMS 13:02 13:02 PTT, ACTIVATED+COAG.LAB.BRZ ordered. EDMS EDMS 13:02 13:02 Troponin High Sensitivity+C.LAB.BRZ ordered. EDMS EDMS 13:02 13:02 Urinalysis+U.LAB.BRZ ordered. EDMS EDMS 13:02 13:02 Chest Single View+RAD.RAD.BRZ ordered. EDMS EDMS 17:19 15:28 sw6 bc6
--- NOTE | 2024-11-04 15:58 | P.HP ---
Certification for Inpatient Patient admitted to: Observation With expected LOS: <2 Midnights Patient will require the following post-hospital care: None Practitioner: I am a practitioner with admitting privileges, knowledge of patient current condition, hospital course, and medical plan of care. Services: Services provided to patient in accordance with Admission requirements found in Title 42 Section 412.3 of the Code of Federal Regulations Patient History Date of Service: 11/04/24 Reason for admission: Syncopal episode History of Present Illness: Valentino Yu is a 79 year old male with pmhx HTN, HLD, hypothyroidism, DM, CAD, arthritis, hypercholesterolemia, kidney disease who presents to the ED after a syncopal episode while sitting on the bedside commode. EMS reports SBP in the 60s but on arrival, SBP 139. He reports having these episodes regularly and resolves when he sitting in the recliner with his feet up and takes midodrine at home. Family reports checking his blood pressure every morning and night. Family reports he needs his medications adjusted. Laboratory evaluation significant for BUN/creatinine 45/3.02, GFR 20, serum glucose 166. Chest xray reports "No acute intrathoracic abnormalities." Head CT reports "No acute intracranial abnormality noted." Valentino will be admitted to hospitalist service for further evaluation and treatment of acute metabolic encephalopathy 2/2 hypotension Allergies No Known Allergies Allergy (Verified 07/22/24 14:07) Home Medications: Levothyroxine [Synthroid*] 125 mcg PO [id number] 03/15/14 Aspirin [Aspirin EC 81 MG] 81 mg PO DAILY 10/02/15 Docusate [Colace Cap*] 100 mg PO DAILY PRN 05/04/23 Atorvastatin Calcium [Lipitor] 80 mg PO DAILY 02/11/24 Donepezil [Aricept*] 5 mg PO BEDTIME 02/11/24 Amiodarone HCl [Cordarone*] 1 tab PO DAILY 07/22/24 Insulin Glargine,Hum.rec.anlog [Lantus] 20 units SQ BID 07/22/24 Levetiracetam [Keppra] 1 tab PO Q12H 07/22/24 Midodrine HCl 1 tab PO BID 07/22/24 Pantoprazole [Protonix Tab*] 1 tab PO DAILY 07/22/24 Primidone 2 tab PO DAILY 07/22/24 calcitrioL [Rocaltrol] 1 cap PO DAILY 07/22/24 Codeine/APAP [Tylenol W/Codeine #3 tab] 1 tab PO Q6HP PRN #1 tab 07/23/24 - Past Medical/Surgical History Diabetic: Yes -: High Blood Pressure -: 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 - Social History Smoking Status: Former smoker Alcohol use: Yes CD- Drugs: No Caffeine use: Yes Review of Systems Other: Per HPI Physical Examination - Physical Exam General: Alert, In no apparent distress, Oriented x3 HEENT: Atraumatic, Normocephalic Neck: Supple Respiratory: Clear to auscultation bilaterally, Normal air movement Cardiovascular: Normal pulses, Regular rate/rhythm Capillary refill: <2 Seconds Gastrointestinal: Normal bowel sounds, Soft and benign Musculoskeletal: No clubbing Integumentary: No rashes Neurological: Normal speech, Normal tone - Studies Laboratory Data (last 24 hrs) 11/04/24 11/04/24 11/04/24 13:39 13:39 13:39 WBC 9.60 Hgb 11.4 L Hct 34.4 L Plt Count 171 PT 11.2 INR 0.98 APTT 30.3 Sodium 138 Potassium 3.8 BUN 45 H Creatinine 3.02 H Glucose 166 H Magnesium 2.0 Total Bilirubin 0.5 AST 18 ALT 24 Alkaline Phosphatase 69 Assessment and Plan - Plan Assessment and plan Acute Metabolic Encephalopathy 2/2 Hypotension History of HTN -midodrine PRN -gentle IVF -continuous telemetry -hold antihypertensives -will need adjustments on home antihypertensives -Physical therapy -orthostatic vitals -ECHO -trend troponin Chronic Kidney disease -consult Dr. Leon -galileo IVF -Monitor in AM labs HLD hypothyroidism CAD arthritis hypercholesterolemia -continue home medications if appropriate DVT ppx SCD Full code LOS 24 hour OBS Discharge Plan: Home Plan to discharge in: 24 Hours - Advance Directives Does patient have a Living Will: No Does patient have a Durable POA for Healthcare: No
[2024-11-04] MEDS ORDERED: ACETAMINOPHEN 325 MG TABLET PO PRN (17:06)
--- NOTE | 2024-11-04 17:33 | RAD REPORT ---
EXAM: CT brain without contrast HISTORY: Syncope COMPARISON: 2023 TECHNIQUE: Multiple contiguous axial images were obtained and a CT of the brain without contrast.. Sagittal and coronal reconstruction performed. Automated exposure control, adjustment of the mA and/or kV according to patient size, and/or iterative reconstruction. 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 IMPRESSION: No acute intracranial abnormality noted. If the patient continues to have symptoms to suggest an acute intracranial abnormality then MRI of th e brain would be recommended.
[2024-11-04 18:34] LABS: Specific Gravity 1.016 (1.005-1.030); Sqamous Epithelial <5 /HPF (None Seen); Urine Bacteria None Seen /HPF (<20); Urine Bilirubin NEGATIVE (Negative); Urine Blood Negative (Negative); Urine Clarity Turbid (Clear); Urine Color Light-Yellow (Yellow); Urine Culture Reflex Order NOT NEEDED; Urine Glucose TRACE (Negative); Urine Ketones NEGATIVE (Negative); Urine Microscopic Reflex YN ORDER UMIC; Urine Mucus Slight /HPF (None Seen); Urine Nitrite NEGATIVE (Negative); Urine Protein 2+ (Negative); Urine RBC <5 /HPF (None Seen); Urine Urobilinogen Normal (Normal); Urine WBC <5 /HPF (<5); Urine WBC Clump Rare /HPF (None Seen); Urine Yeast (Budding) Trace /HPF (None Seen); Urine pH 5.5 (5.0-7.0)
[2024-11-04 18:48] VITALS: O2SAT 97
[2024-11-04] MEDS ORDERED: MIDODRINE HCL 5 MG TABLET PO PRN (19:09)
[2024-11-04] MEDS: NA CHLORIDE 0.9% 1,000 ML IV SCH (19:23)
[2024-11-04] MEDS ORDERED: DOCUSATE NA 100 MG CAP PO PRN (20:28)
[2024-11-04] MEDS: MIDODRINE HCL 5 MG TABLET PO SCH (21:00)
[2024-11-04] MEDS: PANTOPRAZOLE 40MG TABLET PO ONE (21:28)
[2024-11-04] MEDS: ATORVASTATIN 80 MG TAB ONE (21:29)
[2024-11-04] MEDS: DONEPEZIL HCL 5 MG TAB ONE (21:29)
[2024-11-04] MEDS: levETIRAcetam 500 MG TAB ONE (21:30)
[2024-11-04] MEDS: DONEPEZIL HCL 5 MG TAB PO SCH (21:46)
[2024-11-04] MEDS: ATORVASTATIN 80 MG TAB PO SCH (21:47)
[2024-11-04] MEDS: PANTOPRAZOLE 40MG TABLET PO SCH (21:47)
[2024-11-04] MEDS: LEVETIRACETAM 750 MG PO SCH (21:47)
[2024-11-04 22:23] VITALS: BMI 30.7
[2024-11-05 05:42] LABS: Absolute Eosinophils 0.1 K/uL (0-0.5); Absolute Lymphocytes (CBC) 1.3 K/uL (0.7-4.9); Absolute Monocytes 0.5 K/uL (0.1-1.3); Absolute Neutrophil 4.4 K/uL (1.8-8.0); Basophils % 0.7 % (0-1.3); Eosinophils % 2.2 % (0-4.4); Hematocrit 30.3 % (39.6-49.0); Hemoglobin 10.2 g/dL (13.6-17.9); Lymphocytes % 20.8 % (15.3-44.8); MCH 28.9 pg (27.0-35.0); MCHC 33.5 g/dL (32.0-36.0); MCV 86.3 fL (80-100); MPV 9.2 fL (7.6-11.3); Monocytes % 7.6 % (3.3-12.3); Neutrophils % 68.7 % (41.7-73.7); Nucleated Red Blood Cells % 0.1 % (0-0); Platelets 161 thou/uL (152-406); RBC Red Blood Cell Count 3.52 M/uL (4.33-5.43); Red Cell Distribution Width 14.4 % (12.1-15.2)
[2024-11-05] MEDS: LEVOTHYROXINE SOD 0.125 MG TAB PO SCH (05:42)
[2024-11-05 05:52] LABS: Anion Gap 8.8 mEq/L (5.0-15.0); Magnesium 2.1 mg/dL (1.6-2.4); Phosphorus 3.9 mg/dL (2.5-4.9); Potassium 3.8 mEq/L (3.5-5.1)
[2024-11-05] MEDS: ASPIRIN EC 81 MG TAB PO SCH (09:43)
[2024-11-05] MEDS: PRIMIDONE 50 MG TAB PO SCH (09:43)
[2024-11-05] MEDS: POTASSIUM CL SA 10 MEQ TAB PO ONE (09:44)
[2024-11-05] MEDS: AMIODARONE HCL 200 MG TAB PO SCH (09:44)
[2024-11-05] MEDS: levETIRAcetam 500 MG TAB PO SCH (09:45)
[2024-11-05] MEDS: CALCITROL 0.25 MCG CAP PO SCH (09:46)
--- NOTE | 2024-11-05 12:27 | P.DS ---
Admission Date: 11/04/24 Discharge Date: 11/05/24 Disposition: ROUTINE DISCHARGE Discharge Condition: GOOD Reason for Admission: Syncopal episode Brief History of Present Illness: Diagnosis Acute Metabolic Encephalopathy 2/2 Hypotension History of HTN Chronic Kidney disease HLD hypothyroidism CAD arthritis hypercholesterolemi HPI 11/04/24 Valentino Yu is a 79 year old male with pmhx HTN, HLD, hypothyroidism, DM, CAD, arthritis, hypercholesterolemia, kidney disease who presents to the ED after a syncopal episode while sitting on the bedside commode. EMS reports SBP in the 60s but on arrival, SBP 139. He reports having these episodes regularly and resolves when he sitting in the recliner with his feet up and takes midodrine at home. Family reports checking his blood pressure every morning and night. Family reports he needs his medications adjusted. Laboratory evaluation significant for BUN/creatinine 45/3.02, GFR 20, serum glucose 166. Chest xray reports "No acute intrathoracic abnormalities." Head CT reports "No acute intracranial abnormality noted." Valentino will be admitted to hospitalist service for further evaluation and treatment of acute metabolic encephalopathy 2/2 hypotension Hospital Course: Patient was admitted and treated for the following diagnosis Acute Metabolic Encephalopathy 2/2 Hypotension History of HTN -tolerated gentle IVF -continuous telemetry with no acute events overnight -Held antihypertensives if SBP <130 -Midodrine PRN if SBP < 120 -Physical therapy -orthostatic vitals WNL -ECHO complete -troponin trended flat Chronic Kidney disease -Follow up with Dr. Avila -gentle IVF tolerated -BUN/creatinine stable at basline HLD hypothyroidism CAD arthritis hypercholesterolemia -continued home medications as appropriate Physical Exam General: Alert and Oriented x3, NAD Neck: Supple Respiratory: Clear BBS, Normal air movement, on RA Cardiovascular: Normal pulses, RRR, S1 S2 present Capillary refill: <2 Seconds Gastrointestinal: Normal bowel sounds, Soft on palpation Musculoskeletal: No clubbing Integumentary: No rashes Neurological: Normal speech, Normal tone Vital Signs/Physical Exam: Temp Pulse Resp BP Pulse Ox 98.9 F 55 14 132/59 L 95 11/05/24 08:00 11/05/24 08:00 11/05/24 08:00 11/05/24 08:00 11/05/24 08:00 Laboratory Data at Discharge: WBC 6.40 thou/uL (4.3-10.9) 03/21/25 04:57 Hgb 10.2 g/dL (13.6-17.9) L D 11/05/24 04:57 Hct 30.3 % (39.6-49.0) L 11/05/24 04:57 Plt Count 161 thou/uL (152-406) 11/05/24 04:57 PT 11.2 SECONDS (10-13.0) 11/04/24 13:39 INR 0.98 11/04/24 13:39 APTT 30.3 SECONDS (27.2-37.4) 11/04/24 13:39 Sodium 139 mEq/L (136-145) 11/05/24 04:57 Potassium 3.8 mEq/L (3.5-5.1) 11/05/24 04:57 BUN 44 mg/dL (7-18) H 11/05/24 04:57 Creatinine 3.03 mg/dL (0.70-1.30) H 11/05/24 04:57 Glucose 117 mg/dL (74-106) H 11/05/24 04:57 Phosphorus 3.9 mg/dL (2.5-4.9) 11/05/24 04:57 Magnesium 2.1 mg/dL (1.6-2.4) 11/05/24 04:57 Total Bilirubin 0.5 mg/dL (0.2-1.0) 11/04/24 13:39 AST 18 U/L (15-37) 11/04/24 13:39 ALT 24 U/L (16-61) 11/04/24 13:39 Alkaline Phosphatase 69 U/L (45-117) 11/04/24 13:39 Home Medications: Levothyroxine [Synthroid*] 125 mcg PO [id number] 03/15/14 Aspirin [Aspirin EC 81 MG] 81 mg PO DAILY 10/02/15 Docusate [Colace Cap*] 100 mg PO DAILY PRN 05/04/23 Atorvastatin Calcium [Lipitor] 80 mg PO BEDTIME 02/11/24 Donepezil [Aricept*] 5 mg PO BEDTIME 02/11/24 Amiodarone HCl [Cordarone*] 1 tab PO DAILY 07/22/24 Levetiracetam [Keppra] 1 tab PO Q12H 07/22/24 Midodrine HCl 1 tab PO BID 07/22/24 Pantoprazole [Protonix Tab*] 1 tab PO BID 07/22/24 Primidone 2 tab PO DAILY 07/22/24 calcitrioL [Rocaltrol] 1 cap PO DAILY 07/22/24 Physician Discharge Instructions: 1. Please call and schedule a follow-up appointment with your PCP in 3-5 days - Please follow-up with your PCP for medication refills/adjustments 2. Please call and schedule a follow-up appointment with Dr. Kelley in one week 3. Please call and schedule a follow-up appointment with Dr. Avila 3. Continue renal diet 4. activity restrictions fall precautions 5. Return to the ED if symptoms worsen Continue to check blood pressure, try to check three times daily, take blood pressure medications if the top number is above 130 Have midodrine avaliable for blood pressure with top number < 120 Midordrine can be taken three times daily if needed Diet: Renal Activity: Fall precautions Followup: Bismark Avila MD [ACTIVE - CAN ADMIT] - 1 Week Ash Kelley MD [ACTIVE - CAN ADMIT] - 1 Week Heriberto Lee MD [Primary Care Provider] - 1-2 Weeks
[2024-11-05 12:40] VITALS: BP 151/72; TEMP 98.4
[2024-11-05] MEDS ORDERED: HEPARIN 5000 UNIT/ML 1 ML VIAL SQ SCH (17:30)
--- NOTE | 2024-11-05 17:38 | CON ---
Date of Consultation: 11/05/2024 Chief Complaint: Syncope. Reason For Consultation: Chronic kidney disease. History Of Present Illness: This is a 79-year-old man with past medical history of diabetic chronic kidney disease stage 4, baseline creatinine is 3, history of diabetes, hypertension, hyperlipidemia, coronary artery disease. The patient presented to the ER for syncopal episode. They reported blood sugar was in the 60s on arrival. EMS reported blood pressure was in 60s upon boluses of 60s, but on arrival, his systolic blood pressure was 140 and a blood sugar of 166, was admitted for further evalu ation. Past Medical History: Diabetes mellitus, chronic kidney disease, hypertension, secondary hyperparath yroidism. Past Surgical History: Left knee surgery, back surgery, cardiac stent. Social History: Former smoker. Denies recreational drug abuse. No alcohol abuse. Review of Systems: Positive for weakness. Denied nausea, vomiting, diarrhea, or constipation. Physical Examination: Vital Signs: Temperature 98.4, pulse is 54, blood pressure 151/72. General: Awake, alert, and oriented x3, not in distress. Neck: Supple. No elevated JVD. Heart: Regular rhythm. Normal S1, S2. Chest: Clear to auscultation bilaterally. No rales or wheezes. Abdomen: Soft, nontender. Extremities: No edema. Labs: White count 6.4, hemoglobin 10.2. Sodium 139, potassium 3.8, BUN 44, creatinine of 3, GFR of 20. Assessment And Plan: 1. Diabetic chronic kidney disease, stage 4. Creatinine is stable at baseline. Renal dose medicatio n. Avoid NSAID and contrast. 2. Syncopal episode, possibly due to hypertension, . 3. Diabetes mellitus. Continue sliding scale insulin. 4. . Continue current medications. Thanks for allowing me to participate in the patient's care. Total time spent 55 minutes, including documentation, reviewing labs, and placing orders. GABBY/JAMEEL Voice ID: [id number] Report ID: [id number]
--- NOTE | 2024-11-08 08:46 | ECHO ---
HEIGHT: 5 ft 8 in WEIGHT: 202 lb 0.153 oz DATE OF STUDY: 11/05/[address]: Cori Vital NP 2-DIMENSIONAL: YES M.MODE: YES DOPPLER: YES COLOR FLOW: YES TDS: PORTABLE: YES DEFINITY: BUBBLE STUDY: DIAGNOSIS: SYNCOPAL EPISODE CARDIAC HISTORY: CATHERIZATION: SURGERY: PROSTHETIC VALVE: PACEMAKER: MEASUREMENTS (cm) DIASTOLIC (NORMALS) SYSTOLIC (NORMALS) IVSd 1.0 (0.6-1.2) LA Diam 4.0 (1.9-4.0) LVEF 60-65% LVIDd 5.1 (3.5-5.7) LVIDs 3.2 (2.0-3.5) %FS 38% LVPWd 1.2 (0.6-1.2) Ao Diam 3.1 (2.0-3.7) 2 DIMENSIONAL ASSESSMENT: RIGHT ATRIUM: NORMAL LEFT ATRIUM: ENLARGED RIGHT VENTRICLE: NORMAL LEFT VENTRICLE: NORMAL TRICUSPID VALVE: TRACE TRICUSPID REGURGITATION MITRAL VALVE: MILD MITRAL REGURGITATION PULMONIC VALVE: MILD PULMONIC INSUFFICIECNY AORTIC VALVE: THICKENED AORTIC VALVE, NO AORTIC STENOSIS PERICARDIAL EFFUSION: NONE AORTIC ROOT: NORMAL LEFT VENTRICULAR WALL MOTION: NORMAL DOPPLER/COLOR FLOW: SEE BELOW COMMENTS: 1. NORMAL LEFT VENTRICULAR EJECTION FRACTION 60-65% 2. NORMAL WALL MOTION 3. GRADE I DIASTOLIC DYSFUNCTION 4. LEFT ATRIAL ENLARGEMENT TECHNOLOGIST: MAUDE TREJO
--- NOTE | 2024-11-08 12:13 | EKG ---
Test Date: 2024-11-04 Test Time: 13:31:44 [employer] Operator: JAY JAY MEASUREMENT RESULTS: Intervals: Rate: 57 NH: 170 QRSD: 138 QT: 496 QTc: 482 [place]: P: 50 NH: 170 QRS: -72 T: 85 INTERPRETIVE STATEMENTS: Sinus bradycardia Left axis deviation Nonspecific intraventricular block Abnormal ECG Compared to ECG 04/14/2024 23:50:17 Idioventricular rhythm no longer present Electronically Signed On 11-08-24 12:04:50 CDT by Ash Kelley
== END 2024-11-05 13:40 | disposition home or self-care (01) ==
LOC: ER 12:34 → ERHOLD 17:06 → 2ND 18:19
PROVIDERS: ADMIT Internal Medicine; ATTEND Internal Medicine
DX: G93.41 Metabolic encephalopathy (principal); R55 Syncope and collapse; N18.4 Chronic kidney disease, stage 4 (severe); E78.5 Hyperlipidemia, unspecified; E03.9 Hypothyroidism, unspecified; I25.10 Atherosclerotic heart disease of native coronary artery without angina pectoris; E78.00 Pure hypercholesterolemia, unspecified; I95.9 Hypotension, unspecified; E11.22 Type 2 diabetes mellitus with diabetic chronic kidney disease; I12.9 Hypertensive chronic kidney disease with stage 1 through stage 4 chronic kidney disease, or unspecified chronic kidney disease
CPT/HCPCS: 93005; 93306; 85025 ×2; 81001; 80048 ×2; 36415; 83735 ×2; 84100; 85610; 82947 ×3; 80076; 85730; 84484 ×3; 70450; 71045; 97161; 97530 ×2; 99285; J7030 ×2; G0378 ×3